=== PATIENT | female | born 1980 | race Caucasian/White ===

== ENCOUNTER 2019-07-15 17:34 | Emergency (ER) | payer MEDICARE, MEDICAID, SELFPAY ==
[2019-07-15 17:42] VITALS: BP 125/71; PULSE 88; RESP 18; TEMP 37.3; O2SAT 100
--- NOTE | 2019-07-15 18:02 | ED.GENADULT ---
HPI - General Adult General Chief complaint: Skin/Abscess/Foreign Body Stated complaint: knot on left side of chest Time Seen by Provider: 07/15/19 18:02 Source: patient and RN notes reviewed Mode of arrival: ambulatory Limitations: no limitations History of Present Illness HPI narrative: 38-year-old female presents with complaints of redness, warmth, tenderness, and swelling to LT side of back of neck for the past 30 days and LT upper chest for the past 4 days. No recent treatment. Denies radiation of tenderness, redness, or swelling. Exacerbating factors consist of Corina picking at areas. Denies open areas or drainage. Denies fever or chills. The patient reports they have not been diagnosed with COVID-19. The patient reports they are not waiting for the results of a COVID-19 lab test. The patient reports they do not have fever, chills, weakness, fatigue, myalgia, or facial swelling. The patient reports they do not have a new or worsening cough or shortness of breath. Denies chest pain. The patient reports they do not have any rhinorrhea, congestion, sore throat, nausea, vomiting, abdominal pain, and diarrhea. Tolerating po intake well. Denies recent traveling. Denies concerns for COVID-19 or exposures been home since [id number] order except for essential household needs and return home. At this time, patient is not suspected of having COVID-19. Some parts of this dictation were generated by voice recognition software and may contain typographical and/or grammatical inaccuracies. Related Data Home Medications Medication Instructions Recorded Confirmed alprazolam 1 mg PO TID 07/15/19 07/15/19 cetirizine 10 mg PO DAILY 07/15/19 07/15/19 dexlansoprazole [Dexilant] 60 mg PO DAILY 07/15/19 07/15/19 diclofenac sodium 1 % TOPICAL DIRECTED PRN 07/15/19 07/15/19 dicyclomine 20 mg PO Q2H 07/15/19 07/15/19 gabapentin 100 mg PO BID 07/15/19 07/15/19 hydroxyzine pamoate 25 mg PO TID 07/15/19 07/15/19 lurasidone [Latuda] 40 mg PO DAILY 07/15/19 07/15/19 oxycodone-acetaminophen 1 tablet PO Q6H 07/15/19 07/15/19 zolpidem 5 mg PO HS 07/15/19 07/15/19 Allergies Allergy/AdvReac Type Severity Reaction Status Date / Time vancomycin Allergy Intermediate Hives / Verified 07/15/19 17:58 Red Face erythromycin base Allergy Mild Hives / Verified 07/15/19 17:58 Red Face Review of Systems Review of Systems: Narrative: CONSTITUTIONAL: Denies fever, chills, sweats. EYES: Denies visual changes, redness, discharge. ENT: Denies rhinorrhea, congestion, sore throat, otalgia. CARDIOVASCULAR: Denies chest pain, palpitations, edema. RESPIRATORY: Denies dyspnea, wheezing, cough. GASTROINTESTINAL: Denies abdominal pain, nausea, vomiting, diarrhea. GENITOURINARY: Denies dysuria, hematuria, abnormal discharge. SKIN: Complains of redness, swelling, warmth, and tenderness to LT side of back of neck and LT upper chest. MUSCULOSKELETAL: Denies acute back pain, joint pain, or myalgia. NEUROLOGIC: Denies numbness or focal weakness. PSYCHIATRIC: Denies anxiety or depression. All systems reviewed & are unremarkable except as noted in HPI and below. [facility] Past Medical History Medical History (Updated 07/15/19 @ 18:17 by MUNIRA Gutierrez) Anxiety Colon cancer Diabetes Surgical History Surgical History (Updated 07/15/19 @ 18:13 by MUNIRA Gutierrez) History of colectomy History of kidney surgery Family History Family History (Updated 07/15/19 @ 18:14 by MUNIRA Gutierrez) Father Alive and well Mother Carcinoma of colon Grandparent Carcinoma of colon Sibling Carcinoma of colon Sibling Diabetes mellitus Social History Social History (Updated 07/15/19 @ 18:15 by MUNIRA Gutierrez) Smoking status: Never smoker Alcohol intake: never Substance use: never Living arrangements: with family Gender identity (if verbalized by the patient): Female Comments
== END 2019-07-15 18:20 | disposition home or self-care (01) ==
PROVIDERS: Emergency Provider Nurse Practitioner Family
DX: L03.221 Cellulitis of neck (principal); F41.9 Anxiety disorder, unspecified; Z85.038 Personal history of other malignant neoplasm of large intestine; E11.9 Type 2 diabetes mellitus without complications; Z90.49 Acquired absence of other specified parts of digestive tract
CPT/HCPCS: 99213; G0463

== ENCOUNTER 2020-02-22 12:05 | Emergency (ER) | payer MEDICARE, MEDICAID, SELFPAY ==
--- NOTE | 2020-02-22 12:20 | ED.GENADULT ---
HPI - General Adult General Chief complaint: Skin/Abscess/Foreign Body Stated complaint: poss spider bite Time Seen by Provider: 02/22/20 12:20 Source: patient Mode of arrival: ambulatory Limitations: no limitations History of Present Illness HPI narrative: 39-year-old female patient presents to the [facility] with complaints of a small wound to the right shoulder for the past 4 to 5 days. Patient states it has been draining some clear yellow drainage. Denies any fevers, body aches or chills. Patient does have history of type 1 diabetes. Patient states she has been cleaning with hydrogen peroxide putting Neosporin on it. Related Data Home Medications Medication Instructions Recorded Confirmed alprazolam 1 mg PO TID 07/15/19 07/15/19 cetirizine 10 mg PO DAILY 07/15/19 07/15/19 dexlansoprazole [Dexilant] 60 mg PO DAILY 07/15/19 07/15/19 diclofenac sodium 1 % TOPICAL DIRECTED PRN 07/15/19 07/15/19 dicyclomine 20 mg PO Q2H 07/15/19 07/15/19 gabapentin 100 mg PO BID 07/15/19 07/15/19 lurasidone [Latuda] 40 mg PO DAILY 07/15/19 07/15/19 oxycodone-acetaminophen 1 tablet PO Q6H 07/15/19 07/15/19 zolpidem 5 mg PO HS 07/15/19 07/15/19 Allergies Allergy/AdvReac Type Severity Reaction Status Date / Time vancomycin Allergy Intermediate Hives / Verified 07/15/19 17:58 Red Face erythromycin base Allergy Mild Hives / Verified 07/15/19 17:58 Red Face Review of Systems Review of Systems: Narrative: CONSTITUTIONAL: Denies fever, chills, or sweats. EYES: Denies visual changes, redness, or discharge. ENT: Denies rhinorrhea, congestion, sore throat, or otalgia. CARDIOVASCULAR: Denies chest pain, palpitations, or edema. RESPIRATORY: Denies cough or dyspnea. GASTROINTESTINAL: Denies abdominal pain, nausea, vomiting, or diarrhea. GENITOURINARY: Denies dysuria or hematuria. SKIN: Denies rash or itching. Positive wound to right shoulder x4 to 5 days MUSCULOSKELETAL: Denies back pain, joint pain, or myalgia. NEUROLOGIC: Denies headache, numbness, or weakness. PSYCHIATRIC: Denies anxiety or depression. [facility] Past Medical History Medical History (Updated 02/22/20 @ 12:38 by MUNIRA Daniel) Anxiety Colon cancer Diabetes Type 1 diabetes Surgical History Surgical History History of colectomy History of kidney surgery Family History Family History Father Alive and well Mother Carcinoma of colon Grandparent Carcinoma of colon Sibling Carcinoma of colon Sibling Diabetes mellitus Social History Social History Smoking status: Never smoker Alcohol intake: never Substance use: never Gender identity (if verbalized by the patient): Female Comments At the time of my signature I agree with nursing past medical history, surgical, social, and family history. There is no relevant family history pertinent to the presenting complaint. Exam Narrative: Exam Narrative: GENERAL: Well-appearing, well-nourished, and in no acute distress. HEAD: Normocephalic, atraumatic. EYES: PERRLA and EOMI. ENT: Nares clear, no rhinorrhea or epistaxis. Mucous membranes moist. NECK: Supple. No lymphadenopathy CHEST: Clear to auscultation. No respiratory distress. HEART: Regular rate and rhythm. No murmur heard. Normal peripheral pulses. ABDOMEN: Soft, nontender, nondistended, normal active bowel sounds. EXTREMITIES: Normal range of motion. No edema. SKIN: Warm, dry, no rash. Patient has a small scabbed area with an erythemic base measuring approximately 2.5 cm x 1.5 cm. There is no active discharge at this time and there is no raised located center. NEURO: No focal deficits. Alert and oriented x3. Course Vital Signs Vital signs: Vital signs reviewed. Medical Decision Making Differential Diagnosis Differential Diagnosis: Differ
[2020-02-22 12:35] VITALS: BP 112/63; PULSE 66; RESP 16; TEMP 36.8; O2SAT 100
== END 2020-02-22 12:56 | disposition home or self-care (01) ==
PROVIDERS: Emergency Provider Nurse Practitioner Family
DX: L03.113 Cellulitis of right upper limb (principal); E10.9 Type 1 diabetes mellitus without complications; F41.9 Anxiety disorder, unspecified; Z85.038 Personal history of other malignant neoplasm of large intestine
CPT/HCPCS: 99213; G0463

== ENCOUNTER 2024-07-27 10:13 | Emergency (ER) | payer MEDICARE, MEDICAID, SELFPAY ==
[2024-07-27 10:19] VITALS: BP 106/72; PULSE 81; RESP 20; TEMP 36.6; O2SAT 100
[2024-07-27 10:47] LABS: EDCOVIDSCREEN Negative (Negative); EDINFLUASCREEN Positive (Negative); EDINFLUBSCREEN Negative (Negative); EDSTREPNEGPOS1 Negative (Negative)
--- NOTE | 2024-07-27 10:48 | ED.URI ---
HPI - URI/Sore Throat General Chief Complaint: Upper Respiratory Infection Stated Complaint: Sore Throat,Headache,Congestion,Tired Time Seen by Provider: 07/27/24 10:44 Source: patient and RN notes reviewed Mode of arrival: ambulatory Limitations: no limitations History of Present Illness HPI Narrative: 43-year-old female presents concern for sore throat, vomiting, diarrhea, head congestion and fatigue that started yesterday. Reports she does got back from a cruise. Reports yesterday she felt like she had food stuck in her throat and she went to the ER, they evaluate her for that which had no findings. She said she feels like she has a lump in her throat. She denies fever, body aches, chills, sweats. MD elicited complaint: sore throat Related Data Home Medications ?Medication ?Instructions ?Recorded ?Confirmed ?Last Taken ?Type alprazolam 1 mg tablet 1 mg PO TID 07/15/19 07/15/19 Unknown History cetirizine 10 mg tablet 10 mg PO DAILY 07/15/19 07/15/19 Unknown History dexlansoprazole 60 mg 60 mg PO DAILY 07/15/19 07/15/19 Unknown History capsule,biphase delayed release (Dexilant) dicyclomine 20 mg tablet 20 mg PO Q2H 07/15/19 07/15/19 Unknown History gabapentin 100 mg capsule 100 mg PO BID 07/15/19 07/15/19 Unknown History diphenoxylate-atropine 2.5 tablet 07/27/24 Unknown History mg-0.025 mg tablet insulin aspart (niacinamide) 07/27/24 Unknown History (U-100) 100 unit/mL subcutaneous solution (Fiasp U-100 Insulin) insulin glargine 100 unit/mL (3 unit subcut 07/27/24 Unknown History mL) subcutaneous pen (Basaglar KwikPen U-100 Insulin) Allergies Allergy/AdvReac Type Severity Reaction Status Date / Time vancomycin Allergy Intermediate Hives / Verified 07/27/24 10:26 Red Face erythromycin base Allergy Mild Hives / Verified 07/27/24 10:26 Red Face Review of Systems Review of Systems: CONSTITUTIONAL: Reports fatigue, malaise. Denies chills, sweats, or fever. EYES: Denies visual changes, redness, or discharge. ENT: Reports congestion, sinus pain, and sore throat. CARDIOVASCULAR: Denies chest pain, palpitations, or edema. RESPIRATORY: Reports occasional cough. Denies dyspnea. GASTROINTESTINAL: Denies abdominal pain, vomiting, diarrhea. Reports nausea SKIN: Denies rash or itching. MUSCULOSKELETAL: Denies myalgia. NEUROLOGIC: Reports headache. All systems reviewed & are unremarkable except as noted in HPI and below PMFSH Past Medical History Medical History (Updated 07/27/24 @ 10:49 by Evelina Abreu NP) Type 1 diabetes Anxiety Colon cancer Diabetes Surgical History Surgical History History of colectomy History of kidney surgery Family History Family History Father Alive and well Mother Carcinoma of colon Grandparent Carcinoma of colon Sibling Carcinoma of colon Sibling Diabetes mellitus Social History Social History Smoking status: Never smoker Alcohol intake: never Substance use: never Living arrangements: with family Gender identity (if verbalized by the patient): Female Comments At time of signature, agree with nursing past medical, surgical, social and family history. There is no relevant family history pertinent to the presenting complaint Exam Narrative: GENERAL: Well-appearing, well-nourished, and in no acute distress. HEAD: Normocephalic EYES: PERRLA, conjunctivae clear ENT: Nares clear. Mucous membranes moist. TM pearly barney with sharp light reflex bilaterally; no tragal tenderness. Oropharynx not erythematous without lesions. Tonsils not enlarged and without exudate, no drooling, no hoarseness, no trismus, uvula midline. NECK: Supple. No lymphadenopathy CHEST: Clear to auscultation, breath sounds equal. No wheezing, rhonchi, rales, or stridor. No respiratory distress, speaks in full sentences. HEART: Regular rate and rhythm. No murmur heard. SKIN: Warm, dry, no rash. NEURO: Alert and oriented x3. PSYCH: Normal mood and affect Course Course Emergency Course: Patient is aware of diagnosis, understands and agrees to treatment plan. Anticipatory guidance given. Patient agrees to follow-up as directed and is aware of reasons to seek care at the emergency department. Portions of this record may have been created with voice recognition software Level of Care: Express Care Visit Vital Signs Vital signs: Vital Signs Temperature 97.8 F 07/27/24 10:19 Pulse Rate 81 07/27/24 10:19 Respiratory Rate 20 07/27/24 10:19 Blood Pressure 106/72 07/27/24 10:19 Pulse Oximetry 100 07/27/24 10:19 Oxygen Delivery Room Air 07/27/24 10:19 Temperature 97.8 F 07/27/24 10:19 Pulse Rate 81 07/27/24 10:19 Respiratory Rate 20 07/27/24 10:19 Blood Pressure 106/72 07/27/24 10:19 Pulse Oximetry 100 07/27/24 10:19 Oxygen Delivery Room Air 07/27/24 10:19 Reviewed. MDM - URI/Sore Throat MDM Narrative Medical decision making narrative: Differential diagnosis considered: Griffith virus, strep pharyngitis, allergic rhinitis, upper respiratory tract infection, sinusitis, rhinosinusitis, nasopharyngitis. viral pharyngitis, otitis media, otitis externa, pneumonia, bronchitis, viral cough syndrome, viral syndrome, and influenza. Exam findings show no acute concerns or changes; patient is non-toxic appearing and is in no distress. Patient is appropriate for outpatient treatment and follow-up. Lab Data Attestation: I reviewed the patient's lab results. Labs: Lab Results 07/27/24 Range/Units 10:28 POC Influenza A Ag Positive (Negative) POC Influenza B Ag Negative (Negative) POC SARS CoV-2 Ag Negative (Negative) POC Grp A Strep Screen Negative (Negative) Critical Care Time Critical Care Time Critical Care Time: No Discharge Plan Discharge Clinical Impression: Influenza A Patient Disposition: Home Condition: Stable Instructions: Influenza (ED) Additional Instructions: -Take strict precautions to prevent the spread of your virus. Be diligent about covering your cough (even when you are alone) and washing your hands frequently. -You may contagious until you have been symptom and/or fever free for 24 hours without fever reducing medicine -Alternate Ibuprofen and Tylenol for pain and fever relief (per package directions) -pseudoephedrine for package directions for sinus pressure -Drink plenty of fluid - drink fluid with electrolytes such as Gatorade or other oral re-hydration solution. Avoid caffeine, which can make dehydration worse. -Get plenty of rest to help your body heal. -Use a cool mist humidifier for chest and nasal congestion. -Eat RAW honey or use cough drops to ease throat discomfort -Do not smoke or expose children to secondhand smoke -Wash your hands frequently. -Please follow-up with your primary care doctor in the next 1-2 days if your symptoms do not improve. -If you have any worsening of symptoms or any other concerns please go to the ED immediately. -Please take medications as prescribed and continue taking your home medications as usual. Patient Language: Hong Konger Prescriptions: New oseltamivir 75 mg capsule 75 mg PO BID 5 Days Qty: 10 0RF No Action cetirizine 10 mg tablet 10 mg PO DAILY alprazolam 1 mg tablet 1 mg PO TID dicyclomine 20 mg tablet 20 mg PO Q2H gabapentin 100 mg capsule 100 mg PO BID Dexilant 60 mg capsule,biphase delayed releas 60 mg PO DAILY diphenoxylate-atropine 2.5-0.025 mg tablet insulin glargine [Basaglar KwikPen U-100 Insulin] 100 unit/mL (3 mL) insulin pen SUBCUT Fiasp U-100 Insulin 100 unit/mL solution Follow-up/Referrals: PHYSICIAN NOT ON STAFF,NONSTAFF [Primary Care Provider] -
--- OUTSIDE RECORDS SUMMARY | 2024-07-27 11:21 | XMS_ITS | CONTINUITY OF CARE DOCUMENT ---
Author Name karena thurston Address Unknown Organization [facility] Address [address] [facility] [address] [place] [address] Phone [phone] Care Team Providers Care Flap Maker Name Role Phone Darrel Fish DO Unavailable [phone] LISA LUNA DO Unavailable [phone] LISA LUNA DO Unavailable [phone] PROBLEMS Condition Status Date Provider Notes Chest pain-type to be determined active Sher Fish DO Palpitations active Darrel Ascencio O ENCOUNTERS Date Type Provider Location Encounter Diag nosis - In-person encounter Office Visit Darrel Conner Office Chest pain-type to be determinedPalpitations VITAL SIGNS Date Observation Value Provider Body Mass Index (Ratio) 29.23 kg/m2 Donovan Burnham blood pressure, diastolic, left arm 66 mm [Hg] Giulia Burnham blood pressure, systolic, left arm 104 mm [Hg] Akashmirella Burnham blood pressure, diastolic, right arm 62 m m[Hg] Giulia Burnham blood pressure, systolic, right arm 96 mm [Hg] Giulia Burnham blood pressure, diastolic 66 mm[Hg] Akash mirella Burnham blood pressure, systolic 104 mm[Hg] Daisha Burnham pulse rate 93 /min Giulia Burnham oxygen saturation, oximetry 98 % Giulia Burnham respiratory rate E&M 16 /min Giulia Hernadezdney weight E&M 165 [lb_av] Giulia Tej height E&M 63 [in_i] Giulia Burnham ALLERGIES Allergy Name Onset Date Reaction Criticality Status ERYTHROMYCIN Low Criticality active HISTORY OF MEDICATION USE Medication Status Instructions Dates Provider Indications Com ments OPIUM 10 MG/ML (1%) ORAL TINCTURE active four times daily Lisa Sharma GUAIATUSSIN AC 100-10 MG/5ML ORAL SYRUP active 10 ml every four hours Lisa Sharma ATIVAN 0.5 MG ORAL TABLET active 1 three times daily Lisa Sharma NORCO 5-325 MG ORAL TABLET active 2 tabs every four hours Lisa Sharma PREVACID 30 MG ORAL CAPSULE DELAYED RELEASE active 2 daily Lisa Sharma ZANTAC 300 MG ORAL TABLET active 1 daily Lisa Sharma ZOFRAN 4 MG ORAL TABLET active as needed Lisa Sharma BENTYL 20 MG ORAL TABLET active 1 four times daily Lisa Sharma LOPERAMIDE HCL 2 MG ORAL CAPSULE active 2 tabs four times daily Lisa Sharma LOMOTIL 2.5-0.025 MG ORAL TABLET active 2 four times daily Lisa Sharma TIZANIDINE HCL 2 MG ORAL CAPSULE active 1 daily Lisa Sharma DEXILANT 60 MG ORAL CAPSULE DELAYED RELEASE active 1 daily Lisa Sharma LYRICA 75 MG ORAL CAPSULE active 1 twice daily Lisa Sharma VIIBRYD 20 MG ORAL TABLET active 1 daily Lisa Sharma CYMBALTA 60 MG ORAL CAPSULE DELAYED RELEASE PARTICLES active 1 daily Lias Sharma TRAZODONE HCL 50 MG ORAL TABLET active 1 daily Lisa Sharma LATUDA 40 MG ORAL TABLET active 1 daily Lisa Sharma SOCIAL HISTORY Date Observation Value Provider smoking status Never smoker Giulia Santiago y FAMILY HISTORY Family Member Condition Mother Negative FH of Coron deyanira Artery Disease Maternal Grandfather Family History of C oronary Artery Disease: INSURANCE PROVIDERS Payer name Policy type / Coverage type Wilfredo red green party [place] [id number] [place] [id number] TREATMENT PLAN Date Name Performer new pt - needs [facility]:I will check a stress test and an echocardiogram. Darrel Fish DO new pt - needs [facility]:I will place her on a alarm security or surveillance monitor. Her ECG today demonstrates NSR. H er updated medication list for this problem includes: Ativan 0.5 Mg Tabs (Lorazepam) ..... 1 three times daily Darrel Fish DO HISTORY OF PROCEDURES Procedure Date Procedure Name Provider Procedure Notes S tatus EKG Darrel Fish DO completed
--- OUTSIDE RECORDS SUMMARY | 2024-07-27 11:22 | XMS_ITS | Encounter Summary ---
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
--- OUTSIDE RECORDS SUMMARY | 2024-07-27 11:22 | XMS_ITS | Referral Summary ---
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 of anastomotic stricture. CRS consulting and agrees with conservative treatment with no further surgical recs Limit opiates as much as possible with history of gastroparesis Assessment & Plan (10/23/2018 10:59 AM CDT): The pt has chronic abdominal pain that has required many ED visits and admissions in the past. 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 Her current pain is worse than baseline, but CT scan today is unchanged, showing only chronic dilation of the colon. She has been seen by Colorectal Surgery who will follow along. She did have a recent (August 2018) Pouchoscopy per Dr. Danielson which did not show any evidence of anastomotic stricture. CRS consulting and agrees with conservative treatment with no further surgical recs Limit opiates as much as possible with history of gastroparesis Assessment & Plan (10/22/2018 10:26 AM CDT): The pt has chronic abdominal pain that has required many ED visits and admissions in the past. 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 Her current pain is worse than baseline, but CT scan today is unchanged, showing only chronic dilation of the colon. She has been seen by Colorectal Surgery who will follow along. She did have a recent (August 2018) Pouchoscopy per Dr. Danielson which did not show any evidence of anastomotic stricture. CRS consulting and agrees with conservative treatment with no further surgical recs Limit opiates as much as possible with history of gastroparesis Chronic abdominal pain 10/22/2018 Atherosclerosis of [place] teries of extremity with intermittent claudication 10/21/2018 History of colon cancer 08/25/2018 Overview (08/25/2018): Added automatically from request for surgery [id number] Nausea and vomiting 06/13/2018 FAP (familial adenomatous polyposis) 01/27/2018 Overview (01/27/2018): Added automatically from request for surgery [id number] Assessment & Plan (11/01/2021 9:57 AM CDT): Pt is s/p bowel resection. Had recent pouchoscopy and EGD with multiple polyps removed. Will f/u with GI as scheduled for surveillance. (most recently on 10/06 had endoscopy with stable appearance.) Assessment & Plan (10/31/2021 11:11 AM CDT): Pt is s/p bowel resection. Had recent pouchoscopy and EGD with multiple polyps removed. Will f/u with GI as scheduled for surveillance. (most recently on 10/06 had endoscopy with stable appearance.) Assessment & Plan (10/30/2021 9:06 AM CDT): Pt is s/p bowel resection. Had recent pouchoscopy and EGD with multiple polyps removed. Will f/u with GI as scheduled for surveillance. (most recently on 10/06 had endoscopy with stable appearance.) Assessment & Plan (10/29/2021 10:46 AM CDT): Pt is s/p bowel resection. Had recent pouchoscopy and EGD with multiple polyps removed. Will f/u with GI as scheduled for surveillance. (most recently on 10/06) Assessment & Plan (10/28/2021 10:44 AM CDT): Pt is s/p bowel resection. Had recent pouchoscopy and EGD with multiple polyps removed. Will f/u with GI as scheduled for surveillance. (most recently on 10/06) Assessment & Plan (10/27/2021 1:14 PM CDT): Pt is s/p bowel resection. Had recent pouchoscopy and EGD with multiple polyps removed. Will f/u with GI as scheduled for surveillance. (most recently on 10/06) Assessment & Plan (10/24/2021 11:58 PM CDT): Pt is s/p bowel resection. Had recent pouchoscopy and EGD with multiple polyps removed. Will f/u with GI as scheduled for surveillance. Assessment & Plan (10/24/2018 9:28 AM CDT): Pt follow for surveillance in GI clinic. Will f/u as scheduled. Assessment & Plan (10/23/2018 10:55 AM CDT): Pt follow for surveillance in GI clinic. Will f/u as scheduled. Assessment & Plan (10/22/2018 12:21 AM CDT): Pt follow for surveillance in GI clinic. Will f/u as scheduled. Bulimia nervosa 09/19/2017 Gastroparesis 01/02/2017 Assessment & Plan (10/24/2018 9:29 AM CDT): This is thought to be the cause of the patient's chronic nausea/vomiting. She follows in GI clinic who has recommended a gastroparesis diet and avoidance of opioid pain medications. Feels better tolerating advanced diet, continue to advance to solid for lunch Loose stools improved with diet advanced Follow up with GI/CRS as scheduled Assessment & Plan (10/23/2018 10:59 AM CDT): This is thought to be the cause of the patient's chronic nausea/vomiting. She follows in GI clinic who has recommended a gastroparesis diet and avoidance of opioid pain medications. Had 12 loose BM over yesterday with advancing diet to clear liquids Pain described as about the same. NO vomiting with minimal use of antiemetics Continue to advance diet slowly Check stool studies with increased frequency of stools Assessment & Plan (10/22/2018 10:24 AM CDT): This is thought to be the cause of the patient's chronic nausea/vomiting. She follows in GI clinic who has recommended a gastroparesis diet and avoidance of opioid pain medications. Allergic to multiple antiemetics but can take zofran with benadryl Continue bentyl Q6 hrs [employer] consult to reinforce low volume frequent meals Psychiatric disorder 11/13/2016 Overview (01/19/2021): Office Visit 04/04/16 Dr. Elijah Tomsa Assessment & Plan (11/01/2021 9:57 AM CDT): Pt follows with psychiatry for bipolar disorder, insomnia, anxiety/depression. Had previously been on lamictal, buspar, fluoxetine, but pt reports she has been off of these and refused when prescribed. Updated med list, pt now taking buspar PRN and xanax - significant anxiety component to pain and nausea symptoms has been following with pcp and would benefit from psych referral on discharge. Assessment & Plan (10/31/2021 11:12 AM CDT): Pt follows with psychiatry for bipolar disorder, insomnia, anxiety/depression. Had previously been on lamictal, buspar, fluoxetine, but pt reports she has been off of these and refused when prescribed. Updated med list, pt now taking buspar PRN and xanax - significant anxiety component to pain and nausea symptoms has been following with pcp and would benefit from psych referral on discharge. Assessment & Plan (10/30/2021 9:08 AM CDT): Pt follows with psychiatry for bipolar disorder, insomnia, anxiety/depression. Had previously been on lamictal, buspar, fluoxetine, but pt reports she has been off of these and refused when prescribed. Updated med list, pt now taking buspar PRN (even though I discussed this medications not best utilized prn) and xanax - significant anxiety component to pain and nausea symptoms has been following with pcp and would benefit from psych referral on discharge. Assessment & Plan (10/29/2021 10:46 AM CDT): Pt follows with psychiatry for bipolar disorder, insomnia, anxiety/depression. Continues on Lamictal p.o. 200 mg q.day, BuSpar to p.o. 15 mg t.i.d, Alprazolam p.o. 1 mg t.i.d. p.r.n. for anxiety, and Ambien p.o. 5-10 mg q.h.s. p.r.n. for insomnia Assessment & Plan (10/28/2021 10:45 AM CDT): Pt follows with psychiatry for bipolar disorder, insomnia, anxiety/depression. Continues on Lamictal p.o. 200 mg q.day, BuSpar to p.o. 15 mg t.i.d, Alprazolam p.o. 1 mg t.i.d. p.r.n. for anxiety, and Ambien p.o. 5-10 mg q.h.s. p.r.n. for insomnia Assessment & Plan (10/27/2021 1:14 PM CDT): Pt follows with psychiatry for bipolar disorder, insomnia, anxiety/depression. Continues on Lamictal p.o. 200 mg q.day, BuSpar to p.o. 15 mg t.i.d, Alprazolam p.o. 1 mg t.i.d. p.r.n. for anxiety, and Ambien p.o. 5-10 mg q.h.s. p.r.n. for insomnia Assessment & Plan (10/25/2021 12:00 AM CDT): Pt follows with psychiatry for bipolar disorder, insomnia, anxiety/depression. Continues on Lamictal p.o. 200 mg q.day, BuSpar to p.o. 15 mg t.i.d, Alprazolam p.o. 1 mg t.i.d. p.r.n. for anxiety, and Ambien p.o. 5-10 mg q.h.s. p.r.n. for insomnia Bipolar I disorder, most recent episode depresse d, mild 08/01/2016 Assessment & Plan (08/11/2019 9:36 AM CDT): Continue home meds including latuda. Mood is stabe Assessment & Plan (08/10/2019 9:22 AM CDT): Continue home meds including latuda. Mood is stabe Assessment & Plan (08/09/2019 10:43 AM CDT): Continue home meds including latuda. Mood is stabe Panic disorder without agoraphobia 08/01/2016 Diarrhea 06/13/2016 Intestinal obstruction 09/14/2015 Assessment & Plan (08/11/2019 9:38 AM CDT): Pouchoscopy yesterday shows no ileoanal stricture Diet advanced and tolerating well DC home to follow up with CRS as scheduled Offered to set up outpatient pelvic floor therapy as recommended by CRS but patient refused. Assessment & Plan (08/10/2019 9:23 AM CDT): Admission CT scan shows dilated small bowel similar, but worse in appearance since her last CT in 11/2018. GI consulted for possible pouchoscopy today given findings of worsened ileoanal anastomotic stricture and PSBO No vomiting and tolerating small amounts of clear liquids but still has post prandial pain and nausea without vomiting -await recs from GI Assessment & Plan (08/09/2019 10:44 AM CDT): Admission CT scan shows dilated small bowel similar, but worse in appearance since her last CT in 11/2018. This is thought to represent at least partial small bowel obstruction related to a stenosis at her ileoanal anastomosis vs a functional pseudo-obstruction type picture. Consider GI consult for possible pouchoscopy and dilation if does not tolerate trial of liquids today. Will manage conservatively with bowel rest, IVFs, antiemetics. Colorectal surgery has seen the patient and feels surgical management is not needed at this time. Patient reports her symptoms usual improve spontaneously in a few days, and she can often manage the symptoms at home without hospital admission. 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 11/11/2013 Overview (07/10/2018): ENDO (MONA) MANAGING -- ON LYRICA Pelvic pain in female 11/11/2013 Overview (07/10/2018): FIELD TRAFFIC INVESTIGATOR (CASSANDRA) MANAGING -- ON GABAPENTIN Gastro-esophageal reflux disease without esophag itis 11/11/2013 Overview (10/21/2018): GI (LUI) MANAGING -- ON PPI, ZANTAC, ZOFRAN Generalized anxiety disorder 11/11/2013 Overview (07/10/2018): 11/01 sertraline 50 mg started Abdominal mass 11/11/2013 Overview (01/19/2021): GI (LUI) MANAGING 10/01 EGD 11/01 HAS UPCOMING APPT W/ GI SPECIALIST GI (LUI) MANAGING 8/ EGD 11/01 HAS UPCOMING APPT W/ GI SPECIALIST Familial multiple polyposis syndrome 11/11/2013 Overview (01/19/2021): GI (LUI) OV GI (LUI) OV Added automatically from request for surgery [id number] Last Assessment & Plan: Pt follow for surveillance in GI clinic. Will f/u as scheduled. Gastro-esophageal reflux disease without esophag itis 11/11/2013 Overview (01/19/2021): GI (LUI) MANAGING -- ON PPI, ZANTAC, ZOFRAN GI (LUI) MANAGING -- ON PPI, ZANTAC, ZOFRAN GI (LUI) MANAGING -- ON PPI, ZANTAC, ZOFRAN Generalized anxiety disorder 11/11/2013 Overview (01/19/2021): 11/01 sertraline 50 mg started 11/01 sertraline 50 mg started 11/01 sertraline 50 mg started Pelvic pain in female 11/11/2013 Overview (01/19/2021): FIELD TRAFFIC INVESTIGATOR (CASSANDRA) MANAGING -- ON GABAPENTIN FIELD TRAFFIC INVESTIGATOR (CASSANDRA) MANAGING -- ON GABAPENTIN FIELD TRAFFIC INVESTIGATOR (CASSANDRA) MANAGING -- ON GABAPENTIN Personal history of colon cancer 11/11/2013 Overview (01/19/2021): COLORECTAL SURG(SUSAN) MANAGING 1996 S/P TOTAL COLECTOMY Benign neoplasm of colon 11/09/2013 Overview (10/21/2018): Colon cancer Type 1 diabetes mellitus with hyperglycemia 10/20 Assessment & Plan (01/08/2024 8:31 AM ECONOMICS DEPARTMENT CHAIR): FU for DFE and mac oct 1 year Assessment & Plan (10/30/2023 3:32 PM CDT): 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 Discussed importance of strict blood glucose control to reduce risk of ocular disease and vision loss. Monitor with annual DFE or sooner if changes to vision occur. Assessment & Plan (12/14/2022 12:59 PM CDT): -Currently using Omnipod 5 and Dexcom -A1C was 7.6% on 12/12/22 -Dexcom download indicates variable pattern. She has had some site issues resulting in severe hyperglycemia. Discussed importance of changing site, giving correction by syringe, if that happens again. Will adjust pump settings: Active insulin time: 4-->3 hours, max bolus: 5-->10, ICR 15--->12, Correction factor from 60-->50. Will follow with her response. Will contact pt on Saturday (12/17/22). Advised to call the after hours endo configuration management advisor if she has issues over the weekend. -Discussed diet and activity modifications. -Advised to call with any concerns/complaints regarding glucose readings -Eye exam is up to date Assessment & Plan (10/19/2022 10:48 AM CDT): -Currently using Omnipod 5 and Dexcom -Dexcom download indicates variable glucose pattern, complicated by gastroparesis, FAP. Her dietary intake is variable. She tries to enter a conservative amount of carbs at mealtime, and will add more carbs as she consumes more of her meal. She states correction doses take a long time to lower blood sugar. Will adjust sensitivity from 60--->55 and follow with her response. She is very fearful of hypoglycemia, so adjustments will be made slowly -Discussed diet and activity modifications. -Advised to call with any concerns/complaints regarding glucose readings -Eye exam is up to date Assessment & Plan (11/01/2021 9:57 AM CDT): Pt consents to use her own insulin pump while inpatient. - BG stable Assessment & Plan (10/31/2021 11:11 AM CDT): Pt consents to use her own insulin pump while inpatient. - BG stable Assessment & Plan (10/30/2021 9:06 AM CDT): Pt consents to use her own insulin pump while inpatient. - did require D5 during admission due to poor intake/hypoglycemia, is eating better now and IVF held today Assessment & Plan (10/29/2021 10:45 AM CDT): Pt consents to use her own insulin pump while inpatient. - did have to switch to d5 fluid given continued hypoglycemic while having poor intake, sugars better controlled now Assessment & Plan (10/28/2021 10:44 AM CDT): Pt consents to use her own insulin pump while inpatient. - did have to switch to d5 fluid given continued hypoglycemic while having poor intake, sugars better controlled now Assessment & Plan (10/27/2021 1:14 PM CDT): Pt consents to use her own insulin pump while inpatient. - did have to switch to d5 fluid given continued hypoglycemic while having poor intake, sugars better controlled now Assessment & Plan (10/24/2021 11:57 PM CDT): Pt consents to use her own insulin pump while inpatient. Assessment & Plan (08/11/2019 9:36 AM CDT): The pt uses an insulin pump (basal 48 units/day), but is known to have brittle disease. Blood sugar was in the 60s upon admission, and the pt suspended the pump temporarily. She has been started in D5. Will continue to monitor blood glucose. The pt will self-manage her insulin pump. Last admisssion, her rate had to be lowered due to poor intake and hypoglycemia. Note basal rate is 2 units/hr until 9pm, then 1.5 units/hr overnight. No further hypoglycemia BG 265-105 BG controlled DC home on home insulin pump settings to follow up with endocrine Assessment & Plan (08/10/2019 9:22 AM CDT): The pt uses an insulin pump (basal 48 units/day), but is known to have brittle disease. Blood sugar was in the 60s upon admission, and the pt suspended the pump temporarily. She has been started in D5. Will continue to monitor blood glucose. The pt will self-manage her insulin pump. Last admisssion, her rate had to be lowered due to poor intake and hypoglycemia. Note basal rate is 2 units/hr until 9pm, then 1.5 units/hr overnight. No further hypoglycemia BG 265-105 -NPO now awaiting GI recommendations for possible pouchoscopy -monitor BG closely while NPO -Insulin pump remains on per patient policy Assessment & Plan (08/09/2019 10:42 AM CDT): The pt uses an insulin pump (basal 48 units/day), but is known to have brittle disease. Blood sugar was in the 60s upon admission, and the pt suspended the pump temporarily. She has been started in D5. Will continue to monitor blood glucose. The pt will self-manage her insulin pump. Last admisssion, her rate had to be lowered due to poor intake and hypoglycemia. Note basal rate is 2 units/hr until 9pm, then 1.5 units/hr overnight. Stop D5NS today and trial clears. Assessment & Plan (10/24/2018 9:28 AM CDT): BG much better controlled with current settings Patient very comfortable with adjusting her pump settings Will follow up with endocrinology as scheduled Assessment & Plan (10/23/2018 10:55 AM CDT): Pt is on an insulin pump. Continues to have both hypoglycemia and hypoglycemia with basal pump settings reduced Nursing noting non compliance with documenting bolus insulin during hyperglycemia Endocrine consulted and following Will continue current reduced basal settings with SSI per DM educator to see today Assessment & Plan (10/22/2018 10:22 AM CDT): Pt is on an insulin pump. Per notes, 48 units/day basal (3.2 units/hr from 7a-9p and 1.9 units/hr from 9p-7a) with carb ratio 15:1. Will continued insulin pump. Hypoglycemia and hyperglycemia over night low 57 -248 AG closed Patient with nausea but no vomiting this am Insulin pump continued at home settings Endocrine consult today Familial multiple polyposis syndrome 04/23/2012 Genetic predisposition to disease 11/22/2011 Resolved Problems Problem Noted Date Diagnosed Date Resolved Date Cough 10/28/2021 11/01/2021 Assessment & Plan (11/01/2021 9:58 AM CDT): Pt with new headache, cough. Respiratory pathogen panel and CXR unremarkable. Resolved. Assessment & Plan (10/31/2021 11:14 AM CDT): Pt with new headache, cough. Respiratory pathogen panel and CXR unremarkable. Resolved. Assessment & Plan (10/30/2021 9:08 AM CDT): Pt with new headache, cough. RVP and CXR unremarkable. RESOLVED Assessment & Plan (10/29/2021 10:46 AM CDT): Pt with new headache, cough. RVP and CXR unremarkable, unlikely pna based on exam and was just on ceftriaxone. Feeling better today Assessment & Plan (10/28/2021 10:45 AM CDT): Pt with new headache, cough. Will order RVP and CXR, unlikely pna based on exam and was just on ceftriaxone UTI (urinary tract infection) 10/25/2021 11/01/2021 Assessment & Plan (11/01/2021 9:58 AM CDT): E coli postiive on UA with symptoms of dysuria, RESOLVED s/p 3 day ceftriaxone Assessment & Plan (10/31/2021 11:13 AM CDT): E coli postiive on UA with symptoms of dysuria, RESOLVED s/p 3 day ceftriaxone Assessment & Plan (10/30/2021 9:06 AM CDT): E coli postiive on UA with symptoms of dysuria, will cont ceftriaonxe for uncomplicated UTI for 3 days - RESOLVED s/p 3 day ceftriaxone Assessment & Plan (10/29/2021 10:45 AM CDT): E coli postiive on UA with symptoms of dysuria, will cont ceftriaonxe for uncomplicated UTI for 3 days - RESOLVED s/p 3 day ceftriaxone Assessment & Plan (10/28/2021 10:44 AM CDT): E coli postiive on UA with symptoms of dysuria, will cont ceftriaonxe for uncomplicated UTI for 3 days - RESOLVED s/p 3 day ceftriaxone Assessment & Plan (10/27/2021 1:14 PM CDT): E coli postiive on UA with symptoms of dysuria, will cont ceftriaonxe for uncomplicated UTI for 3 days - RESOLVED s/p 3 day ceftriaxone Assessment & Plan (10/26/2021 9:47 AM CDT): E coli postiive on UA with symptoms of dysuria, will cont ceftriaonxe for uncomplicated UTI for 3 days Electrolyte disturbance 10/25/202110/19 Assessment & Plan (11/01/2021 9:58 AM CDT): The patient had hyponatremia and hyperkalemia at the time of presentation. Now resolved. NAGMA from GI losses now resolved. Assessment & Plan (10/31/2021 11:13 AM CDT): The patient had hyponatremia and hyperkalemia at the time of presentation. Now resolved. NAGMA from GI losses now resolved. Assessment & Plan (10/30/2021 9:06 AM CDT): The patient had hyponatremia and hyperkalemia at the time of presentation. NAGMA from GI losses now resolved - improving Assessment & Plan (10/29/2021 10:45 AM CDT): The patient had hyponatremia and hyperkalemia at the time of presentation. NAGMA from GI losses now resolved - replete K Assessment & Plan (10/28/2021 10:44 AM CDT): The patient had hyponatremia and hyperkalemia at the time of presentation. NAGMA from GI losses now resolved - improved Assessment & Plan (10/27/2021 1:14 PM CDT): The patient had hyponatremia and hyperkalemia at the time of presentation. NAGMA from GI losses now resolved - replaced K today Assessment & Plan (10/26/2021 9:46 AM CDT): The patient had hyponatremia and hyperkalemia at the time of presentation. Ongoing NAGMA from GI losses which is improving, hyponatremia and hyperK have improved with IVF Edema 10/21/2018 10/22/2018 Small bowel stricture 08/12/20182018 Overview (08/12/2018): Added automatically from request for surgery [id number] Leukocytosis 06/13/2018 10/22/2018 Abdominal pain, epigastric 06/11/2017 0 10/22/2018 SBO (small bowel obstruction) 08/29/2016 10/22/2018 Ileal pouchitis 07/12/2015 10/22/2018 Cervical radiculopathy 06/18/201410/22 Menorrhagia 02/05/2014 10/22/2018 Overview (07/10/2018): Overview: Started with a normal period about a month ago Pouchitis 12/13/2013 09/08/2018 Adenoma of stomach 11/26/2013 9 Familial multiple polyposis syndrome 11/11/2013 09/08/2018 Overview (07/10/2018): GI ([place]) OV Type 1 diabetes mellitus 11/09/2013 Overview (01/19/2021): ENDO (MONA) MANAGING ENDO (MONA) MANAGING Diabetes Last Assessment & Plan: The pt uses an insulin pump (basal 48 units/day), but is known to have brittle disease. Blood sugar was in the 60s upon admission, and the pt suspended the pump temporarily. She has been started in D5. Will continue to monitor blood glucose. The pt will self-manage her insulin pump. Last admisssion, her rate had to be lowered due to poor intake and hypoglycemia. Note basal rate is 2 units/hr until 9pm, then 1.5 units/hr overnight. No further hypoglycemia BG 265-105 BG controlled DC home on home insulin pump settings to follow up with endocrine Overweight 04/04/2012 03/11/2023 Immunizations Immunization Administration Dates Next Due Flucelvax Influenza Quad 04/12/2019 Hep B Vaccine 12/02/2001 Hep B, Unspecified 07/29/1998,12/06/1997 Influenza, Quadrivalent, Sally l Culture-based MDCK, Preservative Free, Antibiotic Free, Intramuscular 04/12/2019 Influenza, Quadrivalent, Spl it, Preservative Free, Intramuscular 01/29/2022,12/14/2019,12/17/2017 Influenza, Trivalent, Cell Culture-based MDCK, Preservative Free, Antibiotic Free, Intramuscular 04/12/2019 Influenza, Trivalent, IM (MDV) 7,01/31/2015,11/01/2014,10/11,12/02/2012 Influenza, Trivalent, Preser vative Free, Intramuscular 11/26/2013 Influenza, Unspecified 12/04/2016,2014,11/26/2013,12/06 Pneumococcal Polysaccharide PPV23 10/13/2013,02/2013 Td, adsorbed 06/20/2007,07/29/1998 Tdap 10/13/2013,09/18/2013 Social History Tobacco Use Types Packs/Day Years Used Date Smoking Tobacco: Never Smokeless Tobacco: Never Tobacco Cessation:Counseling Given: Not Answered Alcohol Use Standard Drinks/Week Comments No 0 (1 standard drink = 0.6 oz pur e alcohol) Humiliation, Afraid, Rape, and Kick questionnair e Answer Date Recorded Within the last year, have y ou been afraid of your partner or ex-partner? No 12/15/2019 Within the last year, have y ou been humiliated or emotionally abused in other ways by your partner or ex-partner? No Within the last year, have y ou been kicked, hit, slapped, or otherwise physically hurt by your partner or ex-partner? No 12/15/2019 Within the last year, have y ou been raped or forced to have any kind of sexual activity by your partner or ex-partner? No 12/15/2019 Social Connection and Isolat ion Panel [NHANES] Answer Date Recorded In a typical week, how many times do you talk on the phone with family, friends, or neighbors? More than three times a week 12/15/2019 How often do you get togethe r with friends or relatives? More than three times a week 12/15/2019 How often do you attend [facility] or mormon services? Never 12/15/2019 Active Member of Clubs or Organizations Not on f ile 12/15/2019 Attends Club or Organization Meetings Not on dhara e 12/15/2019 Are you , , di vorced, , never , or living with a partner? Living with partner 12/15/2019 AUDIT-C Answer Date Recorded Q1: How often do you have a drink containing alcohol? Never 06/04/2024 Q2: How many drinks containi ng alcohol do you have on a typical day when you are drinking? Patient does not drink Q3: How often do you have si x or more drinks on one occasion? Never 06/04/2024 Overall Financial Resource Strain (CARDIA) Answe r Date Recorded How hard is it for you to pa y for the very basics like food, housing, medical care, and heating? Not hard at all 12/15/2019 Hunger Vital Sign Answer Date Recorded Within the past 12 months, y ou worried that your food would run out before you got the money to buy more. Never true 12/15/19 20 Within the past 12 months, t he food you bought just didn't last and you didn't have money to get more. Never true 12/15/2019 PRAPARE - Transportation Answer Date Re corded In the past 12 months, has l ack of transportation kept you from medical appointments or from getting medications? No 11/19 In the past 12 months, has l ack of transportation kept you from meetings, work, or from getting things needed for daily living? No 12/15/2019 Personal Safety Answer Date Recorded Have you ever been in or are you currently in a harmful physical or emotional relationship or is someone making you feel afraid or unsafe? 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 Gender Identity Not on file Sexual Orientation Not on file Last Filed Vital Signs Vital Sign Reading Time Taken Comments Blood Pressure 174/82 07/26/2024 9:13 PM CDT Pulse 87 07/26/2024 9:13 PM CDT Temperature 36.1 C (97 F) 07/26/2024 9:13 PM CDT Respiratory Rate 18 07/26/2024 9:13 PM CDT Oxygen Saturation 99% 07/26/2024 9:13 PM CDT Inhaled Oxygen Concentration - - Weight 67.1 kg (148 lb) 07/26/2024 9:13 PM CDT Height 167.6 cm (5' 6) 07/26/2024 9:13 PM CDT Body Mass Index 23.89 07/26/2024 9:13 PM CDT Plan of Treatment Not on file Procedures Procedure Name Priority Date/Time Associated Diagnosis Comments CT SOFT TISSUE NECK W CONTRAST ED 0 07/26/2024 10:46 PM CDT HCG, URINE, QUALITATIVE STAT 07/27/19 10:29 PM CDT EGFR STAT 07/26/2024 10:03 PM CDT DIFFERENTIAL AUTO STAT 07/26/2024 10:03 PM CDT MAGNESIUM STAT 07/26/2024 10:03 PM CDT BASIC METABOLIC PANEL STAT 07/26/2024 10:03 PM CDT CBC WITH AUTO DIFFERENTIAL STAT 07/26 10:03 PM CDT MEASLES/MUMPS/RUBELLA IMMUNITY Routine 0 06/10/2024 2:39 PM CDT Type 1 diabetes mellitus with hyperglycemia (HCC) POCT GLUCOSE DEVICE Routine 06/04/2024 8:03 AM CDT SURGICAL PATHOLOGY Routine 06/04/2024 7:19 AM CDT FAP (familial adenomatous polyposis) Ampullary adenoma ENDO ADD ON POUCHOSCOPY BIOPSY 0 06/04/2024 7:02 AM CDT FAP (familial adenomatous polyposis) Ampullary adenoma ENDO POUCHOSCOPY REMOVAL TIS WISAM VIA SNARE 06/04/2024 7:02 AM CDT FAP (familial adenomatous polyposis) Ampullary adenoma ESOPHAGOGASTRODUODENOSCOPY BIOPSY 06/04/2024 7:02 AM CDT FAP (familial adenomatous polyposis) Ampullary adenoma POCT GLUCOSE DEVICE Routine 06/04/2024 6:47 AM CDT POUCHOSCOPY 06/04/2024 6:46 AM CDT EGD 06/04/2024 6:46 AM CDT POCT HCG, URINE Routine 06/04/2024 EGFR Routine 05/29/2024 11:29 AM CDT Type 1 diabetes mellitus with diabetic polyneuropathy (HCC) VITAMIN D 25 HYDROXY Routine 05/29/2024 11:29 AM CDT Vitamin D deficiency VITAMIN B12 Routine 05/29/2024 11:29 AM CDT Vitamin B12 deficiency COMPREHENSIVE METABOLIC PANEL Routine 11:29 AM CDT Type 1 diabetes mellitus with diabetic polyneuropathy (HCC) POCT HEMOGLOBIN A1C Routine 05/29/2024 10:46 AM CDT Type 1 diabetes mellitus with diabetic polyneuropathy (HCC) POCT GLUCOSE 65587 Routine 05/29/2024 10:45 AM CDT Type 1 diabetes mellitus with diabetic polyneuropathy (HCC) LIPID PANEL Routine 02/27/2024 3:24 PM ECONOMICS DEPARTMENT CHAIR Type 1 diabetes mellitus with hyperglycemia (HCC) ALBUMIN CREATININE RATIO, URINE Routine 02/27/2024 3:24 PM ECONOMICS DEPARTMENT CHAIR Type 1 diabetes mellitus with hyperglycemia (HCC) TSH Routine 02/27/2024 3:24 PM ECONOMICS DEPARTMENT CHAIR Type 1 diabetes mellitus with hyperglycemia (HCC) from Last 3 Months or Most Recently Relevant to Health Maintenance Results * CT Neck Soft Tissue W Contrast (07/26/2024 10:46 PM CDT) Anatomical Region Laterality Modality Head and Neck N/A Computed Tomogra phy 07/26/2024 10:5 1 PM CDT Narrative 07/26/2024 10:53 PM CDT EXAM DESCRIPTION: CT SOFT TISSUE NECK W CONTRAST REASON FOR STUDY: Swallowed foreign body, food stuck in throat (metaloaf) she ate lunch and feel like something is stuck in throat and had vomited x 4 TECHNIQUE: Post IV contrast scanning from skull base through lung apices. Reconstructed MPR images reviewed. All images stored on PACS. Automated exposure control was used as a dose optimization technique for this examination. CONTRAST TYPE/DOSE: 75mL of IOVERSOL 350 MG IODINE/ML INTRAVENOUS SYRINGE injected via intravenous COMPARISON: 07/22/2020 FINDINGS: AERODIGESTIVE TRACT: No mass, inflammation, or other asymmetry. THORACIC INLET//MEDIASTINUM: Thyroid gland unremarkable. Upper mediastinum appears normal. NECK SOFT TISSUE: Salivary glands appear normal. No enlarged lymph node. LUNG APICES: Clear. SKULL BASE: Visualized paranasal sinuses, middle ear cavities, and mastoid air cells are clear. Included intracranial contents, orbits, and globes unremarkable. OTHER OSSEOUS: Cervical spine unremarkable. Visualized ribs, clavicles, and scapula appear normal. IMPRESSION: No foreign body, esophageal distention, or other acute abnormality identified. Food boluses commonly lodge in the distal esophagus and further evaluation with esophagram versus CT chest could be considered if clinically warranted. THIS IS AN ELECTRONICALLY VERIFIED FINAL REPORT 07/26/2024 10:53 PM - Electronically signed by Chavo Tenorio M.D. AR: SANDY Report ID: [id number] Reading Location: [id number] Procedure Note Chavo Tenorio MD - 07/26/2024 EXAM DESCRIPTION: CT SOFT TISSUE NECK W CONTRAST REASON FOR STUDY: Swallowed foreign body, food stuck in throat(metaloaf) she ate lunch and feel like something is stuck in throat and had vomited x4 TECHNIQUE: Post IV contrast scanning from skull base through lung apices. Reconstructed MPR images reviewed. All images stored on PACS. Automated exposure control was used as a dose optimization technique for this examination. CONTRAST TYPE/DOSE: 75mL of IOVERSOL 350 MG IODINE/ML INTRAVENOUSSYRINGE injected via intravenous COMPARISON: 07/22/2020 FINDINGS: AERODIGESTIVE TRACT: No mass, inflammation, or other asymmetry. THORACIC INLET//MEDIASTINUM: Thyroid gland unremarkable. Uppermediastinum appears normal. NECK SOFT TISSUE: Salivary glands appear normal. No enlarged lymph node. LUNG APICES: Clear. SKULL BASE: Visualized paranasal sinuses, middle ear cavities, andmastoid air cells are clear. Included intracranial contents, orbits, and globes unremarkable. OTHER OSSEOUS: Cervical spine unremarkable. Visualized ribs, clavicles,and scapula appear normal. IMPRESSION: No foreign body, esophageal distention, or other acute abnormalityidentified. Food boluses commonly lodge in the distal esophagus and furtherevaluation with esophagram versus CT chest could be considered if clinicallywarranted. THIS IS AN ELECTRONICALLY VERIFIED FINAL REPORT 07/26/2024 10:53 PM - Electronically signed by Chavo Tenorio M.D. AR: SANDY Report ID: [id number] Reading Location: [place] [address] Michele Medrano MD IMG CT PROCEDURES Final Resul t * hCG, urine, qualitative (07/26/2024 10:29 PM CDT) Pathologist [facility] HCG, ur Negative Negative Urine 07/26/2024 10:2 9 PM CDT 07/26/2024 10:32 PM CDT Michele Medrano MD LAB URINE ORDERABLES Final Re sult [facility] ([place]) 1 [facility] [place] [address] * eGFR (07/26/2024 10:03 PM CDT) Pathologist [facility] eGFR >90 >=60 mL/min/1. 73 m2 Comment: Interpretive Data Reference Interval Normal >/= 90 mL/min/1.73m2 Mildly decreased* 60 - 89 mL/min/1.73m2 Mildly to moderately decreased 45 - 59 mL/min/1.73m2 Moderately to severely decreased 30 - 44 mL/min/1.73m2 Severely decreased 15 - 29 mL/min/1.73m2 Kidney Failure < 15 mL/min/1.73m2 *Relative to young adult level Estimated glomerular filtration rate is determined by the 2020 CKD-EPI equation recommended by the National Kidney Foundation (A Unifying Approach to GFR Estimation: Recommendations of the NKF-ASK Task Force on Reassessing the Inclusion of Race in Diagnosing Kidney Disease, JASN 2020). The CKD-EPI equation should not be used for patients with unstable renal function and has not been validated in children and those over 70. Current interpretive data was last reviewed 2020. Blood 07/26/2024 10:0 3 PM CDT 07/26/2024 10:08 PM CDT us Michele Medrano MD LAB BLOOD ORDERABLES Final Re sult [facility] ([place]) 1 [facility] [place] [address] * Differential, auto (07/26/2024 10:03 PM CDT) Pathologist [facility] Neutrophil abs 3.23 1.50 - 6.50 K/cumm Imm gran abs 0.02 0.00 - 0.10 K/cumm [facility] ([place]) Lymphocyte abs 2.73 0.80 - 3.30 K/cumm [facility] ([place]) Monocyte abs 0.80 0.20 - 0.80 K/cumm [facility] ([place]) Eosinophil abs 0.08 0.00 - 0.50 K/cumm [facility] ([place]) Basophil abs 0.05 0.00 - 0.10 K/cumm [facility] ([place]) Neutrophil pct 46.7 % [facility] ([place]) Comment: Interpretive Data Percent cell count reference ranges are not reported, since discordance with absolute values may lead to misinterpretation of CBC data. Current Interpretive Data was last revised on 2017. Imm gran pct 0.3 % [facility] ([place]) Comment: Interpretive Data Percent cell count reference ranges are not reported, since discordance with absolute values may lead to misinterpretation of CBC data. Current Interpretive Data was last revised on 2017. Lymphocyte pct 39.5 % [facility] ([place]) Comment: Interpretive Data Percent cell count reference ranges are not reported, since discordance with absolute values may lead to misinterpretation of CBC data. Current Interpretive Data was last revised on 2017. Monocyte pct 11.6 % [facility] ([place]) Comment: Interpretive Data Percent cell count reference ranges are not reported, since discordance with absolute values may lead to misinterpretation of CBC data. Current Interpretive Data was last revised on 2017. Eosinophil pct 1.2 % [facility] ([place]) Comment: Interpretive Data Percent cell count reference ranges are not reported, since discordance with absolute values may lead to misinterpretation of CBC data. Current Interpretive Data was last revised on 2017. Basophil pct 0.7 % [facility] ([place]) Comment: Interpretive Data Percent cell count reference ranges are not reported, since discordance with absolute values may lead to misinterpretation of CBC data. Current Interpretive Data was last revised on 2017. Blood 07/26/2024 10:0 3 PM CDT 07/26/2024 10:08 PM CDT us Michele Medrano MD LAB BLOOD ORDERABLES Final Re sult [facility] ([place]) 1 [facility] Department of Laboratories [place], [place] [id number] * CBC with auto differential (07/26/2024 10:03 PM CDT) WBC 6.91 3.80 - 9.90 K/cumm Hgb 14.2 11.9 - 15.5 g/dL [facility] ([place]) Hct 41.5 35.6 - 45.5 % [facility] ([place]) Plt 312 150 - 400 K/cumm [facility] ([place]) MPV 9.7 9.1 - 12.3 fL [facility] RBC 4.69 3.90 - 5.20 M/cumm [facility] MCV 88.5 81.3 - 96.4 fL [facility] ([place]) MCH 30.3 27.1 - 33.3 pg [facility] ([place] MCHC 34.2 32.3 - 35.7 g/dL [facility] RDW CV 12.0 11.1 - 14.9 % [facility] ([place]) RDW SD 38.7 35.7 - 48.1 fL [facility] ([place]) NRBC abs 0.00 0.00 - 0.01 K/cumm [facility] ([place]) Blood 07/26/2024 10:0 3 PM CDT 07/26/2024 10:08 PM CDT Michele Medrano MD LAB BLOOD ORDERABLES Final Re sult Performing Organization Address City/[facility]/ZIP Co de Phone Number [facility] ([place]) 1 [facility] [place] [address] * Magnesium (07/26/2024 10:03 PM CDT) Magnesium 1.7 1.4 - 2.5 mg/dL Blood 07/26/2024 10:0 3 PM CDT 07/26/2024 10:08 PM CDT Michele Medrano MD LAB BLOOD ORDERABLES Final Re sult Performing Organization Address City/[facility]/ZIP Co de Phone Number [facility] ([place] 1 [facility] [place] [address] * (ABNORMAL) Basic metabolic panel (07/26/2024 10:03 PM CDT) Sodium 138 135 - 145 mmol/L Potassium, pl 3.5 3.3 - 4.9 mmol/L [facility] ([place]) Chloride 98 97 - 110 mmol/L [facility] ([place]) CO2 29 22 - 32 mmol/L [facility] ([place]) Anion gap 11 2 - 15 mmol/L [facility] ([place]) BUN 14 6 - 25 mg/dL [facility] ([place]) Creatinine 0.64 0.60 - 1.10 mg/dL [facility] ([place]) Glucose 208(H) 70 - 199 mg/dL [facility] ([place]) Comment: Interpretive Data Fasting glucose >/= 126 mg/dl is diagnostic for diabetes. Fasting is defined as no caloric intake for at least 8 hours. Fasting glucose between 100 mg/dl to 125 mg/dl is diagnostic of prediabetes. In a patient with classic symptoms of hyperglycemia or hyperglycemic crisis, a random glucose >/= 200 mg/dl is diagnostic for diabetes. In the absence of unequivocal hyperglycemia, results should be confirmed by repeat testing. The classification and Diagnosis of Diabetes Diabetes Care 2021; 46: S19-S40. Current interpretive data was last revised 2022. Calcium 9.6 8.5 - 10.3 mg/dL [facility] ([place]) Blood 07/26/2024 10:0 3 PM CDT 07/26/2024 10:08 PM CDT us Michele Medrano MD LAB BLOOD ORDERABLES Final Re sult [facility] ([place]) 1 [facility] Department [place] [address] * (ABNORMAL) Measles/Mumps/Rubella Immunity (06/10/2024 2:39 PM CDT) Rubella IgG index 1.72 Immune >0.99 index [facility] - 01 Comment: Non-immune <0.90 Equivocal 0.90 - 0.99 Immune >0.99 Measles IgG <13.5(L) Immune >16.4 AU/mL [facility] - 01 Comment: Negative <13.5 Equivocal 13.5 - 16.4 Positive >16.4 Presence of antibodies to Rubeola is presumptive evidence of immunity except when acute infection is suspected. Mumps IgG 13.2 Immune >10.9 AU/mL [facility] - 01 Comment: Negative <9.0 Equivocal 9.0 - 10.9 Positive >10.9 A positive result generally indicates past exposure to Mumps virus or previous vaccination. Blood 06/10/2024 2:39 PM CDT 06/10/2024 Narrative [facility] - 06/11/2024 11:11 AM CDT Performed at: [address] [place] [id number] Corrugator Operator Helper: Jeff Vee PhD, Phone: [phone] Ryanne Merino NP LAB BLOOD ORDERABLES Jessica l Result Performing Organization Address City/[facility] Co de Phone Number [facility] - * (ABNORMAL) POCT glucose (06/04/2024 8:03 AM CDT) [facility] Signature Glucose, POC 231(H) 70 - 199 mg/dL Comment: Interpretive Data Glucose is assumed to be non-fasting. Fasting Glucose reference ranges are: 0 - 150 years: 70 mg/dL - 99 mg/dL Current interpretive data was last revised on 2013. POC Performer [id number] [facility] POC Device Number [id number] [facility] Blood 06/04/2024 8:03 AM CDT 06/04/2024 8:03 AM CDT us Vincenzo Tai MD LAB POCT ORDERABLES - DEVIC E Final Result Performing Organization Address City/[facility]/ZIP Co de Phone Number [facility] [address] [facility]. [place] [address] * Surgical pathology (06/04/2024 7:19 AM CDT) Tissue (Polyp(s), colon/colorectal, esophageal, gastric) 06/04/2024 7:19 AM CDT Tissue specimen (specimen) (Polyp(s), colon/colorectal, esophageal, gastric) 06/04/2024 7:20 AM CDT Tissue specimen (specimen) (Polyp(s), colon/colorectal, esophageal, gastric) 06/04/2024 7:20 AM CDT Tissue specimen (specimen) (Polyp(s), colon/colorectal, esophageal, gastric) 06/04/2024 7:33 AM CDT Tissue specimen (specimen) (Polyp(s), colon/colorectal, esophageal, gastric) 06/04/2024 7:42 AM CDT Narrative PATHOLOGY [facility] - 06/05/2024 5:38 PM CDT EPIC results best viewed via link to PDF [facility] [place] [address] Note to Patients: This report may contain a detailed description of human tissue sent by a health care provider to the laboratory for pathologic evaluation. The content of this report is essential for diagnosis and may provide important critical findings. This information may be unfamiliar to patients to review without a medical professional present. It is advised that the patient review this report in the presence of a health care provider who can answer questions and explain the details. SURGICAL PATHOLOGY REPORT FINAL Patient Name: IRVIN REDDY Gender: F : 1980 (Age: 43) Address: [address] [place], [place] [id number] Hospital #: [id number] Taken:06/04/2024 Received:06/04/2024 Reported: 06/05/2024 Patient Type: [facility] SAME Client [facility] Service: Gastro Location: Physician(s): Ava Alejo DO Diagnosis: A. Small intestine, duodenum, biopsy: -Fragments of duodenal adenomas. -Negative for high-grade dysplasia. B. Stomach, polyps, biopsy: -Fragments of fundic gland polyps with focal low-grade dysplasia; gastric foveolar type. C. Small intestine, ampulla, polyp, biopsy: -Fragments of ampullary adenomas. -Negative for high-grade dysplasia. D. Ileo-pouch polyps, polypectomy: -Fragments of tubular adenomas. -Negative for high-grade dysplasia. E. Rectum, rectal cuff, polyps, snare polypectomy: -Fragments of tubular adenomas. -Fragments of hyperplastic polyps. -Fragments of inflammatory-type polyps. [facility]/06/05/2024 12:14 By this signature, I attest that the above diagnosis is based upon my personal examination of the slides(and/or other material indicated in the diagnosis). Nuria Chaney MD, PHD Report Electronically Reviewed and Signed Out By Nuria Chaney MD, PHD 06/05/2024 17:38:09 History: The patient is a 43-year-old woman with familial adenomatous polyposis and ampullary adenoma. Operative procedure: EGD and Pouchoscopy. Specimen(s) Received: A: Duodenum polyp biopsies B: Gastric polyps biopsies C: Ampulla polyp biopsies D: ileo-pouch polyps snare & biopsies E: Rectal cuff polyps snare Gross Description: Received in five formalin jars labeled with the patient's identifiers. A. Labeled duodenum polyps biopsies are multiple irregular tissue fragment(s) (measuring 2.1 x 0.4 x 0.1 cm in aggregate. Stained with eosin). Labeled A1. Jar 0. B. Labeled gastric polyps biopsies are multiple irregular tissue fragment(s) (measuring 1.9 x 0.3 x 0.1 cm in aggregate. Stained with eosin). Labeled B1. Jar 0. C. Labeled ampulla polyp biopsies are two irregular tissue fragment(s) (measuring 0.6 x 0.2 x 0.1 cm in aggregate. Stained with eosin). Labeled C1. Jar 0. D. Labeled ileo pouch polyp snare and biopsies are multiple irregular tissue fragment(s) (measuring 2.0 x 0.8 x 0.1 cm in aggregate. Stained with eosin). Labeled D1. Jar 0. E. Labeled rectal cuff polyp snare are multiple irregular tissue fragment(s) (measuring 8.4 x 0.7 x 0.1 cm in aggregate. Stained with eosin). Labeled E1 to E3. Jar 0. cnewho/06/04/2024 09:45 PA(s): RENNY Gordillo By this signature, I attest that the above diagnosis is based upon my personal examination of the slides(and/or other material). Addenda/Procedures Microscopic slide review and interpretation for this case was performed at [facility], Department of Surgical Pathology, [address] [facility] [place], [place] [id number], [place] [address] CLIA # [id number] The performance characteristics of some immunohistochemical stains, fluorescence in-situ hybridization tests and immunophenotyping by flow cytometry cited in this report (if any) were determined by the Surgical Pathology and Flow Cytometry Departments at [facility] as part of an ongoing director software quality assurance program and in compliance with federally mandated regulations drawn from the Clinical Laboratory Improvement Act of 1988 (CLIA '88). Some of these tests rely on the use of analyte specific reagents and are subject to specific labeling requirements by the US Food and Drug Administration. Such diagnostic tests may only be performed in a facility that is certified by the Department of Health and Human Services as a high complexity laboratory under CLIA '88. The FDA has determined that such clearance or approval is not necessary. This test is used for clinical purposes. It should not be regarded as investigational or for research. Nevertheless, federal rules concerning the medical use of analyte specific reagents require that the following disclaimer be attached to the report: This test was developed and its performance characteristics determined by the Surgical Pathology and Flow Cytometry Departments of [facility]. It has not been cleared or approved by the U. S. Food and Drug Administration. IMAGES AND SCANNED DOCUMENTS, IF INCLUDED, ONLY VIEWABLE IN PDF VERSION OF REPORT Vincenzo Tai MD LAB PATHOLOGY ORDERABLES Fi nal Result [facility] [phone] * POCT glucose (06/04/2024 6:47 AM CDT) Glucose, POC 86 70 - 199 mg/dL Comment: Interpretive Data Glucose is assumed to be non-fasting. Fasting Glucose reference ranges are: 0 - 150 years: 70 mg/dL - 99 mg/dL Current interpretive data was last revised on 2013. POC Performer [id number] [facility] POC Device Number [id number] [facility] Blood 06/04/2024 6:47 AM CDT 06/04/2024 6:47 AM CDT Vincenzo Tai MD LAB POCT ORDERABLES - DEVIC E Final Result [facility] [id number] [facility]. Department of Laboratories [place], [place] [id number] * Pouchoscopy (06/04/2024 6:46 AM CDT) Anatomical Region Laterality Modality Other Narrative Procedure Note Vincenzo Tai MD - 06/04/2024 6:46 AM CDT ENDOSCOPY LAB Patient Name: Irvin Pravin Procedure Date: 06/04/2024 6:46 AM Date of : 1980 Admit Type: Outpatient Age: 43 Gender: Female Attending MD: Vincenzo Tai M.D. Room: [facility] ENDOSCOPY ROOM 04 Note Status: Finalized Procedure: Pouchoscopy Indications: FAP s/p Total Proctocolectomy. Providers: Vincenzo Tai M.D. Referring MD: Brent SanOJoaquim Medicines: Monitored Anesthesia Care Complications: No immediate complications. Estimated blood loss:None. Estimated Blood Loss: Estimated blood loss: none. Procedure: Pre-Anesthesia Assessment: - The risks and benefits of the procedure and the sedation options and risks were discussed with the patient. All questions were answered and informed consent was obtained. - Immediately prior to administration ofmedications, the patient was re-assessed for adequacy to receive sedatives. - The anesthesia plan was to use monitoredanesthesia care (MAC). After obtaining informed consent, the endoscope was passed under direct vision. Throughout theprocedure, the patient's blood pressure, pulse, and oxygen saturations were monitored continuously. The [id number] was introduced through theileoanal anastomosis via the anus and advanced to theJ-pouch. The procedure was performed without difficulty. The patient tolerated the procedure well. The qualityof the bowel preparation was evaluated using the BBPS (Marion Bowel Preparation Scale) with scores of:Right Colon = NA (segment surgically absent or not seendue to reasons unrelated to bowel prep (i.e. technical difficulties or patient intolerance)), Transverse Colon = NA (segment surgically absent or not seendue to reasons unrelated to bowel prep (i.e. technical difficulties or patient intolerance)) and LeftColon = 2 (minor amount of residual staining, smallfragments of stool and/or opaque liquid, but mucosa seenwell). The total BBPS score equals 3. Findings: Scattered polyps were found in the ileoanal pouch (13) and at therectal cuff (6-8). The polyps were 3 to 6 mm in size in the pouch and 5-9mmin the cuff/distal pouch. Multiple excisional biopsies and cold snare polypectomy performed and polyps into ileal pouch andrectal cuff. Impression: - Scattered polyps were found in the ileoanal pouch (13) and at the rectal cuff (6-8) resected with a combination of cold snare and cold biopsyresection. Recommendation: - Observe patient's clinical course followingtoday's Pouchoscopy. - Await pathology. Self limited rectal bleeding maybe noted for the next 2-3 days given multiple cold biopsy/polypectomies performed at the anal verge. - Repeat Pouchoscopy in 6 months for surveillance. Please make sure to use Tap Water or [employer] Enemas and bowel prep as you did prior to thisprocedure. - Given persistent rectal/ileoanal polyps, please start Sulindac 150mg orally, twice daily. A prescription will be sent to your pharmacy. - Please avoid NSAIDs (i.e Motrin, Aleve,Ibuprofen, Advil, Naproxen, etc) for the next 10-14 days. Ifyou are taking Aspirin 81mg (baby aspirin) for clear cardiovascular or neurologic indications, youshould continue this. - Resume home medications and diet. - Return to primary care physician as previously scheduled. - In the unusual situation that you developabdominal pain, bleeding or other significant problems in the days following this procedure please call my officeat [phone] ([phone]) to speak to my nurses. After hours and evenings please call [phone] speak to the GI fellow configuration management advisor. Please tell themthat Dr. Tai did your procedure and that your were instructed to have the fellow call me or thephysician covering for me to discuss the management of your condition. If you have an urgent problem, please goto the nearest emergency room and have the ER doctorcall my office during the day or [facility] transfer ([phone]) center after hours and weekends to arrange admission or transfer to our facility. - Call my nurse Dahiana Monroy RN in the GI office at [phone] for your final pathology results in 7 days. Attending Participation: I personally performed the entire procedure. Electronically Signed By: Vincenzo Tai M.D. Vincenzo Tai M.D. 06/04/2024 8:41:15 AM Number of Addenda: 0 Note Initiated On: 06/04/2024 6:46 AM us Vincenzo Tai MD ENDOSCOPY PROCEDURES Final Result * EGD (06/04/2024 6:46 AM CDT) Anatomical Region Laterality Modality Other Narrative Procedure Note Vincenzo Tai MD - 06/04/2024 6:46 AM CDT ENDOSCOPY LAB Patient Name: Irvin Reddy Procedure Date: 06/04/2024 6:46 AM Date of : 1980 Admit Type: Outpatient Age: 43 Gender: Female Attending MD: Vincenzo Tai M.D. Room: [facility] ENDOSCOPY ROOM 04 Note Status: Finalized Procedure: Upper GI endoscopy Indications: Surveillance for malignancy due to personal historyof Familial Adenomatous Polyposis Providers: Vincenzo Tai M.D. Referring MD: Jeramy Napier D.O. Medicines: Monitored Anesthesia Care Complications: No immediate complications. Estimated blood loss:None. Estimated Blood Loss: Estimated blood loss: none. Procedure: Pre-Anesthesia Assessment: - The risks and benefits of the procedure and the sedation options and risks were discussed with the patient. All questions were answered and informed consent was obtained. - Immediately prior to administration ofmedications, the patient was re-assessed for adequacy to receive sedatives. - The anesthesia plan was to use monitoredanesthesia care (MAC). After obtaining informed consent, the endoscope was passed under direct vision. Throughout theprocedure, the patient's blood pressure, pulse, and oxygen saturations were monitored continuously. The [id number] was introduced through the mouth, and advanced to the second part of duodenum. The [id number] was introduced through the mouth, and advanced to the second part of duodenum. Theupper GI endoscopy was accomplished without difficulty.The patient tolerated the procedure well. Findings: The examined esophagus was normal. Multiple diminutive sessile polyps were found in the gastric fundusand in the gastric body. 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 The scope preferentially goes towards a funnel shaped prior tethered G-tube site which appears antrum-like when the stomach is not fully insufflated. A few of the gastric polyps were sampled with a forceps for histology More than 20-30 semi-sessile polyps were found in the ampulla, in the duodenal bulb, in the second portion of the duodenum and in the third portion of the duodenum. The polyps were 2 to 8 mm in size. Severalof the polyps were sampled with a cold forceps for histology. The ampulla was carefully examined and appeared endoscopicallysimilar to the prior examination 6 months ago, measuring 9-10mm. The ampullawas biopsied with a pediatric forceps with histology with care taken to biopsy away from the biliary and pancreatic orifices. Impression: - Normal esophagus. - Multiple diminutive sessile polyps were found inthe gastric fundus and in the gastric body. Asignificant J-shaped deformity was found in the gastric bodyand in the gastric antrum. A few of the gastric polyps were sampled with a forceps for histology - More than 20-30 semi-sessile polyps were found in the ampulla, in the duodenal bulb, in the second portion of the duodenum and in the third portion of the duodenum. The polyps were 2 to 8 mm in size. Several of the polyps were sampled with a coldforceps for histology. - The ampulla was carefully examined and appeared endoscopically similar to the prior examination 6 months ago, measuring 9-10mm. The ampulla wasbiopsied with a pediatric forceps with histology with care taken to biopsy away from the biliary andpancreatic orifices. Recommendation: - Observe patient's clinical course followingtoday's EGD. - Repeat the upper endoscopic evaluation for surveillance in 1 year if pathology from biopsiesare unchanged from prior. - Resume home medications and diet. - Return to primary care physician as previously scheduled. - In the unusual situation that you developabdominal pain, bleeding or other significant problems in the days following this procedure please call my officeat [phone] ([phone]) to speak to my nurses. After hours and evenings please call [phone] speak to the GI fellow configuration management advisor. Please tell themthat Dr. Tai did your procedure and that your were instructed to have the fellow call me or thephysician covering for me to discuss the management of your condition. If you have an urgent problem, please goto the nearest emergency room and have the ER doctorcall my office during the day or [facility] transfer ([phone]) center after hours and weekends to arrange admission or transfer to our facility. - Call my nurse Dahiana Monroy RN in the GI office at [phone] for your final pathology results in 7 days. Attending Participation: I personally performed the entire procedure. Electronically Signed By: Vincenzo Tai M.D. Vincenzo Tai M.D. 06/04/2024 8:00:55 AM Number of Addenda: 0 Note Initiated On: 06/04/2024 6:46 AM Vincenzo Tai MD ENDOSCOPY PROCEDURES Final Result * POCT hCG, urine (06/04/2024) [facility] HCG, ur, POC Negative Negative Lot Number [id number] QC Backgroud Clear Acceptable QC Control Line Acceptable Urine 06/04/2024 Historical Provider POINT OF CARE TEST ORDERA BLES Final Result * eGFR (05/29/2024 11:29 AM CDT) [facility] eGFR >90 >=60 mL/min/1. 73 m2 Comment: Interpretive Data Reference Interval Normal >/= 90 mL/min/1.73m2 Mildly decreased* 60 - 89 mL/min/1.73m2 Mildly to moderately decreased 45 - 59 mL/min/1.73m2 Moderately to severely decreased 30 - 44 mL/min/1.73m2 Severely decreased 15 - 29 mL/min/1.73m2 Kidney Failure < 15 mL/min/1.73m2 *Relative to young adult level Estimated glomerular filtration rate is determined by the 2020 CKD-EPI equation recommended by the National Kidney Foundation (A Unifying Approach to GFR Estimation: Recommendations of the NKF-ASK Task Force on Reassessing the Inclusion of Race in Diagnosing Kidney Disease, JASN 2020). The CKD-EPI equation should not be used for patients with unstable renal function and has not been validated in children and those over 70. Current interpretive data was last reviewed 2020. Blood 05/29/2024 11:2 9 AM CDT 05/29/2024 12:12 PM CDT Calvin Ro MD LAB BLOOD ORDERABLES Final R esult Performing Organization Address City/[facility]/ZIP Co de Phone Number [facility] [place] [address] * Vitamin D 25 hydroxy (05/29/2024 11:29 AM CDT) Vitamin D 25-OH 33 30 - 80 ng/mL Blood 05/29/2024 11:2 9 AM CDT 05/29/2024 12:07 PM CDT Calvin Ro MD LAB BLOOD ORDERABLES Final R esult [facility] Department [place] [address] * Vitamin B12 (05/29/2024 11:29 AM CDT) Vitamin B12 440 230 - 1,250 pg/mL Blood 05/29/2024 11:2 9 AM CDT 05/29/2024 12:07 PM CDT Calvin Ro MD LAB BLOOD ORDERABLES Final R esult Performing Organization Address City/[facility]/ZIP Co de Phone Number [facility] Department [place] [address] * Comprehensive metabolic panel (05/29/2024 11:29 AM CDT) Sodium 142 135 - 145 mmol/L Potassium, pl 3.9 3.3 - 4.9 mmol/L [facility] Chloride 107 97 - 110 mmol/L [facility] CO2 26 22 - 32 mmol/L [facility]NOTE 3] Anion gap 9 2 - 15 mmol/L [facility] BUN 10 6 - 25 mg/dL [facility] Creatinine 0.64 0.60 - 1.10 mg/dL [facility] Glucose 123 70 - 199 mg/dL [facility] Comment: Interpretive Data Fasting glucose >/= 126 mg/dl is diagnostic for diabetes. Fasting is defined as no caloric intake for at least 8 hours. Fasting glucose between 100 mg/dl to 125 mg/dl is diagnostic of prediabetes. In a patient with classic symptoms of hyperglycemia or hyperglycemic crisis, a random glucose >/= 200 mg/dl is diagnostic for diabetes. In the absence of unequivocal hyperglycemia, results should be confirmed by repeat testing. The classification and Diagnosis of Diabetes Diabetes Care 202; 46: S19-S40. Current interpretive data was last revised 2022. Calcium 9.6 8.5 - 10.3 mg/dL [facility] Bilirubin, total 0.4 0.1 - 1.2 mg/dL [facility] Protein, pl 7.4 6.5 - 8.5 g/dL [facility] Albumin 4.1 3.5 - 5.0 g/dL [facility] Alk phos 109 40 - 130 Units/L [facility] ALT 25 7 - 45 Units/L [facility] AST 19 10 - 45 Units/L [facility] Blood 05/29/2024 11:2 9 AM CDT 05/29/2024 12:07 PM CDT Calvin Ro MD LAB BLOOD ORDERABLES Final R esult [facility] [place] [address] * POCT hemoglobin A1c (05/29/2024 10:46 AM CDT) Hemoglobin A1C, POC 7.2 4.0 - 5.6 % Blood 05/29/2024 10:4 6 AM CDT Calvin Ro MD POINT OF CARE TEST ORDERABLE S Final Result * POCT glucose (05/29/2024 10:45 AM CDT) Pathologist [facility] Glucose Blood, POC 108 mg/dL Blood 05/29/2024 10:4 5 AM CDT Calvin Ro MD POINT OF CARE TEST ORDERABLE S Final Result * Albumin Creatinine Ratio, Urine (02/27/2024 3:24 PM ECONOMICS DEPARTMENT CHAIR) Pathologist [facility] Microalb, Ur 19.3 0.0 - 22.9 mg/L [facility] Random Urine Creatinine 315.7 mg/dL [facility] Microalb/Creat Ratio 6.1 0.0 - 29.9 mg/g [facility] Urine 02/27/2024 3:24 PM ECONOMICS DEPARTMENT CHAIR 02/27/2024 4:12 PM ECONOMICS DEPARTMENT CHAIR Ryanne Merino [facility] URINE ORDERABLES Jessica l Result [facility] * TSH (02/27/2024 3:24 PM ECONOMICS DEPARTMENT CHAIR) TSH (Thyrotropin) 2.36 0.27 - 4.20 uIU/mL [facility] Blood 02/27/2024 3:24 PM ECONOMICS DEPARTMENT CHAIR 02/27/2024 4:12 PM ECONOMICS DEPARTMENT CHAIR Ryanne Merino [facility] BLOOD ORDERABLES Jessica l Result Performing Organization Address City/[facility]/ZIP Co de Phone Number [facility] * Lipid panel (02/27/2024 3:24 PM ECONOMICS DEPARTMENT CHAIR) Triglycerides 80 <150 mg/dL [facility] Comment: Desirable: <150 mg/dL, fasting <175 mg/dL, non-fasting Persistently elevated triglycerides may enhance atherosclerotic cardiovascular disease. Total Cholesterol 150 <200 mg/dL [facility] Total HDL-C Direct 62 >50 mg/dL [facility] Non-HDL cholesterol 88 <220 mg/dL [facility] [place] LDL Chol 72 <190 mg/dL [facility] Blood 02/27/2024 3:24 PM ECONOMICS DEPARTMENT CHAIR 02/27/2024 4:12 PM ECONOMICS DEPARTMENT CHAIR Narrative [facility] - 02/27/2024 4:46 PM ECONOMICS DEPARTMENT CHAIR Current interpretive data was last updated January 20, 2021. For adults ages 40-79, the ACC/AHA recommends discussing your 10-year atherosclerotic cardiovascular disease risk with your health care provider. https://www.acc.org/ASCVDApp These lab test should be done fasting. This means do not eat or drink for at least 12 hours prior to getting your blood drawn. Ryanne Merino [facility] BLOOD ORDERABLES Jessica l Result Performing Organization Address City/[facility] Co de Phone Number [facility] from Last 3 Months or Most Recently Relevant to Health Maintenance Insurance MEDICARE [facility] MEDICARE [facility] [address] [place] [address] [place] [facility] Advance Directives For more information, please contact: [phone] * Full Code (Latest Code Status on File) Date Activated Date Inactivated Comments 06/04/2024 6:20 AM 06/04/2024 1:07 PM * Full Code Date Activated Date Inactivated Comments 12/05/2023 6:13 AM 12/05/2023 1:07 PM * Full Code Date Activated Date Inactivated Comments 11/14/2022 6:14 AM 11/14/2022 1:05 PM * Full Code Date Activated Date Inactivated Comments 10/25/2021 12:41 AM 11/01/2021 4:45 PM * Full Code Date Activated Date Inactivated Comments 10/05/2021 7:11 AM 10/05/2021 1:46 PM Care Teams Train Conductor Relationship Specialty Start Date End Date Jeramy Napier DO [address] [place] [address] PCP - General Family Medicine 12/31/23 Omi Kennedy MD Surgeon Colon and Rectal Surgery 09/08/18 Angelia Melgoza MD Surgeon Colon and Rectal Surgery 09/08/18 [place] [id number] [address] Psychiatrist Psychiatry 09/08/18 [place] [id number] [address] Stem Roller Gastroenterology 09/08/18 Aria Madrid MD [address] [place] [address] [place] [address] Consulting Physician Obstetrics and Gynecology 08/06/22
--- OUTSIDE RECORDS SUMMARY | 2024-07-27 11:22 | XMS_ITS | Encounter Summary ---
Author Organization [facility] Healthcare Address [address] [place] [address] Care Team Providers Care Nursing Assistants Teacher Name Role Phone Jose Tomas DO Primary Care Provider [phone] Omi Kennedy MD Unavailable [phone] Angelia Melgoza MD Unavailable [phone] OnRobert alvarez MD Unavailable [phone] Marciano Danielson MD Unavailable Le[facility] House RRT Unavailable Aria Madrid MD Unavailable [phone] Jamal Anderson MD Primary Care Pro vider Jeramy Napier DO Primary Care Provider [phone] Encounter Details Date Type Department Care Team (Late st Contact Info) Description 01/01/2020 Telephone [facility] at Kayden Valentino [address] [facility] Medical Office [address], [address] [place] [address] Juan R Connell Social History Tobacco Use Types Packs/Day Years Used Date Smoking Tobacco: Never Smokeless Tobacco: Never Alcohol Use Standard Drinks/Week Comments No 0 [...] week 12/15/2019 How often do you attend chur ch or confucianist services? Never 12/15/2019 Active Member of Clubs or Organizations Not on f ile 12/15/2019 Attends Club or Organization Meetings Not on dhara e 12/15/2019 Are you , , di vorced, , never , or living with a partner? Living with partner 12/15/2019 Overall Financial Resource Strain (CARDIA) Answe r [...] things needed for daily living? 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 07/22/2020 07/22/2020 08/05/2020 3:05 AM CDT COVID: Recovered Comment:Added based on recent COVID infection. 08/05/2020 08/29/2020 12/03/2020 3:05 AM C DT COVID: Suspected Comment:Patient currently being tested 10/28/2021 10/28/2021 10/28/2021 3:05 PM C DT COVID: Suspected 10/28/2022 10/28/2022 10/28/2022 10:26 PM CDT COVID19 10/28/2022 10/28/2022 11/13/2022 2:27 PM CDT COVID: Recovered Comment:Added based on recent COVID infection. 11/13/2022 11/13/2022 02/11/2023 3:[address] documented as of this encounter Care Teams Nursing Assistants Teacher Relationship Specialty Start Date End Date Jose Tomas DO [address] [place] [address] PCP - General 07/21/17 08/05/22 Jamal Anderson MD [address] [place] [address] PCP - General Family Medicine 08/06/22 12/30/23 Jeramy Napier DO [address] [place] [address] PCP - General Family Medicine 12/31/23 Omi Kennedy MD [address] [place] [address] Surgeon Colon and Rectal Surgery 09/08/18 Angelia Melgoza MD [address] [place] [address] Surgeon Colon and Rectal Surgery 09/08/18 [place] [address] [address] Psychiatrist Psychiatry 09/08/18 [place] [address] [address] [employer] Salesperson Gastroenterology 09/08/18 Leidy House COMPUTER NETWORKING [employer]STRU[employer] [address] [address] [facility] Outpatient Twister HandComputer Programmer Therapy 12/16/19 01/17/20 Aria Madrid MD [address] [place] [address] Consulting Physician Obstetrics and Gynecology 08/06/22 documented as of this encounter
--- OUTSIDE RECORDS SUMMARY | 2024-07-27 11:22 | XMS_ITS | Clinical Summary ---
Author Organization [facility] Address [address] [place] [address] Care Team Providers Care News Department Intern Name Role Phone Amisha Garay MD Unavailable Doni Sanon DO Unavailable Ronan Lee MD Unavailable Jennie Mujica SERVICE TECHNICIAN COPIER-DIRECT CARE WORKER Unavailable [facility] Uzair Fowler MD Unavailable [phone] Teresa Khalil MD Unavailable Laureen Cabrera RN Unavailable Mei OteroW Unavailable [phone] Jeramy Napier DO Primary Care Provider [phone] Stacey Day SERVICE TECHNICIAN COPIER-DIRECT CARE WORKER Unavailable [phone] Source Comments [facility],non-owned Affiliates and Associated Physician Practices is amultiple site organization consisting of ambulatory clinics and hospital sitesin [place], [place], [place] and [place]. This disclosure is being madepursuant to the Care Everywhere program and may not contain all information available regarding this patient. Last updated 17.[facility] Allergies Active Allergy Reactions Criticality Noted Date Comments Bee Venom Anaphylaxis High 01/23/2023 Throat swelling Erythromycin Urticaria,Rash High 08/11/2007 Ondansetron Urticaria,Itching Medium 06/24/2017 Can take med if she has IV Benadryl prior to taking Zofran. Vancomycin Rash,Other,Unknown High 03/31/2008 Reaction: Red Man Rash Reaction: rash, , Reaction: Rash, Medications * This document contains information received from the source organization and may not represent a complete record from that organization. * Be aware that medications may not be up to date on this document. Alwaysverify current medications with the patient. insulin syringe-needle (BD ULTRAFINE II) 31G X 5/16 0.3 ML syringeIndicat ions:Type 1 Diabetes Mellitus USE 1 WITH EACH INJECTION TID Reasons: Insulin-Dependent Diabetes 300 Each 3 020 Active blood glucose ([employer] ULTRA TEST STRIPS) test stripIndicatio ns:Type 1 Diabetes Mellitus USE 3 STRIPS EVERY DAY Reasons: Insulin-Dependent Diabetes 300 strip 3 020 Active Blood Glucose Monitoring Suppl ([employer] ULTRA 2) w/Device KIT Use 1 kit once daily 1 kit Active blood glucose (KETAN CONTOUR NEXT TEST) test strip Use 1 strip 3 times daily DX CODE E10.42 FOR INSULIN DEPENDENT 300 strip 1 Active Insulin Disposable Pump (OMNIPOD DASH 5 PACK PODS) MISCIndication s:Type 1 Diabetes Mellitus Use 1 device every 3 days Dx code: E10.42 Reasons: Insulin-Dependent Diabetes 30 Each 1 Active B-D ULTRAFINE III SHORT PEN 31G X 8 MM needle USE TO INJECT ONCE DAILY DIRECTED WITH PUMP FAILURE Active diclofenac sodium (VOLTAREN) 1 % gel APPLY 4 GRAMS TO THE AFFECTED AREA FOUR TIMES DAILY 400 g 11 Active midodrine (PROAMATINE) 2.5 MG tablet TAKE 1 TABLET BY MOUTH TWICE A DAY IF BP LOW THAT DAY 180 tablet 2 Active GVOKE PFS 1 MG/0.2ML SOSY INJECT 1 MG SUBCUTANEOUS FOR LOW BLOOD SUGAR 0.2 mL 5 Active NovoLOG vial INJECT UP TO 75 UNITS SUBCUTANEOUSLY TOTAL DAILY DOSE VIA INSULIN PUMP 30 mL Active busPIRone (Buspar) 15 MG tablet Take 1 (one) tablet by mouth once daily as needed 10/16/2 022 Active ALPRAZolam (Xanax) 1 MG tablet Take 1 (one) tablet by mouth 2 times daily as needed anxiety 60 tablet 2 022 Active Basaglar KwikPen (Basaglar) pen 023 Active ondansetron (Zofran) 4 MG tablet 023 Active dexlansoprazol e (Dexilant) 60 MG capsule Take 1 (one) capsule by mouth once daily 30 capsule 5 023 Active zolpidem (Ambien) 10 MG tablet Take 1 (one) tablet by mouth nightly as needed FOR SLEEP 023 Active promethazine (Phenergan) 25 MG tabletIndicati ons:History of malignant neoplasm of colon,Nausea,H istory of small bowel obstruction,Ga stroparesis TAKE 1 (ONE) TABLET BY MOUTH EVERY 8 HOURS NEEDED 90 tablet 024 Active loperamide (Imodium) 2 MG capsuleIndicat ions:History of malignant neoplasm of colon,History of small bowel obstruction,Ga stroparesis,Ch ronic diarrhea TAKE 2 CAPSULES BY MOUTH FOUR TIMES DAILY NEEDED FOR DIARRHEA 90 capsule 024 Active oxyCODONE-acet aminophen (Percocet) 5-325 MG tabletIndicati ons:Postoperat kerrie pain Take 1 (one) tablet by mouth every 6 hours as needed for Pain 5 tablet 024 Active lamoTRIgine (LaMICtal) 200 MG tablet Take 1 (one) tablet by mouth once daily 024 Active topiramate (Topamax) 50 MG tablet TAKE 1 TABLET BY MOUTH THREE TIMES DAILY 90 tablet 1 024 Active cetirizine (ZyrTEC) 10 MG tabletIndicati ons:Seasonal allergic rhinitis due to fungal spores Take 1 (one) tablet by mouth once daily 90 tablet 3 024 Active moxifloxacin (Vigamox) 0.5 % ophthalmic solution Instill 1 (one) drop into left eye 4 times daily 024 Active Gvoke HypoPen 2-Pack 1 MG/0.2ML SOAJ 2 mg by Injection route as needed 024 Active escitalopram (Lexapro) 10 MG tabletIndicati ons:Generalize d Anxiety Disorder Take 1 (one) tablet by mouth once daily Reasons: Generalized Anxiety Disorder 30 tablet 024 Active naproxen (Naprosyn) 500 MG tablet TAKE 1 TABLET BY MOUTH TWICE A DAY 24 tablet 025 Active EPINEPHrine (Epipen) 0.3 MG/0.3ML auto-injector pen Inject 0.3 mL into muscle once as needed for Anaphylaxis 0.6 mL 1 025 Active diphenoxylate- atropine (Lomotil) 2.5-0.025 MG tabletIndicati ons:Gastropare sis,Abdominal cramping TAKE 1 TABLET BY MOUTH FOUR TIMES A DAY NEEDED FOR DIARRHEA 100 tablet 2 025 Active gabapentin (Neurontin) 300 MG capsuleIndicat ions:Cervical radiculopathy, Acute left-sided low back pain with left-sided sciatica,Lumbo sacral spinal stenosis Take 1 (one) capsule by mouth 3 times daily 270 capsule 025 Active scopolamine (Transderm-Sco p) 1 MG patchIndicatio ns:Sea sickness, subsequent encounter Apply 1 (one) patch to skin every 72 hours as needed (motion sickness) 5 patch 025 Active tranexamic acid (Lysteda) 650 MG tablet Take 2 (two) tablets by mouth 3 times daily 18 tablet 025 Active dicyclomine (Bentyl) 20 MG tabletIndicati ons:History of malignant neoplasm of colon,History of small bowel obstruction,Ga stroparesis,Ab dominal cramping TAKE 1 TABLET BY MOUTH EVERY DAY NEEDED 90 tablet 025 Active Continuous Glucose Transmitter (Dexcom G6 Transmitter) MISC as directed 025 Active cyanocobalamin (Vitamin B-12) injection INJECT 1,000 MCG DIRECTED EVERY 7 DAYS FOR 4 WEEKS. THEN CONTINUE 1 INJECTION MONTHLY. 025 Active cephalexin (Keflex) 500 MG capsule Take 1 (one) capsule by mouth 3 times daily for 10 days 30 capsule 025 2024 Active cyclobenzaprin e (Flexeril) 10 MG tabletIndicati ons:Cervical radiculopathy, Acute left-sided low back pain with left-sided sciatica,Lumbo sacral spinal stenosis TAKE 2 TABLETS BY MOUTH AT BEDTIME 60 tablet 025 Active sulfamethoxazo le-trimethopri m (Bactrim DS; Septra DS) 800-160 MG tabletIndicati ons:Mucous cyst of finger Take 1 (one) tablet by mouth 2 times daily 14 tablet 025 Active dicyclomine (Bentyl) 20 MG tabletIndicati ons:History of malignant neoplasm of colon,History of small bowel obstruction,Ga stroparesis,Ab dominal cramping TAKE 1 TABLET BY MOUTH EVERY DAY NEEDED 90 tablet 025 2024 Discontinued cyclobenzaprin e (Flexeril) 10 MG tabletIndicati ons:Cervical radiculopathy, Acute left-sided low back pain with left-sided sciatica,Lumbo sacral spinal stenosis TAKE 2 TABLETS BY MOUTH AT BEDTIME 60 tablet 025 2024 Discontinued tranexamic acid 5% SOLN Swish and spit 10 mL once for 1 dose 10 mL 025 2024 Discontinued(D ose Adjustment) Active Problems Problem Noted Date Diagnosed Date Ketosis 12/12/2022 Hyperglycemia 12/12/2022 Vitamin B12 deficiency 09/22/2021 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 L. Thom Bipolar I disorder, most recent episode depresse d, mild 08/01/2016 Overview (11/28/2020): Last Assessment & Plan: Continue home meds including latuda. Mood is stabe Intestinal obstruction 09/14/2015 Overview (11/28/2020): Last Assessment & Plan: Pouchoscopy yesterday shows no ileoanal stricture Diet advanced and tolerating well DC home to follow up with CRS as scheduled Offered to set up outpatient pelvic floor therapy as recommended by CRS but patient refused. Cervical radiculopathy 06/18/2014 FAP (familial adenomatous polyposis) 03/25/2014 Insulin pump status 02/26/2014 Menorrhagia 02/05/2014 Overview (02/05/2014): Started with a normal period about a month ago Lumbosacral radiculopathy at L5 12/23/2013 Pouchitis 12/13/2013 GERD (gastroesophageal reflux disease) 4 Anxiety 12/13/2013 Overview (11/28/2020): Last Assessment & Plan: Continue prn xanax Adenoma of stomach 11/26/2013 Generalized anxiety disorder 11/11/2013 Overview (11/28/2020): 11/01 sertraline 50 mg started 11/01 sertraline 50 mg started History of malignant neoplasm of colon 4 Overview (11/28/2020): COLORECTAL SURG(SUSAN) MANAGING 1995 S/P TOTAL COLECTOMY Added automatically from request for surgery [id number] Diabetic peripheral neuropat hy associated with type 1 diabetes mellitus 11/11/2013 Overview (11/28/2020): ENDO (MONA) MANAGING -- ON LYRICA ENDO (MONA) MANAGING -- ON LYRICA Gastro-esophageal reflux disease without esophag itis 11/11/2013 Overview (11/28/2020): GI (LUI) MANAGING -- ON PPI, ZANTAC, ZOFRAN GI (CUSWORTH) MANAGING -- ON PPI, ZANTAC, ZOFRAN Benign neoplasm of colon 11/09/2013 Overview (11/28/2020): Colon cancer Type 1 diabetes mellitus 11/09/2013 Overview (11/28/2020): ENDO (MONA) MANAGING Diabetes Last Assessment & [...] pump settings to follow up with endocrine Resolved Problems Problem Noted Date Diagnosed Date Resolved Date Insulin pump fitting or adjustment 01/22/2020 04/05/2021 Type 1 diabetes mellitus wit h diabetic toe ulcer 08/20/2019 02/24/2020 Dehydration, mild 11/11/2018 12/12/2020 Generalized abdominal pain 11/11/2018 0 04/05/2021 Recurrent abdominal pain 10/22/2018 Overview (11/28/2020): Last Assessment & Plan: The pt has chronic abdominal pain that [...] much as possible with history of gastroparesis Atherosclerosis of [place] ar teries of extremity with intermittent claudication 10/21/2018 04/05/2021 Leukocytosis 06/13/2018 02/24/2020 Hyperglycemia 06/13/2018 02/24/2020 Nausea and vomiting 06/13/2018 02/23/19 21 SBO (small bowel obstruction) 07/22/2017 02/24/2020 Acute generalized abdominal pain 07/22/2017 02/24/2020 Abdominal pain, epigastric 06/11/2017 0 02/24/2020 Gastroparesis 01/02/2017 04/05/2021 Overview (11/28/2020): Last Assessment & Plan: This is thought to be the cause of the patient's chronic nausea/vomiting. She follows in GI clinic who has recommended a gastroparesis diet and avoidance of opioid pain medications. Feels better tolerating advanced diet, continue to advance to solid for lunch Loose stools improved with diet advanced Follow up with GI/CRS as scheduled Abdominal pain, generalized 11/26/2016 02/24/2020 Familial polyposis 01/21/2014 6 Uncontrolled type 1 diabetes mellitus with ophthalmic complication 01/06/2014 03/09/2015 Overview (11/18/2014): Type 1 diabetes mellitus wit h diabetic retinopathy without macular edema 01/06/20142020 Overview (12/26/2014): Found Dr Curiel note 4-25-14) Palpitations 01/04/2014 04/05/2021 Type 1 DM with polyneuropathy 12/23/2013 02/24/2020 Overview (12/26/2014): DM (diabetes mellitus), seco ndary uncontrolled 12/13/2013 08/25/2014 Diabetic peripheral neuropat hy associated with type 1 diabetes mellitus 11/11/2013 02/24/2020 Overview (10/22/2018): Overview: ENDO (MONA) MANAGING -- ON LYRICA Overview: ENDO (MONA) MANAGING -- ON LYRICA Abdominal mass 11/11/2013 04/05/2021 Overview (11/28/2020): GI (LUI) MANAGING 10/01 EGD 11/01 HAS UPCOMING APPT W/ GI SPECIALIST Pelvic pain in female 11/11/20132021 Overview (11/28/2020): WINDLACE MACHINE OPERATOR (CASSANDRA) MANAGING -- ON GABAPENTIN WINDLACE MACHINE OPERATOR (CASSANDRA) MANAGING -- ON GABAPENTIN Familial multiple polyposis syndrome 11/11/2013 04/05/2021 Overview (11/28/2020): GI (LUI) OV Added automatically from request for surgery [id number] Last Assessment & Plan: Pt follow for surveillance in GI clinic. Will f/u as scheduled. Abdominal pain, left lower quadrant 01/22/2013 10/07/2017 Genetic predisposition to disease 11/22/2011 04/05/2021 Type 1 diabetes mellitus wit h neurological manifestations, uncontrolled 07/29/2008 03/09/2015 Overview (11/18/2014): Cough 03/31/2008 05/20/2015 Menstrual periods irregular 03/18/2008 02/05/2014 Screening for cervical cancer 08/11/2007 03/18/2008 Overview (08/11/2007): 07/10/07 WNL Screening for osteoporosis 08/11/2007 0 03/18/2008 Overview (08/11/2007): 2004 Opiate dependence 01/02/2017 Encounters Date Type Department Care Team Description 07/21/2024 2:40 PM CDT Office Visit [facility] [address] [place] [address] Jeramy Napier DO Mucous cyst of finger (Primary Dx) 07/20/2024 Refill [facility] [address] [place] [address] Chris Golden MD Refill Request 07/19/2024 6:09 PM CDT - 07/19/2024 11:59 PM CDT Hospital Encounter [facility] [address], [address] [place] [address] [address] [place] APRN-DIRECT CARE WORKER Discharge Disposition: Home or Self Care 07/19/2024 Travel 07/10/2024 Refill [facility] [address] [place] [address] Jeramy Napier DO Refill Request 06/30/2024 Telephone [facility] - CNC SERVICE ENGINEER [address] [place] [address] Ronan Lee MD Medication Problem 06/30/2024 Telephone [facility] - CNC SERVICE ENGINEER [address] [place] [address] Ronan Lee MD Vaginal Bleeding 06/25/2024 Telephone [facility] [address] [place] [address] Jeffry Bernabe APRN-DIRECT CARE WORKER Appointment 06/18/2024 Telephone [facility] - CNC SERVICE ENGINEER [address] [place] [address] Ronan Lee MD YEAST INFECTION 06/12/2024 Refill [facility] [address] [address] [place] [phone] Chris Golden MD Refill Request 06/11/2024 2:30 PM CDT Office Visit [facility] - CNC SERVICE ENGINEER [address] [place] [address] Ronan Lee MD Well female exam with routine gynecological exam (Primary Dx); Yeast infection 06/11/2024 Travel 06/11/2024 Telephone [facility] [address] [place] [address] Napier Jeramy, DO Question 06/04/[address] [address] Napier, Jeramy, DO MEDICATION REFILL 05/28/[address] [address] Napier, Jeramy, DO MEDICATION REFILL 05/28/[address] [address] Napier Jeramy, DO Med Question 05/27/2024 Refill [facility] [address] [phone] Chris Golden MD MEDICATION REFILL 05/08/[address] [address] Napier Jeramy, DO Refill Request 05/01/[address] [address] Napier, Jeramy, DO MEDICATION REFILL from Last 3 Months Immunizations Immunization Administration Dates Next Due INFLUENZA VACCINE, TRIV. (AF LURIA, FLUZONE TRIVALENT; 6MO+) (IIV3) 01/31/2015,11/01/2014,10/11/2013,2012 Covid Save22 primary monoval ent 12+ yr 0.3mL Purple cap 06/16/2021,05/29/2021 FLU VACCINE TRI IIV3 SPLIT P F IM (FLUVIRIN) 12/17/2017 HEP B VACCINE, ADULT 3 DOSE 12/02/2001 HepB Unspecified formulation 07/29/1998,12/06/18 98 INFLUENZA VACCINE 12/04/2016,11/01/2014,12/06/18 98 INFLUENZA VACCINE, CELL CULT URE, QUADR. (FLUCELVAX QUADRIVALENT; 6MO+) (CCIIV4) 04/12/2019 INFLUENZA VACCINE, CELL CULT URE, TRIV. (FLUCELVAX TRIVALENT; 6MO+), 0.5 ML (CCIIV3) 04/12/2019 INFLUENZA VACCINE, QUADR. (F LUZONE; FLULAVAL; FLUARIX; AFLURIA QUADRIVALENT; 6MO+), 0.5 ML (IIV4) 01/29/2022,12/14/2019,12/17/2017 Influenza Pf Intradermal (ADULT) 11/26/2013 MMR VACCINE 06/14/2024 PNEUMOCOCCAL PPSV23 10/13/2013,09/18/2013 TD (AGE 7-ADULT) 06/20/2007,07/29/1998 TDAP (7yrs+) 10/13/2013,09/18/2013 Zoster Hzv Vacc Recombinant Inj Im 06/14/2024 iNFLUENZA VACCINE, RECOM-HORVATH, QUADR. (FLUBLOCK QUADRIVALENT; 18Y+) (RIV4) 11/20/2022 Family History Medical History Relation Name Comments Cancer - Colon Brother 1 Cancer - Colon Brother 3 Diabetes Brother 3 Neuropathy Brother 4 Cancer - Colon Cousin Bipolar Disorder Father Depression Father Cancer - Colon Maternal Aunt Cancer - Thyroid Maternal Aunt Cancer - Colon Maternal Grandmother Anxiety Disorder Mother Cancer - Colon Mother Depression Mother Hypertension Mother Stroke Paternal Grandmother Relation Name Status Comments Brother 1 (Age 27) Brother 2 Alive x3 Brother 3 Brother 4 Cousin Father Alive Maternal Aunt Maternal Grandmother Mother (Age 56) Paternal Grandmother Sister Alive x1 Social History Tobacco Use Types Packs/Day Years Used Date Smoking Tobacco: Never Smokeless Tobacco: Never Tobacco Cessation:Counseling Given: Not Answered Alcohol Use Standard Drinks/Week Comments No 0 (1 standard drink = 0.6 oz pur e alcohol) AUDIT-C Answer Date Recorded Q1: How often do you have a drink containing alcohol? Never 03/27/2023 Q2: How many drinks containi ng alcohol do you have on a typical day when you are drinking? Patient does not drink Q3: How often do you have si x or more drinks on one occasion? Never 03/27/2023 Overall Financial Resource Strain (CARDIA) Answe r Date Recorded How hard is it for you to pa y for the very basics like food, housing, medical care, and heating? Hard 10/03/2022 PHQ-2 Answer Date Recorded Patient Health Questionnaire-2 Score 0 07/21/2024 [facility] - Occupational Stress Questionnaire Answer Date Recorded Do you feel stress - tense, restless, nervous, or anxious, or unable to sleep at night because your mind is troubled all the time - these days? Very much 10/03/2022 Hunger Vital Sign Answer Date Recorded Within the past 12 months, y ou worried that your food would run out before you got the money to buy more. Sometimes true Within the past 12 months, t he food you bought just didn't last and you didn't have money to get more. Sometimes true PRAPARE - Transportation Answer Date Re corded In the past 12 months, has l ack of transportation kept you from medical appointments or from getting medications? Yes 09/18 In the past 12 months, has l ack of transportation kept you from meetings, work, or from getting things needed for daily living? Yes 10/03/2022 Housing Stability Vital Sign Answer Ronnie e Recorded In the last 12 months, was t here a time when you were not able to pay the mortgage or rent on time? Yes 10/03/2022 In the last 12 months, how many places have you lived? 1 10/03/2022 In the last 12 months, was t here a time when you did not have a steady place to sleep or slept in a skilled nursing (including now)? No 10/03/2022 Education Answer Date Recorded What is the highest level of school you have completed or the highest degree you have received? High school graduate 08/06/2022 Comments No Sex and Gender Information Value Date Recorded Sex Assigned at Female 02/22/2020 1:27 AM SURGICAL INSTRUMENT REPAIR SPECIALIST Legal Sex Female 4:51 AM SURGICAL INSTRUMENT REPAIR SPECIALIST Gender Identity Female 02/22/2020 1:27 AM SURGICAL INSTRUMENT REPAIR SPECIALIST Sexual Orientation Straight 02/22/2020 1: 27 AM SURGICAL INSTRUMENT REPAIR SPECIALIST Occupation Industry Job Start Date Job End Date disabled Not on file Not on file Not on file Last Filed Vital Signs Vital Sign Reading Time Taken Comments Blood Pressure 122/82 07/21/2024 3:00 PM CDT Pulse 84 07/21/2024 3:00 PM CDT Temperature 36.7 C (98.1 F) 07/21/2024 3:00 PM CDT Respiratory Rate 16 07/19/2024 6:11 PM CDT Oxygen Saturation 98% 07/21/2024 3:00 PM CDT Inhaled Oxygen Concentration - - Weight 66.2 kg (146 lb) 07/21/2024 3:00 PM CDT Height 167.6 cm (5' 6) 07/21/2024 3:00 PM CDT Body Mass Index 23.57 07/21/2024 3:00 PM CDT Plan of Treatment Upcoming Encounters Date Type Department Care Team (Late st Contact Info) Description 08/27/2024 10:10 AM CDT Office Visit [facility] [id number] [place] [phone] Jeramy Napier, DO [address] [place] [address] [place] [address] [phone] 11/12/2024 11:00 AM CDT Office Visit [facility] [address] [place] [address] Napier, Jeramy, DO [address] [place] [address] Health Maintenance Due Date Last Done Comments MAMMOGRAM 1982 PNEUMOCOCCAL VACCINE (2 of 2 - PCV) 10/13/2014 10/13/2013, 09/18/2013 PAP with HPV 05/29/2021 05/29/2016 DIABETES-STATIN 2022 DIABETES-FOOT EXAM WITH MONOFILAMENT 09/22/2023 09/21/2022, 06/25/2013, 10/02/2012, Additional history exists DTAP/TDAP/TD VACCINES (5 - Td or Tdap) 10/14/2023 10/13/2013, 09/18/2013, 06/20/2007, Additional history exists COVID-19 VACCINE ( season) 2023 06/16/2021, 05/29/2021 DIABETES - URINE PROTEIN SCREENING 02/19/2024 06/23/2021, 10/16/2016, 04/25/2012, Additional history exists INFLUENZA VACCINE (Season Ended) 2024 11/20/2022, 01/29/2022, 12/14/2019, Additional history exists DIABETES RETINOPATHY SCREENING 10/29/2024 10/30/2023, 03/19/2019, 06/12/2013 DIABETES-HGB A1C 11/28/2024 05/29/2024, 10/2024, 11/13/2023, Additional history exists MEDICARE AWV 12 MONTHS 04/22/2025 04/22/2024, 12/11/2022, 12/11/2022, Additional history exists DIABETES-SERUM CREATININE 05/29/20252024, 02/27/2024, 11/13/2023, Additional history exists ZOSTER VACCINE (2 of 2) 2032 06/14/2024 HEPATITIS B VACCINE Completed 12/02/2001, 07/29/1998, 12/06/1997 HEPATITIS C SCREENING Completed 11/10/2009 HIV SCREENING Completed 08/06/2022 HIB VACCINE Aged Out No longer eligi ble based on patient's age to complete this topic HPV VACCINE Aged Out No longer eligi ble based on patient's age to complete this topic MENINGOCOCCAL (Group B) VACCINE SHARED DECISION-MAKING Aged Out No longer eligible based on patient's age to complete this topic MENINGOCOCCAL GROUPS A/C/Y/W VACCINE Aged Out No longer eligible based on patient's age to complete this topic Goals Goal Patient Goal Type Associated Problems Recent Progress Patient-Stated? Author Right level of care at the right time. General On track( 019 10:21 AM CDT) Yes Renee Simon RN Note: Instruct the patient to call the doctor if: the patient has an increased temperature (greater than 101), unrelieved pain, symptoms that are not relieved or worsening, and side effects of medications. Progress toward goal attainment: 0% : Ongoing / No progress Barriers to goal attainment: None at the time of this encounter [facility] Lifestyle: Have labs drawn Lifestyle Not on track( 014 1:46 PM CDT) No Dahiana Alfred HEMOGLOBIN A1C < 7.0 Result Component 7.6( 5:48 PM CDT) No Seth Huynh Medical Devices Implanted Type Area Slag Worker Device Identifier Shelf Expiration Date Model / Serial / Lot Mirena Implanted:Qty: 1 on 12/20/2022 by Bobbi Floyd MD at [facility] N/A: Uterus 11/18/2024 [id number] / [id number] TDU Procedures Procedure Name Priority Date/Time Associated Diagnosis Comments PAP IG LB CT+NG RFLX HPV APTIMA ASCU Routine 06/11/2024 2:48 PM CDT Well female exam with routine gynecological exam URINALYSIS AUTO - POINT OF CARE Routine 06/11/2024 Yeast infection ENDOSCOPY ORDER 06/04/2024 ENDOSCOPY ORDER 06/04/2024 COMPREHENSIVE METABOLIC PANEL Routine 04/22/2023 11:58 AM SURGICAL INSTRUMENT REPAIR SPECIALIST Annual physical exam HEMOGLOBIN A1C STAT 12/12/2022 5:48 PM CDT HIV-1 HIV-2 ANTIBODY + HIV P24 AG PANEL Routine 08/06/2022 3:09 PM CDT Screening for HIV without presence of risk factors HM DIABETES EYE EXAM Routine 03/19/2019 MICROALB/CREAT RATIO URINE RANDOM PANEL Routine 10/16/2016 2:39 PM CDT Type 1 diabetes mellitus with diabetic polyneuropathy HPV DNA PROBE HIGH RISK Routine 05/29/2016 3:53 PM CDT Well female exam with routine gynecological exam HEPATITIS C ANTIBODY Routine 11/10/2009 1:28 PM CDT from Last 3 Months or Most Recently Relevant to Health Maintenance Results * PAP IG LB CT+NG RFLX HPV APTIMA ASCU (06/11/2024 2:48 PM CDT) Diagnosis Comment [facility] INSURANCE BILL Comment: NEGATIVE FOR INTRAEPITHELIAL LESION OR MALIGNANCY. THIS SPECIMEN WAS RESCREENED PART OF OUR HOME DEMONSTRATOR PROGRAM. Specimen Adequacy Comment [facility] INSURANCE BILL Comment:Satisfactory for emanuel luation. No endocervical component is identified. Clinician Provided ICD10 Comment [facility] INSURANCE BILL Comment:Z01.419 Performed by Comment [facility] INSURANCE BILL Comment:Maritza Powell, Cyto logist (ASCP) QC Reviewed by Comment [facility] INSURANCE BILL Comment:Sonido Soliman ytologist (ASCP) Comment . [facility] INSURANCE BILL Note Comment [facility] INSURANCE BILL Comment: The Pap smear is a screening test designed to aid in the detection of premalignant and malignant conditions of the uterine cervix. It is not a diagnostic procedure and should not be used as the sole means of detecting cervical cancer. Both false-positive and false-negative reports do occur. [facility] CPT Code Automation Comment [facility] INSURANCE BILL Comment: This liquid based ThinPrep(R) pap test was screened with the use of an image guided system. Note Comment [facility] INSURANCE BILL Comment: The HPV DNA reflex criteria were not met with this specimen result therefore, no HPV testing was performed. Chlamydia trachomatis AIDA Negative Negative [facility] INSURANCE BILL GC DNA Probe Negative Negative [facility] INSURANCE BILL PART OF UTERINE CERVIX / Unknown 06/11/2024 2:48 PM CDT 06/11/2024 Comment:Cervix Release to pa t Narrative [facility] INSURANCE BILL - 06/17/2024 10:10 AM CDT Performed at: 01 - [address] [id number] [employer] Opt[employer] Cable Splicer: Azul Orona MD, Phone: [phone] [facility]formed at: [facility] - [facility] [address] [place], [place] [id number] [employer] Opt[employer] Cable Splicer: Noman Hinojosa MD, Phone: [phone] Performed at: 03 - [address] [id number] Fib[employer] Optic Cable Splicer: Azul Orona MD, Phone: [phone] Specimen Comment: [id number] Specimen Comment: Source.............Cervix;Endocervix;Vagina Specimen Comment: LMP / Prev Treat...None Specimen Comment: Dates / Results....ablation no periods Specimen Comment: No. of containers..01 ThinPrep Vial Ronan Lee MD LAB - PATHOLOGY/CYTOLOGY ORDERAB LES Final Result Performing Organization Address City/State/[facility] Co de Phone Number [facility] INSURANCE BILL [address] [place] [address] * URINALYSIS AUTO - POINT OF CARE (06/11/2024) Clarity UA POCT cloudy Color UA POCT yellow Leukocyte UA neg Negative Nitrite UA POCT neg Negative Urobilinogen UA 0.2 0.1 - 1.0 Protein UA POCT + Negative pH UA 6.0 5.0 - 8.0 pH units Blood UA neg Negative Specific [place] UA POCT 1.030 1.002 - 1.030 Ketone UA neg Negative Bilirubin UA POCT 1+ Negative Glucose UA neg Negative Urine URINE / Unknown 06/11/2024 us Ronan Lee MD LAB - POINT OF CARE ORDERABLES F inal Result * Endoscopy Order (06/04/2024) 06/04/2024 Narrative 06/04/2024 Ordered by an unspecified provider. us Scanned Document GI PROCEDURE ORDERABLES Final R esult * Endoscopy Order (06/04/2024) 06/04/2024 Narrative 06/04/2024 Ordered by an unspecified provider. us Scanned Document GI PROCEDURE ORDERABLES Final R esult * (ABNORMAL) COMPREHENSIVE METABOLIC PANEL (04/22/2023 11:58 AM SURGICAL INSTRUMENT REPAIR SPECIALIST) Glucose 175(H) 70 - 99 mg/dL [facility] INSURANCE BILL BUN 10 6 - 24 mg/dL [facility] INSURANCE BILL Creatinine 0.56(L) 0.57 - 1.00 mg/dL [facility] INSURANCE BILL eGFR by CKD-EPI 118 >59 mL/min/1.7 3 [facility] INSURANCE BILL BUN/Creatinine Ratio 18 9 - 23 [facility] INSURANCE BILL Sodium 141 134 - 144 mmol/L [facility] INSURANCE BILL Potassium 4.1 3.5 - 5.2 mmol/L [facility] INSURANCE BILL Chloride 105 96 - 106 mmol/L [facility] INSURANCE BILL CO2 22 20 - 29 mmol/L [facility] INSURANCE BILL Calcium 8.7 8.7 - 10.2 mg/dL [facility] INSURANCE BILL Protein Total 6.3 6.0 - 8.5 g/dL [facility] INSURANCE BILL Albumin 3.9 3.9 - 4.9 g/dL [facility] INSURANCE BILL Globulin Total 2.4 1.5 - 4.5 g/dL [facility] INSURANCE BILL Albumin/Globulin Ratio 1.6 1.2 - 2.2 [facility] INSURANCE BILL Bilirubin Total 0.3 0.0 - 1.2 mg/dL [facility] INSURANCE BILL Alkaline Phosphatase 115 44 - 121 IU/L [facility] INSURANCE BILL AST 20 0 - 40 IU/L [facility] INSURANCE BILL ALT 23 0 - 32 IU/L [facility] INSURANCE BILL Comment:FASTING Blood BLOOD SPECIMEN / Unknown 04/22/2023 11:58 AM SURGICAL INSTRUMENT REPAIR SPECIALIST 04/22/2023 Narrative Resulting Agency Comment Lab Testing performed at: [facility] [id number] us Jeramy Napier DO LAB - CHEMISTRY ORDERABLES Final Result [facility] INSURANCE BILL [address] [place] [address] * (ABNORMAL) HEMOGLOBIN A1C (12/12/2022 5:48 PM CDT) Hemoglobin A1c 7.6(H) <5.7 % 12/13/2022 6:38 AM CDT [facility] Estimated Average Glucose 171 mg/dL 12/13/2022 6:38 AM CDT [facility] Blood BLOOD SPECIMEN / Unknown Venipuncture / Unknown 12/12/2022 5:48 PM CDT 12/12/2022 5:50 PM CDT [facility] - 12/13/2022 6:38 AM CDT HbA1c Interpretation: Normal: < 5.7% Pre-diabetes: 5.7-6.4% Diabetes: Equal to or greater than 6.5% Test results diagnostic of diabetes should be repeated for confirmation. Treatment target values recommended by ADA and other clinical organizations should be used to evaluate metabolic control in patients. This test should not replace glucose testing for patients with Type 1 diabetes, pediatric patients, or women. Falsely low HbA1c results may be observed in patients with clinical conditions that shorten erythrocyte life span or decrease mean erythrocyte age such as the presence of unstable hemoglobin variants, elevated hemoglobin F level or other causes of hemolytic anemia. HbA1c may not accurately reflect glycemic control when clinical conditions that affect erythrocyte survival are present. Severe Iron deficiency anemia may yield falsely high results. Hemoglobin A1c assay should not be used to diagnose or monitor diabetes in patients with malignancy, recent blood transfusion, chronic kidney or liver disease. This method may yield falsely low results when hemoglobin (HbF) exceeds 5% in the specimen. The [place]re Alinity assay for the measurement of HbA1c is a National Glycohemoglobin Standardization Program (NGSP) certified method. Zane Tavarez PA-C LAB - CHEMISTRY ORDERABLES Final Result [facility] [address] [place] [address] * HIV-1 HIV-2 ANTIBODY + HIV P24 AG PANEL (08/06/2022 3:09 PM CDT) HIV Screen 4th Generation w Reflex Non Reactive Non Reactive [facility] INSURANCE BILL Comment: HIV Negative HIV-1/HIV-2 antibodies and HIV-1 p24 antigen were NOT detected. There is no laboratory evidence of HIV infection. Blood BLOOD SPECIMEN / Unknown 08/06/2022 3:09 PM CDT 08/06/2022 Narrative Resulting Agency Comment Lab Testing performed at: [facility] [id number] us Jamal Anderson MD LAB - CHEMISTRY ORDERABLES Fi nal Result Performing Organization Address City/[facility]/ZIP Co de Phone Number [facility] INSURANCE BILL [address] [place] [address] * DIABETES EYE EXAM (03/19/2019) us Scanned Document HEALTH MAINTENANCE Final Result * MICROALB/CREAT RATIO URINE RANDOM PANEL (10/16/2016 2:39 PM CDT) Pathologist [facility] Creatinine Urine 210 mg/dL [facility] INSURANCE BILL Microalbumin Urine 2.5 mg/dL [facility] INSURANCE BILL Microalbumin/Crea tinine Ratio 12 <30 mg/g [facility] INSURANCE BILL Urine URINE SPECIMEN OBTAINED BY CLEAN CATCH PROCEDURE / Unknown 10/16/2016 2:39 PM CDT 10/16/2016 Narrative Resulting Agency Comment [place] [address] [place] [id number] us Devendra Foster MD LAB - URINE CHEMISTRY ORDERA BLES Final Result Performing Organization Address City/[facility]/ZIP Co de Phone Number [facility] INSURANCE BILL [address] [place] [address] * HPV DNA PROBE HIGH RISK (05/29/2016 3:53 PM CDT) Pathologist [facility] Human papillomavirus High Risk Negative Negative [facility] INSURANCE BILL Comment: This test was developed and its performance characteristics determined by [employer]. It has not been cleared or approved by the Food and Drug Administration. This high-risk HPV test detects thirteen high-risk types (16/18/31/33/35/39/45/51/52/56/58/59/68) without differentiation. . 05/29/2016 3:53 PM CDT 05/29/2016 Narrative [facility] INSURANCE BILL - 06/04/2016 9:07 PM CDT No. of containers..01 [facility] Collection Vial Resulting Agency Comment [facility] [address] [facility] [address] [id number] us Ronan Lee MD LAB - MICROBIOLOGY ORDERABLES Fi nal Result [facility] INSURANCE BILL [address] [place] [address] * HEPATITIS C ANTIBODY (11/10/2009 1:28 PM CDT) [facility] Hepatitis C Antibody Screen Nonreactive Nonreactive [facility] BLOOD SPECIMEN / Unknown 11/10/2009 1:28 PM CDT 11/10/2009 1:29 PM CDT Narrative Resulting Agency Comment Performed By 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 11/16/2008 Insurance MEDICAID MEDICARE [place] Advance Directives * Full Code (Latest Code Status on File) Date Activated Date Inactivated Comments 12/12/2022 8:46 PM 12/13/2022 11:07 AM * Full Code Date Activated Date Inactivated Comments 06/13/2018 12:05 PM 06/15/2018 5:00 PM * Full Code Date Activated Date Inactivated Comments 07/22/2017 1:46 AM 07/28/2017 6:28 PM * Full Code Date Activated Date Inactivated Comments 06/24/2017 4:51 AM 06/29/2017 3:03 PM * Full Code Date Activated Date Inactivated Comments 06/11/2017 4:16 AM 06/12/2017 4:36 PM Care Teams News Department Intern Relationship Specialty Start Date End Date Jeramy Napier DO [address] [place] [id number] PCP - General Family Medicine 04/22/23 Stacey Day, SERVICE TECHNICIAN COPIER-DIRECT CARE WORKER [address] [place] [address] PCP - Attributed-MSSP 10/20/23 Amisha Garay MD Orthopedic Surgery 04/29/12 Doni Sanon DO Orthopedic Surgery 08/25/12 Ronan Lee MD [address] [place] [address] Obstetrics and Gynecology 10/13/13 Jennie Mujica, SERVICE TECHNICIAN COPIER-DIRECT CARE WORKER [address] [place] [address] Nurse Practitioner 10/13/13 Uzair Romero MD [address] [place] [address] Gastroenterology 10/13/13 [place] [address] [place] [address] Colon and Rectal Surgery 10/13/13 Laureen Cabrera, RN Training Development Manager 08/09/16 Mei Otero, [facility] Power Manager 11/27/16
--- OUTSIDE RECORDS SUMMARY | 2024-07-27 11:22 | XMS_ITS | Encounter Summary ---
Author Organization [facility] Address [address] [place] [address] Care Team Providers Care Snack Bar Cook Name Role Phone Jose Tomas DO Primary Care Provider Eduardo clarke Encounter Details Date Type Department Care Team (Latest Contact Info) Description 06/12/1999 Outpatient Historical [facility] [place] Major depressive disorder, single episode, unspecified (Primary Dx) Social History Tobacco Use Types Packs/Day Years Used Date Smoking Tobacco: Never Assessed Comments Unknown Sex and Gender Information Value Date Recorded Sex Assigned at Not on file Legal Sex Female 5:14 AM STEEL GRINDER Gender Identity Not on file Sexual Orientation Not on file documented as of this encounter Plan of Treatment Not on file documented as of this encounter Visit Diagnoses Diagnosis Major depressive disorder, single episode, unspecified- Primary documented in this encounter Care Teams Snack Bar Cook Relationship Specialty Start Date End Date Jose Tomas DO PCP - General Family Practice 04/01/17 documented as of this encounter
--- OUTSIDE RECORDS SUMMARY | 2024-07-27 11:22 | XMS_ITS | Clinical Summary ---
Author Organization [facility] Address [address] [place] [address] Phone Care Team Providers Care Community Relations Representative Name Role Phone Jose Tomas DO Primary Care Provider [phone] Allergies Active Allergy Reactions Criticality Noted Date Comments Erythromycin Hives,Rash Medium 08/11/2007 Ondansetron Hives Medium 06/24/2017 Can take med if she has IV Benadryl prior to taking Zofran. Vancomycin Hives,Rash High 03/31/2008 Red Man Rash Red Man Rash Medications dicyclomine (BENTYL) 20 MG tablet Take 20 mg by mouth 2 (two) times a day 9 Active loperamide (IMODIUM) 2 MG capsule Take 2 mg by mouth 4 (four) times a day if needed for diarrhea Active gabapentin (NEURONTIN) 300 MG capsule Take 300 mg by mouth 3 (three) times a day Active oxyCODONE-aceta minophen (PERCOCET) 5-325 MG per tablet Take 1 tablet by mouth every 6 hours as needed 9 Active ondansetron (ZOFRAN) 4 MG tablet Take 4 mg by mouth 3 Active FLUoxetine (PROzac) 40 MG capsule Take 40 mg by mouth 1 (one) time each day Active zolpidem (Ambien) 5 MG tablet Take 5 mg by mouth at night if needed for sleep Active diphenoxylate-a tropine (LOMOTIL) 2.5-0.025 MG per tablet Take 1 tablet by mouth 4 (four) times a day if needed for diarrhea Active insulin aspart (NovoLOG) 100 UNIT/ML injectionIndica tions:insulin pump Inject under the skin continuously Active dexlansoprazole (Dexilant) [address] capsule Take 60 mg by mouth 1 (one) time each day Active Active Problems No known active problems Immunizations Immunization Administration Dates Next Due Influenza (IM) Preservative Free 12/17/2017,10/2013 Influenza TIV (IM) 12/04/2016,01/31/2015, 014,12/02/2012 Influenza, Unspecified 12/04/2016,11/01/2014,10/2013 Pneumococcal Polysaccharide 10/13/2013, 4 Tdap 10/13/2013,09/18/2013 Family History Medical History Relation Comments Kidney disease Brother Brother had ESRD due to type 1 DM Hypertension Neg Hx Relation Status Comments Brother Social History Tobacco Use Types Packs/Day Years Used Date Smoking Tobacco: Never Smokeless Tobacco: Never Alcohol Use Standard Drinks/Week Comments Not Currently 0 (1 standard drink = 0.6 oz pur e alcohol) Comments Unknown Sex and Gender Information Value Date Recorded Sex Assigned at Not on file Legal Sex Female 3:06 PM MST Gender Identity Not on file Sexual Orientation Not on file Plan of Treatment Health Maintenance Due Date Last Done Comments Influenza Vaccine (Season Ended) 2024 12/17/2017, 12/04/2016, 12/04/2016, Additional history exists Insurance MEDICARE MEDICAID - [place] Care Teams Community Relations Representative Relationship Specialty Start Date End Date Jose Tomas DO [address] [place] [address] PCP - General Family Medicine 05/25/19
--- OUTSIDE RECORDS SUMMARY | 2024-07-27 11:22 | XMS_ITS | Encounter Summary ---
Author Organization [facility] [employer]™ [facility] Address [address] [place] [address] Phone Care Team Providers Care Inventory Associate Name Role Phone Omi Kennedy MD Unavailable [phone] Angelia Melgoza MD Unavailable OnumaRobert MD Unavailable [phone] Marciano Danielson MD Unavailable Aria Madrid MD Unavailable [phone] Jeramy Napier DO Primary Care Provider [phone] Encounter Details Date Type Department Care Team (Latest Contact Info) Description 06/01/2024 Results Follow-Up [facility] Endocrinology Metabolism and Lipid [address] [facility] Advanced Medicine 13th [place] [address] [place] [address] Calvin Ro MD [address] [place] [address] Comprehensive metabolic panel, Vitamin B12, Vitamin D 25 hydroxy, eGFR Social History Tobacco Use Types Packs/Day Years [...] often do you attend chur ch or hindu services? Never 12/15/2019 Active Member of Clubs [...] making you feel afraid or unsafe? Denies 06/04/2024 Comments No Sex and Gender Information Value Date Recorded Sex Assigned at Not on file Legal Sex Female 11:58 PM MALTED MILK MASHER Gender Identity Not on file Sexual Orientation Not on file documented as of this encounter Functional Status * Audit-C Score Answer Date of Assessment Author 0 06/04/2024 6:19 AM AMBREENT Sonido Amado RN * Question Answer Date of Assessment Author Q1: How often do you have a drink containing alcohol? Never 06/04/2024 6:19 AM AMBREENT Funmi Amado RN Q2: How many drinks containing alcohol do you have on a typical day when you are drinking? Patient does not drink 06/04/2024 6:19 AM CDT Funmi Amado RN Q3: How often do you have six or more drinks on one occasion? Never 06/04/2024 6:19 AM AMBREENT Funmi Amado RN documented as of this encounter Miscellaneous Notes * Result Encounter Note - Calvin Ro MD - 06/01/2024 9:36 AM CDT Labs are unremarkable and good. No need for B12 replacement. documented in this encounter Plan of Treatment Not on file documented as of this encounter Visit Diagnoses Not on filedocumented in this encounter Care Teams Inventory Associate Relationship Specialty Start Date End Date Jeramy Napier DO [address] [place] [address] PCP - General Family Medicine 12/31/23 Omi Kennedy MD Surgeon Colon and Rectal Surgery 09/08/18 Angelia Melgoza MD Surgeon Colon and Rectal Surgery 09/08/18 [place] [address] [address] Psychiatrist Psychiatry 09/08/18 [place] [address] [address] Procurement Cost Coordinator Gastroenterology 09/08/18 Aria Madrid MD [address] [place] [address] [place] [address] Consulting Physician Obstetrics and Gynecology 08/06/22 documented as of this encounter
--- OUTSIDE RECORDS SUMMARY | 2024-07-27 11:22 | XMS_ITS | Encounter Summary ---
Author Organization [employer] Address [address] [place] [address] Care Team Providers Care Drilling Machine Runner Name Role Phone Jose Tomas DO Primary Care Provider Eduardo clarke Encounter Details Date Type Department Care Team (Latest Contact Info) Description 05/11/1999 Outpatient Historical [facility] Major depressive disorder, single episode, unspecified (Primary Dx) Social History Tobacco Use Types Packs/Day Years Used Date Smoking Tobacco: Never Assessed Comments Unknown Sex and Gender Information Value Date Recorded Sex Assigned at Not on file Legal Sex Female 5:14 AM SUPERVISOR SAMPLE PREPARATION Gender Identity Not on file Sexual Orientation Not on file documented as of this encounter Plan of Treatment Not on file documented as of this encounter Visit Diagnoses Diagnosis Major depressive disorder, single episode, unspecified- Primary documented in this encounter Care Teams Drilling Machine Runner Relationship Specialty Start Date End Date Jose Tomas DO PCP - General Family Practice 04/01/17 documented as of this encounter
--- OUTSIDE RECORDS SUMMARY | 2024-07-27 11:22 | XMS_ITS | Clinical Summary ---
Author Organization [facility] Address [address] [place] [address] Care Team Providers Care Measurement Department Chief Clerk Name Role Phone Unavailable Primary Care Provider Unavailabl e Social History Tobacco Use Types Packs/Day Years Used Date Smoking Tobacco: Never Assessed Comments Unknown Sex and Gender Information Value Date Recorded Sex Assigned at Not on file Legal Sex Female 12:17 AM PST Gender Identity Not on file Sexual Orientation Not on file Plan of Treatment Not on file
--- OUTSIDE RECORDS SUMMARY | 2024-07-27 11:22 | XMS_ITS | Encounter Summary ---
Author Organization [facility] Address [address] [place] [address] Phone Care Team Providers Care Laryngologist Name Role Phone Omi Kennedy MD Unavailable Angelia Melgoza MD Unavailable [phone] OnumaRobert MD Unavailable [phone] Marciano Danielson MD Unavailable Aria Madrid MD Unavailable [phone] Jeramy Napier DO Primary Care Provider [phone] Encounter Details Date Type Department Care Team (Latest Contact Info) Description 06/11/2024 Results Follow-Up [facility] Endocrinology Metabolism and Lipid [address] [facility] Advanced Medicine 13th [place] [address] [place] [address] Ryanne Merino, INVENTORY TAKER [address] [place], [place] [id number] Measles/Mumps/Rubell a Immunity Social History Tobacco Use Types Packs/Day Years [...] week 12/15/2019 How often do you attend [facility] ch or hindu services? Never 12/15/2019 Active [...] on file Legal Sex Female 11:58 PM FRAMING CONSULTANT Gender Identity Not on file Sexual Orientation Not on file documented as of this encounter Plan of Treatment Not on file documented as of this encounter Visit Diagnoses Not on filedocumented in this encounter Care Teams Laryngologist Relationship Specialty Start Date End Date Jeramy Napier DO [address] [place] [address] PCP - General Family Medicine 12/31/23 Omi Kennedy MD Surgeon Colon and Rectal Surgery 09/08/18 Angelia Melgoza MD Surgeon Colon and Rectal Surgery 09/08/18 [place] [address] [address] Psychiatrist Psychiatry 09/08/18 [place] [address] [address] Beef Breaker Gastroenterology 09/08/18 Aria Madrid MD [address] [place] [address] Consulting Physician Obstetrics and Gynecology 08/06/22 documented as of this encounter
--- OUTSIDE RECORDS SUMMARY | 2024-07-27 11:22 | XMS_ITS | Clinical Summary ---
Author Organization [facility] Address [address] [place] [address] Care Team Providers Care Hematology Technician Name Role Phone Kennedy, Omi Lord MD Unavailable [phone] Angelia Melgoza MD Unavailable OnumaRobert MD Unavailable Marciano Danielson MD Unavailable Aria Madrid MD Unavailable [phone] Jeramy Napier DO Primary Care Provider [phone] Allergies Active Allergy Reactions Criticality Noted Date [...] change pod every 3 days 1 each Active insulin syringe-needle U-100 (BD Insulin Syringe Ultra-Fine) 0.3 mL 31 gauge x 5/16 syringeIndication s:Type 1 diabetes mellitus without complication (HCC) Use to inject insulin 4 times per day with off pump plan 50 each 1 023 Active insulin syringe-needle U-100 0.5 mL 31 gauge x 5/16 syringeIndication s:Type 1 diabetes mellitus without complication (HCC) USE TO INJECT ONCE TO FOUR TIMES DAILY DIRECTED WITH PUMP FAILURE 100 each 1 023 Active naproxen (NAPROSYN) 500 mg tabletIndications :Abnormal uterine bleeding Take 1 tablet (500 mg total) by mouth 2 (two) times a day as needed for pain (pain) for up to 15 days 30 tablet 023 Active acetone, urine, test stripIndications: Type 1 diabetes mellitus without complication (HCC) Use to test for ketone with glucose >350 100 strip 11 Active suvorexant (BELSOMRA) 10 mg tabletIndications :Insomnia Take 1 tablet (10 mg total) by mouth nightly as needed (insomnia) 15 tablet 2 Active lemborexant (Dayvigo) 5 mg tabletIndications :Insomnia Take 5 mg by mouth nightly as needed (insomnia) 30 tablet 2 024 Active ondansetron (ZOFRAN) 4 mg tabletIndications :Nausea and Vomiting Take 1 tablet (4 mg total) by mouth every 4 (four) hours as needed for nausea or vomiting 20 tablet 024 Active EPINEPHrine 0.3 mg/0.3 mL auto-injection syringe Inject 0.3 mL (0.3 mg total) into the muscle as instructed daily as needed 023 Active Vitamins B Complex capsule TAKE ONE CAPSULE BY MOUTH DAILY 30 capsule 11 024 Active lamoTRIgine (LaMICtal) 200 mg tablet TAKE 1 TABLET BY MOUTH EVERY DAY 90 tablet 1 024 Active pen needle, diabetic (BD Ultra-Fine Short Pen Needle) 31 gauge x 5/16 needleIndications :Type 1 diabetes mellitus without complication (HCC) USE TO INJECT ONCE DAILY DIRECTED 100 each 1 024 Active zolpidem (AMBIEN) 10 mg tablet TAKE [...] when BG > 300. 50 strip 1 025 Active blood-glucose meter kit Use glucometer to calibrate Dexcom G6 CGM as needed and for when CGM is not working 1 kit 025 Active insulin aspart niacinamide (FIASP) 100 unit/mL vial for injectionIndicati ons:type 1 diabetes mellitus To use via insulin pump. TDD 100 units a day. 90 mL 3 025 Active syringe with needle, safety 3 mL 22 gauge x 1 syringeIndication s:Vitamin B12 deficiency Use to inject Vitamin B12 once weekly. 100 each 11 025 Active ALPRAZolam (XANAX) 1 mg tabletIndications :Panic [...] Active Dexcom G6 Transmitter device as directed 025 Active escitalopram (LEXAPRO) 10 mg tablet Take 1 tablet (10 mg total) by mouth daily 024 Active atomoxetine (STRATTERA) 25 mg capsule TAKE 1 CAPSULE BY MOUTH EVERY DAY FOR 30 DAYS 025 Active atomoxetine (STRATTERA) 40 mg capsule TAKE 1 CAPSULE BY MOUTH EVERY DAY IN THE MORNING FOR 30 DAYS 025 Active moxifloxacin (VIGAMOX) 0.5 % ophthalmic solution Administer 1 drop into affected eye(s) 4 (four) times a day 024 Active scopolamine 1 mg over 3 days patch 3 day APPLY 1 (ONE) PATCH TO SKIN EVERY 72 HOURS NEEDED (MOTION SICKNESS) 025 Active cyanocobalamin (Vitamin B-12) 1,000 mcg/mL injection INJECT 1,000 MCG DIRECTED EVERY 7 DAYS FOR 4 WEEKS. THEN CONTINUE 1 INJECTION MONTHLY. 025 Active gabapentin (NEURONTIN) 100 mg capsuleIndication s:Type 1 diabetes mellitus with diabetic polyneuropathy (HCC) Take 1 capsule (100 mg total) by mouth 3 (three) times a day 270 capsule 3 04/12/20 Active polyethylene glycol (GoLYTELY) 236-22.74-6.74 -5.86 gram solution Split prep. 2L at 4pm the night before the procedure. 2L, 6 hours before leaving home the morning of the procedure. 4000 mL Active Dexcom G6 Liquid Sugar Melter miscIndications:T ype 1 diabetes mellitus with hyperglycemia [...] 2 (two) times a day 10 capsule Active dicyclomine (BENTYL) 20 mg tablet Take 1 tablet (20 mg total) by mouth every 6 (six) hours 15 tablet Active promethazine (PHENERGAN) 25 mg tablet Take 1 tablet (25 mg total) by mouth every 8 (eight) hours as needed for nausea 30 tablet Active insulin glargine (BASAGLAR) 100 unit/mL (3 [...] 01/08/2024 Assessment & Plan (01/08/2024 8:33 AM PLATER PRODUCTION): Well healed Dc moxi, finish valtrex intermediate Refresh alethea or similar at bedtime (QHS) both eyes (OU) Fu prn 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 01/08/2024 Assessment & Plan (01/08/2024 8:32 AM PLATER PRODUCTION): Fu for On oct 1 year Recurrent erosion of left cornea 10/30/2023 Assessment & Plan (01/02/2024 1:21 PM PLATER PRODUCTION): Healing well- no infiltrate CPMEDS FU Wed am remove BCL Assessment & Plan (12/31/2023 11:50 AM PLATER PRODUCTION): Pt has ho cold sores, + ac [...] Bipolar 1 disorder 03/22/2023 Mixed hyperlipidemia 03/11/2023 intermediate current use of insulin 06/18/2022 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 06/18/2022 Vomiting 10/24/2021 [...] (08/10/2019): Added automatically from request for surgery [id number] Small bowel stricture 01/30/2019 Overview (01/30/2019): Added automatically from request for surgery [id number] Generalized abdominal pain 11/11/2018 Dehydration, mild 11/11/2018 [...] (08/25/2018): Added automatically from request for surgery [id number] Nausea and vomiting 06/13/2018 FAP (familial adenomatous polyposis) 01/27/2018 Overview (01/27/2018): Added automatically from request for surgery [id number] Assessment & Plan (11/01/2021 9:57 AM CDT): [...] zofran with benadryl Continue bentyl Q6 hrs Workplace Relations Adviser consult to reinforce low volume frequent meals Psychiatric disorder 11/13/2016 Overview (01/19/2021): Office Visit 04/04/16 Dr. Elijah Tomas Assessment & Plan (11/01/2021 9:57 AM CDT): [...] Pelvic pain in female 11/11/2013 Overview (07/10/2018): MEAT TRIMMER (CASSANDRA) MANAGING -- ON GABAPENTIN Gastro-esophageal reflux disease without esophag itis 11/11/2013 Overview (10/21/2018): GI (LUI) MANAGING -- ON PPI, ZANTAC, ZOFRAN Generalized anxiety disorder 11/11/2013 Overview (07/10/2018): 11/01 sertraline 50 mg started Abdominal mass 11/11/2013 Overview (01/19/2021): GI (LUI) MANAGING 10/01 EGD 11/01 HAS UPCOMING APPT W/ GI SPECIALIST GI (LUI) MANAGING 10/01 EGD 11/01 HAS UPCOMING APPT W/ GI SPECIALIST Familial multiple polyposis syndrome 11/11/2013 Overview (01/19/2021): GI (CUSWORTH) OV GI (CUSWORTH) OV Added automatically from request for surgery [id number] Last Assessment & Plan: Pt follow for surveillance in GI clinic. Will f/u as scheduled. Gastro-esophageal reflux disease without esophag itis 11/11/2013 Overview (01/19/2021): GI (FORDWORTH) MANAGING -- ON PPI, ZANTAC, ZOFRAN GI (FORDWORTH) MANAGING -- ON PPI, ZANTAC, ZOFRAN GI (CUSWORTH) MANAGING -- ON PPI, ZANTAC, ZOFRAN Generalized anxiety disorder 11/11/2013 Overview (01/19/2021): 11/01 sertraline 50 mg started 11/01 sertraline 50 mg started 11/01 sertraline 50 mg started Pelvic pain in female 11/11/2013 Overview (01/19/2021): MEAT TRIMMER (CASSANDRA) MANAGING -- ON GABAPENTIN MEAT TRIMMER (CASSANDRA) MANAGING -- ON GABAPENTIN MEAT TRIMMER (CASSANDRA) MANAGING -- ON GABAPENTIN Personal history of colon cancer 11/11/2013 Overview (01/19/2021): COLORECTAL SURG(SUSAN) MANAGING 1995 S/P TOTAL COLECTOMY Benign neoplasm of colon 11/09/2013 Overview (10/21/2018): Colon cancer Type 1 diabetes mellitus with hyperglycemia 10/20 Assessment & Plan (01/08/2024 8:31 AM PLATER PRODUCTION): FU for DFE and mac oct 1 [...] Advised to call the after hours 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 [...] (08/12/2018): Added automatically from request for surgery [id number] Leukocytosis 06/13/2018 10/22/2018 Abdominal pain, epigastric 06/11/2017 0 10/22/2018 SBO (small bowel obstruction) 08/29/2016 10/22/2018 Ileal pouchitis 07/12/2015 10/22/2018 Cervical radiculopathy 06/18/201410/22 Menorrhagia 02/05/2014 10/22/2018 Overview (07/10/2018): Overview: Started with a normal period about a month ago Pouchitis 12/13/2013 09/08/2018 Adenoma of stomach 11/26/2013 9 Familial multiple polyposis syndrome 11/11/2013 09/08/2018 Overview (07/10/2018): GI (LUI) OV Type 1 diabetes mellitus 11/09/2013 Overview [...] follow up with endocrine Overweight 04/04/2012 03/11/2023 Encounters Date Type Department Care Team Description 5 9:21 PM CDT - 5 11:51 PM CDT Emergency [facility] Emergency Department [address] [place] [address] Michele Medrano MD Globus sensation (Primary Dx) Discharge Disposition: Discharge to home or self care 5 2:30 PM CDT Office Visit [address] [address] Robert Lobo MD Bipolar 1 disorder (HCC) (Primary Dx); Generalized anxiety disorder; Panic disorder without agoraphobia 5 3:45 PM CDT Telemedicine [address] [address] Robert Lobo MD Bipolar 1 disorder (HCC) (Primary Dx); Panic disorder with agoraphobia; Generalized anxiety disorder 5 Orders Only [facility] Gastroenterology [address] [facility] Medical Office Building [address], [address] [place] [address] Vincenzo Tai MD 5 Telephone [facility] Ophthalmology [address] [place] [address] Rosa William OD Patient Education 5 Telephone [facility] Endocrinology Metabolism and Lipid [address] [facility] [address]th [place] [address] [place] [address] Dyan Agrawal RMA Jury Duty Form 5 Telephone [facility] Gastroenterology [address] [facility] Medical Office Building [address], [address] [place] [phone] Odalys Murry RN 5 Results Follow-Up [facility] Endocrinology Metabolism and Lipid [address] [facility] 13th [place] [address] [place] [address] Ryanne Merino NP Measles/Mumps/Rubella Immunity 5 Orders Only [facility] Endocrinology Metabolism and Lipid [address] [facility] [address]th [place] [address] [place] [phone] Dyan Agrawal, RMA Pelvic pain in female (Primary Dx) 5 Results Follow-Up [facility] Metabolic Weight Management [facility] Medical Office Building [address], [address] [place] [address] Vincenzo Tai MD Surgical pathology 5 Telephone [facility] Endocrinology Metabolism and Lipid [address] [facility] Medical Office Building [address], [address] [place] [phone] Maura Ruggiero RN PA Gvoke 5 7:02 AM CDT Anesthesia Event [facility] Endoscopy [address] [place] [address] Yousuf Garcia MD 5 7:00 AM CDT - 5 8:00 AM CDT Surgery [facility] Endoscopy [address] [place] [address] Vincenzo Tai MD ESOPHAGOGASTRODUODENOSCOPY BIOPSY 5 6:08 AM CDT - 5 9:02 AM CDT Hospital Encounter [facility] Endoscopy [address] [place] [address] Vincenzo Tai MD FAP (familial adenomatous polyposis); Ampullary adenoma Discharge Disposition: Discharge to home or self care 5 Orders Only [facility] Gastroenterology [address] [place] [address] Medical Office Building [address], [address] [place] [address] Vincenzo Tai MD 5 Orders Only [facility] Gastroenterology [address] [place] [address] Medical Office Building [address], [address] [place] [address] Vincenzo Tai MD 5 Results Follow-Up [facility] Endocrinology Metabolism and Lipid [address] [facility] 13th [place] [address] [place] [address] Calvin Ro MD Comprehensive metabolic panel, Vitamin B12, Vitamin D 25 hydroxy, eGFR 5 2:[address] [facility] [address] [place] [address] Type 1 diabetes mellitus wit h diabetic polyneuropathy (HCC); Vitamin B12 deficiency; Vitamin D deficiency 5 10:40 AM CDT Office Visit [facility] Endocrinology Metabolism and Lipid [address] [facility] [address]th [place] [address] [place] [address] Calvin Ro MD Type 1 diabetes mellitus with diabetic polyneuropathy (HCC) (Primary Dx); Insulin pump titration; Mixed hyperlipidemia; Vitamin D deficiency; Vitamin B12 deficiency 5 Telephone [facility] Endocrinology Metabolism and Lipid [address] [facility] [address]th [place] [address] [place] [address] Calvin Ro MD [facility] from Last 3 Months Immunizations Immunization Administration Dates Next Due Flucelvax [...] PPV23 10/13/2013,02/2013 Td, adsorbed 06/20/2007,07/29/1998 Tdap 10/13/2013,09/18/2013 Surgical History Surgery Date Site/Laterality Comments COLECTOMY 02/18/1994 - 02/17/1995 total proctocolectomy with J pouch UPPER GASTROINTESTINAL ENDOSCOPY POUCHOSCOPY 03/04/2019 URETHRA SURGERY uncrossed them COMBINED HYSTEROSCOPY DIAGNOSTIC / D&C 10/09/2022 ENDOMETRIAL ABLATION 02/18/2023 - 02/18/2024 G TUBE PLACEMENT 1994 ABDOMINAL SURGERY Medical History Medical History Date Comments FAP (familial adenomatous polyposis) Anxiety and depression Colon cancer (HCC) in setting FA P GERD (gastroesophageal reflux disease) Diabetes mellitus type 1 (HCC) 1992 V benji collins; insulin pump. Gastroparesis Chronic diarrhea Ampullary adenoma 2002 Neuromuscular disorder (HCC) 2019 Seizures (HCC) Cataract 2020 Menstrual problem September 2022 Family History Medical History Relation Name Comments Colon cancer Brother 2 Anemia Brother 3 Seth Cancer Brother 3 Seth Diabetes Brother 4 Salomon Colon cancer Cousin Alcohol abuse Father Yung Arthritis Father Yung Depression Father Yung Arthritis Maternal Grandfather Jose ruebling Cancer Maternal Grandmother Etoy Colon cancer Maternal Grandmother Etbernice Anemia Mother Alexa Cancer Mother Alexa Colon cancer Mother Alexa Depression Mother Alexa Colon cancer Mother's Sister 1 Thyroid cancer Mother's Sister 1 Asthma Mother's Sister 2 Violeta Cancer Mother's Sister 2 Violeta Colon cancer Other Alzheimer's disease Paternal Grandmother Chen washburn Relation Name Status Comments Brother 1 Brother 2 Brother 3 Seth Alive Brother 4 Salomon Alive Cousin Father Yung Alive Maternal Grandfather Jose steiner Alive Maternal Grandmother Etbernice Alive Mother Alexa Mother's Sister 1 Mother's Sister 2 Violeta Alive Other Paternal Grandmother Chen murphy Alive Social History Tobacco Use Types Packs/Day Years [...] often do you attend chur ch or worship services? Never 12/15/2019 Active Member of Clubs [...] on file Legal Sex Female 11:58 PM PLATER PRODUCTION Gender Identity Not on file Sexual Orientation Not on file Obstetrics History Para Term AB IAB SAB Ectopic Multiple Livin g Live Births 0 0 0 0 0 0 0 0 0 0 0 Last Filed Vital Signs Vital Sign Reading [...] 07/26/2024 9:13 PM CDT Plan of Treatment Health Maintenance Due Date Last Done Comments Breast Cancer Screening-Mammogram 1980 Cervical Cancer Screening 1980 Depression Screening 1980 Foot Exam 1980 Hepatitis C Screening 1980 Varicella Vaccines (1 of 2 - 13+ 2-dose series) 11/07/1995 Regular Well Visit/Exam 18-64 2000 Pneumococcal vaccine <65 (2 of 2 - PCV) 10/13/2014 10/13/2013, 09/18/2013 DTaP/Tdap/Td Vaccine (3 - Td or Tdap) 10/14/2023 10/13/2013, 09/18/2013, 06/20/2007, Additional history exists Covid-19 Vaccine ( - season) 2023 06/16/2021, 05/29/2021 Influenza Vaccine (Season Ended) 2024 11/20/2022, 01/29/2022, 12/14/2019, Additional history exists Dilated Eye Exam 10/29/2024 10/30/2023 Hemoglobin A1C 11/28/2024 05/29/2024, 01/0 10/2024, 11/13/2023, Additional history exists Albumin Creatinine Ratio, Urine 02/26/2025 02/27/2024, 06/23/2021, 01/22/2020 Lipid Panel 02/26/2025 02/27/2024, 03/0 05/2023, 06/23/2021, Additional history exists TSH Level 02/26/2025 02/27/2024, 03/0 05/2023, 10/03/2022, Additional history exists eGFR 07/26/2025 07/26/2024, 0402/2024, 11/25/2023, Additional history exists Hepatitis B Screening Completed 12/02/2001 , 07/29/1998, 12/06/1997 HPV Vaccines Aged Out No longer eligi ble based on patient's age to complete this topic Procedures Procedure Name Priority Date/Time Associated Diagnosis [...] mellitus with diabetic polyneuropathy (HCC) POCT GLUCOSE [id number] Routine 05/29/2024 10:45 AM CDT Type 1 diabetes mellitus with diabetic polyneuropathy (HCC) LIPID PANEL Routine 02/27/2024 3:24 PM PLATER PRODUCTION Type 1 diabetes mellitus with hyperglycemia (HCC) ALBUMIN CREATININE RATIO, URINE Routine 02/27/2024 3:24 PM PLATER PRODUCTION Type 1 diabetes mellitus with hyperglycemia (HCC) TSH Routine 02/27/2024 3:24 PM PLATER PRODUCTION Type 1 diabetes mellitus with hyperglycemia (HCC) [...] Chavo Tenorio M.D. AR: SANDY Report ID: [id number] [place] Location: [id number] Procedure Note Chavo Tenorio MD - 07/26/2024 [...] Chavo Tenorio M.D. AR: SANDY Report ID: [id number] [place] Location: [id number] Michele Medrano MD IMG CT PROCEDURES Final Resul t * hCG, urine, qualitative (07/26/2024 10:29 PM CDT) HCG, ur Negative Negative Urine 07/26/2024 10:2 9 PM CDT 07/26/2024 10:32 PM CDT Michele Medrano MD LAB URINE ORDERABLES Final Re sult [facility] ([place] 1 [facility] Department [place] [address] * eGFR (07/26/2024 10:03 PM CDT) eGFR >90 >=60 mL/min/1. 73 m2 Comment: [...] LAB BLOOD ORDERABLES Final Re sult [facility] ([place]) 1 [facility] Department [place] [address] * Differential, auto (07/26/2024 10:03 PM CDT) Neutrophil abs 3.23 1.50 - 6.50 K/cumm Imm gran abs 0.02 0.00 - 0.10 K/cumm [facility] ([place]) Lymphocyte abs 2.73 0.80 - 3.30 K/cumm [facility] ([place]) Monocyte abs 0.80 0.20 - 0.80 K/cumm [facility] ([place]) Eosinophil abs 0.08 0.00 - 0.50 K/cumm [facility] ([place]) Basophil abs 0.05 0.00 - 0.10 K/cumm [facility] ([place]) Neutrophil pct 46.7 % [facility] ([place]) Comment: Interpretive Data Percent cell count reference [...] Lymphocyte pct 39.5 % [facility] ([place]) Comment: Interpretive Data Percent cell count reference ranges are not reported, since discordance with absolute values may lead to misinterpretation of CBC data. Current Interpretive Data was last revised on 2017. Monocyte pct 11.6 % [facility] ([place]) Comment: Interpretive Data Percent cell count reference [...] revised on 2017. Basophil pct 0.7 % [facility] ([place]) Comment: Interpretive Data Percent cell count reference ranges are not reported, since discordance with absolute values may lead to misinterpretation of CBC data. Current Interpretive Data was last revised on 2017. Blood 07/26/2024 10:0 3 PM CDT 07/26/2024 10:08 PM CDT us Michele Medrano MD LAB BLOOD ORDERABLES Final Re sult [facility] ([place]) 1 [facility] Department [place] [address] * CBC with auto differential (07/26/2024 10:03 PM CDT) WBC 6.91 3.80 - 9.90 K/cumm Hgb 14.2 11.9 - 15.5 g/dL [facility] ([place]) Hct 41.5 35.6 - 45.5 % [facility] ([place]) Plt 312 150 - 400 K/cumm [facility] ([place]) MPV 9.7 9.1 - 12.3 fL [facility] ([place]) RBC 4.69 3.90 - 5.20 M/cumm [facility] ([place]) MCV 88.5 81.3 - 96.4 fL [facility] ([place]) MCH 30.3 27.1 - 33.3 pg [facility] ([place]) MCHC 34.2 32.3 - 35.7 g/dL [facility] ([place]) RDW CV 12.0 11.1 - 14.9 % [facility] ([place]) RDW SD 38.7 35.7 - 48.1 fL [facility] ([place]) NRBC abs 0.00 0.00 - 0.01 K/cumm [facility] ([place]) Blood 07/26/2024 10:0 3 PM CDT 07/26/2024 10:08 PM CDT Michele Medrano MD LAB BLOOD ORDERABLES Final Re sult Performing Organization Address City/[facility]/ZIP Co de Phone Number [facility] ([place]) 1 [facility] [place] [address] * Magnesium (07/26/2024 10:03 PM CDT) Pathologist [facility] Magnesium 1.7 1.4 - 2.5 mg/dL Blood 07/26/2024 10:0 3 PM CDT 07/26/2024 10:08 PM CDT us Michele Medrano MD LAB BLOOD ORDERABLES Final Re sult Performing Organization Address [facility] Co de Phone Number [facility] ([place]) [address] [place] [address] * (ABNORMAL) Basic metabolic panel (07/26/2024 10:03 PM CDT) Pathologist [facility] Sodium 138 135 - 145 mmol/L Potassium, pl 3.5 3.3 - 4.9 mmol/L [facility] ([place]) Chloride 98 97 - 110 mmol/L [facility] ([place]) CO2 29 22 - 32 mmol/L [facility] ([place]) Anion gap 11 2 - 15 mmol/L [facility] ([place]) BUN 14 6 - 25 mg/dL [facility] ([place]) Creatinine 0.64 0.60 - 1.10 mg/dL [facility] ([place]) Glucose 208(H) 70 - 199 mg/dL [facility] ([place]) Comment: Interpretive Data Fasting glucose [...] 2022. Calcium 9.6 8.5 - 10.3 mg/dL [facility] ([place]) Blood 07/26/2024 10:0 3 PM CDT 07/26/2024 10:08 PM CDT us Michele Medrano MD LAB BLOOD ORDERABLES Final Re sult [facility] ([place]) 1 [facility] Department of Laboratories [place] [id number] * (ABNORMAL) Measles/Mumps/Rubella Immunity (06/10/2024 2:39 PM CDT) [facility] Rubella IgG index 1.72 Immune >0.99 index [facility] - 01 Comment: Non-immune <0.90 Equivocal 0.90 - 0.99 Immune >0.99 Measles IgG <13.5(L) Immune >16.4 AU/mL [facility] - 01 Comment: Negative <13.5 Equivocal 13.5 - 16.4 Positive >16.4 Presence of antibodies to Rubeola is presumptive evidence of immunity except when acute infection is suspected. Mumps IgG 13.2 Immune >10.9 AU/mL [facility] - 01 Comment: Negative <9.0 Equivocal 9.0 - 10.9 Positive >10.9 A positive result generally indicates past exposure to Mumps virus or previous vaccination. Blood 06/10/2024 2:39 PM CDT 06/10/2024 Narrative [facility] - 06/11/2024 11:11 AM CDT Performed at: [address] [place] [id number] Cable Swager: Jeff Vee PhD, Phone: [phone] us Ryanne Merino NP LAB BLOOD ORDERABLES Jessica l Result Performing Organization Address City/[facility]/ZIP Co de Phone Number [facility] - 01 * (ABNORMAL) POCT glucose (06/04/2024 8:03 AM CDT) Glucose, POC 231(H) 70 - 199 mg/dL Comment: Interpretive Data Glucose is assumed to be non-fasting. Fasting Glucose reference ranges are: 0 - 150 years: 70 mg/dL - 99 mg/dL Current interpretive data was last revised on 2013. POC Performer [id number] [facility] POC Device Number [id number] [facility] Blood 06/04/2024 8:03 AM CDT 06/04/2024 8:03 AM CDT Vincenzo Tai MD LAB POCT ORDERABLES - DEVIC E Final Result Performing Organization Address [facility] Co de Phone Number [facility] [address] [facility] Department [place] [address] * Surgical pathology (06/04/2024 7:19 AM CDT) Tissue (Polyp(s), colon/colorectal, esophageal, gastric) 06/04/2024 7:19 AM CDT Tissue specimen (specimen) (Polyp(s), colon/colorectal, esophageal, gastric) 06/04/2024 7:20 AM CDT Tissue specimen (specimen) (Polyp(s), colon/colorectal, esophageal, gastric) 06/04/2024 7:20 AM CDT Tissue specimen (specimen) (Polyp(s), colon/colorectal, esophageal, gastric) 06/04/2024 7:33 AM CDT Tissue specimen (specimen) (Polyp(s), colon/colorectal, esophageal, gastric) 06/04/2024 7:42 AM CDT Narrative PATHOLOGY [facility] - 06/05/2024 5:38 PM CDT EPIC results best viewed via link to PDF [facility] Palm[facility] [place] [address] Note to Patients: This report may contain [...] Gender: F : 1980 (Age: 43) Address: [address] [place] [address] [address] [place] [id number] Hospital #: [id number] Taken:06/04/2024 Received:06/04/2024 Reported: 06/05/2024 Patient Type: [facility] EP SAME Client [facility] Service: Gastro Location: Physician(s): Ava Alejo DO [...] of hyperplastic polyps. -Fragments of inflammatory-type polyps. [facility]/06/05/2024 12:14 By this signature, I attest that [...] eosin). Labeled E1 to E3. Jar 0. cnho/06/04/2024 09:45 PA(s): RENNY Gordillo By this signature, I attest that the above diagnosis is based upon my personal examination of the slides(and/or other material). Addenda/Procedures Microscopic slide review and interpretation for this case was performed at [facility], Department of Surgical Pathology, [address] [facility], [place] [id number], [place] [id number] CLIA # [id number] The performance characteristics of some immunohistochemical stains, fluorescence in-situ hybridization tests and immunophenotyping by flow cytometry cited in this report (if any) were determined by the Surgical Pathology and Flow Cytometry Departments at [facility] as part of an ongoing lead quality control technician program and in compliance with federally mandated [...] Surgical Pathology and Flow Cytometry Departments of [facility]. It has not been cleared or approved by the U. S. Food and Drug Administration. IMAGES AND SCANNED DOCUMENTS, IF INCLUDED, ONLY VIEWABLE IN PDF VERSION OF REPORT Vincenzo Tai MD LAB PATHOLOGY ORDERABLES Fi nal Result Performing Organization Address [facility] Co de Phone Number PATHOLOGY [facility] [phone] * POCT glucose (06/04/2024 6:47 AM CDT) Glucose, POC 86 70 - 199 mg/dL Comment: Interpretive Data Glucose is assumed to be non-fasting. Fasting Glucose reference ranges are: 0 - 150 years: 70 mg/dL - 99 mg/dL Current interpretive data was last revised on 2013. POC Performer [id number] [employer] [facility] POC Device Number [id number] [facility] Blood 06/04/2024 6:47 AM CDT 06/04/2024 6:47 AM CDT Vincenzo Tai MD LAB POCT ORDERABLES - DEVIC E Final Result Performing Organization Address [facility] Co de Phone Number [facility] [address] [facility] Department [place] [address] * Pouchoscopy (06/04/2024 6:46 AM CDT) Anatomical Region Laterality Modality Other Narrative Procedure Note Vincenzo Tai MD - 06/04/2024 6:46 AM CDT ENDOSCOPY LAB Patient Name: Irvin Reddy Procedure Date: 06/04/2024 6:46 AM Date of : 1980 Admit Type: Outpatient Age: 43 Gender: Female Attending MD: Vincenzo Tai M.D. Room: [facility] ENDOSCOPY ROOM 04 Note Status: Finalized Procedure: Pouchoscopy Indications: FAP s/p Total Proctocolectomy. Providers: Vincenzo Tai M.D. Referring MD: Jeramy [...] and oxygen saturations were monitored continuously. The [id number] was introduced through theileoanal anastomosis via the anus and advanced to theJ-pouch. The procedure was performed without difficulty. The patient tolerated the procedure well. The qualityof the bowel preparation was evaluated using the BBPS (Trimble Bowel Preparation Scale) with scores of:Right Colon [...] following this procedure please call my officeat [phone] ([phone]) to speak to my nurses. After hours and evenings please call [phone] speak to the GI fellow honing machine operator tool. Please tell themthat Dr. Tai did your procedure and that your were instructed to have the fellow call me or thephysician covering for me to discuss the management of your condition. If you have an urgent problem, please goto the nearest emergency room and have the ER doctorcall my office during the day or [facility] transfer ([phone]) center after hours and weekends to arrange admission or transfer to our facility. - Call my nurse Dahiana Monroy RN in the GI office at [phone] for your final pathology results in 7 [...] Female Attending MD: Vincenzo Tai M.D. Room: [facility] ENDOSCOPY ROOM 04 Note Status: Finalized Procedure: [...] and oxygen saturations were monitored continuously. The [id number] was introduced through the mouth, and advanced to the second part of duodenum. The [id number] was introduced through the mouth, and advanced [...] following this procedure please call my officeat [phone] ([phone]) to speak to my nurses. After hours and evenings please call [phone] speak to the GI fellow honing machine operator tool. Please tell themthat Dr. Tai did your procedure and that your were instructed to have the fellow call me or thephysician covering for me to discuss the management of your condition. If you have an urgent problem, please goto the nearest emergency room and have the ER doctorcall my office during the day or [facility] transfer ([phone]) center after hours and weekends to arrange admission or transfer to our facility. - Call my nurse Dahiana Monroy RN in the GI office at [phone] for your final pathology results in 7 days. Attending Participation: I personally performed the entire procedure. Electronically Signed By: Vincenzo Tai M.D. Vincenzo Tai M.D. 06/04/2024 8:00:55 AM Number of Addenda: 0 Note Initiated On: 06/04/2024 6:46 AM Vincenzo Tai MD ENDOSCOPY PROCEDURES Final Result * POCT hCG, urine (06/04/2024) HCG, ur, POC Negative Negative Lot Number [id number] QC Backgroud Clear Acceptable QC Control Line Acceptable Urine 06/04/2024 Historical Provider POINT OF CARE TEST ORDERA BLES Final Result * eGFR (05/29/2024 11:29 AM CDT) eGFR >90 >=60 mL/min/1. 73 m2 Comment: [...] of Race in Diagnosing Kidney Disease, JASN 202). The CKD-EPI equation should not be used for patients with unstable renal function and has not been validated in children and those over 70. Current interpretive data was last reviewed 2020. Blood 05/29/2024 11:2 9 AM CDT 05/29/2024 12:12 PM CDT Calvin Ro MD LAB BLOOD ORDERABLES Final R esult Performing Organization Address [facility] Co de Phone Number [facility] [place] [address] * Vitamin D 25 hydroxy (05/29/2024 11:29 AM CDT) Pathologist [facility] Vitamin D 25-OH 33 30 - 80 ng/mL Blood 05/29/2024 11:2 9 AM CDT 05/29/2024 12:07 PM CDT Calvin Ro MD LAB BLOOD ORDERABLES Final R esult Performing Organization Address [facility] Co de Phone Number [facility] [place] [address] * Vitamin B12 (05/29/2024 11:29 AM CDT) [facility] Vitamin B12 440 230 - 1,250 pg/mL Blood 05/29/2024 11:2 9 AM CDT 05/29/2024 12:07 PM CDT Calvin Ro MD LAB BLOOD ORDERABLES Final R esult Performing Organization Address [facility] Co de Phone Number [facility] [place] [address] * Comprehensive metabolic panel (05/29/2024 11:29 AM CDT) Pathologist [facility] Sodium 142 135 - 145 mmol/L Potassium, pl 3.9 3.3 - 4.9 mmol/L [facility] Chloride 107 97 - 110 mmol/L [facility] CO2 26 22 - 32 mmol/L [facility] Anion gap 9 2 - 15 mmol/L [facility] BUN 10 6 - 25 mg/dL [facility] Creatinine 0.64 0.60 - 1.10 mg/dL [facility] Glucose 123 70 - 199 mg/dL [facility] Comment: Interpretive Data Fasting glucose >/= [...] 2022. Calcium 9.6 8.5 - 10.3 mg/dL [facility] Bilirubin, total 0.4 0.1 - 1.2 mg/dL [facility] Protein, pl 7.4 6.5 - 8.5 g/dL [facility] Albumin 4.1 3.5 - 5.0 g/dL [facility] Alk phos 109 40 - 130 Units/L [facility] ALT 25 7 - 45 Units/L [facility] AST 19 10 - 45 Units/L [facility] Blood 05/29/2024 11:2 9 AM CDT 05/29/2024 12:07 PM CDT aClvin Ro MD LAB BLOOD ORDERABLES Final R esult [facility] Department [place] [address] * POCT hemoglobin A1c (05/29/2024 10:46 AM CDT) Hemoglobin A1C, POC 7.2 4.0 - 5.6 % Blood 05/29/2024 10:4 6 AM CDT Calvin Ro MD POINT OF CARE TEST ORDERABLE S Final Result * POCT glucose (05/29/2024 10:45 AM CDT) Glucose Blood, POC 108 mg/dL Blood 05/29/2024 10:4 5 AM CDT Calvin Ro MD POINT OF CARE TEST ORDERABLE S Final Result * Albumin Creatinine Ratio, Urine (02/27/2024 3:24 PM [employer]ATER [employer]) Microalb, Ur 19.3 0.0 - 22.9 mg/L [facility] Random Urine Creatinine 315.7 mg/dL [facility] Microalb/Creat Ratio 6.1 0.0 - 29.9 mg/g [facility] Urine 02/27/2024 3:24 PM [employer]ATER [employer] 02/27/2024 4:12 PM [employer]ATER [employer]ODUCTION Ryanne Merino SECURITY OPERATIONS MANAGER LAB URINE ORDERABLES Jessica l Result Performing Organization Address [facility] Co de Phone Number [facility] * TSH (02/27/2024 3:24 PM PLATER [employer]) TSH (Thyrotropin) 2.36 0.27 - 4.20 uIU/mL [facility] Blood 02/27/2024 3:24 PM PLATER PRODUCTION 02/27/2024 4:12 PM PLATER PRODUCTION Ryanne Merino SECURITY OPERATIONS MANAGER LAB BLOOD ORDERABLES Jessica l Result Performing Organization Address [facility]/ZIP Co de Phone Number [facility] * Lipid panel (02/27/2024 3:24 PM [employer]ATER [employer]) Triglycerides 80 <150 mg/dL [facility] Comment: Desirable: <150 mg/dL, fasting <175 mg/dL, non-fasting Persistently elevated triglycerides may enhance atherosclerotic cardiovascular disease. Total Cholesterol 150 <200 mg/dL [facility] Total HDL-C Direct 62 >50 mg/dL [facility] Non-HDL cholesterol 88 <220 mg/dL [facility] [place] LDL Chol 72 <190 mg/dL [facility] Blood 02/27/2024 3:24 PM PLATER PRODUCTION 02/27/2024 4:12 PM PLATER PRODUCTION Narrative [facility] - 02/27/2024 4:46 PM PLATER PRODUCTION Current interpretive data was last updated January 20, 2021. For adults ages 40-79, the ACC/AHA recommends discussing your 10-year atherosclerotic cardiovascular disease risk with your health care provider. https://www.acc.org/ASCVDApp These lab test should be done fasting. This means do not eat or drink for at least 12 hours prior to getting your blood drawn. us Ryanne Merino NP LAB BLOOD ORDERABLES Jessica marcus Result [facility] from Last 3 Months or Most Recently Relevant to Health Maintenance Insurance MEDICARE [facility] Address: [address] [address] [place] [address] [place] [facility] MEDIC[facility] MEDICARE [facility] Advance Directives For more information, please contact: [phone] * Full Code (Latest Code Status on [...] 7:11 AM 10/05/2021 1:46 PM Care Teams Hematology Technician Relationship Specialty Start Date End Date Jeramy Napier DO [address] [place] [address] PCP - General Family Medicine 12/31/23 Omi Kennedy MD Surgeon Colon and Rectal Surgery 09/08/18 Angelia Melgoza MD Surgeon Colon and Rectal Surgery 09/08/18 [place] [address] [address] Psychiatrist Psychiatry 09/08/18 [place] [address] [address] Supervisor Sound Technician Gastroenterology 09/08/18 Aria Madrid MD [address] [place] [address] Consulting Physician Obstetrics and Gynecology 08/06/22
--- OUTSIDE RECORDS SUMMARY | 2024-07-27 11:22 | XMS_ITS | Continuity of Care Document ---
Author Name [facility] Address [address] [place] [address] Organization [facility] Care Team Providers Care Community Center Director Name Role Phone [facility] HIE Unavailable Unavailable Allergies, Adverse Reactions, Alerts Substance Category Reaction Severity Reaction type Status Date Reported Comments Source erythromycin Assertion Drug allergy Active [facility] vancomycin Assertion Drug allergy Active [facility] Encounters Location Location Details Encounter Type Encounter Number Reason For Visit Attending Provider ADM Date DC Date Status Source [facility] [id number] [facility]
--- OUTSIDE RECORDS SUMMARY | 2024-07-27 11:22 | XMS_ITS | Encounter Summary ---
Author Organization [facility] Address [address] [place] [address] Care Team Providers Care Slime Plant Operator Helper Name Role Phone Amisha Garay MD Unavailable Doni Sanon DO Unavailable Ronan Lee MD Unavailable Jennie Mujica CLINICAL SUPPORT NURSE-X RAY INSPECTOR Unavailable Unavai Uzair Fowler MD Unavailable [phone] Teresa Khalil MD Unavailable Jose Tomas DO Primary Care Provider UnavaRosa Lugo RN Unavailable Ginette Kang RN Unavailable Laureen Cabrera RN Unavailable [phone] Mei Otero LCSW Unavailable Jose Tomas DO Unavailable Unavailable Sandra Ferrara RN Unavailable [phone] Maria Alejandra Zaman RN Unavailable Maria Alejandra Zaman RN Unavailable [phone] Jamal Anderson MD Primary Care Provider [phone] Alysa Sanchez RN Unavailable [phone] Napier, Jeramy DO Primary Care Provider [phone] Aimee White Unavailable Jeramy Napier DO Unavailable Stacey Day CLINICAL SUPPORT NURSE-X RAY INSPECTOR Unavailable Aimee White Unavailable Aimee White Unavailable Yunier House DO Unavailable Jose Tomas DO Unavailable Unavailable Encounter Details Date Type Department Care Team (Late st Contact Info) Description 04/07/2014 [facility]PT Angelia Melgoza MD [facility] [address] Social History Tobacco Use Types Packs/Day Years Used Date Smoking Tobacco: Never Smokeless Tobacco: Never Alcohol Use Standard Drinks/Week Comments No 0 (1 standard drink = 0.6 oz pur e alcohol) Comments No Sex and Gender Information Value Date Recorded Sex Assigned at Female 02/22/2020 1:27 AM PILOT SAFETY INSPECTOR Legal Sex Female 4:51 AM PILOT SAFETY INSPECTOR Gender Identity Female 02/22/2020 1:27 AM PILOT SAFETY INSPECTOR Sexual Orientation Straight 02/22/2020 1: 27 AM PILOT SAFETY INSPECTOR Occupation Industry Job Start Date Job End Date disabled Not on file Not on file Not on file documented as of this encounter Functional Status * Is person deaf or have serious hearing difficulty? Answer Date of Assessment Author No 12/15/2013 8:22 PM CDT Ursula Henderson RN * Is person blind or have serious difficulty seeing? Answer Date of Assessment Author No 12/15/2013 8:22 PM CDT Ursula Henderson RN * Does person have serious difficulty walking/climbing stairs? Answer Date of Assessment Author No 12/15/2013 8:22 PM CDT Ursula Henderson RN * Does person have difficulty dressing/bathing? Answer Date of Assessment Author No 12/15/2013 8:22 PM AMBREENT Ursula Henderson RN * Does person have difficulty doing errands alone? Answer Date of Assessment Author No 12/15/2013 8:22 PM CDT Ursula Henderson RN documented as of this encounter Mental Status * Does person have difficulty concentrating/remembering/making decisions? Answer Entry Date Author No 12/15/2013 8:22 PM CDT Ursula Henderson RN documented in this encounter Plan of Treatment Upcoming Encounters Date Type Department Care Team (Late st Contact Info) Description 08/27/2024 10:10 AM CDT Office Visit [facility] Orthopedics [address], [address] [place] [address] NapierJeramy fu, DO [address] [place] [address] [place] [address] [place] [address] 11/12/2024 11:00 AM CDT Office Visit [facility] - Family Medicine [address] [place] [address] NapierJeramy, DO [address] [place] [address] documented as of this encounter Goals Goal Patient Goal Type Associated Problems Recent Progress Patient-Stated? 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 11/16/2008 COVID-19 Under Investigation 07/20/2020 07/20/2020 07/20/2020 3:18 PM CDT COVID-19 Confirmed 07/20/2020 07/20/2020 4:33 AM CDT COVID-19 Under Investigation 12/06/2021 12/06/2021 12/06/2021 1:36 PM CDT documented as of this encounter Care Teams Slime Plant Operator Helper Relationship Specialty Start Date End Date Jose Tomas, DO [address] [place] [address] PCP - General Family Medicine 11/26/13 08/05/22 Jose Tomas, DO PCP - Attributed-MSSP 12/04/16 05/19/23 [place] [address] [place] [id number] PCP - General Family Medicine 08/06/22 04/21/23 Jeramy Napier DO [address] [place] [address] PCP - General Family Medicine 04/22/23 Jeramy Napier DO [address] [place] [address] PCP - Attributed-MSSP 05/20/23 10/19/23 Stacey Day APRN-BRYAN [address] [place], [place] [id number] PCP - Attributed-MSSP 10/20/23 [place] [address] [place] [address] PCP - Attributed-MSSP 10/16/16 7 Jose Tomas DO PCP - Attributed-MSSP 07/25/16 10/10/16 Amisha Garay MD Orthopedic Surgery 04/29/12 Doni Sanon, DO Orthopedic Surgery 08/25/12 Ronan Lee MD [address] [place] [address] Obstetrics and Gynecology 10/13/13 Jennie Mujica, CLINICAL SUPPORT NURSE-X RAY INSPECTOR [address] [place] [address] Nurse Practitioner 10/13/13 Uzair Romero MD [address] [place] [address] Gastroenterology 10/13/13 Teresa Khalil MD [address] [place] [phone] Colon and Rectal Surgery 10/13/13 Rosa Meade RN Art Psychotherapist 12/14/13 08/08/16 Ginette Kang, ROSALIE Kettle GirlMolding Associate 01/02/17 01/07/17 Laureen Cabrera RN Art Psychotherapist 08/09/16 Mei Otero, [facility] Studio Technician 11/27/16 Sandra Ferrara RN Art Psychotherapist 07/22/17 07/22/17 Maria Alejandra Zaman RN Kettle GirlMolding Associate 01/04/21 03/29/21 Maria Alejandra Zaman, RN Kettle GirlMolding Associate 05/17/22 11/26/22 Alysa Sanchez RN Kettle GirlMolding Associate 11/26/22 05/29/23 Aimee White Care Coordination Specialist Care Management 05/02/23 05/02/23 Aimee White Care Coordination Specialist Care Management 01/23/24 01/23/24 Aimee White Care Coordination Specialist Care Management 03/03/24 03/03/24 documented as of this encounter
--- OUTSIDE RECORDS SUMMARY | 2024-07-27 11:22 | XMS_ITS | Clinical Summary ---
Author Organization [facility] Address [address] [facility] [address] [place] [address] Phone Care Team Providers Care Hotel Housekeeper Name Role Phone Jose Tomas DO Primary Care Provider Eduardo lable Allergies Active Allergy Reactions Criticality Noted Date Comments Erythromycin Hives High 01/24/2009 Vancomycin Hives High 01/24/2009 Medications diphenoxylate-a tropine (LOMOTIL) 2.5-0.025 mg Oral Tab Take 1 Tab by mouth 4 times daily as needed for Diarrhea/Loose Stools. Active INSULIN LISPRO (HUMALOG SC) Inject by subcutaneous injection. Active METFORMIN HCL (METFORMIN PO) Take by mouth. Active tramadol-acetam inophen (ULTRACET) 37.5-325 mg Oral TabIndications: Tooth pain Take 1-2 Tabs by mouth every 6 hours as needed for Pain. 30 Tab 0 9 Active ibuprofen (MOTRIN) 600 mg Oral TabIndications: Tooth pain Take 1 Tab by mouth every 6 hours as needed for Pain. 30 Tab 0 9 Active gabapentin (NEURONTIN) 300 mg capsule 1 Cap 2 times daily. 4 Active pregabalin (LYRICA) 75 mg Capsule Take 75 mg by mouth. 4 Active cetirizine (ZYRTEC) 10 mg tablet Take 10 mg by mouth daily. 4 Active LOPERAMIDE HCL (IMODIUM A-D ORAL) Take by mouth. 2 Active dicyclomine (BENTYL) 20 mg tablet Take 20 mg by mouth 4 times daily. 9 Active ondansetron (ZOFRAN, HYDROCHLORIDE,) 4 mg Tablet Take 4 mg by mouth every 8 hours as needed. 3 Active ranitidine (ZANTAC) 150 mg tablet Take 150 mg by mouth 2 times daily. 3 Active LANSOPRAZOLE (PREVACID ORAL) Take by mouth. 4 Active INSULIN ASPART (NOVOLOG SUBCUT) Inject by subcutaneous injection. 3 Active sertraline (ZOLOFT) 50 mg tablet Take 1 Tab by mouth daily. 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 11/11/2013 Overview (11/11/2013): ENDO MAURI) MANAGING -- ON LYRICA Pelvic pain in female 11/11/2013 Overview (11/11/2013): KENO MANAGER (CASSANDRA) MANAGING -- ON GABAPENTIN GERD (gastroesophageal reflux disease) 4 Overview (11/11/2013): GI (LUI) MANAGING -- ON PPI, ZANTAC, ZOFRAN Abdominal mass 11/11/2013 Overview (11/11/2013): GI (LUI) MANAGING 10/01 EGD 9/14 HAS UPCOMING APPT W/ GI SPECIALIST Immunizations Immunization Administration Dates Next Due (ADACEL/BOOSTRIX)(10 YR UP) TDAP VACCINE, 0.5ML, IM 09/18/2013 (PNEUMOVAX 23)(50 YRS UP) PN EUMOCOCCAL POLYSACCHARIDE (PPV23) 0.5 ML, IM 09/18/2013 Family History Medical History Relation Name Comments Cancer Brother 5 Colon Diabetes Brother 6 Cancer Maternal Aunt 1 Colon Cancer Maternal Aunt 2 Thyroid Emphysema Maternal Grandfather Heart Failure Maternal Grandfather Cancer Maternal Grandmother Colon Cancer Mother Colon Stroke Paternal Grandmother Relation Name Status Comments Brother 1 Brother 2 Alive Brother 3 Alive Brother 4 Alive Brother 5 Brother 6 Father Alive Maternal Aunt 1 Maternal Aunt 2 Maternal Grandfather Maternal Grandmother Mother Paternal Grandfather Paternal Grandmother Sister Alive Social History Tobacco Use Types Packs/Day Years Used Date Smoking Tobacco: Never Alcohol Use Standard Drinks/Week Comments No 0 (1 standard drink = 0.6 oz pur e alcohol) Comments No Sex and Gender Information Value Date Recorded Sex Assigned at Not on file Legal Sex Female 5:14 AM [employer] Gender Identity Not on file Sexual Orientation Not on file Last Filed Vital Signs Vital Sign Reading Time Taken Comments Blood Pressure 101/78 11/30/2020 1:06 PM CDT Pulse 105 11/30/2020 1:06 PM CDT Temperature 37.2 C (98.9 F) 11/30/2020 1:06 PM CDT Respiratory Rate 16 11/30/2020 1:06 PM CDT Oxygen Saturation 99% 11/30/2020 1:06 PM CDT Inhaled Oxygen Concentration - - Weight 72.1 kg (159 lb) 11/30/2020 1:06 PM CDT Height 167.6 cm (5' 6) 11/11/2013 12:00 PM CDT Body Mass Index 25.66 11/11/2013 12:00 PM CDT Plan of Treatment Health Maintenance Due Date Last Done Comments DIABETES MICROALBUMIN ANNUAL SCREEN 2000 LDL CHOLESTEROL ANNUAL 2000 HPV/Cotest (21-29) 11/07/2003 CERVICAL CANCER SCREENING 2012 HPV/Cotest (30-65) 2012 PAP SMEAR 2012 BREAST CANCER SCREENING 2022 DIABETES HBA1C Q 6 MONTHS 06/13/2023 12/12/2022 INFLUENZA VACCINE (#1) 2023 , 01/29/2022, 12/14/2019, Additional history exists DIABETES ANNUAL FOOT EXAM 09/22/2023 09/21/2022 DTAP/TDAP/TD VACCINES (3 - Td or Tdap) 10/14/2023 10/13/2013, 09/18/2013 COVID-19 Vaccine (3 - season) 2023 06/16/2021, 05/29/2021 DIABETES ANNUAL RETINAL EXAM 10/29/2024 10/30/2023 HEPATITIS B VACCINES Completed 12/02/2001, 07/29/1998, 12/06/1997 HPV VACCINES Aged Out No longer eligi ble based on patient's age to complete this topic Insurance MEDICARE PART A AND B MEDICARE Care Teams Hotel Housekeeper Relationship Specialty Start Date End Date Jose Tomas DO PCP - General Family Practice 04/01/17
--- OUTSIDE RECORDS SUMMARY | 2024-07-27 11:22 | XMS_ITS | Encounter Summary ---
Author Organization [facility] Healthcare Address [address] [place] [address] Care Team Providers Care Instrumentation Technologist Name Role Phone Omi Kennedy MD Unavailable [phone] Angelia Melgoza MD Unavailable [phone] Robert Lobo MD Unavailable Marciano Danielson MD Unavailable Aria Madrid MD Unavailable [phone] Jeramy Napier DO Primary Care Provider [phone] Reason for Visit * Reason Comments Foreign Body Pt presents to ED wi th c/o possible food bolus since 1 am. Encounter Details Date Type Department Care Team (Late st Contact Info) Description 07/26/2024 9:21 PM CDT - 07/26/2024 11:51 PM CDT Emergency [facility] Emergency Department [address] [place] [address] Michele Medrano MD [facility] [place] [address] Globus sensation (Primary Dx) Discharge Disposition: Discharge to home or self care Social History Tobacco Use Types Packs/Day Years [...] week 12/15/2019 How often do you attend [facility] or [facility] services? 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 You feel pain when you swallow.Workup today physical exam benign she does have a little bit elevated blood pressure otherwise asymptomatic. She does feel a little bit of discomfort in the anterior left part of her neck as she swallows. Laboratory workup benign no white count no anemia no thrombocytopenia no electrolyte derangements no kidney dysfunction she does have a hyperglycemia she is on an insulin pump for diabetes. Negative test CT neck soft tissue with contrast no foreign body esophageal distention other acute abnormality found fluid boluses currently lodged in the d istal esophagus and further evaluation with the esophagram versus CT chest could be considered if clinically warranted. Her pain she is adamant is in the anterior left neck. We did offer her opportunity to speak to ENT and GI she deferred saying that she will follow up with her electronic publisher who was Dr. Tai. . We will have her reach out to Dr. NARAYAN as soon as she is able to. She can utilize Tylenol for her pain control as she does have some history of GI pathology. If her symptoms worsen ornew symptoms develop she is more than welcome to come back to this ED or bypass us and go to [facility] where they may be able to evaluate with Gastroenterology in the ER. documented in this encounter Medications at Time of Discharge acetone, urine, test stripIndications:Ty pe 1 diabetes mellitus without complication (HCC) Use to test for ketone with glucose >350 100 strip 11 03/19/2023 alpha lipoic acid 300 mg capsule Take 1 tab Po bid 60 capsule 3 01/30/2022 ALPRAZolam (XANAX) 1 mg tabletIndications:P anic disorder without agoraphobia,General ized anxiety disorder,Bipolar I disorder, most recent episode depressed, mild (HCC) TAKE 1 TABLET BY MOUTH THREE TIMES A DAY NEEDED FOR ANXIETY 60 tablet 2 03/16/2024 atomoxetine (STRATTERA) 25 mg capsule TAKE 1 CAPSULE BY MOUTH EVERY DAY FOR 30 DAYS 04/19/2024 atomoxetine (STRATTERA) 40 mg capsule TAKE 1 CAPSULE BY MOUTH EVERY DAY IN THE MORNING FOR 30 DAYS 03/05/2024 blood glucose diagnostic (glucose blood) stripIndications:Ty pe 1 diabetes mellitus with hyperglycemia (HCC) Check blood sugar 3 times a day with dexcom sensor failure or when off Dexcom using contour next test strips 300 each 3 03/16/2024 blood-glucose meter kit Use glucometer to calibrate Dexcom G6 CGM as needed and for when CGM is not working 1 kit 02/27/2024 Breo Ellipta 100-25 mcg/dose diskus inhaler 10/24/2020 busPIRone (BUSPAR) 10 mg tablet TAKE 2 TABLETS BY MOUTH 3 TIMES A DAY 540 tablet 1 01/21/2024 busPIRone (BUSPAR) 15 mg tablet TAKE 1 TABLET BY MOUTH THREE TIMES A DAY 270 tablet 2 01/21/2024 cetirizine (ZyrTEC) 10 mg tabletIndications:A llergic Rhinitis Take 1 tablet (10 mg total) by mouth daily cyanocobalamin (Vitamin B-12) 1,000 mcg sublingual tablet Take 1 tablet (1,000 mcg total) by mouth daily 30 tablet 3 06/26/2021 cyanocobalamin (Vitamin B-12) 1,000 mcg/mL injection INJECT 1,000 MCG DIRECTED EVERY 7 DAYS FOR 4 WEEKS. THEN CONTINUE 1 INJECTION MONTHLY. 02/28/2024 cyanocobalamin, vitamin B-12, 1,000 mcg/mL kitIndications:Amelia min B12 Deficiency Inject 1,000 mcg as directed every 30 (thirty) days 3 kit 3 04/13/2024 cyclobenzaprine (FLEXERIL) 10 mg tabletIndications:M uscle Spasm Take 2 tablets (20 mg total) by mouth nightly 11/01/2021 DexScaffold G6 Skiver Blockers miscIndications:Typ e 1 diabetes mellitus with hyperglycemia (HCC) Use to continually monitor glucose 1 each 06/01/2024 [employer]Profile Ltd G6 Transmitter device as directed 05/08/2024 dexlansoprazole (DEXILANT) 60 mg capsule Take 1 capsule (60 mg total) by mouth daily dicyclomine (BENTYL) 20 mg tablet Take 1 tablet (20 mg total) by mouth every 6 (six) hours 15 tablet 06/12/2024 diphenoxylate-atrop ine (LOMOTIL) 2.5-0.025 mg per tablet Take 1 tablet by mouth every 6 hours as needed EPINEPHrine 0.3 mg/0.3 mL auto-injection syringe Inject 0.3 mL (0.3 mg total) into the muscle as instructed daily as needed 01/28/2023 ergocalciferol (VITAMIN D) 50,000 unit capsule Take 1 capsule (50,000 Units total) by mouth once a week 12 capsule 3 04/13/2024 04/13/19 26 escitalopram (LEXAPRO) 10 mg tablet Take 1 tablet (10 mg total) by mouth daily 01/08/2024 gabapentin (NEURONTIN) 100 mg capsuleIndications: Type 1 diabetes mellitus with diabetic polyneuropathy (HCC) Take 1 capsule (100 mg total) by mouth 3 (three) times a day 270 capsule 3 05/29/2024 05/30/19 26 Gvoke HypoPen 2-Pack 1 mg/0.2 mL auto-injectorIndica tions:Type 1 diabetes mellitus with hyperglycemia (HCC) INJECT 1 DOSE UNDER THE SKIN NEEDED (SEVERE HYPOGLYCEMIA) 0.4 mL 3 06/03/2024 insulin aspart niacinamide (FIASP) 100 unit/mL vial for injectionIndication s:type 1 diabetes mellitus To use via insulin pump. TDD 100 units a day. 90 mL 3 03/12/2024 insulin glargine (BASAGLAR) 100 unit/mL (3 mL) pen for injectionIndication s:Type 1 diabetes mellitus without complication (HCC) INJECT 31 UNITS UNDER THE SKIN ONCE PER DAY. FOR USE WHEN OFF PUMP OR WITH PUMP FAILURE 15 mL 1 07/16/2024 insulin pump cart,auto,BT,G6/7 (Omnipod 5 G6-G7 Pods, Gen 5,) cartridgeIndication s:Type 1 diabetes mellitus with hyperglycemia (HCC),Insulin pump in place Use to continually infuse insulin; change pod every 2 days 45 each 1 04/20/2024 insulin pump cart,auto,BT-cntr (Omnipod 5 G6 Intro Kit, Gen 5,) cartridgeIndication s:Type 1 diabetes mellitus without complication (HCC) Use to continually infuse insulin, change pod every 3 days 1 each 02/08/2022 insulin syringe-needle U-100 (BD Insulin Syringe Ultra-Fine) 0.3 mL 31 gauge x 5/16 syringeIndications: Type 1 diabetes mellitus without complication (HCC) Use to inject insulin 4 times per day with off pump plan 50 each 04/12/2022 insulin syringe-needle U-100 0.5 mL 31 gauge x 5/16 syringeIndications: Type 1 diabetes mellitus without complication (HCC) USE TO INJECT ONCE TO FOUR TIMES DAILY DIRECTED WITH PUMP FAILURE 100 each 04/12/2022 lamoTRIgine (LaMICtal) 200 mg tablet TAKE 1 TABLET BY MOUTH EVERY DAY 90 tablet 1 10/10/2023 lemborexant (Dayvigo) 5 mg tabletIndications:I nsomnia Take 5 mg by mouth nightly as needed (insomnia) 30 tablet 2 04/25/2023 levalbuterol (XOPENEX HFA) 45 mcg/actuation inhaler 09/26/2020 loperamide (IMODIUM) 2 mg capsule TAKE 2 CAPSULES BY MOUTH FOUR TIMES DAILY NEEDED FOR DIARRHEA 10/03/2018 moxifloxacin (VIGAMOX) 0.5 % ophthalmic solution Administer 1 drop into affected eye(s) 4 (four) times a day 12/30/2023 nitrofurantoin monohydrate (MACROBID) 100 mg capsuleIndications: Urinary Tract/Genitourinary Infection Take 1 capsule (100 mg total) by mouth 2 (two) times a day 10 capsule 06/09/2024 ondansetron (ZOFRAN) 4 mg tabletIndications:N ausea and Vomiting Take 1 tablet (4 mg total) by mouth every 4 (four) hours as needed for nausea or vomiting 20 tablet 05/20/2023 pen needle, diabetic (BD Ultra-Fine Short Pen Needle) 31 gauge x 16 needleIndications:T ype 1 diabetes mellitus without complication (HCC) USE TO INJECT ONCE DAILY DIRECTED 100 each 1 12/03/2023 polyethylene glycol (GoLYTELY) 236-22.74-6.74 -5.86 gram solution Split prep. 2L at 4pm the night before the procedure. 2L, 6 hours before leaving home the morning of the procedure. 4000 mL 06/01/2024 promethazine (PHENERGAN) 25 mg tablet Take 1 tablet (25 mg total) by mouth every 8 (eight) hours as needed for nausea 30 tablet 06/29/2024 scopolamine 1 mg over 3 days patch 3 day APPLY 1 (ONE) PATCH TO SKIN EVERY 72 HOURS NEEDED (MOTION SICKNESS) 04/22/2024 sulindac (CLINORIL) 150 mg tablet Take 1 tablet (150 mg total) by mouth 2 (two) times a day 60 tablet 3 06/04/2024 06/05/19 26 suvorexant (BELSOMRA) 10 mg tabletIndications:I nsomnia Take 1 tablet (10 mg total) by mouth nightly as needed (insomnia) 15 tablet 2 03/22/2023 syringe with needle, safety 3 mL 22 gauge x 1 syringeIndications: Vitamin B12 deficiency Use to inject Vitamin B12 once weekly. 100 each 11 03/12/2024 topiramate (TOPAMAX) 50 mg tablet Take 1 tablet (50 mg total) by mouth 3 (three) times a day 01/12/2022 urine glucose-ketones test strip Use as needed when BG > 300. 50 strip 1 02/27/2024 Vitamins B Complex capsule TAKE ONE CAPSULE BY MOUTH DAILY 30 capsule 11 09/11/2023 zolpidem (AMBIEN) 10 mg tablet TAKE 1 TABLET BY MOUTH NIGHTLY NEEDED FOR SLEEP 30 tablet 2 12/03/2023 documented as of this encounter Discharge Disposition Disposition Code Departure Means Destination Comment s Discharge to home or self care documented in this encounter ED Notes * Michele Medrano MD - 07/26/2024 10:04 PM CDT HPI Chief Complaint Patient presents with Foreign Body Pt presents to ED with c/o possible food bolus since 1 am. HPI Patient is a 43-year-old woman past medical history of familial adenomatous polyposis status post colectomy status post colostomy and reversal type 1 diabetes on insulin neuromuscular disorder generalized anxiety disorder gastroparesis who presents to the ED for complaints of foreign body stuck in t hroat. She says that she had some meat loaf at around 1:30 p.m. and although she is able to eat anddrink she does note that when she does try to swallow she had a 4 episodes of emesis. She has a minor amount of pain in the left anterior throat. It is noticeable when she swallows. She is able to tolerate her own secretions and has no difficulty with breathing. Patient History: Past Medical History: Diagnosis Date Ampullary adenoma 2002 Anxiety and depression Cataract 2020 Chronic diarrhea Colon cancer (HCC) in setting FAP Diabetes mellitus type 1 (HCC) 1992 Very brittle; insulin pump. FAP (familial adenomatous polyposis) Gastroparesis GERD (gastroesophageal reflux disease) Menstrual problem September 2022 Neuromuscular disorder (HCC) 2019 Seizures ([facility]) Review of Systems Review of Systems Constitutional: Negative for chills and fever. HENT: Negative for ear pain and sore throat. Globus sensation Eyes: Negative for pain and visual disturbance. Respiratory: Negative for cough and shortness of breath. Cardiovascular: Negative for chest pain and palpitations. Gastrointestinal: Negative for abdominal pain and vomiting. Genitourinary: Negative for dysuria and hematuria. Musculoskeletal: Negative for arthralgias and back pain. Skin: Negative for color change and rash. Neurological: Negative for seizures and syncope. Psychiatric/Behavioral: Negative for agitation and behavioral problems. All other systems reviewed and are negative. Physical Exam ED Triage Vitals [07/26/242112] Temp Pulse Resp BP SpO2 36.1 ??C (97 ??F) 87 18 (!) 174/82 99 % Temp src Heart Rate Source Patient Position BP Location FiO2 (%) Tympanic -- -- -- -- Height Height Method Weight Weight Method 1.676 m (5' 6) Stated 67.1 kg (148 lb) -- Physical Exam Vitals and nursing note reviewed. Constitutional: General: She is not in acute distress. Appearance: She is well-developed. HENT: Head: Normocephalic and atraumatic. Mouth/Throat: Mouth: Mucous membranes are moist. Pharynx: No oropharyngeal exudate or posterior oropharyngeal erythema. Comments: No foreign body seen Eyes: Conjunctiva/sclera: Conjunctivae normal. Cardiovascular: Rate and Rhythm: Normal rate and regular rhythm. Heart sounds: No murmur heard. Pulmonary: Effort: Pulmonary effort is normal. No respiratory distress. Breath sounds: Normal breath sounds. Abdominal: Palpations: Abdomen is soft. Tenderness: There is no abdominal tenderness. There is no guarding or rebound. Musculoskeletal: General: No swelling. Cervical back: Neck supple. No rigidity or tenderness. Skin: General: Skin is warm and dry. Capillary Refill: Capillary refill takes less than 2 seconds. Neurological: General: No focal deficit present. Mental Status: She is alert and oriented to person, place, and time. Cranial Nerves: No cranial nerve deficit. Sensory: No sensory deficit. Motor: No weakness. Psychiatric: Mood and Affect: Mood normal. Behavior: Behavior normal. MDM Patient is a 43-year-old woman past medical history of familial adenomatous polyposis status post colectomy status post colostomy and reversal type 1 diabetes on insulin neuromuscular disorder generalized anxiety disorder gastroparesis who presents to the ED for complaints of foreign body stuck in t hroat. She says that she had some meat loaf at around 1:30 p.m. and although she is able to eat anddrink she does note that when she does try to swallow she had a 4 episodes of emesis. She has a minor amount of pain in the left anterior throat. It is noticeable when she swallows. She is able to tolerate her own secretions and has no difficulty with breathing. Workup today physical exam benign she does have a little bit elevated blood pressure otherwise asymptomatic. She does feel a little bit of discomfort in the anterior left part of her neck as she swallows. Laboratory workup benign no white count no anemia no thrombocytopenia no electrolyte derangements no kidney dysfunction she does have a hyperglycemia she is on an insulin pump for diabetes. Negative test CT neck soft tissue with contrast no foreign body esophageal distention other acute abnormality found fluid boluses currently lodged in the distal esophagus and further evaluation with the esophagram versus CT chest could be considered if clinically warranted. Her pain she is adamant is in the anterior left neck. We did offer her opportunity to speak to ENT and GI she deferred saying that she will follow up with her electronic publisher who was Dr. Tai. . We will have her reachout to Dr. NARAYAN as soon as she is able to. She can utilize Tylenol for her pain control as she does have some history of GI pathology. If her symptoms worsen or new symptoms develop she is more than we lcome to come back to this ED or bypass us and go to [place] directly where they may be able to evaluate with Gastroenterology in the ER. Medical Decision Making Amount and/or Complexity of Data Reviewed Labs: ordered. Decision-making details documented in ED Course. Radiology: ordered. Decision-making details documented in ED Course. Risk Prescription drug management. ED Course as of 07/26/24 2345 Time: 07/263 Value: CBC with auto differential: WBC 6.91 Hgb 14.2 Hct 41.5 Plt 312 MPV 9.7 RBC 4.69 MCV 88.5 MCH 30.3 MCHC 34.2 RDW CV 12.0 RDW SD 38.7 NRBC abs 0.00 Comment: No white count no anemia no thrombocytopenia By: Michele Medrano MD Time: 07/27 2243 Value: Basic metabolic panel(!): Sodium 138 Potassium, pl 3.5 Chloride 98 CO2 29 Anion gap 11 BUN 14 Creatinine 0.64 Glucose 208(!) Calcium 9.6 Comment: Elevated glucose level 208 but there does not appear to need to be any sort of anion gap or decrease in bicarb associated with a an acid-base derangement no kidney dysfunction noted. By: Michele Medrano MD Time: 07/26 2321 Value: hCG, urine, qualitative: HCG, ur Negative Comment: Negative By: Michele Medrano MD Time: 07/26 2321 Value: CT Neck Soft Tissue W Contrast Comment: No foreign body, esophageal distention, or other acute abnormality identified. Food boluses commonly lodge in the distal esophagus and further evaluation with esophagram versus CT chest could be considered if clinically warranted. By: Michele Medrano MD Final diagnoses: Globus sensation Michele Medrano MD 07/26/242 * Kerry Rajan RN - 07/26/2024 9:11 PM CDT Pt states she ate lunch and feel like something is stuck in throat and had vomited x 4 documented in this encounter Plan of Treatment Not on file documented as of this encounter Procedures Procedure Name Priority Date/Time Associated Diagnosis Comments CT SOFT TISSUE NECK W CONTRAST ED 07/26/2024 10:46 PM CDT HCG, URINE, QUALITATIVE STAT 07/26/2024 10:29 PM CDT EGFR STAT 07/26/2024 10:03 PM CDT DIFFERENTIAL AUTO STAT 07/26/2024 10: 03 PM CDT CBC WITH AUTO DIFFERENTIAL STAT 07/26/2024 10:03 PM CDT MAGNESIUM STAT 07/26/2024 10:03 PM CDT BASIC METABOLIC PANEL STAT 07/26/2024 10:03 PM CDT documented in this encounter Results * CT Neck Soft Tissue W [...] Chavo Tenorio M.D. AR: SANDY Report ID: [id number] Reading Location: [id number] Procedure Note Chavo Tenorio MD - 07/26/2024 [...] Chavo Tenorio M.D. AR: SANDY Report ID: [id number] Reading Location: [id number] Michele Medrano MD IMG CT PROCEDURES Final Resul t * hCG, urine, qualitative (07/26/2024 10:29 PM CDT) HCG, ur Negative Negative Urine 07/26/2024 10:2 9 PM CDT 07/26/2024 10:32 PM CDT us Michele Medrano MD LAB URINE ORDERABLES Final Re sult [facility] ([place]) [address] [facility] [place] [address] * eGFR (07/26/2024 10:03 PM CDT) eGFR [...] BLOOD ORDERABLES Final Re sult [facility] ([place]) [address] [facility] [place] [address] * Differential, auto (07/26/2024 10:03 PM CDT) Neutrophil abs 3.23 1.50 - 6.50 K/cumm Imm gran abs 0.02 0.00 - 0.10 K/cumm [facility] ([place]) Lymphocyte abs 2.73 0.80 - 3.30 K/cumm [facility] ([place]) Monocyte abs 0.80 0.20 - 0.80 K/cumm [facility] ([place]) Eosinophil abs 0.08 0.00 - 0.50 K/cumm [facility] ([place]) Basophil abs 0.05 0.00 - 0.10 K/cumm [facility] ([place]) Neutrophil pct 46.7 % [facility] ([place]) Comment: Interpretive [...] 2017. Monocyte pct 11.6 % [facility] ([place]) Comment: Interpretive Data [...] LAB BLOOD ORDERABLES Final Re sult [facility]) [address] [facility] [place] [address] * Magnesium (07/26/2024 10:03 PM CDT) Magnesium 1.7 1.4 - 2.5 mg/dL Blood 07/26/2024 10:0 3 PM CDT 07/26/2024 10:08 PM CDT us Michele Medrano MD LAB BLOOD ORDERABLES Final Re sult Performing Organization Address [facility] Co de Phone Number [facility] ([place]) [address] [facility] [place] [address] * (ABNORMAL) Basic metabolic panel (07/26/2024 10:03 PM CDT) Sodium 138 135 - 145 mmol/L Potassium, pl 3.5 3.3 - 4.9 mmol/L [facility] [facility] ([place]) Chloride 98 97 - 110 mmol/L [facility] ([place]) CO2 29 22 - 32 mmol/L [facility] ([place]) Anion gap 11 2 - 15 mmol/L [facility] ([place]) BUN 14 6 - 25 mg/dL [facility] ([place]) Creatinine 0.64 0.60 - 1.10 mg/dL [facility] ([place]) Glucose 208(H) 70 - 199 mg/dL [facility] ([place]) Comment: Interpretive Data Fasting glucose [...] 2022. Calcium 9.6 8.5 - 10.3 mg/dL [facility] ([place]) Blood 07/26/2024 10:0 3 PM CDT 07/26/2024 10:08 PM CDT us Michele Medrano MD LAB BLOOD ORDERABLES Final Re sult Performing Organization Address City/[facility]/ZIP Co de Phone Number [facility] ([place]) [address] [facility] [place] [address] * CBC with auto differential (07/26/2024 10:03 [...] NRBC abs 0.00 0.00 - 0.01 K/cumm [facility] ([place]) Blood 07/26/2024 10:0 3 PM CDT 07/26/2024 10:08 PM CDT us Michele Medrano MD LAB BLOOD ORDERABLES Final Re sult [facility] ([place]) [address] [facility] [place] [address] documented in this encounter Visit Diagnoses Diagnosis Globus sensation- Primary Gastrointestinal malfunction arising from mental factors documented in this encounter Administered Medications Inactive Administered Medications - up to 3 most recent administrations Medication Order MAR Action Action Date Dose Rate Site ioversoL (OPTIRAY 350) syringe 75 mL 75 mL, intravenous, Once in imaging, contrast, Starting on 07/26/24 at 2246, For 1 dose Contrast Given 07/26/2024 10:47 PM CDT 75 mL documented in this encounter Active and Recently Administered Medications Times are shown in CDT. PRN Medication Order 07/24/2024 07/25/2024 07/26/2024 ioversoL (OPTIRAY 350) syringe 75 mL (COMPLETED) 75 mL, intravenous, Once in imaging, contrast, Starting on 07/26/24 at 2246, For 1 dose 2247 (Contrast Given - Provider: Kerwin Christine RT) documented in this encounter Orders Medications Ordered That Yousif ht Not Have Been Administered Count Last Ordered Date First Ordered Date ioversoL (OPTIRAY 350) syringe 75 mL 1 09/2024 documented in this encounter Care Teams Instrumentation Technologist Relationship Specialty Start Date End Date Jeramy Napier DO [address] [place] [address] PCP - General Family Medicine 12/31/23 Omi Kennedy MD Surgeon Colon and Rectal Surgery 09/08/18 Angelia Melgoza MD Surgeon Colon and Rectal Surgery 09/08/18 [place] [address] [facility] [address] [place] [address] Psychiatrist Psychiatry 09/08/[address] [place] [address] [facility] [address] [address] Platform Engineer Gastroenterology 09/08/18 Aria Madrid MD [address] [place] [address] Consulting Physician Obstetrics and Gynecology 08/06/22 documented as of this encounter
--- OUTSIDE RECORDS SUMMARY | 2024-07-27 11:23 | XMS_ITS | Patient Health Record ---
Author Organization [facility] Address [address] [facility] [address] [place] [address] Care Team Providers Care Retail Stock Clerk Name Role Phone Danielle Santoyo Unavailable [phone] Raymond Davenport Unavailable [phone] Allergies Allergen (clinical drug ingredient) Drug/Non Drug Allergy documented on EMR Reaction Allergy Type Onset Date Status Bee Sting Unknown Allergy Active erythromycin Erythromycin Unknown Drug Allergy A ctive vancomycin Vancomycin Unknown Drug Allergy Activ e Results Component Value Reference Range Notes UDT Reviewed date:02/26/2024 05:31:51 PM Interpretation: Performing Lab: Notes/Report: THC N 0 - 50 ng/ml Cocaine N 0 - 300 ng/ml Amphetamine N 0 - 1000 ng/ml Buprenorphine (BUP) N 0 - 10 ng/ml Secobarbital (Bar) N 0 - 300 ng/ml Oxazepam (BZO) P 0 - 300 ng/ml 6-exfxdulbnv-2,4-uqcbnvuc-7,3-diphenylpyrrolidine (GUANAKITO P) N 0 - 300 ng/ml Methamphetamine (MET) N 0 - 1000 ng/ml Methylenedioxymethamphetamine (MDMA) N 0 - 500 ng/ml Morphine (MOP 300/[id number]) N 0 - 300 ng/ml Methadone (MTD) N 0 - 300 ng/ml Phencyclidine (PCP) N 0 - 25 ng/ml Nortriptyline (TCA) N 0 - 1000 ng/ml Oxycodone N 0 - 300 ng/ml x N 0 - 300 ng/ml Reason For Referral No Information Medications Medication SIG (Take, Route, Frequency, Duration) Notes Start Date End Date Status Ambien 10 MG 1 tablet at bedtime as needed Orally Once a day Active Basaglar KwikPen 100 UNIT/ML Subcutaneous for 55 Days Active Topiramate 50 MG Oral for 30 Days Active Cyclobenzaprine HCl 10 MG Oral for 30 Days Active Gabapentin 300 MG Oral for 90 Days Active Qelbree 200 MG 1 capsule Oral Once a day for 30 days Active ALPRAZolam 1 MG 1 tablet Oral Twice a day for 14 days As needed 06/15/2024 Active Social History Tobacco Use: Social History Observation Description Date Details (start date - stop date) Never Smoker NA - NA Sex Assigned At : Social History Observation Description Sex Assigned At Female Tobacco Control (Standard) Question Answer Notes Tobacco use: Nonsmoker AUDIT-C (Standard) Question Answer Notes Did you have a drink containing alcohol in the p ast year? No Problems Problem Type SNOMED Code ICD Code Onset Dates Problem Status W/U Status Risk Notes Problem 25967736 Bipolar 2 disorder (F31.81) Active confirmed hx diagnosis in teenage years; presents with irritability , impulsive symptoms that generally do not last longer than a day. currently stable off medications, wants to continue off of medication. Problem [id number] ILANA (generalized anxiety disorder) (F41.1) Active confirmed Problem [id number] ADHD (attention deficit hyperactivity disorder), combined type (F90.2) Active confirmed Vital Signs Heart Rate 67 /min 05/18/2024 Blood pressure diastolic 73 mm Hg 06/22/2024 Weight-kg 67.59 kg 06/22/2024 Blood pressure systolic 115 mm Hg 06/22/2024 Weight 149 lbs 06/22/2024 Procedures Procedure Date Ordered Date Performed Result Body Sit e ADHD Testing 02/07/2024 N/A Encounters Encounter Location Date Provider Diagnosis [employer] [address] [facility] [address] [facility] [address] [place] [address] 02/07/2024 Danielle Santoyo ADHD (attention defi cit hyperactivity disorder), combined type F90.2 ; ILANA (generalized anxiety disorder) F41.1 and Bipolar 2 disorder F31.81 [employer] [address] [facility] [address] [facility] [address] [place] [address] 02/26/2024 Raymond Davenport Lack of concentratio n R41.840 and ADHD (attention deficit hyperactivity disorder), combined type F90.2 [employer] [facility] [address] [facility] [address] [facility] [address] [place] [address] 03/05/2024 Danielle Santoyo ADHD (attention defi cit hyperactivity disorder), combined type F90.2 ; ILANA (generalized anxiety disorder) F41.1 and Bipolar 2 disorder F31.81 [facility], [facility] [address] [place] [address] 05/18/2024 Danielle Santoyo ILANA (generalized anxiety disorder) F41.1 ; Bipolar 2 disorder F31.81 ; Encounter for screening for cardiovascular disorders Z13.6 ; ADHD (attention deficit hyperactivity disorder), combined type F90.2 and Encounter for screening for depression Z13.31 [facility], [facility] [address] [place] [address] 06/22/2024 Danielle Santoyo ILANA (generalized anxiety disorder) F41.1 ; Bipolar 2 disorder F31.81 ; ADHD (attention deficit hyperactivity disorder), combined type F90.2 ; Encounter for screening for cardiovascular disorders Z13.6 and Encounter for screening for depression Z13.31 [facility], [facility] [address] [place] [address] 03/02/2024 Danielle Santoyo [facility], [facility] [address] [place] [address] 03/26/2024 Danielle Santoyo [facility], [facility] [address] [place] [address] 04/21/2024 Danielle Santoyo [facility], [facility] [address] [place] [address] 04/29/2024 Danielle Santoyo [facility], [facility] [address] [place] [address] 02/18/2024 Danielle Santoyo [facility], [facility] [address] [place] [address] 03/11/2024 Danielle Santoyo [facility], [facility] [address] [place] [address] 03/11/2024 Danielle Santoyo [facility], [facility] [address] [place] [address] 03/13/2024 Danielle Santoyo [facility], [facility] [address] [place] [address] 03/13/2024 Danielle Santoyo [facility], [facility] [address] [place] [address] 03/13/2024 Danielle Santoyo [facility], [facility] [address] [place] [address] 03/16/2024 Danielle Santoyo [facility], [facility] [address] [place] [address] 03/16/2024 Danielle Santoyo ADHD (attention defi cit hyperactivity disorder), combined type F90.2 [facility], [facility] [address] [place] [address] 03/16/2024 Danielle Santoyo [facility], [facility] [address] [place] [address] 03/17/2024 Danielle Santoyo [facility], [facility] [address] [place] [address] 03/17/2024 Danielle Santoyo [facility], [facility] [address] [place] [address] 03/23/2024 Danielle Santoyo [facility], [facility] [address] [place] [address] 03/23/2024 Danielle Santoyo [facility], [facility] [address] [place] [address] 03/23/2024 Danielle Santoyo [facility], [facility] [address] [place] [address] 03/23/2024 Danielle Santoyo [facility], [facility] [address] [place] [address] 03/28/2024 Danielle Santoyo [facility], [facility] [address] [place] [address] 04/22/2024 Danielle Santoyo [facility], [facility] [address] [place] [address] 05/18/2024 Danielle Santoyo [facility], [facility] [address] [place] [address] 05/25/2024 Danielle Santoyo [facility], [facility] [address] [place] [address] 05/26/2024 Danielle Santoyo [facility], [facility] [address] [place] [address] 05/27/2024 Danielle Santoyo [facility], [facility] [address] [place] [address] 05/28/2024 Danielle Santoyo [facility], [facility] [address] [place] [address] 06/14/2024 Danielle Santoyo [facility], [facility] [address] [place] [address] 06/14/2024 Danielle Santoyo [facility], [facility] [address] [place] [address] 06/14/2024 Danielle Santoyo [facility], [facility] [address] [place] [address] 06/15/2024 Danielle Santoyo [facility], [facility] [address] [place] [address] 06/16/2024 Danielle Santoyo [facility], [facility] [address] [place] [address] 06/22/2024 Danielle Santoyo [facility], [facility] [address] [place] [address] 06/22/2024 Danielle Santoyo [facility], [facility] [address] [place] [address] 06/28/2024 Danielle Santoyo [facility], [facility] [address] [place] [address] 06/29/2024 Danielle Santoyo [facility], [facility] [address] [place] [address] 06/29/2024 Danielle Santoyo [facility], [facility] [address] [place] [address] 06/29/2024 Danielle Santoyo [facility], [facility] [address] [place] [address] 06/29/2024 Danielle Santoyo [facility], [facility] [address] [place] [address] 06/29/2024 Danielle Santoyo [facility], [facility] [address] [place] [address] 06/29/2024 Danielle Santoyo [facility], [facility] [address] [place] [address] 06/29/2024 Danielel Santoyo Assessments Encounter Date Diagnosis (ICD Code) Assessment Notes Treatment Notes Treatment Clinical Notes Section Notes 02/26/2024 Lack of concentration (ICD-10 - R41.840) 03/16/2024 ADHD (attention deficit hyperactivity disorder), combined type (ICD-10 - F90.2) 06/22/2024 Bipolar 2 disorder (ICD-10 - F31.81) hx diagnosis in teenage years; presents with irritability , impulsive symptoms that generally do not last longer than a day. currently stable off medications, wants to continue off of medication. 06/22/2024 ILANA (generalized anxiety disorder) (ICD-10 - F41.1) 02/07/2024 ILANA (generalized anxiety disorder) (ICD-10 - F41.1) 1. ADHD symptoms consistant with diagnosis, no hx of dx or treatment; schedule for adhd evaluation to rule in or rule out dx. -evaluation ordered 2. ILANA reistant to medications, feels adhd symptoms largely triggering anxiety declines medication initiation today, wants to wait for ADHD results. -encourage non-pharmaceu tical treatments including deep breathing, grounding exercises, physical activity, healthy diet. 3. bipolar 2 disorder hx diagnosis in teenage years; presents with irritability, impulsive symptoms that generally do not last longer than a day. currently stable off medications, wants to continue off of medication. -discussed symptoms could also be caused by ADHD, will re-eval after adhd testing. 02/07/2024 ADHD (attention deficit hyperactivity disorder), combined type (ICD-10 - F90.2) Pre-treatment evaluation and contraindications Before initiating treatment with a stimulant in adults, we review their cardiovascular history, including chest pain, palpitations, syncope, myocardial infarction, arrhythmia, valvular disease, and family history. We measure blood pressure and pulse in all patients and obtain an electrocardiogram (ECG) in individuals with cardiac history or cardiac symptoms such as palpitations or chest pain. In individuals with a cardiac history, or when findings outside normal limits are seen, we consult a hydrogen treater to determine whether the results are sufficiently severe to avoid these medications. We also rule out JUAN; if you are using cannabis, are heavy alcohol, or are using other street drugs and have a history of JUAN, than we consider non-stimulant treatment. We also do routine and random UDT If you refuse or fail to give urine for urine, then we will not prescribe controlled substances. If your urine comes positive for medicine (which are not prescribed to you) and illicit drugs (including Cannabis) then we will not prescribe a controlled substance There is a charge for Stimulant refills 1. ADHD symptoms consistant with diagnosis, no hx of dx or treatment; schedule for adhd evaluation to rule in or rule out dx. -evaluation ordered 2. ILANA reistant to medications, feels adhd symptoms largely triggering anxiety declines medication initiation today, wants to wait for ADHD results. -encourage non-pharmaceu tical treatments including deep breathing, grounding exercises, physical activity, healthy diet. 3. bipolar 2 disorder hx diagnosis in teenage years; presents with irritability, impulsive symptoms that generally do not last longer than a day. currently stable off medications, wants to continue off of medication. -discussed symptoms could also be caused by ADHD, will re-eval after adhd testing. 05/18/2024 ILANA (generalized anxiety disorder) (ICD-10 - F41.1) 03/05/2024 ADHD (attention deficit hyperactivity disorder), combined type (ICD-10 - F90.2) ADHD evaluation reviewed, supportive of diagnosis 1. ADHD ADHD evaluation supportive of diagnosis -start non stimulant due to anxiety, stimulant will likely increase anxiety -start atomoxetine 25mg daily for two weeks then 40mg daily 2. ILANA reistant to medications, feels adhd symptoms largely triggering anxiety -continue to evaluate after ADHD better controlled -encourage non-pharmaceu tical treatments including deep breathing, grounding exercises, physical activity, healthy diet. 3. bipolar 2 disorder hx diagnosis in teenage years; presents with irritability, impulsive symptoms that generally do not last longer than a day. currently stable off medications, wants to continue off of medication. -stable off of medications, continue 03/05/2024 ILANA (generalized anxiety disorder) (ICD-10 - F41.1) 1. ADHD ADHD evaluation supportive of diagnosis -start non stimulant due to anxiety, stimulant will likely increase anxiety -start atomoxetine 25mg daily for two weeks then 40mg daily 2. ILANA reistant to medications, feels adhd symptoms largely triggering anxiety -continue to evaluate after ADHD better controlled -encourage non-pharmaceu tical treatments including deep breathing, grounding exercises, physical activity, healthy diet. 3. bipolar 2 disorder hx diagnosis in teenage years; presents with irritability, impulsive symptoms that generally do not last longer than a day. currently stable off medications, wants to continue off of medication. -stable off of medications, continue 02/26/2024 ADHD (attention deficit hyperactivity disorder), combined type (ICD-10 - F90.2) 02/07/2024 Bipolar 2 disorder (ICD-10 - F31.81) 1. ADHD symptoms consistant with diagnosis, no hx of dx or treatment; schedule for adhd evaluation to rule in or rule out dx. -evaluation ordered 2. ILANA reistant to medications, feels adhd symptoms largely triggering anxiety declines medication initiation today, wants to wait for ADHD results. -encourage non-pharmaceu tical treatments including deep breathing, grounding exercises, physical activity, healthy diet. 3. bipolar 2 disorder hx diagnosis in teenage years; presents with irritability, impulsive symptoms that generally do not last longer than a day. currently stable off medications, wants to continue off of medication. -discussed symptoms could also be caused by ADHD, will re-eval after adhd testing. 05/18/2024 Bipolar 2 disorder (ICD-10 - F31.81) hx diagnosis in teenage years; presents with irritability , impulsive symptoms that generally do not last longer than a day. currently stable off medications, wants to continue off of medication. 06/22/2024 ADHD (attention deficit hyperactivity disorder), combined type (ICD-10 - F90.2) 05/18/2024 Encounter for screening for cardiovascular disorders (ICD-10 - Z13.6) 06/22/2024 Encounter for screening for cardiovascular disorders (ICD-10 - Z13.6) 05/18/2024 ADHD (attention deficit hyperactivity disorder), combined type (ICD-10 - F90.2) Electronic Prior Authorization was requested for Qelbree 200 MG Capsule Extended Release 24 Hour. Provider can order medication once approval received. 03/05/2024 Bipolar 2 disorder (ICD-10 - F31.81) 1. ADHD ADHD evaluation supportive of diagnosis -start non stimulant due to anxiety, stimulant will likely increase anxiety -start atomoxetine 25mg daily for two weeks then 40mg daily 2. ILANA reistant to medications, feels adhd symptoms largely triggering anxiety -continue to evaluate after ADHD better controlled -encourage non-pharmaceu tical treatments including deep breathing, grounding exercises, physical activity, healthy diet. 3. bipolar 2 disorder hx diagnosis in teenage years; presents with irritability, impulsive symptoms that generally do not last longer than a day. currently stable off medications, wants to continue off of medication. -stable off of medications, continue 06/22/2024 Encounter for screening for depression (ICD-10 - Z13.31) 05/18/2024 Encounter for screening for depression (ICD-10 - Z13.31) 02/07/2024 Other Schedule for ADHD evaluation Declines medication for mood, anxiety at this time, wants to wait for results. 1. ADHD symptoms consistant with diagnosis, no hx of dx or treatment; schedule for adhd evaluation to rule in or rule out dx. -evaluation ordered 2. ILANA reistant to medications, feels adhd symptoms largely triggering anxiety declines medication initiation today, wants to wait for ADHD results. -encourage non-pharmaceu tical treatments including deep breathing, grounding exercises, physical activity, healthy diet. 3. bipolar 2 disorder hx diagnosis in teenage years; presents with irritability, impulsive symptoms that generally do not last longer than a day. currently stable off medications, wants to continue off of medication. -discussed symptoms could also be caused by ADHD, will re-eval after adhd testing. 03/05/2024 Other Start atomoxetine 25mg daily for two weeks then 40mg daily Patient educated on all medications including potential benefits, side effects, risks. Educated on proper dosing schedule and importance of compliance. ADHD evaluation reviewed. -Assessment and treatment plan reviewed with patient. -Compliance with treatment plan importance discussed. -Discussed the risks/benefits of this medication -Discussed medication side effects. -Contact office if symptoms worsen. -Discussed that it can take up to 6-8 weeks to see full therapeutic effects of psychotropic medications. -Crisis prevention hotline 988. 1. ADHD ADHD evaluation supportive of diagnosis -start non stimulant due to anxiety, stimulant will likely increase anxiety -start atomoxetine 25mg daily for two weeks then 40mg daily 2. ILANA reistant to medications, feels adhd symptoms largely triggering anxiety -continue to evaluate after ADHD better controlled -encourage non-pharmaceu tical treatments including deep breathing, grounding exercises, physical activity, healthy diet. 3. bipolar 2 disorder hx diagnosis in teenage years; presents with irritability, impulsive symptoms that generally do not last longer than a day. currently stable off medications, wants to continue off of medication. -stable off of medications, continue 05/18/2024 Other Discontinue atomoxetine due to side effects. Start Qelbree 200mg daily for ADHD management Patient educated on all medications including potential benefits, side effects, risks. Educated on proper dosing schedule and importance of compliance. -Assessment and treatment plan reviewed with patient. -Compliance with treatment plan importance discussed. -Discussed the risks/benefits of this medication -Discussed medication side effects. -Contact office if symptoms worsen. -Discussed that it can take up to 6-8 weeks to see full therapeutic effects of psychotropic medications. -Crisis prevention hotline 988. 06/22/2024 Other Stable on current medication regimen, continue at current doses. -No concerns today Patient educated on all medications including potential benefits, side effects, risks. Educated on proper dosing schedule and importance of compliance. -Assessment and treatment plan reviewed with patient. -Compliance with treatment plan importance discussed. -Discussed the risks/benefits of this medication -Discussed medication side effects. -Contact office if symptoms worsen. -Discussed that it can take up to 6-8 weeks to see full therapeutic effects of psychotropic medications. -Crisis prevention hotline 988. Plan Of Treatment Pending Test Test Name Order Date ADHD Testing 02/07/2024 Next Appt Details Provider Name:Danielle webb, 08/03/2024 11:30:00 AM, [address], [facility] [address], [place], [address], Insurance Providers Payer Name Payer Address Payer Phone Subscriber Number Group Number Insured Name Patient Relationship to Insured Coverage Start Date Coverage End Date Medicare-I l Medicare [address] [place] [phone] [id number] Corina Costello Self - patient is the insured Medicaid-I l Medicaid [address] [address] [place] [address] [id number] Pravin Corina Self - patient is the insured Medical (General) History Medical History History ICD Code Past Psychiatric History: An xiety Disorder,Panic Disorder,Phobias,PTSD,Major Depressive Episode,Bipolar Disorder abdominal aortic aneurysm: No atrial fibrillation: No chronic fatigue syndrome: No essential tremor: No hyperlipidemia: No hypertension: No Parkinson's disease: No restless leg syndrome: Yes stroke: No subdural hematoma: No type 1 diabetes mellitus: Yes vitamin B12 deficiency: Yes vitamin D deficiency: Yes Surgical History Surgery Date(Month/Year) colon removal 1994 colon resection 1995
--- OUTSIDE RECORDS SUMMARY | 2024-07-27 11:23 | XMS_ITS | Clinical Summary ---
Author Organization [facility] Address [address] [place] [address] Phone Care Team Providers Care Paper Rewinder Name Role Phone Jose Tomas DO Primary Care Provider [phone] Allergies Active Allergy Reactions Criticality Noted Date Comments Erythromycin Rash 12/14/2019 Vancomycin Rash 12/14/2019 Social History Tobacco Use Types Packs/Day Years Used Date Smoking Tobacco: Never Smokeless Tobacco: Never Alcohol Use Standard Drinks/Week Comments Never 0 (1 standard drink = 0.6 oz pur e alcohol) AUDIT-C Answer Date Recorded Q1: How often do you have a drink containing alc ohol? Never 12/14/2019 Average Number of Drinks Not on file 020 Frequency of Binge Drinking Not on file 11/19 Comments No Sex and Gender Information Value Date Recorded Sex Assigned at Not on file Legal Sex Female 8:42 AM CDT Gender Identity Not on file Sexual Orientation Not on file Last Filed Vital Signs Vital Sign Reading Time Taken Comments Blood Pressure 91/65 12/14/2019 3:15 PM CDT Pulse 100 12/14/2019 3:30 PM CDT Temperature 36.4 C (97.6 F) 12/14/2019 8:45 AM CDT Respiratory Rate 24 12/14/2019 3:30 PM CDT Oxygen Saturation 100% 12/14/2019 3:30 PM CDT Inhaled Oxygen Concentration - - Weight 71.7 kg (158 lb) 12/14/2019 8:45 AM CDT Height 167.6 cm (5' 6) 12/14/2019 8:45 AM CDT Body Mass Index 25.5 12/14/2019 8:45 AM CDT Plan of Treatment Health Maintenance Due Date Last Done Comments Hepatitis C Virus (HCV) Screening 1982 TdaP Immunization 1982 Hepatitis B Immunization (1 of 3 - 19+ 3-dose series) 2001 SARS-COV-2 Immunization (1 - 2023- season) 2023 Influenza Immunization (Seas on Ended) 2024 04/12/2019 Respiratory Syncytial Virus (RSV) Immunization (Adult) (1 - 1-dose 75+ series) 2057 Human Papillomavirus (HPV) Immunization Aged Out No longer eligible b ased on patient's age to complete this topic Meningococcal Immunization (ACWY) Aged Out No longer eligible based on patient's age to complete this topic Pneumococcal Immunization Combined Aged Out No longer eligible based on patient's age to complete this topic Rotavirus Immunization Aged Out No lo nger eligible based on patient's age to complete this topic Insurance MEDICARE [place]ICAID [place] Care Teams Paper Rewinder Relationship Specialty Start Date End Date Jose Tomas DO [address] [place] [address] PCP - General Family Medicine 12/14/19
--- OUTSIDE RECORDS SUMMARY | 2024-07-27 11:30 | XMS_ITS | Continuity of Care Document ---
Author Name [facility] Address [address] [place] [address] Organization [facility] Care Team Providers Care Deck Cadet Name Role Phone [facility] HIE Unavailable Unavailable Allergies, Adverse Reactions, Alerts Substance Category Reaction Severity Reaction type Status Date Reported Comments Source erythromycin Assertion Drug allergy Active [facility] vancomycin Assertion Drug allergy Active [facility] Encounters Location Location Details Encounter Type Encounter Number Reason For Visit Attending Provider ADM Date DC Date Status Source [facility] [id number] [facility]
--- OUTSIDE RECORDS SUMMARY | 2024-07-27 11:30 | XMS_ITS | CONTINUITY OF CARE DOCUMENT ---
Author Name karena thurston Address Unknown Organization [facility] Address [address] [place] [address] Phone [phone] Care Team Providers Care Slip Tender Name Role Phone Darrel Fish DO Unavailable LISA LNUA DO Unavailable LISA LUNA DO Unavailable [phone] PROBLEMS Condition Status Date Provider Notes Chest [...] CAPSULE DELAYED RELEASE PARTICLES active 1 daily Lisa Sharma TRAZODONE HCL 50 MG ORAL TABLET [...] Policy type / Coverage type Wilfredo red republican ID [place]ICAID [place] Medicaid [id number] [place] MED[place] PART B Medicare [id number] TREATMENT PLAN Date Name Performer new pt - needs [facility]:I will check a stress test and an echocardiogram. Darrel Fish DO new pt - needs [facility]:I will place her on a residential monitor. Her ECG today demonstrates NSR. H er updated medication list for this problem includes: Ativan 0.5 Mg Tabs (Lorazepam) ..... 1 three times daily Darrel Fish DO HISTORY OF PROCEDURES Procedure Date Procedure Name Provider Procedure Notes S tatus EKG Darrel Fish DO completed
== END 2024-07-27 10:58 | disposition home or self-care (01) ==
PROVIDERS: Emergency Provider Nurse Practitioner
DX: J10.1 Influenza due to other identified influenza virus with other respiratory manifestations (principal); Z20.822 Contact with and (suspected) exposure to COVID-19; E10.9 Type 1 diabetes mellitus without complications; Z85.038 Personal history of other malignant neoplasm of large intestine; Z90.49 Acquired absence of other specified parts of digestive tract
CPT/HCPCS: 87081; 87426; 87804; 87880; 99213; G0463

== ENCOUNTER 2025-02-08 11:59 | Emergency (ER) | payer MEDICARE, MEDICAID, SELFPAY ==
--- NOTE | 2025-02-08 12:02 | ED_ITS ---
HPI - URI/Sore Throat General Chief Complaint: Nausea/Vomiting/Diarrhea Stated Complaint: Sore Throat/Headache/Diarrhea Time Seen by Provider: 02/08/25 12:01 Source: patient Mode of arrival: ambulatory Limitations: no limitations History of Present Illness HPI Narrative: Corina is a 44-year-old female patient presenting to the clinic today with complaints of sore throat, headache, nasal congestion, cough, diarrhea times 2-3 days. She reports she has not had fevers, chills, or body aches. She is type 1 diabetic. States her sugars have been higher than normal because she sick. Denies any chest pain or shortness of breath. States she was exposed to a co- worker who was sick Related Data Home Medications ?Medication ?Instructions ?Recorded ?Confirmed ?Last Taken ?Type alprazolam 1 mg tablet 1 mg PO TID 07/15/19 0 Unknown History cetirizine 10 mg tablet 10 mg PO DAILY 07/15/1906/19 Unknown History dexlansoprazole 60 mg 60 mg PO DAILY 07/15/1906/19 Unknown History capsule,biphase delayed release (Dexilant) dicyclomine 20 mg tablet 20 mg PO Q2H 07/15/19 Unknown History insulin glargine 100 unit/mL (3 unit subcut 07/27/24 Unknown History mL) subcutaneous pen (Basaglar KwikPen U-100 Insulin) escitalopram oxalate 5 mg tablet mg 02/08/25 Unknown History gabapentin 300 mg capsule mg 02/08/25 Unknown History ibuprofen 800 mg tablet mg 02/08/25 Unknown History insulin pump cart,auto,BT,G6/7 02/08/25 02/08/25 Unkn own History (Omnipod 5 G6-G7 Pods (Gen 5) subcutaneous cartridge) naproxen 500 mg tablet mg 02/08/25 Unknown History Allergies Allergy/AdvReac Type Severity Reaction Status Date / Time vancomycin Allergy Intermediate Hives / Verified 02/08/25 12:02 Red Face erythromycin base Allergy Mild Hives / Verified 02/08/25 12:02 Red Face Review of Systems Review of Systems: Pertinent positives per HPI. Patient denies any fever, chills, rash, visual changes, dizziness, cough, shortness of breath, chest pain, palpitations, nausea, vomiting, constipation, abdominal pain, or any urinary issues. [facility] Past Medical History Medical History Type 1 diabetes Anxiety Colon cancer Diabetes Surgical History Surgical History History of colectomy History of kidney surgery Family History Family History Father Alive and well Mother Carcinoma of colon Grandparent Carcinoma of colon Sibling Carcinoma of colon Sibling Diabetes mellitus Social History Social History Smoking status: Never smoker Alcohol intake: never Substance use: never Living arrangements: with family Gender identity (if verbalized by the patient): Female Comments At the time of my signature, I reviewed and agree with the nursing past medical, surgical, social, and family history. There is no relevant family history pertinent to the patient complaint. Exam Narrative: General: Well-developed, well nourished, in no apparent distress Head: Normocephalic, atraumatic Eyes: Pupils equally round and reactive to light bilaterally, EOM intact, sclera and conjunctive clear, no discharge, lids normal Ears: TMs intact and clear, ear canals clear, no drainage, grossly hearing normal. Nose: Nares patent, clear nasal discharge, mild inflammation, no sinus tenderness. Mouth: Oral pharynx red without lesions or masses, good dentition, MMM. Neck: Supple, trachea midline, no enlargement of anterior or posterior cervical nodes, no thyroid masses or goiter palpable. Cardio: Regular rate and rhythm, s1 and s2 normal, no murmur appreciated. Resp: Clear to auscultation bilaterally, no rhonchi, rales, wheezing or rubs Course Course Level of Care: Express Care Visit Vital Signs Vital signs: Vital Signs Temperature 36.4 C 02/08/25 12:13 Pulse Rate 106 H 02/08/25 12:13 Respiratory Rate 20 02/08/25 12:13 Blood Pressure 132/66 02/08/25 12:13 Pulse Oximetry 99 02/08/25 12:13 Oxygen Delivery Room Air 02/08/25 12:13 Temperature 36.4 C 02/08/25 12:13 Pulse Rate 106 H 02/08/25 12:13 Respiratory Rate 20 02/08/25 12:13 Blood Pressure 132/66 02/08/25 12:13 Pulse Oximetry 99 02/08/25 12:13 Oxygen Delivery Room Air 02/08/25 12:13 MDM MDM Narrative Medical decision making narrative: At the time of visit patient is resting comfortably on the exam table. Patient appears to be nontoxic. Complaints of sore throat, headache, nasal congestion, cough, diarrhea times 2-3 days. She reports she has not had fevers, chills, or body aches. She is type 1 diabetic. States her sugars have been higher than normal because she sick. Denies any chest pain or shortness of breath. States she was exposed to a co-worker who was sick. COVID, flu, and strep test were all ordered. On exam patient has clear bilateral TMs intact, clear nasal drainage, mild anterior turbinate inflammation, oral pharynx red without tonsillar enlargement, no cervical lymphadenopathy, heart rates regular rate and rhythm, lung sounds are clear. Labs: Strep, COVID, influenza testing was all negative in the clinic today. We will send strep for culture. Plan: I suspect patient has URI/pharyngitis/viral syndrome. Supportive measures were discussed with the patient and they voiced understanding discharge instructions and agrees to treatment plan. Return precautions reviewed Differential Diagnosis Differential Diagnosis: Differential diagnostic considerations for upper respiratory infection include upper respiratory infection, croup, otitis media, sinusitis, viral infection, bronchitis, influenza, pharyngitis, strep, uvulitis. Lab Data Labs: Lab Results 02/08/25 02/08/25 Range/Units 12:21 12:22 POC Influenza A Ag Negative (Negative) POC Influenza B Ag Negative (Negative) POC SARS CoV-2 Ag Negative (Negative) POC Grp A Strep Screen Negative (Negative) Discharge Plan Discharge Clinical Impression: Acute viral syndrome URI (upper respiratory infection) Qualifiers: URI type: unspecified URI Qualified Code(s): J06.9 - Acute upper respiratory infection, unspecified Pharyngitis Qualifiers: Pharyngitis/tonsillitis etiology: unspecified etiology Qualified Code(s): J02.9 - Acute pharyngitis, unspecified Patient Disposition: Home Condition: Stable Instructions: Antibiotic Form, Pharyngitis (ED), Viral Syndrome (ED), Cold Symptoms (ED) Additional Instructions: COVID, flu, and strep test were all negative in the clinic today. We will send strep for culture if this comes back positive we will contact him place you on antibiotics at that time. Keep a tight control in your blood sugar. May take Imodium as needed for diarrhea as long as there is no blood in your stool. Increase fluids and stay well hydrated May take Tylenol or motrin as directed on bottle for pain/fever May use Flonase 1 spray in each nare daily May take OTC antihistamines such as Zyrtec or Claritin daily as directed on bottle May apply Vicks vapor rub to chest to open sinuses Sinus rinses for congestion Cepacol spray, cough drops, throat lozenges, warm tea with honey/lemon, gargle salt water to soothe throat BRAT diet for diarrhea Clear liquids x 24 hours then advance as tolerated for nausea/vomiting Go to the ED if you develop a worsening in your condition- high fever not controlled by Tylenol or Motrin, dehydration, weakness, lethargy, shortness of breath, or chest pain. Follow up with your PCP in 3-5 days if symptoms persist. Patient Language: Kiswahili Prescriptions: No Action cetirizine 10 mg tablet 10 mg PO DAILY alprazolam 1 mg tablet 1 mg PO TID dicyclomine 20 mg tablet 20 mg PO Q2H Dexilant 60 mg capsule,biphase delayed releas 60 mg PO DAILY insulin glargine [Basaglar KwikPen U-100 Insulin] 100 unit/mL (3 mL) insulin pen SUBCUT ibuprofen 800 mg tablet gabapentin 300 mg capsule naproxen 500 mg tablet escitalopram oxalate 5 mg tablet (DME) Omnipod 5 G6-G7 Pods (Gen 5) Cartridge SUBCUT Follow-up/Referrals: Gary,Augustine Almeida MD [Primary Care Provider] Stand Alone Forms: Work/School Release IP Time of Disposition: 12:29 Quality NIHSS Nursing Documentation ED NIHSS nursing documentation: reviewed/agree
[2025-02-08 12:13] VITALS: BP 132/66; PULSE 106; RESP 20; TEMP 36.4; O2SAT 99
[2025-02-08 12:23] LABS: EDSTREPNEGPOS1 Negative (Negative)
[2025-02-08 12:24] LABS: EDCOVIDSCREEN Negative (Negative); EDINFLUASCREEN Negative (Negative); EDINFLUBSCREEN Negative (Negative)
--- OUTSIDE RECORDS SUMMARY | 2025-02-08 13:40 | XMS_ITS | Encounter Summary ---
Author Organization [facility] Address [address] [place] [address] Care Team Providers Care Financial Services Representative Name Role Phone Amisha Garay MD Unavailable Doni Sanon DO Unavailable Ronan Lee MD Unavailable Jennie Mujica [facility] Unavailable [phone] Uzair Romero MD Unavailable Teresa Khalil MD Unavailable Laureen Cabrera RN Unavailable Mei Otero [facility] Unavailable [phone] Jeramy Napier DO Primary Care Provider Jeramy Napier DO Unavailable Reason for Visit * Reason Onset Date Comments Appointment 01/29/2025 Encounter Details Date Type Department Care Team (Late st Contact Info) Description 01/29/2025 Telephone [facility] Medical [facility] - Family Medicine [address] [place] [address] Jeramy Napier DO [address] [place] [address] Appointment Social History Tobacco Use Types Packs/Day Years [...] Recorded Patient Health Questionnaire-2 Score 0 07/21/2024 [facility] Occupat ional Health - Occupational Stress [...] place to sleep or slept in a nursing home (including now)? No 10/03/2022 Education Answer Date Recorded What is the highest level of school you have completed or the highest degree you have received? High school graduate 08/06/2022 Comments No Sex and Gender Information Value Date Recorded Sex Assigned at Female 02/22/2020 1:27 AM PARARESCUE MANAGER Legal Sex Female 4:51 AM PARARESCUE MANAGER Gender Identity Female 02/22/2020 1:27 AM PARARESCUE MANAGER Sexual Orientation Straight 02/22/2020 1: 27 AM PARARESCUE MANAGER Occupation Industry Job Start Date Job End Date disabled Not on file Not on file Not on file documented as of this encounter Functional Status * Is person deaf or have serious hearing difficulty? Answer Date of Assessment Author No 09/29/2024 10:08 AM Jaqueline Dawson RN * Is person blind or have serious difficulty seeing? Answer Date of Assessment Author No 09/29/2024 10:08 AM Jaqueline Dawson RN * Does person have serious difficulty walking/climbing stairs? Answer Date of Assessment Author No 09/29/2024 10:08 AM Jaqueline Dawson RN * Does person have difficulty dressing/bathing? Answer Date of Assessment Author No 09/29/2024 10:08 AM Jaqueline Dawson RN * Does person have difficulty doing errands alone? Answer Date of Assessment Author Yes 09/29/2024 10:08 AM Jaqueline Dawson RN documented as of this encounter Mental Status * Does person have difficulty concentrating/remembering/making decisions? Answer Entry Date Author No 09/29/2024 10:08 AM Jaqueline Dawson RN documented in this encounter Miscellaneous Notes * Telephone Encounter - Elza Baxter - 01/29/2025 2:23 PM CST Called and LVM asking pt to schedule diabetic eye exam RESCUE MANAGER documented in this encounter Plan of Treatment Not on file documented as of this encounter Goals Goal [...] None at the time of this encounter [facility] Lifestyle: Have labs drawn Lifestyle Not on track( 014 1:46 PM CDT) No Dahiana Alfred HEMOGLOBIN A1C < 7.0 Result Component 7.6( 3 5:48 PM CDT) No Seth Huynh documented as of this encounter Visit Diagnoses Not on filedocumented in this encounter Additional Health Concerns Infection Onset Date Last Indicated Resolved Time 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 11/16/2008 documented as of this encounter Care Teams Financial Services Representative Relationship Specialty Start Date End Date Jeramy Napier DO [address] [place] [id number] PCP - General Family Medicine 04/22/23 Jeramy Napier DO [address] [place] [phone] PCP - Attributed-MSSP 08/18/24 Amisha Garay MD Orthopedic Surgery 04/29/12 Doni Sanon DO Orthopedic Surgery 08/25/12 Ronan Lee MD [address] [place] [address] Obstetrics and Gynecology 10/13/13 Jennie Mujica, UTILITY PLANT OPERATIVE-INDIRECT FIRE INFANTRYMAN [address] [place] [address] Nurse Practitioner 10/13/13 Uzair Romero MD [address] [place] [address] Gastroenterology 10/13/13 Teresa Khalil MD [address] [place] [address] Colon and Rectal Surgery 10/13/13 Laureen Cabrera RN Drain Tiler 08/09/16 Mei Otero, [facility] Graduate Fellow 11/27/16 documented as of this encounter
--- OUTSIDE RECORDS SUMMARY | 2025-02-08 13:41 | XMS_ITS | Encounter Summary ---
Author Organization [facility] Address [address] [place] [address] Care Team Providers Care Bonsai Tender Name Role Phone Unavailable Primary Care Provider Unavailabl e Prior Encounters Date Type Department Care Team Description 03/09/2019 Converted 13x Documents [facility] [address] [place] [address] <No scans attached> Plan of Treatment Not on file Procedures Procedure Name Priority Date/Time Associated Diagnosis Comments CANCELLED APPOINTMENT Routine 02/26/2014 2:00 AM WORKFORCE DEVELOPMENT ASSISTANT Visit Diagnoses Not on file
--- OUTSIDE RECORDS SUMMARY | 2025-02-08 13:41 | XMS_ITS | Encounter Summary ---
Author Organization [facility] Address [address] [place] [address] Care Team Providers Care Retail Support Associate Name Role Phone Amisha Garay MD Unavailable Doni Sanon DO Unavailable Ronan Lee MD Unavailable Jennie Mujica MEDICAL ASSISTANT SECRETARY-USER SUPPORT SPECIALIST Unavailable [phone] Uzair Romero MD Unavailable Teresa Khalil MD Unavailable [phone] Jose Tomas DO Primary Care Provider Rosa Escobedo RN Unavailable [phone] Ginette Kang RN Unavailable Laureen Cabrera RN Unavailable Mei OteroW Unavailable Jose Tomas DO Unavailable Unavailable Sandra Ferrara RN Unavailable Maria Alejandra Zaman RN Unavailable Maria Alejandra Zaman RN Unavailable Jamal Anderson MD Primary Care Provider [phone] Alysa Sanchez RN Unavailable [phone] Jeramy Napier DO Primary Care Provider Aimee White Unavailable Jeramy Napier DO Unavailable Stacey Day MEDICAL ASSISTANT SECRETARY-USER SUPPORT SPECIALIST Unavailable Aimee White Unavailable Aimee White Unavailable Yunier House Shira DO Unavailable Jose Tomas DO Unavailable Unavailable Aimee White Unavailable Jeramy Napier DO Unavailable Encounter Details Date Type Department Care Team (Late st Contact Info) Description 04/07/2014 [facility] Angelia Melgoza MD [address] [phone] Social History Tobacco Use Types Packs/Day Years Used Date Smoking Tobacco: Never Smokeless Tobacco: Never Alcohol Use Standard Drinks/Week Comments No 0 (1 standard drink = 0.6 oz pur e alcohol) Comments No Sex and Gender Information Value Date Recorded Sex Assigned at Female 02/22/2020 1:27 AM RECORDS MANAGEMENT COORDINATOR Legal Sex Female 4:51 AM RECORDS MANAGEMENT COORDINATOR Gender Identity Female 02/22/2020 1:27 AM RECORDS MANAGEMENT COORDINATOR Sexual Orientation Straight 02/22/2020 1: 27 AM RECORDS MANAGEMENT COORDINATOR Occupation Industry Job Start Date Job End Date disabled Not on file Not on file Not on file documented as of this encounter Functional Status * Is person deaf or have serious hearing difficulty? Answer Date of Assessment Author No 12/15/2013 8:22 PM Ursula Bird RN * Is person blind or have serious difficulty seeing? Answer Date of Assessment Author No 12/15/2013 8:22 PM Ursula Bird RN * Does person have serious difficulty walking/climbing stairs? Answer Date of Assessment Author No 12/15/2013 8:22 PM Ursula Bird RN * Does person have difficulty dressing/bathing? Answer Date of Assessment Author No 12/15/2013 8:22 PM Ursula Bird RN * Does person have difficulty doing [...] Type Associated Problems Recent Progress Patient-Stated? Author [facility] Lifestyle: Have labs drawn Lifestyle Not [...] documented as of this encounter Care Teams Retail Support Associate Relationship Specialty Start Date End Date Jose Tomas DO [address] [place] [address] PCP - General Family Medicine 11/26/13 08/05/22 Jose Tomas DO PCP - Attributed-MSSP 12/04/16 05/19/23 [place] [address] [place] [address] PCP - General Family Medicine 08/06/22 04/21/23 Jeramy Napier DO [address] [place] [address] PCP - General Family Medicine 04/22/23 Jeramy Napier DO [address] [place] [address] PCP - Attributed-MSSP 05/20/23 10/19/23 Stacey Day, MEDICAL ASSISTANT SECRETARY-USER SUPPORT SPECIALIST [address] [place] [address] PCP - Attributed-MSSP 10/20/23 08/17/24 [place] [address] [place] [address] PCP - Attributed-MSSP 10/16/16 7 Jose Tomas DO PCP - Attributed-MSSP 07/25/16 10/10/16 Jeramy Napier DO [address] [place] [phone] PCP - Attributed-MSSP 08/18/24 Amisha Garay MD Orthopedic Surgery 04/29/12 Doni Sanon, DO Orthopedic Surgery 08/25/12 Ronan Lee MD [address] [place] [address] Obstetrics and Gynecology 10/13/13 Jennie Mujica, MEDICAL ASSISTANT SECRETARY-USER SUPPORT SPECIALIST [address] [place] [address] Nurse Practitioner 10/13/13 Uzair Romero MD [address] [place] [address] Gastroenterology 10/13/13 Teresa Khalil MD [address] [place] [address] Colon and Rectal Surgery 10/13/13 Rosa Meade, RN Sales Relationship Manager 12/14/13 08/08/16 Ginette Kang, ROSALIE Service Center CoordinatorStatement Processor 01/02/17 01/07/17 Laureen Cabrera RN Sales Relationship Manager 08/09/16 Mei Otero, [facility] Machine Grainer 11/27/16 Sandra Ferrara RN Sales Relationship Manager 07/22/17 07/22/17 Maria Alejandra Zaman, RN Service Center CoordinatorStatement Processor 01/04/21 03/29/21 Maria Alejandra Zaman RN Service Center CoordinatorStatement Processor 05/17/22 11/26/22 Alysa Sanchez RN Service Center CoordinatorStatement Processor 11/26/22 05/29/23 Aimee White Care Coordination Specialist Care Management 05/02/23 05/02/23 Aimee White Care Coordination Specialist Care Management 01/23/24 01/23/24 Aimee White Care Coordination Specialist Care Management 03/03/24 03/03/24 Aimee White Care Coordination Specialist Care Management 12/03/24 01/17/25 documented as of this encounter
--- OUTSIDE RECORDS SUMMARY | 2025-02-08 13:41 | XMS_ITS | Clinical Summary ---
Author Organization [facility] Address [address] [place] [address] Care Team Providers Care Dock Boss Name Role Phone Omi Kennedy MD Unavailable [phone] Angelia Melgoza MD Unavailable OnumaRobert MD Unavailable [phone] Marciano Danielson MD Unavailable Aria Madrid MD Unavailable [phone] Keshia Barriga MD Primary Care Provider Allergies Active Allergy Reactions Criticality Noted Date Comments Erythromycin Hives,Rash,Urticaria High 08/11/2007 Morphine Hives,Itching Medium 12/31/2024 Reaction: ITCHING, Hives on site of extremity medication was given Ondansetron Hcl Rash,Itching Medium 01/26/2020 Vancomycin Hives,Rash Medium 03/31/2008 Red Man Rash Vancomycin Analogues Rash,Hives High 03/31/2008 RED Man Red Man Rash Red Man Rash Red Man Rash Red Man Rash Venom-Honey Bee Anaphylaxis,Swelling High 01/23/2023 Throat swelling Medications diphenoxylate-atr opine (LOMOTIL) 2.5-0.025 mg per tablet Take 1 tablet by mouth every 6 hours as needed for diarrhea Active insulin pump cart,auto,BT-cntr (Omnipod 5 G6 Intro Kit, Gen 5,) cartridgeIndicati ons:Type 1 diabetes mellitus without complication Use to continually infuse insulin, change pod every 3 days 1 each 02/09/20 Active pen needle, diabetic (BD Ultra-Fine Short Pen Needle) 31 gauge x 5/16 needleIndications :Type 1 diabetes mellitus without complication USE TO INJECT ONCE DAILY DIRECTED 100 each 1 12/03/19 24 Active urine glucose-ketones test strip Use as needed when BG > 300. 50 strip 1 02/26/19 25 Active Additional Information Patient not taking.Reported on 12/31/2024 insulin aspart niacinamide (FIASP) 100 unit/mL vial for injectionIndicati ons:type 1 diabetes mellitus To use via insulin pump. TDD 100 units a day. 90 mL 3 03/12/19 Active blood glucose diagnostic (glucose blood) stripIndications: Type 1 diabetes mellitus with hyperglycemia (HCC) Check blood sugar 3 times a day with dexcom sensor failure or when off Dexcom using contour next test strips 300 each 3 03/16/19 25 Active Dexcom G6 Transmitter device as directed 05/09/19 Active Dexcom G6 Front Office Administrator miscIndications:T ype 1 diabetes mellitus with hyperglycemia (HCC) Use to continually monitor glucose 1 each 06/02/19 Active Gvoke HypoPen 2-Pack 1 mg/0.2 mL auto-injectorIndi cations:Type 1 diabetes mellitus with hyperglycemia (HCC) INJECT 1 DOSE UNDER THE SKIN NEEDED (SEVERE HYPOGLYCEMIA) 0.4 mL 3 06/04/19 Active Additional Information Patient taking differently: As needed, FOR LOW BLOOD SUGAR, Reported on 12/31/2024 escitalopram (LEXAPRO) 10 mg tablet Take 1 tablet (10 mg total) by mouth daily 09/01/19 Active ALPRAZolam (XANAX) 1 mg tablet Take 1 tablet (1 mg total) by mouth 3 (three) times a day as needed for anxiety Active loperamide (IMODIUM) 2 mg capsuleIndication s:diarrhea Take 1 capsule (2 mg total) by mouth 3 (three) times a day before meals 30 capsule 09/12/19 Active Additional Information Patient taking differently:2 mg oralAs needed, Indications: diarrhea, Reported on 12/31/2024 omeprazole (PriLOSEC) 20 mg capsule Take 1 capsule (20 mg total) by mouth daily 30 capsule 1 09/17/19 25 Active blood-glucose meter kitIndications:Ty pe 1 diabetes mellitus with hyperglycemia (HCC) Use glucometer to check BG 4 times daily 1 kit 09/23/19 25 Active insulin pump cart,auto,BT,G6/7 (Omnipod 5 G6-G7 Pods, Gen 5,) cartridgeIndicati ons:Type 1 diabetes mellitus with hyperglycemia (HCC),Insulin pump in place Use to continually infuse insulin; change pod every 2 days 45 each 1 10/16/19 25 Active dicyclomine (BENTYL) 20 mg tabletIndications :Abdominal Pain with Cramps TAKE 1 TABLET (20 MG TOTAL) BY MOUTH DAILY NEEDED (ABDOMINAL PAIN AND CRAMPING) 90 tablet 1 11/06/19 25 Active insulin glargine (BASAGLAR) 100 unit/mL (3 mL) pen for injectionIndicati ons:Type 1 diabetes mellitus without complications INJECT 31 UNITS UNDER THE SKIN ONCE PER DAY. FOR USE WHEN OFF PUMP OR WITH PUMP FAILURE 15 mL 1 11/27/19 25 Active gabapentin (NEURONTIN) 100 mg capsule Take 1 capsule (100 mg total) by mouth 3 (three) times a day 10/09/19 25 Active lisdexamfetamine (VYVANSE) 20 mg capsule Take 1 capsule (20 mg total) by mouth daily 12/04/19 25 Active oxyCODONE-acetami nophen (PERCOCET) 5-325 mg per tablet 1 TAB BY MOUTH EVERY 4 TO 6 HOURS NEEDED SEVERE PAIN 10/29/19 25 Active cyclobenzap-irrit ant cntr irr2 10 mg kit as needed Active cetirizine (ZyrTEC) 10 mg tablet Take 1 tablet (10 mg total) by mouth as needed for allergies 90 tablet 3 01/01/20 25 Active EPINEPHrine 0.3 mg/0.3 mL auto-injection syringe Inject 0.3 mL (0.3 mg total) into the muscle as instructed daily as needed for anaphylaxis 1 each 01/01/20 25 Active ondansetron (ZOFRAN) 4 mg tabletIndications :Nausea and Vomiting Take 1 tablet (4 mg total) by mouth every 4 (four) hours as needed for nausea or vomiting 20 tablet 01/23/20 25 Active ondansetron (ZOFRAN) 4 mg tabletIndications :Nausea and Vomiting Take 1 tablet (4 mg total) by mouth every 4 (four) hours as needed for nausea or vomiting 20 tablet 10/06/19 25 025 Discontin ued(Reord er) Active Problems Problem Noted Date Diagnosed Date Attention deficit hyperactivity disorder 025 Bloating 09/17/2024 Referral of patient 09/17/2024 Abdominal pain 09/09/2024 Assessment & Plan (09/11/2024 10:58 AM CDT): 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 Acute worsening of chronic diarrhea could be contributing. Infectious studies so far unrevealing (neg CDiff, crypto, giardia, stool culture). Will plan to discharge home with close outpatient follow up. She was advised to continuing using PRN lomotil as she had previously and can add PRN imodium should sxs persist. Return precautions reviewed. 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 Acute worsening of chronic diarrhea could be contributing. Infectious studies so far unrevealing (neg CDiff, crypto, giardia). 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 Acute worsening of chronic diarrhea could be contributing. Responable to rule out infectious etiologies of diarrhea given leukocytosis, though this is likely related to hemoconcentration. - stool cx, O&P, giardia, cryptosporidium, cdiff - prn lomotil - ADAT - pain control with PRN APAP, oxy, dilaudid IV - continue IVFs x 24hrs - f/up lactate given AGMA - consider surgery consult should sxs progress Hyperkalemia 09/09/2024 Assessment & Plan (09/11/2024 10:58 AM CDT): Resolved Assessment & Plan (09/10/2024 11:29 AM CDT): Resolved Assessment & Plan (09/09/2024 1:32 PM CDT): Mild. Monitor Hyponatremia 09/09/2024 Assessment & Plan (09/11/2024 10:58 AM CDT): Likely hypovolemic. Resolved w IVFs Assessment & Plan (09/10/2024 11:29 AM CDT): Likely hypovolemic. Trend response to IVFs Assessment & Plan (09/09/2024 1:32 PM CDT): Likely hypovolemic. Trend response to IVFs High anion gap metabolic acidosis 09/09/2024 Assessment & Plan (09/11/2024 10:58 AM CDT): Likely multifactorial from HCO3 loss in diarrhea and starvation ketosis. Improved with isotonic HCO3 supplementation. Assessment & Plan (09/10/2024 11:29 AM CDT): Likely multifactorial from HCO3 loss in diarrhea and starvation ketosis. Improved with isotonic HCO3 supplementation. - isotonic HCO3 infusion x 48 hrs Assessment & Plan (09/09/2024 1:32 PM CDT): Likely multifactorial from HCO3 loss in diarrhea and starvation ketosis. Can't exclude DKA at present, but suspicion is low based on clinical picture. - check serum ketones, lactate - check VBG - isotonic HCO3 infusion x 24 hrs Elevated blood protein 09/09/2024 Assessment & Plan (09/11/2024 10:58 AM CDT): Negative HIV, RPR, hep panel Assessment & Plan (09/10/2024 11:29 AM CDT): Negative HIV, RPR, hep panel Assessment & Plan (09/09/2024 1:32 PM CDT): Likely hemoconcentration. 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 Panic disorder with agoraphobia 08/27/2023 Bipolar 2 disorder 03/22/2023 Mixed hyperlipidemia 03/11/2023 residential current use of insulin 06/18/2022 key cutter associated with adverse incidents 06/18/2022 Vomiting [...] (08/10/2019): Added automatically from request for surgery [id number] Small bowel stricture 01/30/2019 Overview (01/30/2019): Added automatically from request for surgery [id number] Generalized abdominal pain 11/11/2018 Dehydration, mild 11/11/2018 [...] gastroparesis Chronic abdominal pain 10/22/2018 Atherosclerosis of [place] ar teries of extremity with intermittent claudication 10/21/2018 History of colon cancer 08/25/2018 Overview (08/25/2018): Added automatically from request for surgery [id number] Leukocytosis 06/13/2018 Assessment & Plan (09/11/2024 10:58 AM CDT): Likely related to hemoconcentration. Resolved with IVFs Assessment & Plan (09/10/2024 11:42 AM CDT): Likely related to hemoconcentration. Will rule out infectious etiologies as above. resolved Assessment & Plan (09/09/2024 1:32 PM CDT): Likely related to hemoconcentration. Will rule out infectious etiologies as above. 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 Acute worsening of chronic diarrhea could be contributing. Infectious studies so far unrevealing (neg CDiff, crypto, giardia, stool culture). Will plan to discharge home with close outpatient follow up. She was advised to continuing using PRN lomotil as she had previously and can add PRN imodium should sxs persist. Return precautions reviewed. 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 Acute worsening of chronic diarrhea could be contributing. Infectious studies so far unrevealing (neg CDiff, crypto, giardia). 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 Acute worsening of chronic diarrhea could be contributing. Responable to rule out infectious etiologies of diarrhea given leukocytosis, though this is likely related to hemoconcentration. - stool cx, O&P, giardia, cryptosporidium, cdiff - prn lomotil - ADAT - pain control with PRN APAP, oxy, dilaudid IV - continue IVFs x 24hrs - f/up lactate given AGMA - consider surgery consult should sxs progress Gastric polyp 03/30/2015 Menorrhagia 02/05/2014 Overview (01/19/2021): Started with a normal period about a month ago Chest pain 01/04/2014 Palpitations 01/04/2014 Lumbosacral radiculopathy at L5 12/23/2013 Anxiety 12/13/2013 Assessment & Plan (08/11/2019 9:36 AM CDT): Continue prn xanax Assessment & Plan (08/10/2019 9:22 AM CDT): Continue prn xanax Assessment & Plan (08/08/2019 8:48 PM CDT): Continue prn xanax Mood disorder 12/13/2013 Overview (12/31/2024): Office Visit 04/04/16 Dr. Elijah Toams Diabetic peripheral neuropat hy associated with type 1 diabetes mellitus 11/11/2013 Overview (07/10/2018): ENDO (MONA) MANAGING -- ON LYRICA Pelvic pain in female 11/11/2013 Overview (07/10/2018): TOOLROOM HELPER (CASSANDRA) MANAGING -- ON GABAPENTIN Gastro-esophageal reflux disease without esophag itis 11/11/2013 Overview (10/21/2018): GI (LUI) MANAGING -- ON PPI, ZANTAC, ZOFRAN Generalized anxiety disorder 11/11/2013 Overview (07/10/2018): 11/01 sertraline 50 mg started Abdominal mass 11/11/2013 Overview (01/19/2021): GI (LUI) MANAGING 10/01 EGD 11/01 HAS UPCOMING APPT W/ GI SPECIALIST GI (LUI) MANAGING 10/01 EGD 11/01 HAS UPCOMING APPT W/ GI SPECIALIST Familial adenomatous polyposis 11/11/2013 Overview (01/19/2021): GI (LUI) OV GI (LUI) OV Added automatically from request for surgery [id number] Last Assessment & Plan: Pt follow for surveillance in GI clinic. Will f/u as scheduled. Assessment & Plan (09/11/2024 10:58 AM CDT): Follows with outpatient GI. Continue regular surveillance Assessment & Plan (09/10/2024 11:29 AM CDT): Follows with outpatient GI. Continue regular surveillance Assessment & Plan (09/09/2024 1:32 PM CDT): Follows with outpatient GI. Continue regular surveillance Gastro-esophageal reflux disease without esophag itis 11/11/2013 Overview (01/19/2021): GI (LUI) MANAGING -- ON PPI, ZANTAC, ZOFRAN GI (LUI) MANAGING -- ON PPI, ZANTAC, ZOFRAN GI (FORDWORTH) MANAGING -- ON PPI, ZANTAC, ZOFRAN ILANA (generalized anxiety disorder) 11/11/2013 Overview (01/19/2021): 11/01 sertraline 50 mg started 11/01 sertraline 50 mg started 11/01 sertraline 50 mg started Pelvic pain in female 11/11/2013 Overview (01/19/2021): TOOLROOM HELPER (CASSANDRA) MANAGING -- ON GABAPENTIN TOOLROOM HELPER (CASSANDRA) MANAGING -- ON GABAPENTIN TOOLROOM HELPER (CASSANDRA) MANAGING -- ON GABAPENTIN Personal history of colon cancer 11/11/2013 Overview (01/19/2021): COLORECTAL SURG(SUSAN) MANAGING 1996 S/P TOTAL COLECTOMY Colon cancer 11/09/2013 Overview (10/21/2018): Colon cancer Type 1 diabetes mellitus with hyperglycemia 10/20 Assessment & Plan (01/08/2024 8:31 AM DIE MAKER APPRENTICE): FU for DFE and mac oct 1 [...] Advised to call the after hours endo patient transition specialist if she has issues over the weekend. [...] continued at home settings Endocrine consult today T1DM (type 1 diabetes mellitus) 11/09/2013 Overview (01/19/2021): ENDO (MONA) MANAGING ENDO [...] follow up with endocrine Assessment & Plan (09/11/2024 10:58 AM CDT): Hx of T1DM well controlled on insulin pump. Currently AOx4 and consents to continuing insulin pump during admission. She was discharged on prior settings. - continue insulin pump Assessment & Plan (09/10/2024 11:29 AM CDT): Hx of T1DM well controlled on insulin pump. Currently AOx4 and consents to continuing insulin pump during admission. - continue insulin pump Assessment & Plan (09/09/2024 1:32 PM CDT): Hx of T1DM well controlled on insulin pump. Currently AOx4 and consents to continuing insulin pump during admission. Will check serum ketones given associated AGMA on admission labs, however, suspect acidosis is driven by diarrhea +/- starvation ketosis rather than DKA at present. - continue insulin pump - f/up BHB Familial multiple polyposis syndrome 04/23/2012 Genetic predisposition to disease 11/22/2011 Resolved Problems Problem Noted Date Diagnosed Date Resolved Date SBO (small bowel obstruction) 10/06/2024 10/13/2024 Cough 10/28/2021 11/01/2021 Assessment & Plan (11/01/2021 [...] (08/12/2018): Added automatically from request for surgery [id number] Abdominal pain, epigastric 06/11/2017 0 10/22/2018 SBO (small bowel obstruction) 08/29/2016 10/22/2018 Bowel obstruction 09/14/2015 10/13/2024 Assessment & Plan (08/11/2019 9:38 AM CDT): [...] the symptoms at home without hospital admission. Ileal pouchitis 07/12/2015 10/22/2018 Cervical radiculopathy 06/18/201410/22 Menorrhagia 02/05/2014 10/22/2018 Overview (07/10/2018): Overview: Started with a normal period about a month ago Pouchitis 12/13/2013 09/08/2018 Adenoma of stomach 11/26/2013 9 Familial multiple polyposis syndrome 11/11/2013 09/08/2018 Overview (07/10/2018): GI (CUSWORTH) OV Overweight 04/04/2012 03/11/2023 Encounters Date Type Department Care Team Description 5 Results Follow-Up [facility] [address] [place] [address] 12th [place] [address] [place] [address] Keshia Barriga MD SCREENING MAMMOGRAM BILATERAL W ERINN 5 6:09 PM DIE MAKER APPRENTICE - 5 11:59 PM DIE MAKER APPRENTICE Hospital Encounter [facility] Outpatient [address] [address] Discharge Disposition: Discharge to home or self care 5 Telephone [facility] Building [address] [place] [address] Cheyanne Mackenzie LPN Outstanding labs 5 Orders Only [facility] Building [address], [address] [place] [address] Vincenzo Tai MD 5 [facility] Building [address], [address] [place] [address] Vincenzo Tai MD 5 11:20 AM DIE MAKER APPRENTICE Office Visit [facility] [address] [facility] 12th [place] [address] [place] [address] Keshia Barriga MD Encounter for immunization (Primary Dx); Encounter for screening mammogram for malignant neoplasm of breast 5 Telephone [facility] Endocrinology Metabolism and Lipid [address] [facility] 13th [place] [address] [place] [address] Ashleigh Sainz 5 Orders Only [facility] Gastroenterology [address] [place] [address] Medical Office Building [address] [place] [address] Cheyanne Mackenzie LPN 5 Telephone [facility] [address] [place] [phone] Vicki Alcala RN 5 Telephone [facility] Gastroenterology [address] [place] [address] [address]th [place] [address] [place] [address] Laureen Canales Prior Auth 5 Results Follow-Up [facility] Gastroenterology [address] [place] [address] Medical Office Building [address], [address] [place] [address] Vincenzo Tai MD Surgical pathology 5 2:30 PM CDT Office Visit [facility] Gastroenterology [facility] 12th [place] [address] [place] [address] Kathy Curry MD Chronic diarrhea (Primary Dx); Partial small bowel obstruction (HCC); Bloating; Abnormal finding on GI tract imaging; Hypocalcemia; Other vitamin B12 deficiency anemia; FAP (familial adenomatous polyposis); Chronic abdominal pain; Nausea and vomiting, unspecified vomiting type 5 8:30 AM CDT - 5 9:30 AM CDT Surgery [facility] [address] [place] [address] [place] [address] Vincenzo Tai MD ESOPHAGOGASTRODUODENOSCOPY BIOPSY 5 8:29 AM CDT Anesthesia Event [facility] [place] [address] [facility] [address] [place] [address] Crow Do MD Bradley Abbie Lee, HEAVY TRUCK DRIVER 5 7:42 AM CDT - 5 11:05 AM CDT Hospital Encounter [facility] [place] [address] [facility] [address] [place] [address] Vincenzo Tai MD FAP (familial adenomatous polyposis) Discharge Disposition: Discharge to home or self care 5 Results Follow-Up [facility] Gastroenterology [address] [place] [address] Medical Office Building [address], [address] [place] [address] Abdomen and Pelvis Enterography W Contrast 5 Orders Only [facility] Gastroenterology [address] [place] [address] Medical Office Building [address], [address] [place] [address] Vincenzo Tai MD FAP (familial adenomatous polyposis) (Primary Dx); Chronic abdominal pain; Diarrhea, unspecified type; Bloating 5 7:22 AM CDT - 5 11:59 PM CDT Hospital Encounter [facility] [address] [place] [address] FAP (familial adenomatous polyposis) Discharge Disposition: Discharge to home or self care 5 Telephone [facility] Specialty Services [address] [place] [address] Yanna Bravo, ROSALIE GI Preprocedure from Last 3 Months Immunizations Immunization Administration Dates Next Due Flucelvax Influenza Quad 04/12/2019 Hep B Vaccine 12/02/2001 Hep B, Unspecified 07/29/1998,12/06/1997 Influenza, Quad, Adjuvantate d, Intramuscular 11/01/2010,12/13/2009 Influenza, Quadrivalent, Sally l Culture-based MDCK, Preservative Free, Antibiotic Free, Intramuscular 04/12/2019 Influenza, Quadrivalent, Rec ombinant, Egg Free, Preservative Free, Intramuscular 11/20/2022 Influenza, Quadrivalent, Spl it, Preservative Free, Intramuscular 01/29/2022,12/14/2019,12/17/2017 Influenza, Trivalent, Cell Culture-based MDCK, Preservative Free, Antibiotic Free, Intramuscular 04/12/2019 Influenza, Trivalent, IM (MDV) 7,01/31/2015,11/01/2014,10/11,12/02/2012 Influenza, Trivalent, Preser vative Free, Intramuscular 11/26/2013 Influenza, Unspecified 12/04/2016,2014,11/26/2013,12/06 MMR 06/14/2024 Pneumococcal Polysaccharide PPV23 10/13/2013,02/2013 Td, adsorbed 06/20/2007,07/29/1998 Tdap 02/09/2024,10/13/2013,09/18/2013 ZOSTER Recombinant 06/14/2024 Surgical History Surgery Date Site/Laterality Comments COLECTOMY [...] setting FA P GERD (gastroesophageal reflux disease) 1996 Diabetes mellitus type 1 1992 Very br ittle; insulin pump. Gastroparesis Chronic diarrhea Ampullary adenoma 2002 Cataract 2020 Menstrual problem September 2022 Neuropathic pain Family History Medical History Relation Name Comments Colon cancer Brother 2 Anemia Brother 3 Seth Cancer Brother 3 Seth Diabetes Brother 4 Salomon Colon cancer Cousin Alcohol abuse Father Yung Arthritis Father Yung Depression Father Yung Arthritis Maternal Grandfather Jose ruebling Cancer Maternal Grandmother Etoy Colon cancer Maternal Grandmother Etoy Anemia Mother Alexa Cancer Mother Alexa Colon cancer Mother Alexa Depression Mother Alexa Breast cancer Mother's Sister 1 Colon cancer Mother's Sister 1 Thyroid cancer Mother's Sister 1 Asthma Mother's Sister 2 Violeta Cancer Mother's Sister 2 Violeta Colon cancer Other Alzheimer's disease Paternal Grandmother Chen galarza e Relation Name Status Comments Brother 1 Brother 2 Brother 3 Seth Alive Brother 4 Salomon Alive Cousin Father Yung Alive Maternal Grandfather Jose steiner Alive Maternal Grandmother Tammie Alive Mother Alexa Mother's Sister 1 Mother's Sister 2 Violeta Alive Other Paternal Grandmother Chen murphy Alive Social History Tobacco Use Types Packs/Day Years Used Date Smoking Tobacco: Never Smokeless Tobacco: Never Tobacco Cessation:Counseling Given: Not Answered Alcohol Use Standard Drinks/Week Comments Never 0 [...] or ex-partner? No 12/15/2019 Social Connection and Isolation Panel Answer Date Recorded In a typical week, how many times do you talk on the phone with family, friends, or neighbors? More than three times a week 09/11/2024 How often do you get togethe r with friends or relatives? More than three times a week 09/11/2024 How often do you attend chur ch or methodist services? Never 09/11/2024 Do you belong to any clubs o r organizations such as alevism groups, unions, fraternal or athletic groups, or school groups? Yes 09/11/2024 How often do you attend meet ings of the clubs or organizations you belong to? More than 4 times per year 09/11/2024 Are you , , di vorced, , never , or living with a partner? Never 09/11/2024 Overall Financial Resource Strain (CARDIA) Answe r Date Recorded How hard is it for you to pa y for the very basics like food, housing, medical care, and heating? Hard 09/11/2024 PRAPARE - Transportation Answer Date Re corded In the past 12 months, has l ack of transportation kept you from medical appointments or from getting medications? No 08/19 In the past 12 months, has l ack of transportation kept you from meetings, work, or from getting things needed for daily living? No 09/11/2024 Housing Stability Vital Sign Answer Ronnie e Recorded In the last 12 months, was t here a time when you were not able to pay the mortgage or rent on time? No 09/11/2024 In the past 12 months, how m any times have you moved where you were living? 0 09/11/2024 At any time in the past 12 m [facility], were you homeless or living in a detention (including now)? No 09/11/2024 Social Connection and Isolation Panel Answer Date Recorded In a typical week, how many times do you talk on the phone with family, friends, or neighbors? More than three times a week 10/07/2024 How often do you get togethe r with friends or relatives? More than three times a week 10/07/2024 How often do you attend chur ch or methodist services? Never 10/07/2024 Do you belong to any clubs o r organizations such as alevism groups, unions, fraternal or athletic groups, or school groups? Yes 10/07/2024 How often do you attend meet ings of the clubs or organizations you belong to? More than 4 times per year 10/07/2024 Are you , , di vorced, , never , or living with a partner? Never 10/07/2024 AUDIT-C Answer Date Recorded Q1: How often do you have a drink containing alcohol? Never 12/31/2024 Q2: How many drinks containi ng alcohol do you have on a typical day when you are drinking? Patient does not drink Frequency of Binge Drinking Not on file 12/19 Overall Financial Resource Strain (CARDIA) Answe r Date Recorded How hard is it for you to pa y for the very basics like food, housing, medical care, and heating? Hard 10/07/2024 Hunger Vital Sign Answer Date Recorded Within the past 12 months, y ou worried that your food would run out before you got the money to buy more. Never true 10/08/19 Within the past 12 months, t he food you bought just didn't last and you didn't have money to get more. Never true 10/07/2024 PRAPARE - Transportation Answer Date Re corded In the past 12 months, has l ack of transportation kept you from medical appointments or from getting medications? No 09/19 In the past 12 months, has l ack of transportation kept you from meetings, work, or from getting things needed for daily living? No 10/07/2024 Housing Stability Vital Sign Answer Ronnie e Recorded In the last 12 months, was t here a time when you were not able to pay the mortgage or rent on time? No 10/07/2024 In the past 12 months, how m any times have you moved where you were living? 0 10/07/2024 At any time in the past 12 m [facility], were you homeless or living in a detention (including now)? No 10/07/2024 [facility] Utilities Answer Date Recorded In the past 12 months has th e electric, gas, oil, or water company threatened to shut off services in your home? No 10/07/2024 Personal Safety Answer Date Recorded Have you ever been in or are you currently in a harmful physical or emotional relationship or is someone making you feel afraid or unsafe? Denies 11/18/2024 Comments No Sex and Gender Information Value Date Recorded Sex Assigned at Not on file Legal Sex Female 11:58 PM DIE MAKER APPRENTICE Gender Identity Not on file Sexual Orientation Not on file Obstetrics History Para Term AB IAB SAB Ectopic Multiple Livin g Live Births 0 0 0 0 0 0 0 0 0 0 0 Last Filed Vital Signs Vital Sign Reading Time Taken Comments Blood Pressure 113/81 12/31/2024 11:22 AM DIE MAKER APPRENTICE Pulse 99 12/31/2024 11:22 AM DIE MAKER APPRENTICE Temperature 36.8 C (98.3 F) 12/31/2024 11:22 AM DIE MAKER APPRENTICE Respiratory Rate 12 11/18/2024 10:3 1 AM CDT Oxygen Saturation 99% 12/31/2024 11: 22 AM DIE MAKER APPRENTICE Inhaled Oxygen Concentration - - Weight 66.2 kg (145 lb 15.1 oz) 02/02/2025 6:11 PM DIE MAKER APPRENTICE Height 167.6 cm (5' 5.98) 02/02/2025 6:11 PM CS T Body Mass Index 23.57 02/02/2025 6:11 PM DIE MAKER APPRENTICE Plan of Treatment Health Maintenance Due Date Last Done Comments Cervical Cancer Screening 1980 Depression Screening 1980 Foot Exam 1980 HPV Vaccines (1 - 3-dose SCD M series) 2009 Pneumococcal vaccine <65 (3 of 3 - PCV) 10/13/2014 10/13/2013, 09/18/2013 Covid-19 Vaccine (2 - Pfizer risk series) 07/07/2021 06/16/2021, 05/29/2021 Zoster Vaccine (2 of 2) 08/09/2024 06/14/2024 Influenza Vaccine (#1) 2024 , 01/29/2022, 12/14/2019, Additional history exists Dilated Eye Exam 10/29/2024 10/30/2023 Albumin Creatinine Ratio, Urine 02/26/2025 02/27/2024, 06/23/2021, 01/22/2020 Lipid Panel 02/26/2025 02/27/2024, 03/0 05/2023, 06/23/2021, Additional history exists Hemoglobin A1C 06/03/2025 12/03/2024, 07/1 07/2024, 05/29/2024, Additional history exists TSH Level 10/06/2025 10/06/2024, 01/0 10/2024, 04/22/2023, Additional history exists eGFR 10/13/2025 10/13/2024, 08/2 06/2024, 10/11/2024, Additional history exists Regular Well Visit/Exam 18-64 12/31/2025 12/31/2024 Breast Cancer Screening-Mammogram 02/02/2026 025 DTaP/Tdap/Td Vaccine (4 - Td or Tdap) 02/08/2034 02/09/2024, 10/13/2013, 09/18/2013, Additional history exists Hepatitis B Screening Completed 12/02/2001 , 07/29/1998, 12/06/1997 Hepatitis C Screening Completed 09/09/2024 Varicella Vaccines Discontinued Procedures Procedure Name Priority Date/Time Associated Diagnosis Comments SCREENING MAMMOGRAM BILATERA L W ERINN Schedule Routine, Read Routine (OP Routine) 02/02/2025 6:28 PM DIE MAKER APPRENTICE Encounter for screening mammogram for malignant neoplasm of breast POCT HEMOGLOBIN A1C Routine 12/03/2024 3:53 PM CDT Type 1 diabetes mellitus without complications POCT GLUCOSE 24946 Routine 12/03/2024 3:53 PM CDT Type 1 diabetes mellitus without complications POUCHOSCOPY 11/18/2024 9:01 AM CDT SURGICAL PATHOLOGY Routine 11/18/2024 8:46 AM CDT FAP (familial adenomatous polyposis) EGD 11/18/2024 8:42 AM CDT ENDO POUCHOSCOPY REMOVAL TISSUE VIA SNARE 11/18/2024 8:30 AM CDT FAP (familial adenomatous polyposis) ESOPHAGOGASTRODUODENOSCOPY BIOPSY 11/18/2024 8:30 AM CDT FAP (familial adenomatous polyposis) POCT GLUCOSE DEVICE Routine 11/18/2024 8:[address] ENTEROGRAPHY W CONTRAST Schedule Routine, Read Routine (OP Routine) 11/14/2024 8:35 AM CDT FAP (familial adenomatous polyposis) EGFR Routine 10/13/2024 5:33 AM CDT THYROID FUNCTION CASCADE STAT 025 1:00 PM CDT HEPATITIS PANEL, ACUTE Routine 3:23 PM CDT LIPID PANEL Routine 02/27/2024 3:24 PM DIE MAKER APPRENTICE Type 1 diabetes mellitus with hyperglycemia (HCC) ALBUMIN CREATININE RATIO, URINE Routine 02/27/2024 3:24 PM DIE MAKER APPRENTICE Type 1 diabetes mellitus with hyperglycemia (HCC) from Last 3 Months or Most Recently Relevant to Health Maintenance Results * SCREENING MAMMOGRAM BILATERAL W ERNIN (02/02/2025 6:28 PM DIE MAKER APPRENTICE) Anatomical Region Laterality Modality Breast Bilateral Mammography Impressions 02/03/2025 7:39 AM DIE MAKER APPRENTICE Bilateral No evidence of malignancy in either breast. OVERALL BI-RADS FINAL ASSESSMENT: 1 - Negative RECOMMENDATION: Recommend bilateral annual screening mammography. Consider supplemental screening with breast MRI every 1-2 years given extremely dense breast tissue. If breast MRI cannot be performed, consider contrast-enhanced mammography as an alternative. Narrative 02/03/2025 7:39 AM DIE MAKER APPRENTICE EXAMINATION: SCREENING MAMMOGRAM BILATERAL W ERINN: 02/02/2025 COMPARISON: This is the patient's baseline mammogram. TECHNIQUE: Mammography was performed with 2D and 3D digital breast tomosynthesis (DBT) images. CAD was utilized. BREAST PARENCHYMAL COMPOSITION: The breasts are extremely dense, which lowers the sensitivity of mammography. FINDINGS: No suspicious mass, suspicious calcifications, or architectural distortion is seen in either breast. Keshia Barriga MD IMG MAMMO PROCEDURES F inal Result * POCT glucose (12/03/2024 3:53 PM CDT) Glucose Blood, POC 232 Normal Fasting 70 - 100, Random <200 mg/dL Blood 12/03/2024 3:53 PM CDT Calvin Ro MD POINT OF CARE TEST ORDERABLE S Final Result * (ABNORMAL) POCT hemoglobin A1c (12/03/2024 3:53 PM CDT) Hemoglobin A1C, POC 6.4(A) 4.0 - 5.6 % Blood 12/03/2024 3:53 PM CDT Calvin Ro MD POINT OF CARE TEST ORDERABLE S Final Result * Pouchoscopy (11/18/2024 9:01 AM CDT) Anatomical Region Laterality Modality Other Narrative Procedure Note Vincenzo Tai MD - 11/18/2024 9:01 AM CDT [facility] Patient Name: Irvin Reddy Procedure Date: 11/18/2024 9:01 AM Date of : 1980 Admit Type: Outpatient Age: 44 Gender: Female Attending MD: Vincenzo Tai M.D., Room: [facility] ENDOSCOPY ROOM 9 Note Status: Finalized Procedure: Pouchoscopy Indications: FAP s/p Total Proctocolectomy. Referring MD: Jeramy Napier D.O. Providers: Vincenzo Tai M.D. Medicines: Monitored Anesthesia Care Complications: No immediate [...] and oxygen saturations were monitored continuously. The [id number] endoscope was introduced through theileoanal anastomosis via the anus and advanced to theJ-pouch. The procedure was performed without difficulty. The patient tolerated the procedure well. The qualityof the bowel preparation was adequate. Findings: The perianal and digital rectal examinations were normal. Patient is status-post total colectomy with a J pouch reconstruction.At approximately 35-40cm from the anal verge, there was a sharpangulation into the afferent bowel, requiring partial retroflexion of the scope. The bowel leading to the pouch was very dilated, as chronically notedon imaging. Scattered polyps were found in the ileoanal pouch (8) and at therectal cuff (7). The polyps were 3 to 6 mm in size in the pouch and 5-9mm in the cuff/distal pouch. All polyps were removed cold snare polypectomy performed and polyps into ileal pouch and rectal cuff. Impression: - Patient is status-post total colectomy with a J pouch reconstruction. At approximately 35-40cm from the anal verge, there was a sharp angulation intothe afferent bowel, requiring partial retroflexion ofthe scope. The bowel leading to the pouch was very dilated, as chronically noted on imaging. - Scattered polyps were found in the ileoanal pouch (8) and at the rectal cuff (7). The polyps were 3to 6 mm in size in the pouch and 5-9mm in thecuff/distal pouch. All polyps were removed cold snarepolypectomy performed and polyps into ileal pouch and rectal cuff. Recommendation: - Observe patient's clinical course followingtoday's Pouchoscopy. - Reviewed CTE and case with Dr. Kennedy in colorectal surgery and Dr. Curry in GI. Patient has beenadded on to clinic with Dr. Curry this afternoon in [facility] 2:30pm to discuss options for management of chronic overflow diarrhea/dysmotility in the setting DM and constipation issues. - Please continue Sulindac 150mg orally, twicedaily. - Resume home medications and diet. - Return to primary care physician as previously scheduled. - In the unusual situation that you developabdominal pain, bleeding or other significant problems in the days following this procedure please call my officeat [phone] ([phone]) to speak to my nurses. After hours and evenings please call [phone] speak to the GI fellow patient transition specialist. Please tell themthat Dr. Tai did your procedure and that your were instructed to have the fellow call me or thephysician covering for me to discuss the management of your condition. If you have an urgent problem, please goto the nearest emergency room and have the ER doctorcall my office during the day or [facility] transfer ([phone]) center after hours and weekends to arrange admission or transfer to our facility. - Call my nurse Dahiana Monroy RN in the GI office at [phone] for your final pathology results in 7 days. Attending Participation: I personally performed the entire procedure. Electronically Signed By: Vincenzo Tai M.D. Vincenzo Tai M.D. 11/18/2024 10:08:42 AM . Number of Addenda: 0 Note Initiated On: 11/18/2024 9:01 AM Vincenzo Tai MD ENDOSCOPY PROCEDURES Final Result * Surgical pathology (11/18/2024 8:46 AM CDT) Tissue (Duodenum, Biopsy) 11/18/2024 8:46 AM CDT Tissue specimen (specimen) (Gastric/Stomach biopsy) 11/18/2024 8:49 AM CDT Tissue specimen (specimen) (Duodenum, Biopsy) 11/18/2024 8:53 AM CDT Tissue specimen (specimen) (Polyp(s), colon/colorectal, esophageal, gastric) 11/18/2024 9:15 AM CDT Tissue specimen (specimen) (Polyp(s), colon/colorectal, esophageal, gastric) 11/18/2024 9:21 AM CDT Narrative PATHOLOGY [facility] - 11/19/2024 10:47 AM CDT EPIC results best viewed via link to PDF [facility] [place] [address] Note to Patients: This report may contain [...] IRVIN REDDY Gender: F : 1980 (Age: 44) Address: [address] [place] [id number] Hospital #: [id number] Taken:11/18/2024 Received:11/18/2024 Reported: 11/19/2024 Patient Type: [facility] Service: Gastro Location: Physician(s): Ava Alejo DO Dr. Christopher R. Green, M.D. Diagnosis: A. Small intestine, duodenal polyps, biopsy - Fragments of tubular adenoma(s) B. Stomach, gastric polyps, biopsy - Foveolar adenoma, low-grade dysplasia C. Small bowel, ampulla, biopsy - Tubular adenoma D. Small bowel, pouch polyps, biopsy - Fragments of tubular adenoma(s) E. Rectum, rectal cuff polyps, biopsy - Fragments of tubular adenoma(s) - Inflammatory polyp keturah/11/19/2024 09:38 By this signature, I attest that the above diagnosis is based upon my personal examination of the slides(and/or other material indicated in the diagnosis). Gayle Grewal MD Report Electronically Reviewed and Signed Out By Gayle Grewal MD 11/19/2024 10:47:08 Zeeshan Levin.B.B.S. History: The patient is a 44-year-old woman presenting with familial adenomatous polyposis. Operative procedure: Upper endoscopy with biopsy; pouchoscopy removal tissue via snare. Specimen(s) Received: A: Cold biopsies, duodenal polyps B: Cold biopsies, gastric polyps C: Cold biopsies, ampulla D: Cold snare, pouch polyps x8 E: Cold snare, rectal cuff polyps x7 Gross Description: Received in five formalin jars labeled with the patient's identifiers. A. Labeled duodenal polyps and consists of multiple navarro-pink fragment(s) of soft tissue measuring 0.8 x 0.5 x 0.2 cm in aggregate. Also included are multiple fragments of hemorrhagic material. Labeled A1. Jar 0. B. Labeled gastric polyps and consists of multiple navarro-pink fragment(s) of soft tissue measuring 0.7 x 0.5 x 0.2 cm in aggregate. Labeled B1. Jar 0. C. Labeled ampulla and consists of multiple navarro-pink, hemorrhagic fragment(s) of soft tissue measuring 0.4 x 0.3 x 0.2 cm in aggregate. Labeled C1. Jar 0. D. Labeled pouch polyps and consists of multiple navarro-red polypoid fragment(s) of soft tissue measuring 2.4 x 0.8 x 0.3 cm in aggregate. Labeled D1. Jar 0. E. Labeled rectal cuff polyps and consists of multiple navarro-pink polypoid fragment(s) of soft tissue measuring 1.4 x 0.8 x 0.3 cm in aggregate. Labeled E1. Jar 0. sxst/11/18/2024 11:29 PA(s): Maki Gonzales By this signature, I attest that the above diagnosis is based upon my personal examination of the slides(and/or other material). Addenda/Procedures The performance characteristics of some immunohistochemical stains, fluorescence in-situ hybridization tests and immunophenotyping by flow cytometry cited in this report (if any) were determined by the Surgical Pathology and Flow Cytometry Departments at [facility] as part of an ongoing quality assurance analyst program and in compliance with federally mandated [...] Surgical Pathology and Flow Cytometry Departments of [facility]. It has not been cleared or approved by the U. S. Food and Drug Administration. IMAGES AND SCANNED DOCUMENTS, IF INCLUDED, ONLY VIEWABLE IN PDF VERSION OF REPORT us Vincenzo Tai MD LAB PATHOLOGY ORDERABLES nal Result PATHOLOGY [facility] 3rd Floor [place], [place] [phone] * EGD (11/18/2024 8:42 AM CDT) Anatomical Region Laterality Modality Other Narrative Procedure Note Vincenzo Tai MD - 11/18/2024 8:42 AM CDT [facility] Patient Name: Irvin Reddy Procedure Date: 11/18/2024 8:42 AM Date of : 1980 Admit Type: Outpatient Age: 44 Gender: Female Attending MD: Vincenzo Tai M.D., Room: [facility] ENDOSCOPY ROOM 9 Note Status: Finalized Procedure: Upper GI endoscopy Indications: Surveillance for malignancy due to personal historyof Familial Adenomatous Polyposis Referring MD: Jeramy Napier D.O. Providers: Vincenzo Tai M.D. Medicines: Monitored Anesthesia Care Complications: No immediate [...] plan was to use monitoredanesthesia care (MAC). The benefits, risks, and alternatives to theprocedure and sedation were discussed and informed consentwas obtained. The scope was passed under direct vision. The [id number] endoscope was introduced through the mouth, and advanced to the second partof duodenum. The scope was passed under direct vision. The Duodenoscope was introduced through the mouth,and advanced to the second part of duodenum. The upperGI endoscopy was accomplished without difficulty. The patient tolerated the procedure well. Findings: The [...] were sampled with a forceps for histology Approximately 20 semi-sessile polyps were found in the ampulla, inthe duodenal bulb, in the second portion of the duodenum and in the third portion of the duodenum. The polyps were 2 to 6 mm in size. Severalof the polyps were sampled with a cold forceps for histology. The ampulla was carefully examined and appeared endoscopicallysimilar to the prior examination 6 months ago, measuring 9-10mm. The ampullawas biopsied with a pediatric forceps with histology with care taken to biopsy away from the biliary and pancreatic orifices. Impression: - Multiple diminutive sessile polyps were found inthe gastric fundus and in the gastric body. Asignificant J-shaped deformity was found in the gastric bodyand in the gastric antrum. The scope preferentiallygoes towards a funnel shaped prior tethered G-tube site which appears antrum-like when the stomach is not fully insufflated. A few of the gastric polyps were sampled with a forceps for histology - Approximately 20 semi-sessile polyps were foundin the ampulla, in the duodenal bulb, in the second portion of the duodenum and in the third portion of the duodenum. The polyps were 2 to 6 mm in size. Several of the polyps were sampled with a coldforceps for histology. - The ampulla was carefully examined and appeared endoscopically similar to the prior examination 6 months ago, measuring 9-10mm. The ampulla wasbiopsied with a pediatric forceps with histology with care taken to biopsy away from the biliary andpancreatic orifices. Recommendation: - Observe patient's clinical course followingtoday's EGD. - Await pathology. - Repeat the EGD and Pouchoscopy for surveillancein 1 year if pathology from biopsies are unchanged from prior. - Resume home medications and diet. - Return to primary care physician as previously scheduled. - In the unusual situation that you developabdominal pain, bleeding or other significant problems in the days following this procedure please call my officeat [phone] ([phone]) to speak to my nurses. After hours and evenings please call [phone] speak to the GI fellow patient transition specialist. Please tell themthat Dr. Tai did your procedure and that your were instructed to have the fellow call me or thephysician covering for me to discuss the management of your condition. If you have an urgent problem, please goto the nearest emergency room and have the ER doctorcall my office during the day or [facility] transfer ([phone]) center after hours and weekends to arrange admission or transfer to our facility. - Call my nurse Dahiana Monroy RN in the GI office at [phone] for your final pathology results in 7 days. Attending Participation: I personally performed the entire procedure. Electronically Signed By: Vincenzo Tai, M.D. Vincenzo Tai M.D. 11/18/2024 10:15:03 AM . Number of Addenda: 0 Note Initiated On: 11/18/2024 8:42 AM Vincenzo Tai MD ENDOSCOPY PROCEDURES Final Result * POCT glucose (11/18/2024 8:05 AM CDT) Glucose, POC 91 70 - 199 mg/dL Blood 11/18/2024 8:05 AM CDT 11/18/2024 8:05 AM CDT Vincenzo Tai MD LAB POCT ORDERABLES - DEVIC E Final Result [facility] Department [place] [address] * CT Abdomen and Pelvis Enterography W Contrast (11/14/2024 8:35 AM CDT) Anatomical Region Laterality Modality Abdomen N/A Computed Tomogra phy 11/16/2024 9:34 AM CDT Impressions 11/16/2024 9:34 AM CDT Unchanged appearance of dilated and fluid-filled small bowel loops. Electronically signed by: Luis F Corona M.D. Narrative 11/16/2024 9:34 AM CDT EXAMINATION: Computed tomography of the abdomen and pelvis with intravenous contrast HISTORY: Familial polyposis status post colectomy with chronically dilated small bowel TECHNIQUE: Transaxial computed tomographic images of the abdomen and pelvis were obtained with intravenous contrast according to the enterography protocol after the administration of 100 mL Opti-Ray 350 intravenous contrast. COMPARISON: Computed tomography examination of the abdomen and pelvis with contrast 10/06/2024 FINDINGS: The lung bases are clear. Heart size is normal. Cavernous hemangioma again noted within the liver dome. Gallbladder appears normal. Pancreas, spleen, both adrenal glands, and both kidneys appear normal. Again noted are dilated loops of fluid-filled small bowel. The appearance is unchanged since prior examination. Uterus and adnexa and urinary bladder appear normal. There is no free pelvic fluid. Images obtained with bone window settings demonstrate no suspicious osseous abnormality. Procedure Note Luis F Corona MD - 11/16/2024 EXAMINATION: Computed tomography of the abdomen and pelvis with intravenous contrast HISTORY: Familial polyposis status post colectomy with chronically dilated small bowel TECHNIQUE: Transaxial computed tomographic images of the abdomen and pelvis were obtained with intravenous contrast according to the enterography protocol after the administration of 100 mL Opti-Ray 350 intravenous contrast. COMPARISON: Computed tomography examination of the abdomen and pelvis with contrast 10/06/2024 FINDINGS: The lung bases are clear. Heart size is normal. Cavernous hemangioma again noted within the liver dome. Gallbladder appears normal. Pancreas, spleen, both adrenal glands, and both kidneys appear normal. Again noted are dilated loops of fluid-filled small bowel. The appearance is unchanged since prior examination. Uterus and adnexa and urinary bladder appear normal. There is no free pelvic fluid. Images obtained with bone window settings demonstrate no suspicious osseous abnormality. IMPRESSION: Unchanged appearance of dilated and fluid-filled small bowel loops. Electronically signed by: Luis F Corona M.D. Rand Cowan NP IMG CT PROCEDURES Final R esult * eGFR (10/13/2024 5:33 AM CDT) eGFR >90 >=60 mL/min/1. 73 [...] interpretive data was last reviewed 2020. Blood 10/13/2024 5:33 AM CDT 10/13/2024 5:33 AM CDT Abraham Day MD LAB BLOOD ORDERABLES F inal Result Performing Organization Address [facility] Co de Phone Number [address] [place] [address] * (ABNORMAL) Thyroid Function Luna (10/06/2024 1:00 PM CDT) TSH 7.43(H) 0.30 - 4.20 mcIUnit/mL Blood 10/06/2024 1:00 PM CDT 10/06/2024 1:03 PM CDT Dahiana De León MD LAB BLOOD ORDERABLES Jessica l Result Performing Organization Address [facility] Co de Phone Number [address] [address] * Hepatitis panel, acute Blood (09/09/2024 3:23 PM CDT) Pathologist [facility] Hep A IgM Nonreactive Nonreactive Comment: Interpretive Data: If Hep A IgM Ab is reported as Equivocal, a new sample should be drawn in two weeks for testing. Current interpretive data was last revised on 19. Testing performed by: [facility], [address] [place] [address]., [id number] Hep B core IgM Nonreactive Nonreactive [facility] Comment: Interpretive Data If HepB Core IgM Ab is reported as Equivocal, a new sample should be drawn in two weeks for testing. Current interpretive data was last revised on 19. Testing performed by: [facility], [address] [place] [address]., [id number] Hep C Ab Nonreactive Nonreactive [facility] Comment: Interpretive Data Nonreactive: Antibodies to HCV not detected. Does NOT exclude the possibility of recent exposure to HCV. Equivocal: Equivocal for HCV antibodies. Supplemental molecular testing will be automatically performed to determine infection status in accordance with current CDC screening recommendations. Reactive: Positive for HCV antibodies. This may represent current or past HCV infection. Supplemental molecular testing will be automatically performed to determine current infection status in accordance with current CDC screening recommendations. Interpretive data was last revised on 2019. Testing performed by: [facility], [address] [place] [address]., [id number] HepBsAg Nonreactive Nonreactive [facility] Comment:Testing performed by : [facility], [address] [place] [address]., [id number] Blood 09/09/2024 3:23 PM CDT 09/09/2024 7:23 PM CDT Fredo Olivarez MD LAB MICROBIOLOGY - GENERAL ORDER GWEN Final Result Performing Organization Address [facility] Co de Phone Number JOANCONCHIS [facility] [address] [facility] Department [place] [address] * Albumin Creatinine Ratio, Urine (02/27/2024 3:24 PM DIE MAKER APPRENTICE) Pathologist [facility] Microalb, Ur 19.3 0.0 - 22.9 mg/L [facility] Random Urine Creatinine 315.7 mg/dL [facility] Microalb/Creat Ratio 6.1 0.0 - 29.9 mg/g [facility] Urine 02/27/2024 3:24 PM DIE MAKER APPRENTICE 02/27/2024 4:12 PM DIE MAKER APPRENTICE Ryanne Merino NP LAB URINE ORDERABLES Jessica l Result [facility] * Lipid panel (02/27/2024 3:24 PM DIE MAKER APPRENTICE) Triglycerides 80 <150 mg/dL [facility] Comment: Desirable: <150 mg/dL, fasting <175 mg/dL, non-fasting Persistently elevated triglycerides may enhance atherosclerotic cardiovascular disease. Total Cholesterol 150 <200 mg/dL [facility] Total HDL-C Direct 62 >50 mg/dL [facility] Non-HDL cholesterol 88 <220 mg/dL [facility] [place] LDL Chol 72 <190 mg/dL [facility] Blood 02/27/2024 3:24 PM DIE MAKER APPRENTICE 02/27/2024 4:12 PM DIE MAKER APPRENTICE Narrative [facility] - 02/27/2024 4:46 PM DIE MAKER APPRENTICE Current interpretive data was last updated January 20, 2021. For adults ages 40-79, the ACC/AHA recommends discussing your 10-year atherosclerotic cardiovascular disease risk with your health care provider. https://www.acc.org/ASCVDApp These lab test should be done fasting. This means do not eat or drink for at least 12 hours prior to getting your blood drawn. Ryanne Merino NP LAB BLOOD ORDERABLES Jessica marcus Result [facility] from Last 3 Months or Most Recently Relevant to Health Maintenance Insurance MEDICARE [facility] Address[facility] [address] [place] [address] [place] [facility] MEDICARE [facility] Address: [address] [address] [place] [address] [facility]LY [facility] MEDICARE [facility] Advance Directives For more information, please contact: [phone] * Full Code (Latest Code Status on File) Date Activated Date Inactivated Comments 11/18/2024 7:47 AM 11/18/2024 3:06 PM * Full Code Date Activated Date Inactivated Comments 10/07/2024 12:40 PM 10/13/2024 8:22 PM * Full Code Date Activated Date Inactivated Comments 10/06/2024 2:41 PM 10/07/2024 12:40 PM * Full Code Date Activated Date Inactivated Comments 09/09/2024 12:57 PM 09/11/2024 4:57 PM * Full Code Date Activated Date Inactivated Comments 06/04/2024 6:20 AM 06/04/2024 1:07 PM Care Teams Dock Boss Relationship Specialty Start Date End Date Keshia Barriga MD [address] [facility] [address] [place] [address] PCP - General Internal Medicine 01/01/25 Omi Kennedy MD Surgeon Colon and Rectal Surgery 09/08/18 Angelia Melgoza MD Surgeon Colon and Rectal Surgery 09/08/18 [place] [id number] [facility] [address] [place] [address] Psychiatrist Psychiatry 09/08/18 [place] [id number] [address] [facility] Gastroenterology 09/08/18 Aria Madrid MD [address] [facility] [place] [address] Consulting Physician Obstetrics and Gynecology 08/06/22
--- OUTSIDE RECORDS SUMMARY | 2025-02-08 13:41 | XMS_ITS | Patient Health Record ---
Author Organization [facility] Address [address] 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 Installer Name Role Phone Gary [place], Skyler Primary Care Provider Unav angel JoeKiersten goveaanna Unavailable [phone] Raymond Davenport Unavailable [phone] Allergies Allergen (clinical drug ingredient) Drug/Non Drug Allergy documented on EMR Reaction Allergy Type Onset Date Status Bee Sting Unknown Allergy Active erythromycin Erythromycin Unknown Drug Allergy A ctive vancomycin Vancomycin Unknown Drug Allergy Activ e Results Component Value Reference Range Notes UDT (12 Panel) Reviewed date:02/06/2025 08:50:19 PM Interpretation: Performing Lab: Notes/Report: Amphetamine (AMP) N Barbiturates (BAR) N Benzodiazepine (BZO) N Cocaine (KORI) N Ecstasy (MDMA) N Methamphetamine (MET) N Morphine (MOP) N Methadone (MTD) N Oxycodone (OXY) N Phencyclidine (PCP) N Tricyclic Antidepressants (TCA) N Marijuana (THC) N UDT Reviewed date:02/26/2024 05:31:51 PM Interpretation: Performing Lab: Notes/Report: Amphetamine (AMP) N 0 - 1000 ng/ml Buprenorphine (BUP) N 0 - 10 ng/ml Oxazepam (BZO) P 0 - 300 ng/ml Cocaine (KORI) N 0 - 300 ng/ml Methamphetamine (mAMP) N 0 - 300 ng/ml Methylenedioxymethamphetamine (MDMA) N 0 - 500 ng/ml Morphine (MOP) N 0 - 25 ng/ml Methadone (MTD) N 0 - 300 ng/ml Oxycodone (OXY) N 0 - 300 ng/ml THC N 0 - 50 ng/ml x N 0 - 1000 ng/ml x N 0 - 1000 ng/ml x N 0 - 300 ng/ml x N 0 - 300 ng/ml x N 0 - 300 ng/ml UDT (12 Panel) Reviewed date:01/07/2025 01:33:04 PM Interpretation: Performing Lab: Notes/Report: Amphetamine (AMP) p Barbiturates (BAR) n Benzodiazepine (BZO) n Cocaine (KORI) n Ecstasy (MDMA) n Methamphetamine (MET) n Morphine (MOP) n Methadone (MTD) n Oxycodone (OXY) n Phencyclidine (PCP) n Tricyclic Antidepressants (TCA) n Marijuana (THC) n UDT Reviewed date:08/31/2024 03:48:17 PM Interpretation: Performing Lab: Notes/Report: Amphetamine (AMP) n 0 - 1000 ng/ml Buprenorphine (BUP) n 0 - 10 ng/ml Oxazepam (BZO) p 0 - 300 ng/ml Cocaine (KORI) n 0 - 300 ng/ml Methamphetamine (mAMP) n 0 - 300 ng/ml Methylenedioxymethamphetamine (MDMA) n 0 - 500 ng/ml Morphine (MOP) n 0 - 25 ng/ml Methadone (MTD) n 0 - 300 ng/ml Oxycodone (OXY) n 0 - 300 ng/ml THC n 0 - 50 ng/ml x n 0 - 1000 ng/ml x n 0 - 1000 ng/ml x n 0 - 300 ng/ml x n 0 - 300 ng/ml x n 0 - 300 ng/ml Reason For Referral No Information Medications Medication SIG (Take, Route, Frequency, Duration) Notes Start Date End Date Status ALPRAZolam 1 MG Tablet 1 tablet Orally daily As needed 12/09/2024 Active Basaglar KwikPen 100 UNIT/ML Solution Pen-injector Subcutaneous; Duration: 55 Days Active Cyclobenzaprine HCl 10 MG Tablet Oral; Duration: 30 Days Active Gabapentin 300 MG Capsule Oral; Duration : 90 Days Active Escitalopram Oxalate 5 MG Tablet 1 tablet Orally Once a day; Duration: 90 days 02/05/2025 Active HYDROcodone Bit-Homatrop MBr 5-1.5 MG Tablet 1 tablet as needed Orally every 6 hrs Active Ambien 10 MG Tablet 1 tablet at bedtime as needed Orally Once a day Active Amphetamine-Dextroampheta mine 10 MG Tablet 1 tablet Orally Twice a day; Duration: 30 days stop vyvanse 02/05/2025 Active Social History Tobacco Use: Social History Observation Description Date Details (start date - stop date) Never Smoker NA - NA Sex Assigned At : Social History Observation Description Sex Assigned At Female Social History Miscellaneous: Social Info Question Answer Notes Advance Care Planning Are you your own decision-maker Yes Do you have Power of Textile Pin Worker for Health or [facility]? No Social History Social Info Question Answer Notes Household: Marital Status: Single Number of Adults in household: 1 Number of Children in Household: 0 Level of Education: Not Finished College Drug/Alcohol: Social Info Question Answer Notes Drugs Have you used drugs other than those for medical reasons in the past 12 months? No AUDIT-C (Standard) Did you have a drink containing alcohol in the past year? No Tobacco Use: Social Info Question Answer Notes Tobacco Control (Standard) Tobacco use: Nonsmoker Section Notes: Drug use: Denies addictive p ersonality and illicit drug use Problems Problem Type SNOMED Code ICD Code Onset Dates Problem Status W/U Status Risk Notes Problem Bipolar 2 disorder (30404323) Bipolar 2 disorder (F31.81) Active confirmed hx diagnosis in teenage years; presents with irritabilit y, impulsive symptoms that generally do not last longer than a day. currently stable off medications , wants to continue off of medication. Problem Generalized anxiety disorder (50656726) ILANA (generalized anxiety disorder) (F41.1) Active confirmed Problem Attention deficit hyperactivity disorder (335385806) ADHD (attention deficit hyperactivity disorder), combined type (F90.2) Active confirmed Vital Signs Heart Rate 78 /min 02/05/2025 Height-cm 167.64 cm 02/05/2025 Blood pressure diastolic 78 mm Hg 02/05/2025 Weight-kg 67.13 kg 02/05/2025 Height 66 in 02/05/2025 Blood pressure systolic 112 mm Hg 02/05/2025 Weight 148 lbs 02/05/2025 BMI 23.89 kg/m2 02/05/2025 Encounters Encounter Location Date Provider Diagnosis [facility] [address] [place] [address] 02/26/2024 Raymond Issac Lack of concentratio n R41.840 and ADHD (attention deficit hyperactivity disorder), combined type F90.2 [facility] [address] [facility] [address] [place] [address] 03/05/2024 Danielle Santoyo ADHD (attention defi cit hyperactivity disorder), combined type F90.2 ; ILANA (generalized anxiety disorder) F41.1 and Bipolar 2 disorder F31.[address] [facility] [address] [place] [address] 05/18/2024 Danielleivan Santoyo ILANA (generalized anxiety disorder) F41.1 ; Bipolar 2 disorder F31.81 ; Encounter for screening for cardiovascular disorders Z13.6 ; ADHD (attention deficit hyperactivity disorder), combined type F90.2 and Encounter for screening for depression Z13.[address] [facility] [address] [place] [address] 06/22/2024 Danielle Santoyo ILANA (generalized anxiety disorder) F41.1 ; Bipolar 2 disorder F31.81 ; ADHD (attention deficit hyperactivity disorder), combined type F90.2 ; Encounter for screening for cardiovascular disorders Z13.6 and Encounter for screening for depression Z13.[address] [facility] [address] [place] [address] 08/03/2024 Danielle Santoyo Bipolar 2 disorder F31.81 ; ILANA (generalized anxiety disorder) F41.1 ; ADHD (attention deficit hyperactivity disorder), combined type F90.2 ; Encounter for screening for depression Z13.31 and Encounter for screening for cardiovascular disorders Z13.[address] [facility] [address] [place] [address] 08/31/2024 Danielle Santoyo Encounter for screen ing for cardiovascular disorders Z13.6 ; Dietary counseling and surveillance Z71.3 ; Bipolar 2 disorder F31.81 ; ILANA (generalized anxiety disorder) F41.1 and ADHD (attention deficit hyperactivity disorder), combined type F90.2 [facility] [place] [address] [facility] [address] [facility] [address] [place] [address] 09/22/2024 Danielleivan Santoyo Bipolar 2 disorder F31.81 ; ILANA (generalized anxiety disorder) F41.1 and ADHD (attention deficit hyperactivity disorder), combined type F90.2 [facility] [employer] [place] [address] [facility] [address] [facility] [address] [place] [address] 11/02/2024 Danielle Santoyo Bipolar 2 disorder F31.81 ; ILANA (generalized anxiety disorder) F41.1 and ADHD (attention deficit hyperactivity disorder), combined type F90.2 [facility], [facility] [address] [place] [address] 12/03/2024 Danielleivan Santoyo Bipolar 2 disorder F31.81 ; ILANA (generalized anxiety disorder) F41.1 and ADHD (attention deficit hyperactivity disorder), combined type F90.2 [facility], [facility] [address] [place] [address] 01/05/2025 Danielleivan Santoyo Bipolar 2 disorder F31.81 ; ILANA (generalized anxiety disorder) F41.1 and ADHD (attention deficit hyperactivity disorder), combined type F90.2 [facility], [facility] [address] [place] [address] 02/05/2025 Raymond Davenport Bipolar 2 disorder F31.81 ; ILANA (generalized anxiety disorder) F41.1 and ADHD (attention deficit hyperactivity disorder), combined type F90.2 [facility], [facility] [address] [place] [address] 03/02/[address] [facility], [facility] [address] [place] [address] 03/26/[address] [facility], [facility] [address] [place] [address] 04/21/[address] [facility], [facility] [address] [place] [address] 04/29/[address] [facility], [facility] [address] [place] [address] 12/07/2024 aDnielle Santoyo ADHD (attention defi cit hyperactivity disorder), combined type F90.2 [facility], [facility] [address] [place] [address] 02/05/[address] [facility], [facility] [address] [place] [address] 02/18/[address] [facility], [facility] [address] [place] [address] 03/11/[address] [facility], [facility] [address] [place] [address] 03/11/[address] [facility], [facility] [address] [place] [address] 03/13/[address] [facility], [facility] [address] [place] [address] 03/13/[address] [facility], [facility] [address] [place] [address] 03/13/[address] [facility], [facility] [address] [place] [address] 03/16/[address] [facility], [facility] [address] [place] [address] 03/16/2024 Danielle Santoyo ADHD (attention defi cit hyperactivity disorder), combined type F90.2 [facility], [facility] [address] [place] [address] 03/16/[address] [facility], [facility] [address] [place] [address] 03/17/[address] [facility], [facility] [address] [place] [address] 03/17/[address] [facility], [facility] [address] [place] [address] 03/23/[address] [facility], [facility] [address] [place] [address] 03/23/[address] [facility], [facility] [address] [place] [address] 03/23/[address] [facility], [facility] [address] [place] [address] 03/23/[address] [facility], [facility] [address] [place] [address] 03/28/[address] [facility], [facility] [address] [place] [address] 04/22/[address] [facility], [facility] [address] [place] [address] 05/18/[address] [facility], [facility] [address] [place] [address] 05/25/2024 Danielle Santoyo [facility], [facility] [address] [place] [address] 05/26/2024 Danielle Santoyo [facility], [facility] [address] [place] [address] 05/27/2024 Danielle Santoyo [facility], [facility] [address] [place] [address] 05/28/2024 Danielle Santoyo [facility], [facility] [address] [place] [address] 06/14/2024 Danielle Santoyo [facility], [facility] [address] [place] [address] 06/14/2024 Danielle Santoyo [facility], [facility] [address] [place] [address] 06/14/2024 Danielle Santoyo [facility], [facility] [address] [place] [address] 06/15/2024 Danielle Santoyo [facility], [facility] [address] [place] [address] 06/16/2024 Danielle Santoyo [facility], [facility] [address] [place] [address] 06/22/2024 Danielle Santoyo [facility], [facility] [address] [place] [address] 06/22/2024 Danielle Santoyo [facility], [facility] [address] [place] [address] 06/28/2024 Danielle Santoyo [facility], [facility] [address] [place] [address] 06/29/2024 Danielle Santoyo [facility], [facility] [address] [place] [address] 06/29/2024 Danielle Santoyo [facility], [facility] [address] [place] [address] 06/29/2024 Danielle Santoyo [facility], [facility] [address] [place] [address] 06/29/2024 Danielle Santoyo [facility], [facility] [address] [place] [address] 06/29/[address] [facility], [facility] [address] [place] [address] 06/29/[address] [facility], [facility] [address] [place] [address] 06/29/[address] [facility], [facility] [address] [place] [address] 08/29/[address] [facility], [facility] [address] [place] [address] 09/07/[address] [facility], [facility] [address] [place] [address] 09/07/[address] [facility], [facility] [address] [place] [address] 11/27/[address] [facility], [facility] [address] [place] [address] 11/27/[address] [facility], [facility] [address] [place] [address] 12/03/2024 Danielle Santoyo ADHD (attention defi cit hyperactivity disorder), combined type F90.2 [facility], [facility] [address] [place] [address] 12/03/[address] [facility], [facility] [address] [place] [address] 12/03/[address] [facility], [facility] [address] [place] [address] 12/03/[address] [facility], [facility] [address] [place] [address] 12/04/2024 Danielle Santoyo [facility], [facility] [address] [place] [address] 12/04/[address] [facility], [facility] [address] [place] [address] 12/04/[address] [facility], [facility] [address] [place] [address] 12/06/[address] [facility], [facility] [address] [place] [address] 12/07/[address] [facility], [facility] [address] [place] [address] 12/07/[address] [facility], [facility] [address] [place] [address] 12/09/[address] [facility], [facility] [address] [place] [address] 12/17/[address] [facility], [facility] [address] [place] [address] 12/17/[address] [facility], [facility] [address] [place] [address] 01/05/[address] [facility], [place] [address] [place] [address] 01/05/[address] [facility], [place] [address] [place] [address] 01/10/[address] [facility], [place] [address] [place] [address] 01/11/[address] [facility], [place] [address] [place] [address] 01/22/[address] [facility], [place] [address] [place] [address] 02/05/[address] [facility], [place] [address] [place] [address] 02/05/[address] [facility], [facility] [address] [place] [address] 02/05/2025 Danielle Santooy Assessments Encounter Date Diagnosis (ICD Code) Assessment Notes Treatment Notes Treatment Clinical Notes Section Notes 02/26/2024 Lack of concentration (ICD-10 - R41.840) 03/05/2024 ADHD (attention deficit hyperactivity disorder), combined [...] to evaluate after ADHD better controlled -encourage non-pharmace utical treatments including deep breathing, grounding exercises, physical activity, healthy diet. 3. bipolar 2 disorder hx diagnosis in teenage years; presents with irritability , impulsive symptoms that generally do not last longer than a day. currently stable off medications, wants to continue off of medication. -stable off of medications, continue 03/16/2024 ADHD (attention deficit hyperactivity disorder), combined type (ICD-10 - F90.2) 05/18/2024 ILANA (generalized anxiety disorder) (ICD-10 - F41.1) 06/22/2024 Bipolar 2 disorder (ICD-10 - F31.81) hx diagnosis in teenage years; presents with irritability , impulsive symptoms that generally do not last longer than a day. currently stable off medications, wants to continue off of medication. 06/22/2024 ILANA (generalized anxiety disorder) (ICD-10 - F41.1) 08/31/2024 Encounter for screening for cardiovascular disorders (ICD-10 - Z13.6) 08/03/2024 Bipolar 2 disorder (ICD-10 - F31.81) hx diagnosis in teenage years; presents with irritability , impulsive symptoms that generally do not last longer than a day. currently stable off medications, wants to continue off of medication. 08/03/2024 ILANA (generalized anxiety disorder) (ICD-10 - F41.1) 09/22/2024 Bipolar 2 disorder (ICD-10 - F31.81) hx diagnosis in teenage years; presents with irritability , impulsive symptoms that generally do not last longer than a day. currently stable off medications, wants to continue off of medication. SSRI/SNRI side effects discussed including but not limited to, gastric upset, nausea, vomiting, diarrhea and/or constipation, weight changes, sexual side effects including loss of libido, increased suicidal thoughts/behavior s in children and young adults, and serotonin syndrome. 11/02/2024 Bipolar 2 disorder (ICD-10 - F31.81) hx diagnosis in teenage years; presents with irritability , impulsive symptoms that generally do not last longer than a day. currently stable off medications, wants to continue off of medication. SSRI/SNRI side effects discussed including but not limited to, gastric upset, nausea, vomiting, diarrhea and/or constipation, weight changes, sexual side effects including loss of libido, increased suicidal thoughts/behavior s in children and young adults, and serotonin syndrome. 12/03/2024 Bipolar 2 disorder (ICD-10 - F31.81) hx diagnosis in teenage years; presents with irritability , impulsive symptoms that generally do not last longer than a day. currently stable off medications, wants to continue off of medication. SSRI/SNRI side effects discussed including but not limited to, gastric upset, nausea, vomiting, diarrhea and/or constipation, weight changes, sexual side effects including loss of libido, increased suicidal thoughts/behavior s in children and young adults, and serotonin syndrome. 01/05/2025 Bipolar 2 disorder (ICD-10 - F31.81) hx diagnosis in teenage years; presents with irritability , impulsive symptoms that generally do not last longer than a day. currently stable off medications, wants to continue off of medication. SSRI/SNRI side effects discussed including but not limited to, gastric upset, nausea, vomiting, diarrhea and/or constipation, weight changes, sexual side effects including loss of libido, increased suicidal thoughts/behavior s in children and young adults, and serotonin syndrome. 02/05/2025 Bipolar 2 disorder (ICD-10 - F31.81) hx diagnosis in teenage years; presents with irritability , impulsive symptoms that generally do not last longer than a day. currently stable off medications, wants to continue off of medication. 02/05/2025 ILANA (generalized anxiety disorder) (ICD-10 - F41.1) History of anxiety with concern that stimulant medications may worsen symptoms. Patient prefers medications that do not exacerbate anxiety. Currently taking citalopram 10 mg twice a day for anxiety management. - Continue citalopram 10 mg twice a day. 02/05/2025 ADHD (attention deficit hyperactivity disorder), combined type (ICD-10 - F90.2) Persistent ADHD symptoms with difficulty focusing despite trials of multiple medications. Vyvanse provided limited benefit and was not taken daily due to side effects and insurance denial. Patient prefers to try Vyvanse first before other stimulants, with concern for side effects related to anxiety and gastrointestinal history. History of prior trials with Strattera, non-stimulants, Depakote, Lamictal, lithium, and Seroquel. - Ordered Adderall as a new stimulant medication for ADHD management. - Instructed patient to stop Vyvanse. - Discussed starting Adderall at a low dose and titrating as needed. - Ordered urine drug screen. 01/05/2025 ILANA (generalized anxiety disorder) (ICD-10 - F41.1) 12/03/2024 ADHD (attention deficit hyperactivity disorder), combined type (ICD-10 - F90.2) Electronic Prior Authorization was requested for Lisdexamfetamine Dimesylate 20 MG Capsule. Provider can order medication once approval received. 12/07/2024 ADHD (attention deficit hyperactivity disorder), combined type (ICD-10 - F90.2) Electronic Prior Authorization was requested for Lisdexamfetamine Dimesylate 20 MG Capsule. Provider can order medication once approval received. 12/03/2024 ILANA (generalized anxiety disorder) (ICD-10 - F41.1) 11/02/2024 ILANA (generalized anxiety disorder) (ICD-10 - F41.1) 09/22/2024 ILANA (generalized anxiety disorder) (ICD-10 - F41.1) 08/03/2024 ADHD (attention deficit hyperactivity disorder), combined type (ICD-10 - F90.2) 08/31/2024 Dietary counseling and surveillance (ICD-10 - Z71.3) 03/05/2024 ILANA (generalized anxiety disorder) (ICD-10 - F41.1) 1. ADHD ADHD evaluation supportive of diagnosis -start non stimulant due to anxiety, stimulant will likely increase anxiety -start atomoxetine 25mg daily for two weeks then 40mg daily 2. ILANA reistant to medications, feels adhd symptoms largely triggering anxiety -continue to evaluate after ADHD better controlled -encourage non-pharmace utical treatments including deep breathing, grounding exercises, physical activity, healthy diet. 3. bipolar 2 disorder hx diagnosis in teenage years; presents with irritability , impulsive symptoms that generally do not last longer than a day. currently stable off medications, wants to continue off of medication. -stable off of medications, continue 05/18/2024 Bipolar 2 disorder (ICD-10 - F31.81) hx diagnosis in teenage years; presents with irritability , impulsive symptoms that generally do not last longer than a day. currently stable off medications, wants to continue off of medication. 06/22/2024 ADHD (attention deficit hyperactivity disorder), combined type (ICD-10 - F90.2) 02/26/2024 ADHD (attention deficit hyperactivity disorder), combined type (ICD-10 - F90.2) 03/05/2024 Bipolar 2 disorder (ICD-10 - F31.81) 1. ADHD ADHD evaluation supportive of diagnosis -start non stimulant due to anxiety, stimulant will likely increase anxiety -start atomoxetine 25mg daily for two weeks then 40mg daily 2. ILANA reistant to medications, feels adhd symptoms largely triggering anxiety -continue to evaluate after ADHD better controlled -encourage non-pharmace utical treatments including deep breathing, grounding exercises, physical activity, healthy diet. 3. bipolar 2 disorder hx diagnosis in teenage years; presents with irritability , impulsive symptoms that generally do not last longer than a day. currently stable off medications, wants to continue off of medication. -stable off of medications, continue 05/18/2024 Encounter for screening for cardiovascular disorders (ICD-10 - Z13.6) 05/18/2024 ADHD (attention deficit hyperactivity disorder), combined type (ICD-10 - F90.2) Electronic Prior Authorization was requested for Qelbree 200 MG Capsule Extended Release 24 Hour. Provider can order medication once approval received. 06/22/2024 Encounter for screening for cardiovascular disorders (ICD-10 - Z13.6) 08/03/2024 Encounter for screening for depression (ICD-10 - Z13.31) 08/31/2024 Bipolar 2 disorder (ICD-10 - F31.81) hx diagnosis in teenage years; presents with irritability , impulsive symptoms that generally do not last longer than a day. currently stable off medications, wants to continue off of medication. 09/22/2024 ADHD (attention deficit hyperactivity disorder), combined type (ICD-10 - F90.2) 11/02/2024 ADHD (attention deficit hyperactivity disorder), combined type (ICD-10 - F90.2) 12/03/2024 ADHD (attention deficit hyperactivity disorder), combined type (ICD-10 - F90.2) ADHD Stimulant Education -Discussed with patient risk of misuse, abuse, and addiction before prescribing stimulant medicines. -Counseled not to share their prescribed stimulant with anyone else. -Educated patient will monitor during treatment: regularly assess and monitor them for signs and symptoms of nonmedical use, addiction, and potential diversion, which may be evidenced by more frequent renewal requests and medication metabolites absent from urine drug screens. -Random UDS (at least every three months or more frequently deemed by provider). -Per office policy, only prescribed to local pharmacy in [place], no early refills on control substance. 01/05/2025 ADHD (attention deficit hyperactivity disorder), combined type (ICD-10 - F90.2) ADHD Stimulant Education -Discussed with patient risk of misuse, abuse, and addiction before prescribing stimulant medicines. -Counseled not to share their prescribed stimulant with anyone else. -Educated patient will monitor during treatment: regularly assess and monitor them for signs and symptoms of nonmedical use, addiction, and potential diversion, which may be evidenced by more frequent renewal requests and medication metabolites absent from urine drug screens. -Random UDS (at least every three months or more frequently deemed by provider). -Per office policy, only prescribed to local pharmacy in [place], no early refills on control substance. 08/31/2024 ILANA (generalized anxiety disorder) (ICD-10 - F41.1) 06/22/2024 Encounter for screening for depression (ICD-10 - Z13.31) 08/03/2024 Encounter for screening for cardiovascular disorders (ICD-10 - Z13.6) 05/18/2024 Encounter for screening for depression (ICD-10 - Z13.31) 08/31/2024 ADHD (attention deficit hyperactivity disorder), combined type (ICD-10 - F90.2) 03/05/2024 Other Start atomoxetine 25mg daily for [...] to evaluate after ADHD better controlled -encourage non-pharmace utical treatments including deep breathing, grounding exercises, physical [...] therapeutic effects of psychotropic medications. -Crisis prevention [facility] 988. 06/22/2024 Other Stable on current medication [...] therapeutic effects of psychotropic medications. -Crisis prevention [facility] 988. 08/03/2024 Other Start buspar 5mg TID for anxiety management Increase Qelbree to 400mg daily for ADHD management Patient educated on [...] therapeutic effects of psychotropic medications. -Crisis prevention [facility] 988. 08/31/2024 Other Discontinue buspar Start escitalopram 5mg daily for anxiety, obsessive thoughts Patient educated on all medications including potential [...] therapeutic effects of psychotropic medications. -[facility]is [facility] 09/22/2024 Other Increase escitalopram to 10mg daily for anxiety Patient educated on all medications including potential [...] therapeutic effects of psychotropic medications. -Crisis prevention [facility] 988. 11/02/2024 Other Stable on current medication regimen, continue at current doses. -Refills sent in today -No concerns today Patient educated on all [...] therapeutic effects of psychotropic medications. -[facility] 12/03/2024 Other Discontinue Qelbree Start Vyvanse 20mg daily for ADHD management Patient educated on all medications including potential benefits, side effects, risks. Educated on proper dosing schedule and importance of compliance. [place] report checked and consistent with prescription history, no controlled substance prescriptions from other providers. -Assessment and treatment plan reviewed with patient. -Compliance with treatment plan importance discussed. -Discussed the risks/benefits of this medication -Discussed medication side effects. -Contact office if symptoms worsen. -Discussed that it can take up to 6-8 weeks to see full therapeutic effects of psychotropic medications. -Crisis prevention [facility] 01/05/2025 Other Increase Vyvanse to 30mg daily for ADHD management Patient educated on all medications including potential benefits, side effects, risks. Educated on proper dosing schedule and importance of compliance. [place] report checked and consistent with prescription history, no controlled substance prescriptions from other providers. -Assessment and treatment plan reviewed with patient. -Compliance with treatment plan importance discussed. -Discussed the risks/benefits of this medication -Discussed medication side effects. -Contact office if symptoms worsen. -Discussed that it can take up to 6-8 weeks to see full therapeutic effects of psychotropic medications. -Crisis prevention hotline 758. Plan Of Treatment Pending Test Test Name Order Date ADHD Testing 02/07/2024 Next Appt Details Provider Name:Raymond Davenport , 03/11/2025 10:45:00 AM, [address], [facility] [address], [place], [address], Insurance Providers Payer Name Payer Address Payer Phone Subscriber Number Group Number Insured Name Patient Relationship to Insured Coverage Start Date Coverage End Date Medicare-I l Medicare [address] [place] [address] [id number] David Costellona Self - patient is the insured Medicaid-I l Medicaid [address] [address] [place] [address] [id number] Corina Costello Self - patient is the insured Medical [...] B12 deficiency: Yes vitamin D deficiency: Yes Adhd Anxiety Diabetes History of j pouch Surgical History Surgery Date(Month/Year) colon removal 1994 colon resection 1995
--- OUTSIDE RECORDS SUMMARY | 2025-02-08 13:41 | XMS_ITS | Encounter Summary ---
Author Organization [employer] Address 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
--- OUTSIDE RECORDS SUMMARY | 2025-02-08 13:41 | XMS_ITS | Encounter Summary ---
Author Organization [employer] Address 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
--- OUTSIDE RECORDS SUMMARY | 2025-02-08 13:41 | XMS_ITS | Clinical Summary ---
Author Organization [facility] Address [address] [place] [address] Phone Care Team Providers Care Collar Setter Overlock Name Role Phone Jose Tomas DO Primary Care Provider [phone] Allergies Active Allergy Reactions Criticality Noted Date [...] Virus (HCV) Screening 1982 TdaP Immunization 1982 Varicella Immunization (1 of 2 - 13+ 2-dose series) 11/07/1995 Hepatitis B Immunization (1 of 3 - 19+ 3-dose series) 2001 Pap Smear 11/07/2003 Cervical Cancer Screening (CCS) 2012 HPV/Cotest 2012 Medicare Subsequent AWV G0439 02/24/2020 Influenza Immunization (#1) 2024 04/12/2019 SARS-COV-2 Immunization (1 - season) 2024 Respiratory Syncytial Virus (RSV) Immunization (Adult) (1 - 1-dose 75+ series) 2057 Medicare Initial AWV G0438 Discontinued 02/23/2019 Human Papillomavirus (HPV) Immunization (No Doses Required) Completed Meningococcal Immunization (ACWY) Aged Out No longer eligible based on patient's age to complete this topic Pneumococcal Immunization Combined Aged Out No longer eligible based on patient's age to complete this topic Rotavirus Immunization Aged Out No lo nger eligible based on patient's age to complete this topic [place] [address] Care Teams Collar Setter Overlock Relationship Specialty Start Date End Date Jose Tomas DO [address] [place] [address] PCP - General Family Medicine 12/14/19
--- OUTSIDE RECORDS SUMMARY | 2025-02-08 13:41 | XMS_ITS | Encounter Summary ---
Author Organization [facility] Healthcare Address [address] [facility] [place] [address] Care Team Providers Care Bunch Breaker Name Role Phone Jose Tomas Primary Care Provider [phone] Omi Kennedy MD Unavailable Angelia Melgoza MD Unavailable [phone] Robert Lobo MD Unavailable Marciano Danielson MD Unavailable Leidy House RRT Unavailable Aria Madrid MD Unavailable Jamal Anderson MD Primary Care Pro vider Jeramy Napier DO Primary Care Provider [phone] Skyler Vega MD Primary Care Provider + Ksehia Barriga MD Primary Care Provider Encounter Details Date Type Department Care Team (Late st Contact Info) Description 01/01/2020 Telephone [facility] [place] [address] [place] [address] Juan R Connell Social History [...] week 12/15/2019 How often do you attend [facility] or buddhism services? 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 07/22/2020 07/22/2020 08/05/2020 3:05 AM [...] 11/13/2022 11/13/2022 02/11/2023 3:[address] C. difficile suspected 09/09/2024 09/09/202409/09 7:30 PM CDT documented as of this encounter Care Teams Bunch Breaker Relationship Specialty Start Date End Date Jose Tomas DO [address] [place] [address] PCP - General 07/21/17 08/05/22 Jamal Anderson MD [address] [place] [address] PCP - General Family Medicine 08/06/22 12/30/23 Jeramy Napier DO [address] [place] [address] PCP - General Family Medicine 12/31/23 11/13/24 Skyler Vega MD [address] [facility] [address] PCP - General 11/14/24 12/31/24 [place] [address] [place] [address] [address] [address] PCP - General Internal Medicine 01/01/25 Omi Kennedy MD [address] [place] [address] Surgeon Colon and Rectal Surgery 09/08/18 Angelia Melgoza MD [address] [place] [address] Surgeon Colon and Rectal Surgery 09/08/18 [place] [address] [address] Psychiatrist Psychiatry 09/08/18 Marciano [place]son MD [id number] [place] [address] Industrial Electrician Gastroenterology 09/08/18 Leidy House R[place] [address] [address] [facility]OP Outpatient Customer Support TechnicianMotor And Chassis Inspector Therapy 12/16/19 01/17/20 Aria Madrid MD [address] [facility] [address] Consulting Physician Obstetrics and Gynecology 08/06/22 documented as of this encounter
--- OUTSIDE RECORDS SUMMARY | 2025-02-08 13:41 | XMS_ITS | Encounter Summary ---
Author Organization [facility] Address [address] [place] [address] Phone Care Team Providers Care Patient Safety Attendant Name Role Phone Omi Kennedy MD Unavailable [phone] Angelia Melgoza MD Unavailable OnRobert alvarez MD Unavailable Marciano Danielson MD Unavailable Aria Madrid MD Unavailable [phone] Keshia Barriga MD Primary Care Provider Reason for Referral * MRI/CAT/PET Scan (Routine) - Authorized Specialty Diagnoses / Procedures Referred By Contac t Referred To Contact Radiology Diagnoses Encounter for breast cancer screening using non-mammogram modality Procedures MRI Breast Bilateral W WO Contrast Keshia Barriga MD [address] [facility] [address] [place] [address] Phone: tel: fax: [address] [address] Referral ID Status Reason Start Date Expiration Date V isits Requested Visits Authorized [id number] Authorized 02/03/2025 03/05/2026 1 1 KER METAL BASE Encounter Details Date Type Department Care Team (Late st Contact Info) Description 02/03/2025 Results Follow-Up [facility] [address] [facility] 12th [place] [address] [place] [address] Keshia Barriga MD [address] [facility] [address] [place] [address] SCREENING MAMMOGRAM BILATERAL W ERINN Social History Tobacco Use Types Packs/Day Years [...] often do you attend chur ch or mandaeism services? Never 09/11/2024 Do you belong to any clubs o r organizations such as holiness groups, unions, fraternal or athletic groups, or [...] any time in the past 12 m [facility], were you homeless or living in a group home (including now)? No 09/11/2024 Social Connection and Isolation Panel Answer Date Recorded In a typical week, how many times do you talk on the phone with family, friends, or neighbors? More than three times a week 10/07/2024 How often do you get togethe r with friends or relatives? More than three times a week 10/07/2024 How often do you attend chur ch or mandaeism services? Never 10/07/2024 Do you belong to any clubs o r organizations such as holiness groups, unions, fraternal or athletic groups, or [...] money to buy more. Never true 10/08/19 25 Within the past 12 months, t he [...] any time in the past 12 m [facility], were you homeless or living in a group home (including now)? No 10/07/[address] 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 Gender Identity Not on file Sexual Orientation Not on file documented as of this encounter Plan of Treatment Scheduled Orders Name Type Priority Associated Diagnoses Orde r Schedule MRI Breast Bilateral W WO Contrast Imaging Schedule Routine, Read Routine (OP Routine) Encounter for breast cancer screening using non-mammogram modality Expected: 02/03/2025, Expires: 02/03/2026 documented as of this encounter Visit Diagnoses Diagnosis Encounter for breast cancer screening using non-mammogram modality- Primary documented in this encounter Care Teams Patient Safety Attendant Relationship Specialty Start Date End Date Keshia Barriga MD [address] [facility] [address] [place] [address] PCP - General Internal Medicine 01/01/25 Omi Kennedy MD Surgeon Colon and Rectal Surgery 09/08/18 Angelia Melgoza MD Surgeon Colon and Rectal Surgery 09/08/18 [place] [address] [facility] [address] [place] [address] Psychiatrist Psychiatry 09/08/18 [place] [address] [facility] [address] [place] [address] Renal Dietitian Gastroenterology 09/08/18 Aria Madrid MD [address] [place] [address] Consulting Physician Obstetrics and Gynecology 08/06/22 documented as of this encounter
--- OUTSIDE RECORDS SUMMARY | 2025-02-08 13:41 | XMS_ITS | Clinical Summary ---
Author Organization [facility] Address [address] [place] [address] Phone Care Team Providers Care Reclamation Worker Name Role Phone Jose Tomas DO Primary Care Provider [phone] Allergies Active Allergy Reactions Criticality Noted Date [...] Immunizations Immunization Administration Dates Next Due Influenza TIV (IM) 12/04/2016, 5,10/11/2013,12/02 Influenza, Unspecified 12/04/2016,11/01/2014,10/2013 Influenza, split virus, trivalent, PF 12/17/2017 ,11/26/2013 Pneumococcal Polysaccharide 10/13/2013, 4 Tdap 10/13/2013,09/18/2013 Family [...] Due Date Last Done Comments Influenza Vaccine (#1) 2024 8, 12/04/2016, 12/04/2016, Additional history exists Insurance MEDICARE [place] [id number] MEDICAID - [place] Care Teams Reclamation Worker Relationship Specialty Start Date End Date Jose Tomas DO [address] [place] [address] PCP - General Family Medicine 05/25/19
--- OUTSIDE RECORDS SUMMARY | 2025-02-08 13:41 | XMS_ITS | Clinical Summary ---
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 Gender Identity Not on file Sexual Orientation [...] DIABETES HBA1C Q 6 MONTHS 06/13/2023 12/12/2022 DIABETES ANNUAL FOOT EXAM 09/22/2023 09/21/2022 DTAP/TDAP/TD VACCINES (3 - T d or Tdap) 10/14/2023 10/13/2013, 09/18/2013 INFLUENZA VACCINE (#1) 2024 , 01/29/2022, 12/14/2019, Additional history exists COVID-19 Vaccine ( - 2024-2 6 season) 2024 06/16/2021, 05/29/2021 DIABETES ANNUAL RETINAL EXAM 10/29/2024 10/30/2023 HEPATITIS B VACCINES Completed 12/02/2001, 07/29/1998, 12/06/1997 HPV VACCINES (No Doses Required) Completed Insurance MEDICARE PART A AND B MEDICARE Care Teams Data Recovery Planner Relationship Specialty Start Date End Date Jose Tomas DO PCP - General Family Practice 04/01/17
--- OUTSIDE RECORDS SUMMARY | 2025-02-08 13:41 | XMS_ITS | Clinical Summary ---
Author Organization [email or web address] Address [address] [place] [address] Care Team Providers Care Odd Shoe Examiner Name Role Phone Amisha Garay MD Unavailable [phone] Doni Sanon DO Unavailable Ronan Lee MD Unavailable Jennie Mujica JAVA DEVELOPER WITH SECURITY CLEARANCE-[facility] Unavailable Uzair Romero MD Unavailable Teresa Khalil MD Unavailable Laureen Cabrera RN Unavailable [phone] Mei Otero [facility] Unavailable [phone] Jeramy Napier DO Primary Care Provider [phone] Jeramy Napier DO Unavailable Source Comments [email or web address],non-owned Affiliates and Associated Physician Practices is amultiple site organization consisting of ambulatory clinics and hospital sitesin [place], [place], [place] and [place]. This disclosure is being madepursuant to the Care Everywhere program and may not contain all information available regarding this patient. Last updated 17.[facility] Allergies Active Allergy Reactions Criticality Noted Date [...] ULTRAFINE II) 31G X 5/16 0.3 ML syringeIndicati ons:Type 1 Diabetes Mellitus USE 1 WITH EACH INJECTION TID Reasons: Insulin-Dependent Diabetes 300 Each 3 03/13/19 20 Active blood glucose (Watson Brown ULTRA TEST STRIPS) test stripIndication s:Type 1 Diabetes Mellitus USE 3 STRIPS EVERY DAY Reasons: Insulin-Dependent Diabetes 300 strip 3 03/26/19 20 Active Blood Glucose Monitoring Suppl (ONE TOUCH ULTRA 2) w/Device KIT Use 1 kit once daily 1 kit 08/27/19 20 Active blood glucose (KETAN CONTOUR NEXT TEST) test strip Use 1 strip 3 times daily DX CODE E10.42 FOR INSULIN DEPENDENT 300 strip 1 10/16/19 20 Active Insulin Disposable Pump (OMNIPOD DASH 5 PACK PODS) MISCIndications :Type 1 Diabetes Mellitus Use 1 device every 3 days Dx code: E10.42 Reasons: Insulin-Dependent Diabetes 30 Each 1 01/08/20 20 Active B-D ULTRAFINE III SHORT PEN 31G X 8 MM needle USE TO INJECT ONCE DAILY DIRECTED WITH PUMP FAILURE 07/15/19 21 Active diclofenac sodium (VOLTAREN) 1 % gel APPLY 4 GRAMS TO THE AFFECTED AREA FOUR TIMES DAILY 400 g 11 10/31/19 21 Active midodrine (PROAMATINE) 2.5 MG tablet TAKE 1 TABLET BY MOUTH TWICE A DAY IF BP LOW THAT DAY 180 tablet 2 11/08/19 21 Active GVOKE PFS 1 MG/0.2ML SOSY INJECT 1 MG SUBCUTANEOUS FOR LOW BLOOD SUGAR 0.2 mL 5 06/28/19 22 Active NovoLOG vial INJECT UP TO 75 UNITS SUBCUTANEOUSLY TOTAL DAILY DOSE VIA INSULIN PUMP 30 mL 11/03/19 22 Active busPIRone (Buspar) 15 MG tablet Take 1 (one) tablet by mouth once daily as needed 12/04/19 22 Active ALPRAZolam (Xanax) 1 MG tablet Take 1 (one) tablet by mouth 2 times daily as needed anxiety 60 tablet 2 01/30/20 22 Active Basaglar KwikPen (Basaglar) pen 06/28/19 23 Active ondansetron (Zofran) 4 MG tablet 07/31/19 23 Active dexlansoprazole (Dexilant) 60 MG capsule Take 1 (one) capsule by mouth once daily 30 capsule 5 12/12/19 23 Active Additional Information Patient not taking.Reason: Patient adjusted, Reported on 09/22/2024 zolpidem (Ambien) 10 MG tablet Take 1 (one) tablet by mouth nightly as needed FOR SLEEP 11/29/19 23 Active promethazine (Phenergan) 25 MG tabletIndicatio ns:History of malignant neoplasm of colon,Nausea,Hi story of small bowel obstruction,Gas troparesis TAKE 1 (ONE) TABLET BY MOUTH EVERY 8 HOURS NEEDED 90 tablet 03/25/19 24 Active loperamide (Imodium) 2 MG capsuleIndicati ons:History of malignant neoplasm of colon,History of small bowel obstruction,Gas troparesis,Advertising Photographer daija diarrhea TAKE 2 CAPSULES BY MOUTH FOUR TIMES DAILY NEEDED FOR DIARRHEA 90 capsule 03/25/19 24 Active oxyCODONE-aceta minophen (Percocet) 5-325 MG tabletIndicatio ns:Postoperativ e pain Take 1 (one) tablet by mouth every 6 hours as needed for Pain 5 tablet 03/27/19 24 Active Additional Information Patient not taking.Reason: Patient adjusted, Reported on 09/22/2024 lamoTRIgine (LaMICtal) 200 MG tablet Take 1 (one) tablet by mouth once daily 03/16/19 24 Active topiramate (Topamax) 50 MG tablet TAKE 1 TABLET BY MOUTH THREE TIMES DAILY 90 tablet 1 08/09/19 24 Active Additional Information Patient not taking.Reason: Patient adjusted, Reported on 09/22/2024 cetirizine (ZyrTEC) 10 MG tabletIndicatio ns:Seasonal allergic rhinitis due to fungal spores Take 1 (one) tablet by mouth once daily 90 tablet 3 10/15/19 24 Active moxifloxacin (Vigamox) 0.5 % ophthalmic solution Instill 1 (one) drop into left eye 4 times daily 12/30/19 24 Active Gvoke HypoPen 2-Pack 1 MG/0.2ML SOAJ 2 mg by Injection route as needed 12/03/19 24 Active escitalopram (Lexapro) 10 MG tabletIndicatio ns:Generalized Anxiety Disorder Take 1 (one) tablet by mouth once daily Reasons: Generalized Anxiety Disorder 30 tablet 01/08/20 24 Active EPINEPHrine (Epipen) 0.3 MG/0.3ML auto-injector pen Inject 0.3 mL into muscle once as needed for Anaphylaxis 0.6 mL 1 05/02/19 25 Active gabapentin (Neurontin) 300 MG capsuleIndicati ons:Cervical radiculopathy,A cute left-sided low back pain with left-sided sciatica,Lumbos acral spinal stenosis Take 1 (one) capsule by mouth 3 times daily 270 capsule 05/29/19 25 Active scopolamine (Transderm-Scop ) 1 MG patchIndication s:Sea sickness, subsequent encounter Apply 1 (one) patch to skin every 72 hours as needed (motion sickness) 5 patch 05/29/19 25 Active tranexamic acid (Lysteda) 650 MG tablet Take 2 (two) tablets by mouth 3 times daily 18 tablet 07/01/19 25 Active Additional Information Patient not taking.Reason: Patient adjusted, Reported on 09/22/2024 Continuous Glucose Transmitter (Dexcom G6 Transmitter) MISC as directed 05/09/19 25 Active cyanocobalamin (Vitamin B-12) injection INJECT 1,000 MCG DIRECTED EVERY 7 DAYS FOR 4 WEEKS. THEN CONTINUE 1 INJECTION MONTHLY. 02/27/19 25 Active sulfamethoxazol e-trimethoprim (Bactrim DS; Septra DS) 800-160 MG tabletIndicatio ns:Mucous cyst of finger Take 1 (one) tablet by mouth 2 times daily 14 tablet 07/22/19 25 Active Additional Information Patient not taking.Reason: Patient adjusted, Reported on 09/22/2024 diphenoxylate-a tropine (Lomotil) 2.5-0.025 MG tabletIndicatio ns:Gastroparesi s,Abdominal cramping TAKE 1 TABLET BY MOUTH FOUR TIMES A DAY NEEDED FOR DIARRHEA 100 tablet 2 08/29/19 25 Active cyclobenzaprine (Flexeril) 10 MG tabletIndicatio ns:Cervical radiculopathy,A cute left-sided low back pain with left-sided sciatica,Lumbos acral spinal stenosis TAKE 2 TABLETS BY MOUTH AT BEDTIME 60 tablet 09/01/19 25 Active acetaminophen (Tylenol) 500 MG tablet Take 2 (two) tablets by mouth 3 times daily Maximum allowable Acetaminophen amount = 4 Grams (4000 mg) / 24 hours. 09/30/19 25 Active oxyCODONE, immediate release, (Roxicodone) 5 MG tabletIndicatio ns:Postoperativ e pain Take 1 (one) tablet to 2 (two) tablets by mouth every 4 hours as needed for Pain (Moderate or Severe Pain) 30 tablet 09/30/19 25 Active Insulin Aspart, w/Niacinamide, (Fiasp PumpCart) 100 UNIT/ML SOCT Active naproxen (Naprosyn) 500 MG tablet Take 1 (one) tablet by mouth 2 times daily as needed for Pain 120 tablet 1 10/16/19 25 Active dicyclomine (Bentyl) 20 MG tabletIndicatio ns:History of malignant neoplasm of colon,History of small bowel obstruction,Gas troparesis,Abdo nick cramping TAKE 1 TABLET BY MOUTH EVERY DAY NEEDED 90 tablet 10/21/19 25 Active Active Problems Problem Noted Date Diagnosed Date Ketosis 12/12/2022 Hyperglycemia 12/12/2022 Vitamin B12 deficiency 09/22/2021 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 11/11/2013 Overview (11/28/2020): ENDO (MONA) MANAGING -- ON LYRICA ENDO (MONA) MANAGING -- ON LYRICA Gastro-esophageal reflux disease without esophag itis 11/11/2013 Overview (11/28/2020): GI (LUI) MANAGING -- ON PPI, ZANTAC, ZOFRAN GI (FORDWORTH) MANAGING -- ON PPI, ZANTAC, ZOFRAN Benign [...] possible with history of gastroparesis Atherosclerosis of quechan ar teries of extremity with intermittent claudication [...] (MONA) MANAGING -- ON LYRICA Overview: ENDO MAURI) MANAGING -- ON LYRICA Abdominal mass 11/11/2013 04/05/2021 Overview (11/28/2020): GI (LUI) MANAGING 10/01 EGD 11/01 HAS UPCOMING APPT W/ GI SPECIALIST Pelvic pain in female 11/11/20132021 Overview (11/28/2020): SENIOR BRAND MANAGER (CASSANDRA) MANAGING -- ON GABAPENTIN SENIOR BRAND MANAGER (CASSANDRA) MANAGING -- ON GABAPENTIN Familial multiple polyposis syndrome 11/11/2013 04/05/2021 Overview (11/28/2020): GI (LUI) OV Added automatically from request for surgery [id number] Last Assessment & Plan: Pt follow for [...] Encounters Date Type Department Care Team Description 01/29/2025 Telephone [facility] - Family Medicine [address] [place] [address] Jeramy Napier DO Appointment 12/03/2024 Patient Outreach [facility] - Care Coordination [address] [place] [id number] Aimee White Outreach Preventive Care from Last 3 Months Immunizations Immunization Administration Dates Next Due INFLUENZA VACCINE, TRIV. (AF LURIA, FLUZONE TRIVALENT; 6MO+) (IIV3) 01/31/2015,11/01/2014,10/11/2013,2012 Covid DocuTAP primary monoval ent 12+ yr 0.3mL Purple [...] Recorded Patient Health Questionnaire-2 Score 0 07/21/2024 [facility] [place] of Occupat ional Health - Occupational Stress [...] place to sleep or slept in a senior living (including now)? No 10/03/2022 Education Answer Date Recorded What is the highest level of school you have completed or the highest degree you have received? High school graduate 08/06/2022 Comments No Sex and Gender Information Value Date Recorded Sex Assigned at Female 02/22/2020 1:27 AM MAGNETIC OBSERVER Legal Sex Female 4:51 AM MAGNETIC OBSERVER Gender Identity Female 02/22/2020 1:27 AM MAGNETIC OBSERVER Sexual Orientation Straight 02/22/2020 1: 27 AM MAGNETIC OBSERVER Occupation Industry Job Start Date Job End Date disabled Not on file Not on file Not on file Last Filed Vital Signs Vital Sign Reading Time Taken Comments Blood Pressure 130/64 09/29/2024 10:30 AM CDT Pulse 63 09/29/2024 10:30 AM CDT Temperature 36.2 C (97.1 F) 09/29/2024 9:55 AM CDT Respiratory Rate 20 09/29/2024 10:30 AM CDT Oxygen Saturation 99% 09/29/2024 10:30 AM CDT Inhaled Oxygen Concentration - - Weight 63.6 kg (140 lb 3.2 oz) 09/29/2024 8:28 A M CDT Height 167.6 cm (5' 6) 09/29/2024 8:28 AM CDT Body Mass Index 22.63 09/29/2024 8:28 AM CDT Plan of Treatment Health Maintenance Due Date Last Done Comments MAMMOGRAM 1982 HPV VACCINE (1 - 3-dose SCDM series) 2009 PNEUMOCOCCAL VACCINE (2 of 2 - PCV) 10/13/2014 10/13/2013, 09/18/2013 PAP with HPV 05/29/2021 05/29/2016 DIABETES-HGB A1C 06/13/2023 12/12/2022, 07/2021, 11/28/2020, Additional history exists DIABETES-FOOT EXAM WITH MONOFILAMENT 09/22/2023 09/21/2022, 06/25/2013, 10/02/2012, Additional history exists DTAP/TDAP/TD VACCINES (5 - Td or Tdap) 10/14/2023 10/13/2013, 09/18/2013, 06/20/2007, Additional history exists DIABETES - URINE PROTEIN SCREENING 02/19/2024 10/16/2016, 04/25/2012, 04/20/2011, Additional history exists DIABETES-SERUM CREATININE 04/21/20242023, 12/13/2022, 12/12/2022, Additional history exists COVID-19 VACCINE ( season) 2024 06/16/2021, 05/29/2021 INFLUENZA VACCINE (#1) 2024 , 01/29/2022, 12/14/2019, Additional history exists DIABETES RETINOPATHY SCREENING 10/29/2024 10/30/2023, 03/19/2019, 06/12/2013 MEDICARE AWV 12 MONTHS 04/22/2025 04/22/2024, 12/11/2022, 12/11/2022, Additional history exists ZOSTER VACCINE (2 of [...] None at the time of this encounter [facility] Lifestyle: Have labs drawn Lifestyle Not on track( 014 1:46 PM CDT) No Dahiana Alfred HEMOGLOBIN A1C < 7.0 Result Component 7.6( 3 5:48 PM CDT) No Seth Huynh [employer] Implanted Type Area Felting Machine Operator Helper Device Identifier Shelf Expiration Date Model / Serial / Lot Mirena Implanted:Qty: 1 on 12/20/2022 by Bobbi Floyd MD at [facility] N/A: Uterus 11/18/2024 [id number] / [id number] TDU Procedures Procedure Name Priority Date/Time Associated Diagnosis Comments PATHOLOGY/CYTOLOGY REPORT ORDER 11/19/2024 ENDOSCOPY ORDER 11/18/2024 ENDOSCOPY ORDER 11/18/2024 COMPREHENSIVE METABOLIC PANEL Routine 04/22/2023 11:58 AM MAGNETIC OBSERVER Annual physical exam HEMOGLOBIN A1C STAT 12/12/2022 [...] Recently Relevant to Health Maintenance Results * PATHOLOGY/CYTOLOGY REPORT ORDER (11/19/2024) 11/19/2024 Narrative 11/19/2024 Ordered by an unspecified provider. us Scanned Document LAB - PATHOLOGY/CYTOLOGY ORDERA BLES Final Result * Endoscopy Order (11/18/2024) 11/18/2024 Narrative 11/18/2024 Ordered by an unspecified provider. us Scanned Document GI PROCEDURE ORDERABLES Final R esult * Endoscopy Order (11/18/2024) 11/18/2024 Narrative 11/18/2024 Ordered by an unspecified provider. us Scanned Document GI PROCEDURE ORDERABLES Final R esult * (ABNORMAL) COMPREHENSIVE METABOLIC PANEL (04/22/2023 11:58 AM MAGNETIC OBSERVER) Glucose 175(H) 70 - 99 mg/dL [facility] [...] BLOOD SPECIMEN / Unknown 04/22/2023 11:58 AM MAGNETIC OBSERVER 04/22/2023 Narrative Resulting Agency Comment Lab Testing performed at: [facility] [address] [facility] [phone] us Jeramy Napier DO LAB - CHEMISTRY ORDERABLES Final Result [facility] INSURANCE BILL [address] [place] [address] * (ABNORMAL) HEMOGLOBIN A1C (12/12/2022 5:48 PM CDT) Hemoglobin A1c 7.6(H) <5.7 % 12/13/2022 6:38 AM CDT [facility] Estimated Average Glucose 171 mg/dL 12/13/2022 6:38 AM CDT [facility] Blood BLOOD SPECIMEN / Unknown Venipuncture / Unknown 12/12/2022 5:48 PM CDT 12/12/2022 5:50 PM CDT Narrative [facility] - 12/13/2022 6:38 AM CDT HbA1c [...] (HbF) exceeds 5% in the specimen. The [place] Bagnity assay for the measurement of HbA1c is a National Glycohemoglobin Standardization Program (NGSP) certified method. us Zane Tavarez PA-C LAB - CHEMISTRY ORDERABLES Final Result Performing Organization Address City/[facility]/ZIP Co de Phone Number [place] [phone] * HIV-1 HIV-2 ANTIBODY + HIV P24 AG PANEL (08/06/2022 3:09 PM CDT) [facility] HIV Screen 4th Generation w Reflex Non Reactive Non Reactive [facility] INSURANCE BILL Comment: HIV Negative HIV-1/HIV-2 antibodies and HIV-1 p24 antigen were NOT detected. There is no laboratory evidence of HIV infection. Blood BLOOD SPECIMEN / Unknown 08/06/2022 3:09 PM CDT 08/06/2022 Narrative Resulting Agency Comment Lab Testing performed at: [facility] [address] [facility] [id number] us Jamal Anderson MD LAB - CHEMISTRY ORDERABLES Fi nal Result [facility] INSURANCE BILL [address] [place] [address] * HM DIABETES EYE EXAM (03/19/2019) us Scanned Document HEALTH MAINTENANCE Final Result * MICROALB/CREAT RATIO URINE RANDOM PANEL (10/16/2016 2:39 PM CDT) Creatinine Urine 210 mg/dL [facility] INSURANCE BILL Microalbumin Urine 2.5 mg/dL [facility] INSURANCE BILL Microalbumin/Crea tinine Ratio 12 <30 mg/g [facility] INSURANCE BILL Urine URINE SPECIMEN OBTAINED BY CLEAN CATCH PROCEDURE / Unknown 10/16/2016 2:39 PM CDT 10/16/2016 Narrative Resulting Agency Comment [facility] [address] [place] [phone] us Devendra Foster MD LAB - URINE CHEMISTRY ORDERA BLES Final Result Performing Organization Address City/[facility]/ZIP Co de Phone Number [facility] INSURANCE BILL [address] [place] [address] * HPV DNA PROBE HIGH RISK (05/29/2016 3:53 PM CDT) Human papillomavirus High Risk Negative Negative [facility] INSURANCE BILL Comment: This test was developed and its performance characteristics determined by [facility]. It has not been cleared or approved by the Food and Drug Administration. This high-risk HPV test detects thirteen high-risk types (16/18/31/33/35/39/45/51/52/56/58/59/68) without differentiation. . 05/29/2016 3:53 PM CDT 05/29/2016 Narrative [facility] INSURANCE BILL - 06/04/2016 9:07 PM CDT No. of containers..01 [facility] Collection Vial Resulting Agency Comment [address] [phone] us Ronan Lee MD LAB - MICROBIOLOGY ORDERABLES Fi nal Result Performing Organization Address City/[facility]/ZIP Co de Phone Number [facility] INSURANCE BILL [address] [place] [address] * HEPATITIS C ANTIBODY (11/10/2009 1:28 PM CDT) Hepatitis C Antibody Screen Nonreactive Nonreactive [facility] BLOOD SPECIMEN / Unknown 11/10/2009 1:28 PM CDT 11/10/2009 1:29 PM CDT Narrative Resulting Agency Comment Performed By [facility] [address] [place] [address] Jolene Silver MD LAB - CHEMISTRY ORDERA BLES Final Result [facility] [address] [place] [address] from Last 3 Months or Most Recently [...] 4:16 AM 06/12/2017 4:36 PM Care Teams Odd Shoe Examiner Relationship Specialty Start Date End Date Jeramy Napier DO [address] [place] [phone] PCP - General Family Medicine 04/22/23 Jeramy Napier DO [address] [place] [address] PCP - Attributed-MSSP 08/18/24 Amisha Garay MD Orthopedic Surgery 04/29/12 Doni Sanon DO Orthopedic Surgery 08/25/12 Ronan Lee MD [address] [place] [address] Obstetrics and Gynecology 10/13/13 Jennie Mujica, JAVA DEVELOPER WITH SECURITY CLEARANCE-CLIENT SUPPORT ASSOCIATE [address] [place] [address] Nurse Practitioner 10/13/13 Uzair Romero MD [address] [place] [address] Gastroenterology 10/13/13 Teresa Khalil MD [address] [place] [address] Colon and Rectal Surgery 10/13/13 Laureen Cabrera RN Electrician Substation 08/09/16 Mei Otero, [facility] Rectifier Operator 11/27/16
--- OUTSIDE RECORDS SUMMARY | 2025-02-08 13:41 | XMS_ITS | Patient Health Record ---
Author Organization [facility] Address [address] [place] [id number] Phone [phone] Care Team Providers Care Chaperone Name Role Phone Leo Angel Primary Care Provider Allergies Allergen (clinical drug ingredient) Drug/Non Drug Allergy documented on EMR Reaction Allergy Type Onset Date Status E-Mycin Unknown Drug Allergy Active vancomycin vancomycin Unknown Drug Allergy Activ e Reason For Referral No Information Medications Medication SIG (Take, Route, Frequency, Duration) Notes Start Date End Date Diagnosis (ICD Code) Status Paregoric 2 mg 5-10 ml 1 tsp by mouth QID, prn diarrhea *Reorder from [facility] for eRx and Interaction Alerts* 11/01/2010 Diarrhea (ICD_9 - 787.91) Active Lomotil 0.025 mg-2.5 mg tablet 1 tab orally QID; Duration: 3 day(s) *Pick strength-form from [facility] for eRX* Active Protopic 0.1% ointment 1 tia applied topically BID; Duration: 30 day(s) *Reorder from [facility] for eRx and Interaction Alerts* 06/24/2008 Active Ambien 10 mg tablet 1 tab(s) orally once a day (at bedtime); Duration: 30 day(s) 11/17/2009 Active Zithromax Z-Boom 250 tab qd po qd; Duration: 5 *Pick strength-form from [facility] for eRX* 11/08/2010 Active Bentyl 20 mg tablet 1 tab(s) orally 4 times a day; Duration: 30 day(s) *Pick strength-form from [employer] for eRX* Active Imodium A-D as directed q.d. *Pick strength-form from [employer] for eRX* Active Amigo Insulin Pump as directed sliding scale Active Immunizations Status Vaccine Route Administration Date Visit Date Comments Administered Influenza (split), 3 yrs and above Unknown 11/01/2010 Immunization Giv en by from source eCW:: mdm Influenza (split), 3 yrs and above Unknown 12/13/2009 Immunization Giv en by from source eCW:: mdm Social History Sex Observation Social History Observation Description Sex Observation Female Social History Additional Details Category Social Info Options Details Migrated Social History Migrated Social History (Alcohol:): How often did you have a drink containing alcohol in the past year? never (0 points) (Children:):none (Drug use:):no (Marital Status:):single (Occupation:): disability (Smoking:):no Are you a: never smoker Problems Problem Type SNOMED Code ICD Code Dates Problem Status W/U Status Risk Notes Problem Malignant tumor of colon (298504979) Colon cancer (153.9) Active confirmed Problem Type I diabetes mellitus uncontrolled (628790182) Type 1 DM uncontrolled (250.03) Active confirmed Plan Of Treatment Pending Test Test Name Order Date FREE T4 09/07/2010 Microalbumin, Random Urine 09/07/2010 TSH 09/07/2010 A1c (HgbA1c) 09/07/2010 Physical (CBC, CMP, Lipid panel, UA) Insurance Providers Payer Name Payer Address Payer Phone Subscriber Number Group Number Insured Name Patient Relationship to Insured Coverage Start Date Coverage End Date Medicare [address] [place] [address] [id number] Corina Costello Self - patient is the insured Medical (General) History Medical History History ICD Code Familial Polyposis Juv onsert DM Surgical History Surgery Date(Month/Year) Colostomy x 1 yr 1995 uteroral transplantations 1991
--- OUTSIDE RECORDS SUMMARY | 2025-02-08 13:41 | XMS_ITS | Clinical Summary ---
Author Organization [facility] Address [address] [place] [address] Care Team Providers Care Millwright Name Role Phone Unavailable Primary Care Provider [...]
--- OUTSIDE RECORDS SUMMARY | 2025-02-08 13:41 | XMS_ITS ---
Author Organization [facility] Address [address] [place] [address] Care Team Providers Care Rod Buster Helper Name Role Phone Omi Kennedy MD Unavailable [phone] Angelia Melgoza MD Unavailable OnumaRobert MD Unavailable Marciano Danielson MD Unavailable [phone] Aria Madrid MD Unavailable [phone] Keshia Barriga MD Primary Care Provider Active Problems Problem Noted Date Diagnosed Date [...] 01/08/2024 Assessment & Plan (01/08/2024 8:33 AM TOWER AIR TRAFFIC CONTROL SPECIALIST): Well healed Dc moxi, finish valtrex intermediate Refresh alethea or similar at bedtime (QHS) both eyes (OU) Fu prn 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 01/08/2024 Assessment & Plan (01/08/2024 8:32 AM TOWER AIR TRAFFIC CONTROL SPECIALIST): Fu for On oct 1 year Recurrent erosion of left cornea 10/30/2023 Assessment & Plan (01/02/2024 1:21 PM TOWER AIR TRAFFIC CONTROL SPECIALIST): Healing well- no infiltrate CPMEDS FU Wed am remove BCL Assessment & Plan (12/31/2023 11:50 AM TOWER AIR TRAFFIC CONTROL SPECIALIST): Pt has ho cold sores, + ac [...] Bipolar 2 disorder 03/22/2023 Mixed hyperlipidemia 03/11/2023 intermediate current use of insulin 06/18/2022 press reader associated with adverse incidents 06/18/2022 Vomiting 10/24/2021 [...] (08/10/2019): Added automatically from request for surgery [id number] Small bowel stricture 01/30/2019 Overview (01/30/2019): Added automatically from request for surgery [id number] Generalized abdominal pain 11/11/2018 Dehydration, mild 11/11/2018 [...] gastroparesis Chronic abdominal pain 10/22/2018 Atherosclerosis of [place] ar teries of extremity with intermittent claudication 10/21/2018 History of colon cancer 08/25/2018 Overview (08/25/2018): Added automatically from request for surgery [id number] Leukocytosis 06/13/2018 Assessment & Plan (09/11/2024 10:58 [...] (01/27/2018): Added automatically from request for surgery [id number] Assessment & Plan (11/01/2021 9:57 AM CDT): [...] zofran with benadryl Continue bentyl Q6 hrs Ergonomics Consultant consult to reinforce low volume frequent meals [...] Overview (12/31/2024): Office Visit 04/04/16 Dr. 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 11/11/2013 Overview (07/10/2018): ENDO (MONA) MANAGING -- ON LYRICA Pelvic pain in female 11/11/2013 Overview (07/10/2018): SOLE STITCHER HAND (CASSANDRA) MANAGING -- ON GABAPENTIN Gastro-esophageal reflux disease without esophag itis 11/11/2013 Overview (10/21/2018): GI (LUI) MANAGING -- ON PPI, ZANTAC, ZOFRAN Generalized anxiety disorder 11/11/2013 Overview (07/10/2018): 11/01 sertraline 50 mg started Abdominal mass 11/11/2013 Overview (01/19/2021): GI (LUI) MANAGING 10/01 EGD 11/01 HAS UPCOMING APPT W/ GI SPECIALIST GI (FORDWORTH) MANAGING 10/01 EGD 11/01 HAS UPCOMING APPT W/ GI SPECIALIST Familial adenomatous polyposis 11/11/2013 Overview (01/19/2021): GI (FORDWORTH) OV GI (LUI) OV Added automatically from request for surgery [id number] Last Assessment & Plan: Pt follow for [...] Pelvic pain in female 11/11/2013 Overview (01/19/2021): SOLE STITCHER HAND (CASSANDRA) MANAGING -- ON GABAPENTIN SOLE STITCHER HAND (CASSANDRA) MANAGING -- ON GABAPENTIN SOLE STITCHER HAND (CASSANDRA) MANAGING -- ON GABAPENTIN Personal history of colon cancer 11/11/2013 Overview (01/19/2021): COLORECTAL SURG(SUSAN) MANAGING 1996 S/P TOTAL COLECTOMY Colon cancer 11/09/2013 Overview (10/21/2018): Colon cancer Type 1 diabetes mellitus with hyperglycemia 10/20 Assessment & Plan (01/08/2024 8:31 AM TOWER AIR TRAFFIC CONTROL SPECIALIST): FU for DFE and mac oct 1 [...] Advised to call the after hours endo filling station laborer if she has issues over the weekend. [...] (type 1 diabetes mellitus) 11/09/2013 Overview (01/19/2021): DIANELYS DOTSON) MANAGING DIANELYS (MONA) MANAGING Diabetes Last Assessment & Plan: [...] syndrome 04/23/2012 Genetic predisposition to disease 11/22/2011 Current Treatment and Therapy Plans No current plan information found. Past Treatment and Therapy Plans No past plan information found. Lifetime Dose Tracking * Chemical Lifetime Dose Automatic Entry Manual Entr y DLP 5,716 mGycm 5,716 mGycm 0 mGycm Resolved Problems Problem Noted Date Diagnosed Date [...] (08/12/2018): Added automatically from request for surgery [id number] Abdominal pain, epigastric 06/11/2017 0 10/22/2018 SBO [...] 11/11/2013 09/08/2018 Overview (07/10/2018): GI (LUI) OV Overweight 04/04/2012 03/11/2023
== END 2025-02-08 12:38 | disposition home or self-care (01) ==
PROVIDERS: Emergency Provider Nurse Practitioner Family; PCP Internal Medicine
DX: B34.9 Viral infection, unspecified (principal); J06.9 Acute upper respiratory infection, unspecified; J02.9 Acute pharyngitis, unspecified; Z20.822 Contact with and (suspected) exposure to COVID-19; E10.9 Type 1 diabetes mellitus without complications; Z79.4 Long term (current) use of insulin; F41.9 Anxiety disorder, unspecified; Z85.038 Personal history of other malignant neoplasm of large intestine; Z90.49 Acquired absence of other specified parts of digestive tract
CPT/HCPCS: 87081; 87426; 87804; 87880; 99213; G0463

== ENCOUNTER 2025-02-10 10:52 | Emergency (ER) | payer MEDICARE, MEDICAID, SELFPAY ==
--- OUTSIDE RECORDS SUMMARY | 2017-05-31 07:35 | XMS_ITS | Continuity of Care Document ---
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 Name Role Phone Kolby Richter Unavailable Unavailable Allergies, Adverse Reactions, Alerts Substance Reaction Status Criticality vancomycin Rash Active No Information erythromycin base Rash Active No Informa tion Medications Medication Instructions Dosage Effective Dates (start - stop) Status Comments ibuprofen 600 mg tablet take 1 tablet by oral route 3 times every day with food 600 MG - Active fluconazole 150 mg tablet - Active Lidocaine Viscous 2 % mucosal solution - Active alprazolam 1 mg tablet - Act kerrie doxycycline hyclate 100 mg capsule - Active loperamide 2 mg capsule - Active metoclopramide 5 mg tablet - Active Novolog 100 unit/mL subcutaneous solution - Active Lyrica 75 mg capsule - Activ e Bentyl 20 mg tablet take 1 tablet by oral route 4 times every day - Active Lomotil 2.5 mg-0.025 mg tablet take 2 tablet by oral route 4 times every day as needed 5 MG - Active Imodium A-D 2 mg capsule take 2 capsule by oral route after 1st loose stool, followed by 1 capsule after each subsequent loose stool not to exceed 16 mg/day 4 MG - Active amoxicillin 875 mg-potassium clavulanate 125 mg tablet - No Longer Active oxycodone-acetaminophe n 5 mg-325 mg tablet - No Longer Active diphenoxylate-atropine 2.5 mg-0.025 mg tablet Mar-06 No Longer Active lamotrigine 150 mg tablet - No Longer Active cyclobenzaprine 10 mg tablet No Longer Active dicyclomine 20 mg tablet No Longer Active zolpidem 5 mg tablet 2017 No Longer Active topiramate 25 mg tablet No Longer Active azithromycin 250 mg tablet No Longer Active buspirone 15 mg tablet No Longer Active ciprofloxacin 500 mg tablet No Longer Active metronidazole 500 mg tablet No Longer Active ondansetron 8 mg disintegrating tablet No Longer Active promethazine 25 mg tablet No Longer Active lamotrigine 100 mg tablet No Longer Active buspirone 10 mg tablet No Longer Active Advance Directives Directive Yes / No Effective Date File Name No Information Encounters Encounter Description Practice Location Reason(s) For Visit Diagnoses Date Provider Providers Copied on Encounter [facility], [address] [facility] [address], [place], [address], [place] tel:[phone] [facility] Amisha Pain in left shoulderImpingeme nt syndrome, shoulder, leftPartial tear of left rotator cuffType 1 diabetes mellitus without complication [address], [place], [address]. tel:[phone] Family History Family Member Type Diagnosis Age At Onset Problem (finding) Family history of diabetes mellitus type 1 Problem (finding) Family history of cance r of colon Payers Payer name Insurance type Covered republican ID Authoriza tion(s) No Information Social History Type Description Quantity Date Captured Comments Sex Female Smoking Status No Information Chief Complaint And Reason For Visit No Information Reason For Referral Reason For Referral No Information History Of Present Illness Encounter Date Complaint History Of Prese nt Illness No Information Functional Status Date Functional Assessmen t No Information Instructions Date Instruction Additional Infor mation No Information Assessments Type Assessment Date No Information Patient Care Teams Name Effective Dates (start - stop) Status Members No Information
--- OUTSIDE RECORDS SUMMARY | 2025-02-10 10:54 | XMS_ITS | Clinical Summary ---
Author Organization [facility] [employer] Address [address] [facility] [place] [address] Care Team Providers Care Respiratory Director Name Role Phone Amisha Garay MD Unavailable Doni Sanon DO Unavailable Ronan Lee MD Unavailable Jennie Mujica PER DIEM NURSE-[facility] Unavailable [phone] Uzair Romero MD Unavailable [phone] Teresa Khalil MD Unavailable Laureen Cabrera RN Unavailable Mei Otero [facility] Unavailable [phone] Jeramy Napier DO Primary Care Provider [phone] Jeramy Napier DO Unavailable Source Comments [facility] [employer],non-owned Affiliates and Associated Physician Practices is amultiple site organization consisting of ambulatory clinics and hospital sitesin [place], [place], [place] and [place]. This disclosure is being madepursuant to the Care Everywhere program and may not contain all information available regarding this patient. Last updated 17.[facility] Allergies Active Allergy Reactions Criticality Noted [...] Each 3 03/13/19 20 Active blood glucose ([employer] ULTRA TEST STRIPS) test stripIndication s:Type 1 [...] neoplasm of colon,History of small bowel obstruction,Gas troparesis,Press Box Custodian daija diarrhea TAKE 2 CAPSULES BY MOUTH [...] DAY NEEDED 90 tablet 10/21/19 25 Active nitrofurantoin monohyd macro crystals (Macrobid) 100 MG capsule Take 1 (one) capsule by mouth 2 times daily 14 capsule 02/10/20 25 Active Active Problems Problem Noted Date [...] (11/28/2020): Added automatically from request for surgery [id number] Small bowel stricture 01/30/2019 Overview (11/28/2020): Added automatically from request for surgery [id number] Bulimia nervosa 09/19/2017 Gastroparesis 01/02/2017 Mood disorder [...] COLECTOMY Added automatically from request for surgery [id number] Diabetic peripheral neuropat hy associated with type [...] possible with history of gastroparesis Atherosclerosis of [place] ar teries of extremity with intermittent claudication [...] Pelvic pain in female 11/11/20132021 Overview (11/28/2020): PEST CONTROL SERVICE SALES AGENT (CASSANDRA) MANAGING -- ON GABAPENTIN PEST CONTROL SERVICE SALES AGENT (CASSANDRA) MANAGING -- ON GABAPENTIN Familial multiple polyposis syndrome 11/11/2013 04/05/2021 Overview (11/28/2020): GI (LUI) OV Added automatically from request for surgery [id number] Last Assessment & Plan: Pt follow for [...] Type Department Care Team Description 01/29/2025 Telephone [facility] - Family Medicine [address] [place] [address] Jeramy Napier DO Appointment 12/03/2024 Patient Outreach [facility] - Care Coordination [address] [place] [address] Aimee White Outreach Preventive Care from Last 3 Months Immunizations Immunization Administration Dates Next Due INFLUENZA VACCINE, TRIV. (AF LURIA, FLUZONE TRIVALENT; 6MO+) (IIV3) 01/31/2015,11/01/2014,10/11/2013,2012 Covid Pfizer primary monoval ent 12+ yr 0.3mL Purple [...] Recorded Patient Health Questionnaire-2 Score 0 07/21/2024 [facility] [place] of Occupat ional Health - Occupational Stress [...] place to sleep or slept in a custodial (including now)? No 10/03/2022 Education Answer Date Recorded What is the highest level of school you have completed or the highest degree you have received? High school graduate 08/06/2022 Comments No Sex and Gender Information Value Date Recorded Sex Assigned at Female 02/22/2020 1:27 AM PATIENT TRANSPORTER Legal Sex Female 4:51 AM PATIENT TRANSPORTER Gender Identity Female 02/22/2020 1:27 AM PATIENT TRANSPORTER Sexual Orientation Straight 02/22/2020 1: 27 AM PATIENT TRANSPORTER Occupation Industry Job Start Date Job End [...] 12/13/2022, 12/12/2022, Additional history exists COVID-19 VACCINE (3 - season) 2024 06/16/2021, 05/29/2021 INFLUENZA VACCINE (#1) [...] None at the time of this encounter [facility] Lifestyle: Have labs drawn Lifestyle Not on track( 014 1:46 PM CDT) No Dahiana Alfred HEMOGLOBIN A1C < 7.0 Result Component 7.6( 5:48 PM CDT) No Seth [employer] Implanted Type Area Institutional Commodity Analyst Device Identifier Shelf Expiration Date Model / Serial / Lot Mirena Implanted:Qty: 1 on 12/20/2022 by Bobbi Floyd MD at [facility] N/A: Uterus 11/18/2024 [id number] / [id number] / [id number] Procedures Procedure Name Priority Date/Time Associated Diagnosis Comments PATHOLOGY/CYTOLOGY REPORT ORDER 11/19/2024 ENDOSCOPY ORDER 11/18/2024 ENDOSCOPY ORDER 11/18/2024 COMPREHENSIVE METABOLIC PANEL Routine 04/22/2023 11:58 AM PATIENT TRANSPORTER Annual physical exam HEMOGLOBIN A1C STAT 12/12/2022 [...] (ABNORMAL) COMPREHENSIVE METABOLIC PANEL (04/22/2023 11:58 AM PATIENT TRANSPORTER) Glucose 175(H) 70 - 99 mg/dL [facility] [...] BLOOD SPECIMEN / Unknown 04/22/2023 11:58 AM PATIENT TRANSPORTER 04/22/2023 Narrative Resulting Agency Comment [facility] at: [facility] [address] [facility] [phone] us Jeramy Napier DO LAB - CHEMISTRY ORDERABLES Final Result [facility] INSURANCE BILL [address] [place] [address] * (ABNORMAL) HEMOGLOBIN A1C (12/12/2022 5:48 PM CDT) Pathologist [facility] Hemoglobin A1c 7.6(H) <5.7 % 12/13/2022 6:38 AM CDT [facility] Estimated Average Glucose 171 mg/dL 12/13/2022 6:38 AM CDT [facility] Blood BLOOD SPECIMEN / Unknown Venipuncture / Unknown 12/12/2022 5:48 PM CDT 12/12/2022 5:50 PM CDT Narrative [facility] - 12/13/2022 6:38 AM CDT [...] CHEMISTRY ORDERABLES Final Result Performing Organization Address City/[facility]/ZIP Co de Phone Number [facility] [address] [phone] * HIV-1 HIV-2 ANTIBODY + HIV P24 AG PANEL (08/06/2022 3:09 PM CDT) [facility] HIV Screen 4th Generation w Reflex Non Reactive Non Reactive [facility] INSURANCE BILL Comment: HIV Negative HIV-1/HIV-2 antibodies and HIV-1 p24 antigen were NOT detected. There is no laboratory evidence of HIV infection. Blood BLOOD SPECIMEN / Unknown 08/06/2022 3:09 PM CDT 08/06/2022 Narrative Resulting Agency Comment Lab Testing performed at: [facility] [address] [facility] [id number] Jamal Anderson MD LAB - CHEMISTRY ORDERABLES Fi nal Result Performing Organization Address City/[facility]/ZIP Co de Phone Number [facility] INSURANCE BILL [address] [place] [address] * DIABETES EYE EXAM (03/19/2019) us Scanned Document HEALTH MAINTENANCE Final Result * MICROALB/CREAT RATIO URINE RANDOM PANEL (10/16/2016 2:39 PM CDT) Creatinine Urine 210 mg/dL LAB [facility] INSURANCE BILL Microalbumin Urine 2.5 mg/dL [facility] INSURANCE BILL Microalbumin/Crea tinine Ratio 12 <30 mg/g [facility] INSURANCE BILL Urine URINE SPECIMEN OBTAINED BY CLEAN CATCH PROCEDURE / Unknown 10/16/2016 2:39 PM CDT 10/16/2016 Narrative Resulting Agency Comment [facility] [place] [address] [place] [phone] us Devendra Foster MD LAB - URINE CHEMISTRY ORDERA BLES Final Result Performing Organization Address [place]/[facility] Co de Phone Number [facility] INSURANCE BILL [address] [place] [address] * HPV DNA PROBE HIGH RISK (05/29/2016 3:53 PM CDT) Pathologist [facility] Human papillomavirus High Risk Negative Negative [facility] INSURANCE BILL Comment: This test was developed and its performance characteristics determined by [employer]. It has not been cleared or approved by the Food and Drug Administration. This high-risk HPV test detects thirteen high-risk types (16/18/31/33/35/39/45/51/52/56/58/59/68) without differentiation. . 05/29/2016 3:53 PM CDT 05/29/2016 Narrative [facility] INSURANCE BILL - 06/04/2016 9:07 PM CDT No. of containers..01 [facility] Collection Vial Resulting Agency Comment [address] [place] [phone] us Ronan Lee MD LAB - MICROBIOLOGY ORDERABLES Fi nal Result Performing Organization Address City/[facility]/ZIP Co de Phone Number [facility] INSURANCE BILL [address] [place] [address] * HEPATITIS C ANTIBODY (11/10/2009 1:28 PM CDT) Hepatitis C Antibody Screen Nonreactive Nonreactive [facility] BLOOD SPECIMEN / Unknown 11/10/2009 1:28 PM CDT 11/10/2009 1:29 PM CDT Narrative Resulting Agency Comment Performed By [facility] [address] [place] [address] Jolene Silver MD LAB - CHEMISTRY ORDERA BLEConi Final Result [facility] [address] [place] [address] from Last 3 Months or Most Recently [...] 4:16 AM 06/12/2017 4:36 PM Care Teams Respiratory Director Relationship Specialty Start Date End Date Jeramy Napier DO [address] [place] [phone] PCP - General Family Medicine 04/22/23 Jeramy Napier DO [address] [place] [address] PCP - Attributed-MSSP 08/18/24 Amisha Garay MD Orthopedic Surgery 04/29/12 Doni Sanon DO Orthopedic Surgery 08/25/12 Ronan Lee MD [address] [place] [address] Obstetrics and Gynecology 10/13/13 Jennie Mujica, PER DIEM NURSE-TIE BUCKER [address] [place] [address] Nurse Practitioner 10/13/13 Uzair Romero MD [address] [place] [address] Gastroenterology 10/13/13 Teresa Khalil MD [address] [place] [address] Colon and Rectal Surgery 10/13/13 Laureen Cabrera RN Lending Manager 08/09/16 Mei Otero, [facility] Inside Technical Sales Representative 11/27/16
--- OUTSIDE RECORDS SUMMARY | 2025-02-10 10:54 | XMS_ITS | Encounter Summary ---
Author Organization [facility] Address [address] [place] [address] Care Team Providers Care Aqua Ammonia Operator Name Role Phone Amisha Garay MD Unavailable Doni Sanon DO Unavailable Ronan Lee MD Unavailable Jennie Mujica [facility] Unavailable [phone] Uzair Romero MD Unavailable Teresa Khalil MD Unavailable [phone] Laureen Cabrera RN Unavailable Mei Otero [facility] Unavailable Jeramy Napier DO Primary Care Provider Jeramy Napier DO Unavailable Reason for Visit * Reason Onset Date Comments Appointment 01/29/2025 Encounter Details Date Type Department Care Team (Late st Contact Info) Description 01/29/2025 Telephone [facility] Medical [facility] - Family Medicine [address] [place] [address] Jeramy Napier DO [address] [place] [address] Appointment Social History Tobacco Use [...] Recorded Patient Health Questionnaire-2 Score 0 07/21/2024 [facility] [place] of Occupat ional Health - Occupational Stress [...] place to sleep or slept in a fpc (including now)? No 10/03/2022 Education Answer Date Recorded What is the highest level of school you have completed or the highest degree you have received? High school graduate 08/06/2022 Comments No Sex and Gender Information Value Date Recorded Sex Assigned at Female 02/22/2020 1:27 AM REGULATORY AND COMPLIANCE TECHNICIAN Legal Sex Female 4:51 AM REGULATORY AND COMPLIANCE TECHNICIAN Gender Identity Female 02/22/2020 1:27 AM REGULATORY AND COMPLIANCE TECHNICIAN Sexual Orientation Straight 02/22/2020 1: 27 AM REGULATORY AND COMPLIANCE TECHNICIAN Occupation Industry Job Start Date Job End [...] asking pt to schedule diabetic eye exam LATORY AND COMPLIANCE TECHNICIAN documented in this encounter Plan of Treatment [...] documented as of this encounter Care Teams Aqua Ammonia Operator Relationship Specialty Start Date End Date Jeramy Napier DO [address] [place] [id number] PCP - General Family Medicine 04/22/23 Jeramy Napier DO [address] [place] [address] PCP - Attributed-MSSP 08/18/24 Amisha Garay MD Orthopedic Surgery 04/29/12 Doni Sanon DO Orthopedic Surgery 08/25/12 Ronan Lee MD [address] [facility] [address] [place] [address] Obstetrics and Gynecology 10/13/13 Jennie Mujica, DELI DEPARTMENT MANAGER-SPACE CONTROLLER [address] [facility] [address] [place] [address] Nurse Practitioner 10/13/13 Uzair Romero MD [address] [facility] [address] [place] [address] Gastroenterology 10/13/13 Teresa Khalil MD [address] [place] [address] Colon and Rectal Surgery 10/13/13 Laureen Cabrera RN Consulting Nurse 08/09/16 Mei Otero, [facility] Sheet Metal Duct Worker Supervisor 11/27/16 documented as of this encounter
--- OUTSIDE RECORDS SUMMARY | 2025-02-10 10:55 | XMS_ITS | Patient Health Record ---
Author Organization [facility] Address [address] [place] [id number] Phone [phone] Care Team Providers Care Warehouse Driver Name Role Phone Leo Angel Primary Care Provider [phone] Allergies Allergen (clinical drug ingredient) Drug/Non Drug [...] by mouth QID, prn diarrhea *Reorder from [facility] for eRx and Interaction Alerts* 11/01/2010 Diarrhea (ICD_9 - 787.91) Active Lomotil 0.025 mg-2.5 mg tablet 1 tab orally QID; Duration: 3 day(s) *Pick strength-form from [facility] for eRX* Active Protopic 0.1% ointment 1 tia applied topically BID; Duration: 30 day(s) *Reorder from [facility] for eRx and Interaction Alerts* 06/24/2008 Active Ambien 10 mg tablet 1 tab(s) orally once a day (at bedtime); Duration: 30 day(s) 11/17/2009 Active Zithromax Z-Boom 250 tab qd po qd; Duration: 5 *Pick strength-form from [facility] for eRX* 11/08/2010 Active Bentyl 20 mg tablet 1 tab(s) orally 4 times a day; Duration: 30 day(s) *Pick strength-form from [facility] for eRX* Active Imodium A-D as directed q.d. *Pick strength-form from [facility] for eRX* Active Amigo Insulin Pump as [...] Risk Notes Problem Malignant tumor of colon (623589782) Colon cancer (153.9) Active confirmed Problem Type I diabetes mellitus uncontrolled (659431770) Type 1 DM uncontrolled (250.03) Active confirmed Plan Of Treatment Pending Test Test Name Order Date FREE T4 09/07/2010 Microalbumin, Random Urine 09/07/2010 TSH 09/07/2010 A1c (HgbA1c) 09/07/2010 Physical (CBC, CMP, Lipid panel, UA) Insurance Providers Payer Name Payer Address Payer Phone Subscriber Number Group Number Insured Name Patient Relationship to Insured Coverage Start Date Coverage End Date Medicare [address] [place] [address] [id number] Corina Costello Self - patient is the insured Medical (General) History Medical History History ICD Code Familial Polyposis Juv onsert DM Surgical History Surgery Date(Month/Year) Colostomy x 1 yr 1995 uteroral transplantations 1991
--- OUTSIDE RECORDS SUMMARY | 2025-02-10 10:55 | XMS_ITS | Clinical Summary ---
Author Organization [facility] Address [address] [place] [address] Care Team Providers Care Room Service Clerk Name Role Phone Unavailable Primary Care [...]
--- OUTSIDE RECORDS SUMMARY | 2025-02-10 10:55 | XMS_ITS | Clinical Summary ---
Author Organization [facility] Address [address] [facility] [place] [address] Phone Care Team Providers Care Mysql Database Developer Name Role Phone Jose Tomas DO Primary [...] Pelvic pain in female 11/11/2013 Overview (11/11/2013): MECHANICAL SPREADER OPERATOR (CASSANDRA) MANAGING -- ON GABAPENTIN GERD (gastroesophageal [...] on file Legal Sex Female 5:14 AM HOT IRON WORKER Gender Identity Not on file Sexual Orientation [...] PART A AND B MEDICARE Care Teams Mysql Database Developer Relationship Specialty Start Date End Date Jose Tomas DO PCP - General Family Practice 04/01/17
--- OUTSIDE RECORDS SUMMARY | 2025-02-10 10:55 | XMS_ITS | Clinical Summary ---
Author Organization [facility] Address [address] [place] [address] Phone Care Team Providers Care Transformation Architect Name Role Phone Jose Tomas DO Primary Care Provider [phone] Allergies Active Allergy Reactions Criticality Noted Date [...] 12/04/2016, Additional history exists Insurance MEDICARE [place] [id number] MEDICAID - [place] Care Teams Transformation Architect Relationship Specialty Start Date End Date Jose Tomas DO [address] [place] [address] PCP - General Family Medicine 05/25/19
--- OUTSIDE RECORDS SUMMARY | 2025-02-10 10:55 | XMS_ITS | Encounter Summary ---
Author Organization [facility] Address [address] [place] [address] Care Team Providers Care Manager Environmental Name Role Phone Unavailable Primary Care Provider Unavailabl e Prior Encounters Date Type Department Care Team Description 03/09/2019 Converted 13x Documents [place] [facility] [address] [place] [address] <No scans attached> Plan of Treatment Not on file Procedures Procedure Name Priority Date/Time Associated Diagnosis Comments CANCELLED APPOINTMENT Routine 02/26/2014 2:00 AM FIELD HEALTH OFFICER Visit Diagnoses Not on file
--- OUTSIDE RECORDS SUMMARY | 2025-02-10 10:55 | XMS_ITS | Patient Health Record ---
Author Organization [facility] As [employer] [facility] Address [address] [facility] [address] [place] [address] Care Team Providers Care Oil Field Caser Name Role Phone Gary [place], Skyler Primary Care Provider Unav angel NatanaelKierstenDanielle Unavailable [phone] Raymond Davenport Unavailable [phone] Allergies Allergen (clinical drug ingredient) Drug/Non Drug Allergy documented on EMR Reaction Allergy Type Onset Date Status Bee Sting Unknown Allergy Active erythromycin Erythromycin Unknown Drug Allergy A ctive vancomycin Vancomycin Unknown Drug Allergy Activ e Results Component Value Reference Range Notes UDT Reviewed date:08/31/2024 03:48:17 PM Interpretation: Performing [...] ng/ml x n 0 - 300 ng/ml UDT (12 Panel) Reviewed date:01/07/2025 01:33:04 PM Interpretation: Performing Lab: Notes/Report: Amphetamine (AMP) p Barbiturates (BAR) n Benzodiazepine (BZO) n Cocaine (KORI) n Ecstasy (MDMA) n Methamphetamine (MET) n Morphine (MOP) n Methadone (MTD) n Oxycodone (OXY) n Phencyclidine (PCP) n Tricyclic Antidepressants (TCA) n Marijuana (THC) n UDT (12 Panel) Reviewed date:02/06/2025 08:50:19 PM [...] a day; Duration: 30 days stop vyvanse 02/09/2025 Active Social History Tobacco Use: Social History Observation Description Date Details (start date - stop date) Never Smoker NA - NA Sex Assigned At : Social History Observation Description Sex Assigned At Female Social History Miscellaneous: Social Info Question Answer Notes Advance Care Planning Are you your own decision-maker Yes Do you have Power of [employer] or [facility]? No Social History Social Info Question Answer [...] Status Risk Notes Problem Bipolar 2 disorder (97235122) Bipolar 2 disorder (F31.81) Active confirmed hx diagnosis in teenage years; presents with irritabilit y, impulsive symptoms that generally do not last longer than a day. currently stable off medications , wants to continue off of medication. Problem Generalized anxiety disorder (00096030) ILANA (generalized anxiety disorder) (F41.1) Active confirmed Problem Attention deficit hyperactivity disorder (354674800) ADHD (attention deficit hyperactivity disorder), combined type (F90.2) Active confirmed Vital Signs Heart Rate 78 /min 02/05/2025 Height-cm 167.64 cm 02/05/2025 Blood pressure diastolic 78 mm Hg 02/05/2025 Weight-kg 67.13 kg 02/05/2025 Height 66 in 02/05/2025 Blood pressure systolic 112 mm Hg 02/05/2025 Weight 148 lbs 02/05/2025 BMI 23.89 kg/m2 02/05/2025 Encounters Encounter Location Date Provider Diagnosis [facility] [address] [facility] [address] [place] [address] 02/26/2024 Raymond Issac Lack of concentratio n R41.840 and ADHD (attention deficit hyperactivity disorder), combined type F90.2 [facility] [address] [facility] [address] [place] [address] 03/05/2024 Danielle Santoyo ADHD (attention defi cit hyperactivity disorder), combined type F90.2 ; ILANA (generalized anxiety disorder) F41.1 and Bipolar 2 disorder F31.[address] [facility] [address] [place] [address] 05/18/2024 Danielleivan Santoyo ILANA (generalized anxiety disorder) F41.1 ; Bipolar 2 disorder F31.81 ; Encounter for screening for cardiovascular disorders Z13.6 ; ADHD (attention deficit hyperactivity disorder), combined type F90.2 and Encounter for screening for depression Z13.[address] [facility] [address] [place] [address] 06/22/2024 Danielle Santoyo ILANA (generalized anxiety disorder) F41.1 ; Bipolar 2 disorder F31.81 ; ADHD (attention deficit hyperactivity disorder), combined type F90.2 ; Encounter for screening for cardiovascular disorders Z13.6 and Encounter for screening for depression Z13.[address] [facility] [address] [place] [address] 08/03/2024 Danielle Santoyo Bipolar 2 disorder F31.81 ; ILANA (generalized anxiety disorder) F41.1 ; ADHD (attention deficit hyperactivity disorder), combined type F90.2 ; Encounter for screening for depression Z13.31 and Encounter for screening for cardiovascular disorders Z13.[address] [facility] [address] [place] [address] 08/31/2024 Danielle Santoyo Encounter for screen ing for cardiovascular disorders Z13.6 ; Dietary counseling and surveillance Z71.3 ; Bipolar 2 disorder F31.81 ; ILANA (generalized anxiety disorder) F41.1 and ADHD (attention deficit hyperactivity disorder), combined type F90.2 [facility] [place] [address] [facility] [address] [facility] [address] [place] [address] 09/22/2024 Danielleivan Santoyo Bipolar 2 disorder F31.81 ; ILANA (generalized anxiety disorder) F41.1 and ADHD (attention deficit hyperactivity disorder), combined type F90.2 [facility] [place] [address] [facility] [address] [facility] [address] [place] [address] 11/02/2024 Danielle Santoyo Bipolar 2 disorder F31.81 ; ILANA (generalized anxiety disorder) F41.1 and ADHD (attention deficit hyperactivity disorder), combined type F90.2 [facility], [facility] [address] [place] [address] 12/03/2024 Danielleivan Santoyo Bipolar 2 disorder F31.81 ; ILANA (generalized anxiety disorder) F41.1 and ADHD (attention deficit hyperactivity disorder), combined type F90.2 [facility], [facility] [address] [place] [address] 01/05/2025 Danielleivan Santoyo Bipolar 2 disorder F31.81 ; ILANA (generalized anxiety disorder) F41.1 and ADHD (attention deficit hyperactivity disorder), combined type F90.2 [facility], [facility] [address] [place] [address] 02/05/2025 Raymond Issac Bipolar 2 disorder F31.81 ; ILANA (generalized anxiety disorder) F41.1 and ADHD (attention deficit hyperactivity disorder), combined type F90.2 [facility], [facility] [address] [place] [address] 03/02/2024 Danielle Santoyo [facility], [facility] [address] [place] [address] 03/26/2024 Danielle Santoyo [facility], [facility] [address] [place] [address] 04/21/2024 Danielle Santoyo [facility], [facility] [address] [place] [address] 04/29/2024 Danielle Santoyo [facility], [facility] [address] [place] [address] 12/07/2024 Danielle Santoyo ADHD (attention defi cit hyperactivity disorder), combined type F90.2 [facility], [facility] [address] [place] [address] 02/05/2025 Raymond Issac Bipolar 2 disorder F31.81 [facility], [facility] [address] [place] [address] 02/18/2024 Danielle Santoyo [facility], [facility] [address] [place] [address] 03/11/2024 Danielle Santoyo [facility], [facility] [address] [place] [address] 03/11/2024 Danielle Santoyo [facility], [facility] [address] [place] [address] 03/13/2024 Danielle Santoyo [facility], [facility] [address] [place] [address] 03/13/2024 Danielle Santoyo [facility], [facility] [address] [place] [address] 03/13/2024 Danielle Santoyo [facility], [facility] [address] [place] [address] 03/16/2024 Danielle Santoyo [facility], [facility] [address] [place] [address] 03/16/2024 Danielle Santoyo ADHD (attention defi cit hyperactivity disorder), combined type F90.2 [facility], [facility] [address] [place] [address] 03/16/2024 Danielle Santoyo [facility], [facility] [address] [place] [address] 03/17/2024 Danielle Santoyo [facility], [facility] [address] [place] [address] 03/17/2024 Danielle Santoyo [facility], [facility] [address] [place] [address] 03/23/2024 Danielle Santoyo [facility], [facility] [address] [place] [address] 03/23/2024 Danielle Santoyo [facility], [facility] [address] [place] [address] 03/23/2024 Danielle Santoyo [facility], [facility] [address] [place] [address] 03/23/2024 Danielle Santoyo [facility], [facility] [address] [place] [address] 03/28/2024 Danielle Santoyo [facility], [facility] [address] [place] [address] 04/22/2024 Danielle Santoyo [facility], [facility] [address] [place] [address] 05/18/2024 Danielle Santoyo [facility], [facility] [address] [place] [address] 05/25/2024 Danielle Santoyo [facility], [facility] [address] [place] [address] 05/26/2024 Danielle Santoyo [facility], [facility] [address] [place] [address] 05/27/2024 Danielle Santoyo [facility], [facility] [address] [place] [address] 05/28/2024 Danielle Santoyo [facility], [facility] [address] [place] [address] 06/14/2024 Danielle Santoyo [facility], [facility] [address] [place] [address] 06/14/2024 Danielle Santoyo [facility], [facility] [address] [place] [address] 06/14/2024 Danielle Santoyo [facility], [facility] [address] [place] [address] 06/15/2024 Danielle Santoyo [facility], [facility] [address] [place] [address] 06/16/2024 Danielle Santoyo [facility], [facility] [address] [place] [address] 06/22/2024 Danielle Santoyo [facility], [facility] [address] [place] [address] 06/22/2024 Danielle Santoyo [facility], [facility] [address] [place] [address] 06/28/2024 Danielle Santoyo [facility], [facility] [address] [place] [address] 06/29/2024 Danielle Santoyo [facility], [facility] [address] [place] [address] 06/29/2024 Danielle Santoyo [facility], [facility] [address] [place] [address] 06/29/2024 Danielle Santoyo [facility], [facility] [address] [place] [address] 06/29/2024 Danielle Santoyo [facility], [facility] [address] [place] [address] 06/29/2024 Danielle Santoyo [facility], [facility] [address] [place] [address] 06/29/2024 Danielle Santoyo [facility], [facility] [address] [place] [address] 06/29/2024 Danielle Santoyo [facility], [facility] [address] [place] [address] 08/29/2024 Danielle Santoyo [facility], [facility] [address] [place] [address] 09/07/2024 Danielle Santoyo [facility], [facility] [address] [place] [address] 09/07/2024 Danielle Santoyo [facility], [facility] [address] [place] [address] 11/27/2024 Danielle Santoyo [facility], [facility] [address] [place] [address] 11/27/2024 Danielle Santoyo [facility], [facility] [address] [place] [address] 12/03/2024 Danielle Santoyo ADHD (attention defi cit hyperactivity disorder), combined type F90.2 [facility], [facility] [address] [place] [address] 12/03/2024 Danielle Santoyo [facility], [facility] [address] [place] [address] 12/03/2024 Danielle Santoyo [facility], [facility] [address] [place] [address] 12/03/2024 Danielle Santoyo [facility], [facility] [address] [place] [address] 12/04/2024 Danielle Santoyo [facility], [facility] [address] [place] [address] 12/04/2024 Danielle Santoyo [facility], [facility] [address] [place] [address] 12/04/2024 Danielle Santoyo [facility], [facility] [address] [place] [address] 12/06/2024 Danielle Santoyo [facility], [facility] [address] [place] [address] 12/07/2024 Danielle Santoyo [facility], [facility] [address] [place] [address] 12/07/2024 Danielle Santoyo [facility], [facility] [address] [place] [address] 12/09/2024 Danielle Santoyo [facility], [facility] [address] [place] [address] 12/17/2024 Danielle Santoyo [facility], [facility] [address] [place] [address] 12/17/2024 Danielle Santoyo [facility], [facility] [address] [place] [address] 01/05/2025 Danielle Santoyo [facility], [facility] [address] [place] [address] 01/05/2025 Danielle Santoyo [facility], [facility] [address] [place] [address] 01/10/2025 Danielle Santoyo [facility], [facility] [address] [place] [address] 01/11/2025 Danielle Santoyo [facility], [facility] [address] [place] [address] 01/22/2025 Danielle Santoyo [facility], [facility] [address] [place] [address] 02/05/2025 Danielle Santoyo [facility], [facility] [address] [place] [address] 02/05/2025 Danielle Santoyo [facility], [facility] [address] [place] [address] 02/05/2025 Danielle Santoyo [facility], [facility] [address] [place] [address] 02/08/2025 Danielle Santoyo Assessments Encounter Date Diagnosis (ICD Code) [...] wants to continue off of medication. 02/05/2025 Bipolar 2 disorder (ICD-10 - F31.81) [...] Continue citalopram 10 mg twice a day. 11/02/2024 Bipolar 2 disorder (ICD-10 - F31.81) [...] and young adults, and serotonin syndrome. 12/03/2024 ILANA (generalized anxiety disorder) (ICD-10 - F41.1) 12/07/2024 ADHD (attention deficit hyperactivity disorder), combined type (ICD-10 - F90.2) Electronic Prior Authorization was requested for Lisdexamfetamine Dimesylate 20 MG Capsule. Provider can order medication once approval received. 12/03/2024 ADHD (attention deficit hyperactivity disorder), combined type (ICD-10 - F90.2) Electronic Prior Authorization was requested for Lisdexamfetamine Dimesylate 20 MG Capsule. Provider can order medication once approval received. 01/05/2025 ILANA (generalized anxiety disorder) (ICD-10 - F41.1) 11/02/2024 ILANA (generalized anxiety disorder) (ICD-10 - F41.1) 02/05/2025 ADHD (attention deficit hyperactivity disorder), combined [...] as needed. - Ordered urine drug screen. 09/22/2024 ILANA (generalized anxiety disorder) (ICD-10 - [...] hyperactivity disorder), combined type (ICD-10 - F90.2) 01/05/2025 ADHD (attention deficit hyperactivity disorder), combined [...] policy, only prescribed to local pharmacy in [place], no early refills on control substance. 12/03/2024 ADHD (attention deficit hyperactivity disorder), combined [...] policy, only prescribed to local pharmacy in [place], no early refills on control substance. 08/31/2024 [...] therapeutic effects of psychotropic medications. -Crisis prevention [facility] 988. 1. ADHD ADHD evaluation supportive of [...] therapeutic effects of psychotropic medications. -Crisis prevention [facility] 988. 06/22/2024 Other Stable on current [...] therapeutic effects of psychotropic medications. -[facility] 988. 08/03/2024 Other Start buspar 5mg TID [...] therapeutic effects of psychotropic medications. -Crisis prevention [place] [address]. 08/31/2024 Other Discontinue buspar Start escitalopram 5mg [...] therapeutic effects of psychotropic medications. -Crisis prevention [facility] 98. 09/22/2024 Other Increase escitalopram to 10mg daily [...] therapeutic effects of psychotropic medications. -Crisis prevention [place] [address]. 11/02/2024 Other Stable on current medication regimen, [...] full therapeutic effects of psychotropic medications. -Crisis [place] [address]. 12/03/2024 Other Discontinue Qelbree Start Vyvanse 20mg [...] full therapeutic effects of psychotropic medications. -Crisis [place] [address]. 01/05/2025 Other Increase Vyvanse to 30mg daily [...] Provider Name:Raymond Davenport , 03/11/2025 10:45:00 AM, [address], [facility] [address], [place], [address], Insurance Providers Payer Name Payer Address Payer Phone Subscriber Number Group Number Insured Name Patient Relationship to Insured Coverage Start Date Coverage End Date Medicare-I l Medicare [address] [place] [address] [id number] Corina Costello Self - patient is the insured Medicaid-I l Medicaid [address] [address] [place] [address] [id number] Corina Costello Self - patient is the [...]
--- OUTSIDE RECORDS SUMMARY | 2025-02-10 10:55 | XMS_ITS | Encounter Summary ---
Author Organization [facility] Healthcare Address [address] [facility] [place] [address] Care Team Providers Care Is/It Project Manager Name Role Phone Jose Tomas Primary Care Provider [phone] Omi Kennedy MD Unavailable Angelia Melgoza MD Unavailable [phone] Robert Lobo MD Unavailable [phone] Marciano Danielson MD Unavailable Leidy House RRT Unavailable [phone] Aria Madrid MD Unavailable Jamal Anderson MD Primary Care Pro vider Jeramy Napier DO Primary Care Provider [phone] Skyler Vega MD Primary Care Provider + Keshia Barriga MD Primary Care Provider Encounter Details Date Type Department Care Team (Late st Contact Info) Description 01/01/2020 Telephone [facility] [place] [address] [facility] [address] [place] [address] Juan R Connell Social History [...] week 12/15/2019 How often do you attend [facility] or religion services? Never 12/15/2019 Active Member of [employer] [...] on file Legal Sex Female 11:58 PM [employer] Gender Identity Not on file Sexual Orientation [...] the result is from a facility outside [facility] . 07/22/2020 07/22/2020 08/05/2020 3:05 AM [...] documented as of this encounter Care Teams Is/It Project Manager Relationship Specialty Start Date End Date Jose Tomas DO [address] [place] [address] PCP - General 07/21/17 08/05/22 Jamal Anderson MD [address] [place] [address] PCP - General Family Medicine 08/06/22 12/30/23 Jeramy Napier DO [address] [place] [address] PCP - General Family Medicine 12/31/23 11/13/24 Skyler Vega MD [address] [place] [address] PCP - General 11/14/24 12/31/24 [place] [address] [place] [address] [address] [address] PCP - General Internal Medicine 01/01/25 Omi Kennedy MD [address] [place] [address] Surgeon Colon and Rectal Surgery 09/08/18 Angelia Melgoza MD [address] [place] [address] Surgeon Colon and Rectal Surgery 09/08/18 [place] [address] [address] Psychiatrist Psychiatry 09/08/18 Marciano [place] [id number] [place] [address] [facility] 09/08/18 [place] [address] [address] [facility] Outpatient Hand Braille TranscriberFuel Efficient [employer]er Therapy 12/16/19 01/17/20 Aria Madrid MD [address] [facility] [place] [address] Consulting Physician Obstetrics and Gynecology 08/06/22 documented as of this encounter
--- OUTSIDE RECORDS SUMMARY | 2025-02-10 10:55 | XMS_ITS | Encounter Summary ---
Author Organization [facility] Address [address] [place] [address] Care Team Providers Care Backup Sawyer Name Role Phone Amisha Garay MD Unavailable [phone] Doni Sanon DO Unavailable Ronan Lee MD Unavailable Jennie Mujica YARN WEIGHT AND STRENGTH TESTER-FRAUD ANALYST Unavailable [phone] Uzair Romero MD Unavailable Teresa Khalil MD Unavailable [phone] Jose Tomas DO Primary Care Provider Rosa Escobedo RN Unavailable [phone] Ginette Kang RN Unavailable Laureen Cabrera RN Unavailable Mei OteroW Unavailable Jose Tomas DO Unavailable Unavailable Sandra Ferrara RN Unavailable [phone] Maria Alejandra Zaman RN Unavailable Maria Alejandra Zaman RN Unavailable Jamal Anderson MD Primary Care Provider [phone] Alysa Sanchez RN Unavailable [phone] Jeramy Napier DO Primary Care Provider Aimee White Unavailable Jeramy Napier DO Unavailable Stacey Day YARN WEIGHT AND STRENGTH TESTER-FRAUD ANALYST Unavailable [phone] Aimee White Unavailable Aimee White Unavailable Yunier House Shira DO Unavailable Jose Tomas DO Unavailable Unavailable Aimee White Unavailable Jeramy Napier DO Unavailable Encounter Details Date Type Department Care Team (Late st Contact Info) Description 04/07/2014 [facility] Angelia Melgoza MD [address] [phone] Social History Tobacco Use Types Packs/Day Years Used Date Smoking Tobacco: Never Smokeless Tobacco: Never Alcohol Use Standard Drinks/Week Comments No 0 (1 standard drink = 0.6 oz pur e alcohol) Comments No Sex and Gender Information Value Date Recorded Sex Assigned at Female 02/22/2020 1:27 AM NEWSPAPER PHOTOJOURNALIST Legal Sex Female 4:51 AM NEWSPAPER PHOTOJOURNALIST Gender Identity Female 02/22/2020 1:27 AM NEWSPAPER PHOTOJOURNALIST Sexual Orientation Straight 02/22/2020 1: 27 AM NEWSPAPER PHOTOJOURNALIST Occupation Industry Job Start Date Job End [...] documented as of this encounter Care Teams Backup Sawyer Relationship Specialty Start Date End Date Jose Tomas DO [address] [place] [address] PCP - General Family Medicine 11/26/13 08/05/22 Jose Tomas DO PCP - Attributed-MSSP 12/04/16 05/19/23 [place] [address] [place] [address] PCP - General Family Medicine 08/06/22 04/21/23 Jeramy Napier DO [address] [place] [address] PCP - General Family Medicine 04/22/23 Jeramy Napier DO [address] [place] [address] PCP - Attributed-MSSP 05/20/23 10/19/23 Stacey Day, YARN WEIGHT AND STRENGTH TESTER-FRAUD ANALYST [address] [facility] [address] [place] [address] PCP - Attributed-MSSP 10/20/23 08/17/24 [place] [address] [place] [address] PCP - Attributed-MSSP 10/16/16 7 Jose Tomas DO PCP - Attributed-MSSP 07/25/16 10/10/16 Jeramy Napier DO [address] [place] [phone] PCP - Attributed-MSSP 08/18/24 Amisha Garay MD Orthopedic Surgery 04/29/12 Doni Sanon, DO Orthopedic Surgery 08/25/12 Ronan Lee MD [address] [place] [address] Obstetrics and Gynecology 10/13/13 Jennie Mujica, YARN WEIGHT AND STRENGTH TESTER-FRAUD ANALYST [address] [place] [address] Nurse Practitioner 10/13/13 Uzair Romero MD [address] [place] [address] Gastroenterology 10/13/13 Teresa Khalil MD [address] [place] [address] Colon and Rectal Surgery 10/13/13 Rosa Meade, RN Neon Tube Bender 12/14/13 08/08/16 Ginette Kang, ROSALIE Manager RelocationCertified Vehicle Fire Investigator 01/02/17 01/07/17 Laureen Cabrera RN Neon Tube Bender 08/09/16 Mei Otero, [facility] Stone Polisher Machine 11/27/16 Sandra Ferrara RN Neon Tube Bender 07/22/17 07/22/17 Maria Alejandra Zaman, RN Manager RelocationCertified Vehicle Fire Investigator 01/04/21 03/29/21 Maria Alejandra Zaman RN Manager RelocationCertified Vehicle Fire Investigator 05/17/22 11/26/22 Alysa Sanchez RN Manager RelocationCertified Vehicle Fire Investigator 11/26/22 05/29/23 Aimee White Care Coordination Specialist Care Management 05/02/23 05/02/23 Aimee White Care Coordination Specialist Care Management 01/23/24 01/23/24 Aimee White Care Coordination Specialist Care Management 03/03/24 03/03/24 Aimee White Care Coordination Specialist Care Management 12/03/24 01/17/25 documented as of this encounter
--- OUTSIDE RECORDS SUMMARY | 2025-02-10 10:55 | XMS_ITS | Clinical Summary ---
Author Organization [facility] Address [address] [place] [address] Phone Care Team Providers Care Dining Service Worker Name Role Phone Jose Tomas DO Primary Care Provider [phone] Allergies Active Allergy Reactions Criticality Noted Date [...] topic Insurance [place] [id number] Care Teams Dining Service Worker Relationship Specialty Start Date End Date Jose Tomas DO [address] [place] [address] PCP - General Family Medicine 12/14/19
--- OUTSIDE RECORDS SUMMARY | 2025-02-10 10:55 | XMS_ITS | Clinical Summary ---
Author Organization [facility] Address [address] [facility] [place] [address] Care Team Providers Care Reimbursement Representative Name Role Phone Jose Tomas Primary Care Provider [phone] Medications No known medications Active Problems No known active problems Social History Tobacco Use Types Packs/Day Years Used Date Smoking Tobacco: Never Assessed PHQ-2 Answer Date Recorded PHQ-2 Total Score 2 07/27/2024 Comments Unknown Sex and Gender Information Value Date Recorded Sex Assigned at Not on file Legal Sex Female 12:18 PM EST Gender Identity Not on file Sexual Orientation Not on file Plan of Treatment Health Maintenance Due Date Last Done Comments Depression: Screening Annually using PHQ-2/9 in Adults 18 yrs or above (or HM Modifier)([facility]) 2000 SDOH Screening Reminder: Annually for all adults ([facility]) 2000 Tobacco Smoking Cessation: i n Adults excluding Women: Behavioral and Pharmacotherapy Interventions ([facility]) 2000 Cervical Cancer Screenin-65 yrs of age (or Modifier) 11/07/2003 Cervical Cancer Screening: Pap every 3 yrs pts age 21-65 11/07/2003 Cervical Cancer: Pap Screening with Modifier timing ([facility]) 11/07/2003 Cervical Cancer: hrHPV alone or with cotesting Pap for Pts 30-65yrs screening every 5yrs ([facility]) 11/07/2003 DTaP/Tdap/Td Vaccines ([facility]) (4 - Td or Tdap) 10/14/2023 10/13/2013, 09/18/2013, 06/20/2007, Additional history exists Flu Vaccination: Yearly for ages 18mos through 64 years (or Modifier)([facility]) 09/18/2024 11/20/2022, 01/29/2022, 12/14/2019, Additional history exists COVID-19 Vaccine Screening: Initial Series and Booster Status ([facility]) ( season) 2024 06/16/2021, 05/29/2021 Zoster/Shingles Vaccine Series Screening: Adults aged 18+ yrs (or HM Modifiers)([facility]) (2 of 2) 2032 06/14/2024 Hepatitis C Virus Infection in Adolescents and Adults: Screening (or Modifier) ([facility]) Completed 11/10/2009 Pneumococcal Vaccination Screening: Pts 0-19 & 19-49 yrs of age ([facility]) Aged Out 10/13/2013, 09/18/2013 No longer eligibl e based on patient's age to complete this topic Medical Devices Not on file Insurance MEDICARE Care Teams Reimbursement Representative Relationship Specialty Start Date End Date Jose Tomas DO [address] [place] [address] PCP - General Family Medicine 07/28/24
--- OUTSIDE RECORDS SUMMARY | 2025-02-10 10:55 | XMS_ITS | Encounter Summary ---
Author Organization [facility] Address [address] [place] [address] Phone Care Team Providers Care Legal Operations Manager Name Role Phone Omi Kennedy MD Unavailable [phone] Angelia Melgoza MD Unavailable OnRobert alvarez MD Unavailable Marciano Danielson MD Unavailable [phone] Aria Madrid MD Unavailable [phone] Keshia Barriga MD Primary Care Provider Reason for Referral * MRI/CAT/PET Scan (Routine) - Authorized Specialty Diagnoses / Procedures Referred By Contac t Referred To Contact Radiology Diagnoses Encounter for breast cancer screening using non-mammogram modality Procedures MRI Breast Bilateral W WO Contrast Keshia Barriga MD [address] [facility] [address] [place] [address] Phone: tel: fax: [address] [address] Referral ID Status Reason Start Date Expiration Date V isits Requested Visits Authorized [id number] Authorized 02/03/2025 03/05/2026 1 1 CAL RECORDS SPECIALIST Encounter Details Date Type Department Care Team (Late st Contact Info) Description 02/03/2025 Results Follow-Up [facility] Medicine Complete [facility] [address] [facility] [address] [place] [address] [place] [address] Keshia Barriga MD [address] [facility] [address] [place] [address] SCREENING MAMMOGRAM BILATERAL W ERINN [...] often do you attend chur ch or yazidism services? Never 09/11/2024 Do you belong to any clubs o r organizations such as congregational groups, unions, fraternal or athletic groups, or [...] any time in the past 12 m [facility], were you homeless or living in a care home (including now)? No 09/11/2024 Social Connection [...] often do you attend chur ch or yazidism services? Never 10/07/2024 Do you belong to any clubs o r organizations such as congregational groups, unions, fraternal or athletic groups, or [...] any time in the past 12 m [facility], were you homeless or living in a care home (including now)? No 10/07/2024 [facility] Utilities Answer Date Recorded In the [...] on file Legal Sex Female 11:58 PM MEDICAL RECORDS SPECIALIST Gender Identity Not on file Sexual Orientation [...] Primary documented in this encounter Care Teams Legal Operations Manager Relationship Specialty Start Date End Date Keshia Barriga MD [address] [facility] [address] [place] [address] PCP - General Internal Medicine 01/01/25 Omi Kennedy MD Surgeon Colon and Rectal Surgery 09/08/18 Angelia Melgoza MD Surgeon Colon and Rectal Surgery 09/08/18 [place] [address] [facility] [address] [place] [address] Psychiatrist Psychiatry 09/08/18 [place] [address] [facility] [address] [place] [address] Sound Technician Supervisor Gastroenterology 09/08/18 Aria Madrid MD [address] [place] [address] Consulting Physician Obstetrics and Gynecology 08/06/22 documented as of this encounter
--- OUTSIDE RECORDS SUMMARY | 2025-02-10 10:55 | XMS_ITS | Clinical Summary ---
Author Organization [facility] Address [address] [place] [address] Care Team Providers Care Cardiac Cath Lab Radiology Technologist Name Role Phone Omi Kennedy MD Unavailable [phone] Angelia Melgoza MD Unavailable OnumaRobert MD Unavailable Marciano Danielson MD Unavailable [phone] Aria Madrid MD Unavailable [phone] Keshia Barriga MD Primary Care Provider Allergies [...] device as directed 05/09/19 Active Dexcom G6 Regulation Supervisor miscIndications:T ype 1 diabetes mellitus with hyperglycemia [...] 01/08/2024 Assessment & Plan (01/08/2024 8:33 AM EXAM PROCTOR): Well healed Dc moxi, finish valtrex correction Refresh alethea or similar at bedtime (QHS) both eyes (OU) Fu prn 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 01/08/2024 Assessment & Plan (01/08/2024 8:32 AM EXAM PROCTOR): Fu for On oct 1 year Recurrent erosion of left cornea 10/30/2023 Assessment & Plan (01/02/2024 1:21 PM EXAM PROCTOR): Healing well- no infiltrate CPMEDS FU Wed am remove BCL Assessment & Plan (12/31/2023 11:50 AM EXAM PROCTOR): Pt has ho cold sores, + ac [...] Bipolar 2 disorder 03/22/2023 Mixed hyperlipidemia 03/11/2023 correction current use of insulin 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/18/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 Vomiting 10/24/2021 [...] (08/10/2019): Added automatically from request for surgery [id number] Small bowel stricture 01/30/2019 Overview (01/30/2019): Added automatically from request for surgery [id number] Generalized abdominal pain 11/11/2018 Dehydration, mild 11/11/2018 [...] gastroparesis Chronic abdominal pain 10/22/2018 Atherosclerosis of [place] ar teries of extremity with intermittent claudication 10/21/2018 History of colon cancer 08/25/2018 Overview (08/25/2018): Added automatically from request for surgery [id number] Leukocytosis 06/13/2018 Assessment & Plan (09/11/2024 10:58 [...] (01/27/2018): Added automatically from request for surgery [id number] Assessment & Plan (11/01/2021 9:57 AM CDT): [...] zofran with benadryl Continue bentyl Q6 hrs Community Artist consult to reinforce low volume frequent meals [...] Pelvic pain in female 11/11/2013 Overview (07/10/2018): EXCELLENCE MANAGER (CASSANDRA) MANAGING -- ON GABAPENTIN Gastro-esophageal reflux [...] OV Added automatically from request for surgery [id number] Last Assessment & Plan: Pt follow for [...] Pelvic pain in female 11/11/2013 Overview (01/19/2021): EXCELLENCE MANAGER (CASSANDRA) MANAGING -- ON GABAPENTIN EXCELLENCE MANAGER (CASSANDRA) MANAGING -- ON GABAPENTIN EXCELLENCE MANAGER (CASSANDRA) MANAGING -- ON GABAPENTIN Personal history of colon cancer 11/11/2013 Overview (01/19/2021): COLORECTAL SURG(SUSAN) MANAGING 1996 S/P TOTAL COLECTOMY Colon cancer 11/09/2013 Overview (10/21/2018): Colon cancer Type 1 diabetes mellitus with hyperglycemia 10/20 Assessment & Plan (01/08/2024 8:31 AM EXAM PROCTOR): FU for DFE and mac oct 1 [...] Advised to call the after hours endo clinical transformation specialist if she has issues over the [...] (08/12/2018): Added automatically from request for surgery [id number] Abdominal pain, epigastric 06/11/2017 0 10/22/2018 SBO [...] Department Care Team Description 5 Results Follow-Up [facility] [address] [place] [address] 12th [place] [address] Keshia Barriga MD SCREENING MAMMOGRAM BILATERAL W ERINN 5 6:09 PM EXAM PROCTOR - 5 11:59 PM EXAM PROCTOR Hospital Encounter [facility] Outpatient [address] [address] Discharge Disposition: Discharge to home or self care 5 Telephone [facility] Medical Office Building [address] [place] [address] Cheyanne Mackenzie LPN Outstanding labs 5 Orders Only [facility] Medical Office Building 4, [address] [place] [address] Vincenzo Tai MD 5 [facility] Medical Office Building 4, [address] [place] [address] Vincenzo Tai MD 5 11:20 AM EXAM PROCTOR Office Visit [facility] [address] [facility] [facility] 12th [place] [address] [place] [address] Keshia Barriga MD Encounter for immunization (Primary Dx); Encounter for screening mammogram for malignant neoplasm of breast 5 Telephone [facility] Metabolism and Lipid [address] 13th [place] [address] [place] [address] Ashleigh Sainz 5 Orders Only [facility] [address] [place] [address] Medical Office Building [address] [place] [address] Cheyanne Mackenzie LPN 5 Telephone [facility] [address] [place] [id number] Vicki Alcala RN 5 Telephone [facility] [address] [place] [address] [address] [place] [address] [place] [address] Laureen Canales Prior Auth 5 Results Follow-Up [facility] [address] [place] [address] Medical Office Building 4, [address] [place] [address] Vincenzo Tai MD Surgical pathology 5 2:30 PM CDT Office Visit [facility] [facility] 12th [place] [address] [place] [address] Kathy Curry MD Chronic diarrhea (Primary Dx); Partial small bowel obstruction (HCC); Bloating; Abnormal finding on GI tract imaging; Hypocalcemia; Other vitamin B12 deficiency anemia; FAP (familial adenomatous polyposis); Chronic abdominal pain; Nausea and vomiting, unspecified vomiting type 5 8:30 AM CDT - 5 9:30 AM CDT Surgery [facility] [address] [place] [address] [place] [address] Vincenzo Tai MD ESOPHAGOGASTRODUODENOSCOPY BIOPSY 5 8:29 AM CDT Anesthesia Event [facility] [place] [address] [facility] [address] [place] [address] Crow Do MD Bradley Abbie Lee, PROPULSION MOTOR AND GENERATOR REPAIRER 5 7:42 AM CDT - 5 11:05 AM CDT Hospital Encounter [facility] [place] [address] [facility] [address] [place] [address] Vincenzo Tai MD FAP (familial adenomatous polyposis) Discharge Disposition: Discharge to home or self care 5 Results Follow-Up [facility] [address] [place] [address] Medical Office Building [address], [address] [place] [address] Abdomen and Pelvis Enterography W Contrast 5 Orders Only [facility] [address] [place] [address] Medical Office Building [address], [address] [place] [address] Vincenzo Tai MD FAP (familial adenomatous polyposis) (Primary Dx); Chronic abdominal pain; Diarrhea, unspecified type; Bloating 5 7:22 AM CDT - 5 11:59 PM CDT Hospital Encounter [facility] [address] [place] [address] FAP (familial adenomatous polyposis) Discharge Disposition: Discharge to home or self care 5 Telephone [facility] Specialty Services [address] [place] [address] Yanna Bravo, ROSALIE GI Preprocedure from Last [...] often do you attend chur ch or mosque services? Never 09/11/2024 Do you belong to any clubs o r organizations such as buddhist groups, unions, fraternal or athletic groups, or [...] any time in the past 12 [facility], were you homeless or living in a chcf (including now)? No 09/11/2024 Social Connection and Isolation Panel Answer Date Recorded In a typical week, how many times do you talk on the phone with family, friends, or neighbors? More than three times a week 10/07/2024 How often do you get togethe r with friends or relatives? More than three times a week 10/07/2024 How often do you attend chur ch or mosque services? Never 10/07/2024 Do you belong to any clubs o r organizations such as buddhist groups, unions, fraternal or athletic groups, or [...] any time in the past 12 m [facility], were you homeless or living in a chcf (including now)? No 10/07/2024 [facility] Utilities Answer Date Recorded In the [...] on file Legal Sex Female 11:58 PM EXAM PROCTOR Gender Identity Not on file Sexual Orientation Not on file Obstetrics History Para Term AB IAB SAB Ectopic Multiple Livin g Live Births 0 0 0 0 0 0 0 0 0 0 0 Last Filed Vital Signs Vital Sign Reading Time Taken Comments Blood Pressure 113/81 12/31/2024 11:22 AM EXAM PROCTOR Pulse 99 12/31/2024 11:22 AM EXAM PROCTOR Temperature 36.8 C (98.3 F) 12/31/2024 11:22 AM EXAM PROCTOR Respiratory Rate 12 11/18/2024 10:3 1 AM CDT Oxygen Saturation 99% 12/31/2024 11: 22 AM EXAM PROCTOR Inhaled Oxygen Concentration - - Weight 66.2 kg (145 lb 15.1 oz) 02/02/2025 6:11 PM EXAM PROCTOR Height 167.6 cm (5' 5.98) 02/02/2025 6:11 PM CS T Body Mass Index 23.57 02/02/2025 6:11 PM EXAM PROCTOR Plan of Treatment Health Maintenance Due Date [...] Read Routine (OP Routine) 02/02/2025 6:28 PM EXAM PROCTOR Encounter for screening mammogram for malignant neoplasm of breast POCT HEMOGLOBIN A1C Routine 12/03/2024 3:53 PM CDT Type 1 diabetes mellitus without complications POCT GLUCOSE [id number] Routine 12/03/2024 3:53 PM CDT Type 1 [...] CDT LIPID PANEL Routine 02/27/2024 3:24 PM EXAM PROCTOR Type 1 diabetes mellitus with hyperglycemia (HCC) ALBUMIN CREATININE RATIO, URINE Routine 02/27/2024 3:24 PM EXAM PROCTOR Type 1 diabetes mellitus with hyperglycemia (HCC) from Last 3 Months or Most Recently Relevant to Health Maintenance Results * SCREENING MAMMOGRAM BILATERAL W ERINN (02/02/2025 6:28 PM EXAM PROCTOR) Anatomical Region Laterality Modality Breast Bilateral Mammography Impressions 02/03/2025 7:39 AM EXAM PROCTOR Bilateral No evidence of malignancy in either breast. OVERALL BI-RADS FINAL ASSESSMENT: 1 - Negative RECOMMENDATION: Recommend bilateral annual screening mammography. Consider supplemental screening with breast MRI every 1-2 years given extremely dense breast tissue. If breast MRI cannot be performed, consider contrast-enhanced mammography as an alternative. Narrative 02/03/2025 7:39 AM EXAM PROCTOR EXAMINATION: SCREENING MAMMOGRAM BILATERAL W ERINN: 02/02/2025 [...] Female Attending MD: Vincenzo Tai M.D., Room: [facility] ENDOSCOPY ROOM 9 Note Status: Finalized Procedure: [...] and oxygen saturations were monitored continuously. The [id number] endoscope was introduced through theileoanal anastomosis via [...] clinic with Dr. Curry this afternoon in [facility] 2:30pm to discuss options for management of chronic overflow diarrhea/dysmotility in the setting DM and constipation issues. - Please continue Sulindac 150mg orally, twicedaily. - Resume home medications and diet. - Return to primary care physician as previously scheduled. - In the unusual situation that you developabdominal pain, bleeding or other significant problems in the days following this procedure please call my officeat [phone] ([phone]) to speak to my nurses. After hours and evenings please call [phone] speak to the GI fellow clinical transformation specialist. Please tell themthat Dr. Tai did your procedure and that your were instructed to have the fellow call me or thephysician covering for me to discuss the management of your condition. If you have an urgent problem, please goto the nearest emergency room and have the ER doctorcall my office during the day or [facility] transfer ([phone]) center after hours and weekends to arrange admission or transfer to our facility. - Call my nurse Dahiana Monroy RN in the GI office at [phone] for your final pathology results in 7 [...] gastric) 11/18/2024 9:21 AM CDT Narrative PATHOLOGY [facility] - 11/19/2024 10:47 AM CDT EPIC results best viewed via link to PDF [facility] Palmira Garcia [facility] [place] [address] Note to Patients: This report may contain [...] Gender: F : 1980 (Age: 44) Address: [address] [place] [address] Hospital #: [id number] Taken:11/18/2024 Received:11/18/2024 Reported: 11/19/2024 Patient Type: [facility] Service: Gastro Location: Physician(s): [place] [...] Surgical Pathology and Flow Cytometry Departments at [facility] as part of an ongoing plant quality manager program and in compliance with federally mandated [...] Surgical Pathology and Flow Cytometry Departments of [facility]. It has not been cleared or approved by the U. S. Food and Drug Administration. IMAGES AND SCANNED DOCUMENTS, IF INCLUDED, ONLY VIEWABLE IN PDF VERSION OF REPORT us Vincenzo Tai MD LAB PATHOLOGY ORDERABLES nal Result PATHOLOGY [facility] 3rd Floor [place], [place] [phone] * EGD (11/18/2024 8:42 AM CDT) Anatomical Region Laterality Modality Other Narrative Procedure Note Vincenzo Tai MD - 11/18/2024 8:42 AM CDT GI ENDOSCOPY [facility] Patient Name: Irvin Reddy Procedure Date: 11/18/2024 8:42 AM Date of : 1980 Admit Type: Outpatient Age: 44 Gender: Female Attending MD: Vincenzo Tai M.D., Room: [facility] ENDOSCOPY ROOM 9 Note Status: Finalized Procedure: [...] passed under direct vision. The [id number] endoscope was introduced through the mouth, and [...] following this procedure please call my officeat [phone] ([phone]) to speak to my nurses. After hours and evenings please call [phone] speak to the GI fellow clinical transformation specialist. Please tell themthat Dr. Tai did your procedure and that your were instructed to have the fellow call me or thephysician covering for me to discuss the management of your condition. If you have an urgent problem, please goto the nearest emergency room and have the ER doctorcall my office during the day or [facility] transfer ([phone]) center after hours and weekends to arrange admission or transfer to our facility. - Call my nurse Dahiana Monroy RN in the GI office at [phone] for your final pathology results in 7 [...] ORDERABLES - DEVIC E Final Result [facility] One [facility] [place] [address] * CT Abdomen and Pelvis Enterography W [...] ORDERABLES F inal Result Performing Organization Address [facility] Co de Phone Number [address] [place] [address] * (ABNORMAL) Thyroid Function Borden (10/06/2024 1:00 PM CDT) TSH 7.43(H) 0.30 - 4.20 mcIUnit/mL Blood 10/06/2024 1:00 PM CDT 10/06/2024 1:03 PM CDT Dahiana De León MD LAB BLOOD ORDERABLES Jessica l Result Performing Organization Address [facility] Co de Phone Number [address] [address] * Hepatitis panel, acute Blood (09/09/2024 3:23 PM CDT) Pathologist [facility] Hep A IgM Nonreactive Nonreactive Comment: Interpretive Data: If Hep A IgM Ab is reported as Equivocal, a new sample should be drawn in two weeks for testing. Current interpretive data was last revised on 19. Testing performed by: [facility], [address] [place] [address]., [id number] Hep B core IgM Nonreactive Nonreactive [facility] Comment: Interpretive Data If HepB Core IgM Ab is reported as Equivocal, a new sample should be drawn in two weeks for testing. Current interpretive data was last revised on 19. Testing performed by: [facility], [address] [place] [address]., [id number] Hep C Ab Nonreactive Nonreactive [facility] Comment: Interpretive Data Nonreactive: Antibodies to HCV [...] last revised on 2019. Testing performed by: [facility], [address] [place] [address]., [id number] HepBsAg Nonreactive Nonreactive [facility] Comment:Testing performed by : [facility], [address] [place] [address]., [id number] Blood 09/09/2024 3:23 PM CDT 09/09/2024 7:23 PM CDT Fredo Olivarez MD LAB MICROBIOLOGY - GENERAL ORDER GWEN Final Result Performing Organization Address City/[facility] Co de Phone Number [facility] [address] [facility] [place] [address] * Albumin Creatinine Ratio, Urine (02/27/2024 3:24 PM EXAM PROCTOR) Pathologist [facility] Microalb, Ur 19.3 0.0 - 22.9 mg/L [facility] Random Urine Creatinine 315.7 mg/dL [facility] Microalb/Creat Ratio 6.1 0.0 - 29.9 mg/g [facility] Urine 02/27/2024 3:24 PM EXAM PROCTOR 02/27/2024 4:12 PM EXAM PROCTOR Ryanne Merino NP LAB URINE ORDERABLES Jessica l Result [facility] * Lipid panel (02/27/2024 3:24 PM EXAM PROCTOR) Triglycerides 80 <150 mg/dL [facility] Comment: Desirable: <150 mg/dL, fasting <175 mg/dL, non-fasting Persistently elevated triglycerides may enhance atherosclerotic cardiovascular disease. Total Cholesterol 150 <200 mg/dL [facility] Total HDL-C Direct 62 >50 mg/dL [facility] Non-HDL cholesterol 88 <220 mg/dL [facility] [place] LDL Chol 72 <190 mg/dL [facility] Blood 02/27/2024 3:24 PM EXAM PROCTOR 02/27/2024 4:[address]AM [address] [facility] - 02/27/2024 4:46 PM EXAM PROCTOR Current interpretive data was last updated January 20, 2021. For adults ages 40-79, the ACC/AHA recommends discussing your 10-year atherosclerotic cardiovascular disease risk with your health care provider. https://www.acc.org/ASCVDApp These lab test should be done fasting. This means do not eat or drink for at least 12 hours prior to getting your blood drawn. Ryanne Merino NP LAB BLOOD ORDERABLES Jessica marcus Result [facility] from Last 3 Months or Most Recently Relevant to Health Maintenance Insurance [facility]IC[facility] MEDICARE [facility] MEDICARE [facility] Advance Directives For more information, please contact: [phone] * Full Code (Latest Code Status on [...] 6:20 AM 06/04/2024 1:07 PM Care Teams Cardiac Cath Lab Radiology Technologist Relationship Specialty Start Date End Date Keshia Barriga MD [address] [facility] [address] [place] [address] PCP - General Internal Medicine 01/01/25 Omi Kennedy MD Surgeon Colon and Rectal Surgery 09/08/18 Angelia Melgoza MD Surgeon Colon and Rectal Surgery 09/08/18 [place] [address] [facility] [address] [place] [address] Psychiatrist Psychiatry 09/08/18 [place] [id number] [address] Media Production Operator Gastroenterology 09/08/18 Aria Madrid MD [address] [facility] [place] [address] Consulting Physician Obstetrics and Gynecology 08/06/22
--- OUTSIDE RECORDS SUMMARY | 2025-02-10 10:55 | XMS_ITS | Encounter Summary ---
Author Organization [employer] Address 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
--- OUTSIDE RECORDS SUMMARY | 2025-02-10 10:55 | XMS_ITS ---
Author Organization [facility] Address [address] [place] [address] Care Team Providers Care Correctional Corporal Name Role Phone Omi Kennedy MD Unavailable [phone] Angelia Melgoza MD Unavailable OnumaRobert MD Unavailable [phone] Marciano Danielson MD Unavailable Aria Madrid MD Unavailable [phone] Keshia Barriga MD Primary Care Provider Active [...] 01/08/2024 Assessment & Plan (01/08/2024 8:33 AM UI DESIGNER): Well healed Dc moxi, finish valtrex nursing home Refresh alethea or similar at bedtime (QHS) both eyes (OU) Fu prn 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 01/08/2024 Assessment & Plan (01/08/2024 8:32 AM UI DESIGNER): Fu for On oct 1 year Recurrent erosion of left cornea 10/30/2023 Assessment & Plan (01/02/2024 1:21 PM UI DESIGNER): Healing well- no infiltrate CPMEDS FU Wed am remove BCL Assessment & Plan (12/31/2023 11:50 AM UI DESIGNER): Pt has ho cold sores, + ac [...] Bipolar 2 disorder 03/22/2023 Mixed hyperlipidemia 03/11/2023 nursing home current use of insulin 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/18/2022 Vomiting 10/24/2021 [...] (08/10/2019): Added automatically from request for surgery [id number] Small bowel stricture 01/30/2019 Overview (01/30/2019): Added automatically from request for surgery [id number] Generalized abdominal pain 11/11/2018 Dehydration, mild 11/11/2018 [...] gastroparesis Chronic abdominal pain 10/22/2018 Atherosclerosis of [place] ar teries of extremity with intermittent claudication 10/21/2018 History of colon cancer 08/25/2018 Overview (08/25/2018): Added automatically from request for surgery [id number] Leukocytosis 06/13/2018 Assessment & Plan (09/11/2024 10:58 [...] (01/27/2018): Added automatically from request for surgery [id number] Assessment & Plan (11/01/2021 9:57 AM CDT): [...] zofran with benadryl Continue bentyl Q6 hrs Glaze Sprayer consult to reinforce low volume frequent meals [...] Pelvic pain in female 11/11/2013 Overview (07/10/2018): MANAGER CORPORATE COMMUNICATIONS (CASSANDRA) MANAGING -- ON GABAPENTIN Gastro-esophageal reflux [...] OV Added automatically from request for surgery [id number] Last Assessment & Plan: Pt follow for [...] Pelvic pain in female 11/11/2013 Overview (01/19/2021): MANAGER CORPORATE COMMUNICATIONS (CASSANDRA) MANAGING -- ON GABAPENTIN MANAGER CORPORATE COMMUNICATIONS (CASSANDRA) MANAGING -- ON GABAPENTIN MANAGER CORPORATE COMMUNICATIONS (CASSANDRA) MANAGING -- ON GABAPENTIN Personal history of colon cancer 11/11/2013 Overview (01/19/2021): COLORECTAL SURG(SUSAN) MANAGING 1996 S/P TOTAL COLECTOMY Colon cancer 11/09/2013 Overview (10/21/2018): Colon cancer Type 1 diabetes mellitus with hyperglycemia 10/20 Assessment & Plan (01/08/2024 8:31 AM UI DESIGNER): FU for DFE and mac oct 1 [...] Advised to call the after hours endo electron beam welder if she has issues over the weekend. [...] (08/12/2018): Added automatically from request for surgery [id number] Abdominal pain, epigastric 06/11/2017 0 10/22/2018 SBO [...]
--- OUTSIDE RECORDS SUMMARY | 2025-02-10 10:55 | XMS_ITS | Encounter Summary ---
Author Organization [employer] Address 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
[2025-02-10 11:05] VITALS: BP 111/64; PULSE 110; RESP 20; TEMP 36.7; O2SAT 100
--- NOTE | 2025-02-10 11:53 | ED.URI ---
HPI - URI/Sore Throat General Chief Complaint: Upper Respiratory Infection Stated Complaint: covid/flu symptoms Time Seen by Provider: 02/10/25 11:20 Source: patient, RN notes reviewed and old records reviewed Mode of arrival: ambulatory Limitations: no limitations History of Present Illness HPI Narrative: 44 year old female who presents to [facility] with complaints of being ill since Saturday and reports that she called her doctor and he wanted her tested for for possible COVID, Flu and Strep. Patient reports that she has had body aches, sore throat, headache and low grade fevers since Saturday and has been taking NyQuil and also some cough medication. Patient is type I diabetic has insulin pump and Dexcom glucose monitor and she is concerned for possible COVID. MD elicited complaint: fever (low grade, headache, body aches.), cough and sore throat Pertinent past history: other (Type I diabetes,) Onset (ago): day(s) (3) Pain scale (0-10): 4 Able to tolerate fluids by mouth: No Treatments prior to arrival: other (NyQuil and has taken cough medication) Related Data Home Medications ?Medication ?Instructions ?Recorded ?Confirmed ?Last Taken ?Type alprazolam 1 mg tablet 1 mg PO TID 07/15/19 07/15/19 Unknown History cetirizine 10 mg tablet 10 mg PO DAILY 07/15/19 07/15/19 Unknown History dexlansoprazole 60 mg 60 mg PO DAILY 07/15/19 07/15/19 Unknown History capsule,biphase delayed release (Dexilant) dicyclomine 20 mg tablet 20 mg PO Q2H 07/15/19 07/15/19 Unknown History insulin glargine 100 unit/mL (3 unit subcut 07/27/24 Unknown History mL) subcutaneous pen (Basaglar KwikPen U-100 Insulin) escitalopram oxalate 5 mg tablet mg 02/08/25 Unknown History gabapentin 300 mg capsule mg 02/08/25 Unknown History ibuprofen 800 mg tablet mg 02/08/25 Unknown History insulin pump cart,auto,BT,G6/7 02/08/25 02/08/25 Unknown History (Omnipod 5 G6-G7 Pods (Gen 5) subcutaneous cartridge) naproxen 500 mg tablet mg 02/08/25 Unknown History Allergies Allergy/AdvReac Type Severity Reaction Status Date / Time vancomycin Allergy Intermediate Hives / Verified 02/10/25 11:05 Red Face erythromycin base Allergy Mild Hives / Verified 02/10/25 11:05 Red Face Review of Systems Review of Systems: CONSTITUTIONAL: Reports malaise, chills, sweats, low grade fever. EYES: Denies visual changes, redness, or discharge. ENT: Reports rhinorrhea, congestion, sinus pain,no otalgia and + sore throat. CARDIOVASCULAR: Denies chest pain, palpitations, or edema. RESPIRATORY: Reports cough.? Denies dyspnea. GASTROINTESTINAL: Denies abdominal pain, nausea, vomiting, diarrhea SKIN: Denies rash or itching. MUSCULOSKELETAL: reports myalgia. NEUROLOGIC: reports headache. All systems reviewed & are unremarkable except as noted in HPI and below PMFSH Past Medical History Medical History Type 1 diabetes Anxiety Colon cancer Diabetes Surgical History Surgical History History of colectomy History of kidney surgery Family History Family History Father Alive and well Mother Carcinoma of colon Grandparent Carcinoma of colon Sibling Carcinoma of colon Sibling Diabetes mellitus Social History Social History Smoking status: Never smoker Alcohol intake: never Substance use: never Living arrangements: with family Gender identity (if verbalized by the patient): Female Comments At time of signature, agree with nursing past medical, surgical, social and family history. There is no relevant family history pertinent to the presenting complaint Exam Narrative: GENERAL: Well-appearing, well-nourished, and in no acute distress. HEAD: Normocephalic EYES: PERRLA, conjunctivae clear ENT: Nares clear, turbinates edematous and erythematous, clear discharge. Mucous membranes moist. TM pearly barney with dull light reflex bilaterally; no tragal tenderness. Oropharynx erythematous without lesions. Tonsils not enlarged and without exudate, no drooling, no hoarseness, no trismus, uvula midline, some post nasal drainage. NECK: Supple. No lymphadenopathy CHEST: Clear to auscultation, breath sounds equal. No wheezing, rhonchi, rales, or stridor. No respiratory distress, speaks in full sentences.dry cough SAO2 100% on room air HEART: Regular rate and rhythm. No murmur heard. SKIN: Warm, dry, no rash. NEURO: Alert and oriented x3. PSYCH: Normal mood and affect Course Course Level of Care: Express Care Visit Vital Signs Vital signs: Vital Signs Temperature 36.7 C 02/10/25 11:05 Pulse Rate 110 H 02/10/25 11:05 Respiratory Rate 20 02/10/25 11:05 Blood Pressure 111/64 02/10/25 11:05 Pulse Oximetry 100 02/10/25 11:05 Oxygen Delivery Room Air 02/10/25 11:05 Temperature 36.7 C 02/10/25 11:05 Pulse Rate 110 H 02/10/25 11:05 Respiratory Rate 20 02/10/25 11:05 Blood Pressure 111/64 02/10/25 11:05 Pulse Oximetry 100 02/10/25 11:05 Oxygen Delivery Room Air 02/10/25 11:05 reviewed [facility] Narrative Medical decision making narrative: Patient presents with 3 days of sore throat, dry cough, nasal drainage body aches and headaches with patient testing positive for COVID. Patient is type I diabetic and wants Paxlovid ordered with patient instructed she can not take Xanax while on this medication and patien voiced understanding. Patient agrees to treatment plan with management of symptoms with OTC meds also. Anticipatory guidance and reasons to seek care revewed with patient with understading voiced. Differential Diagnosis Differential Diagnosis: Differential diagnostic considerations for upper respiratory infection include upper respiratory infection, croup, otitis media, sinusitis, viral infection, bronchitis, influenza, pharyngitis, strep, uvulitis.?COVID Lab Data [facility] Lab Attestation statement: I personally reviewed the patient's lab results. Lab results narrative: strep screen negative, culture sent, Influenza A& B negative, COVID antigen positive Labs: Lab Results 02/10/25 Range/Units 11:04 POC Influenza A Ag Negative (Negative) POC Influenza B Ag Negative (Negative) POC SARS CoV-2 Ag Positive (Negative) POC Grp A Strep Screen Negative (Negative) reviewed Critical Care Time Critical Care Time Critical Care Time: No Discharge Plan Discharge Clinical Impression: COVID-19 Patient Disposition: Home Condition: Stable Instructions: Antibiotic Form, How to Recover from COVID-19 at Home (ED) Additional Instructions: Increase fluids especially juices and water [id number] cough and cold medicine of your choice for your symptoms Zyrtec Claritin or Polly daily may include Sudafed plain in a.m. and p.m. heat to the face 20-30 minutes 4-6 times a day for pain Salt water gargles, throat lozenges or throat sprays as desired Tylenol or ibuprofen for any fever pain for package direction If your symptoms persist, change or worsen significantly before you can contact your personal physician then please, without delay, go to the emergency department for further evaluation. Follow-up with PCP in 7-10 days or sooner if needed COVID-19 DISCHARGE The following recommendations have been made by the CDC and local Health Departments, regarding COVID-19: Those individuals with mild cases of COVID-19 can generally be discontinued from isolation, 5 days AFTER the onset of symptoms AND the resolution of fever for 24hrs (without the use of fever-reducing medications) Those individuals who were asymptomatic, and tested positive, are discontinued from isolation 10 days AFTER their first positive COVID-19 test Those individuals with SEVERE to CRITICAL illness or immunocompromised diseases may require up to 20 days of home isolation or hospitalization Majority of mild to moderate cases can be treated at home, without hospitalization or prescription medications You do not need a negative test result to return to work/school, assuming the above recommendations have been met and you are not symptomatic. At this time, return to work/school notes will not be provided. Guidelines from the local Health Department, CDC, and workplace are expected to be followed. All individuals in the household need to remained quarantined for up to 14 days if asymptomatic OR 10 days after the start of symptoms. Everyone in the home DOES NOT require testing, they are presumed positive and should quarantine as directed. Treating symptoms for mild to moderate cases may include: Tylenol, Flonase/nasal spray, OTC cold/flu medications recommended from your provider or any necessary prescription medications provided at your visit or from your PCP IF YOU TESTED NEGATIVE If you are symptomatic with reason to believe you have COVID-19, there is a high possibility your rapid test may not have detected the virus. Rapid testing is dependent on timing and viral load and may have a false-negative reading You should follow appropriate guidelines regarding quarantine, hand washing, mask wearing, and social distancing You may be sent for PCR testing as an outpatient to the [place] testing site Common Adult Symptoms: Fever/chills Cough Shortness of breath Fatigue, muscle aches Headache Loss of taste/smell Sore throat, congestion, runny nose GI symptoms (nausea, vomiting, diarrhea) Common Pediatric Symptoms Cough Fever GI symptoms (diarrhea, upset stomach, nausea, vomiting) Symptoms may differ in severity however, most cases do not require hospitalization. WHEN TO SEEK ER EVALUATION/TREATMENT Severe/persistent shortness of breath or difficulty breathing Elevated, persistent fevers without resolution with fever-reducing medications Chest pain Extreme fatigue/lethargy Complications of pre-existing disease Patient Language: Cymraes Prescriptions: New Paxlovid 300 mg (150 mg x 2)-100 mg tablets,dose pack See Rx Instructions .ROUTE .COMPLEX Qty: 30 0RF Rx Instructions: take TWO 150 mg tablets of nirmatrelvir with ONE 100 mg tablet of ritonavir twice daily for 5 days Patient reports that she has not taken this medication for 3 weeks and has been instructed that she can not take with the Paxlovid No Action cetirizine 10 mg tablet 10 mg PO DAILY alprazolam 1 mg tablet 1 mg PO TID dicyclomine 20 mg tablet 20 mg PO Q2H Dexilant 60 mg capsule,biphase delayed releas 60 mg PO DAILY insulin glargine [Basaglar KwikPen U-100 Insulin] 100 unit/mL (3 mL) insulin pen SUBCUT ibuprofen 800 mg tablet gabapentin 300 mg capsule naproxen 500 mg tablet escitalopram oxalate 5 mg tablet (DME) Omnipod 5 G6-G7 Pods (Gen 5) Cartridge SUBCUT Follow-up/Referrals: Gary,Augustine Almeida MD [Primary Care Provider] Time of Disposition: 12:06 Quality Britton Coma Scale Eyes: Open Verbal: Oriented and Alert Motor: Follows Commands Britton Coma Total Score: 15
[2025-02-10 12:02] LABS: EDCOVIDSCREEN Positive (Negative); EDINFLUASCREEN Negative (Negative); EDINFLUBSCREEN Negative (Negative); EDSTREPNEGPOS1 Negative (Negative)
== END 2025-02-10 12:13 | disposition home or self-care (01) ==
PROVIDERS: Emergency Provider Registered Nurse; PCP Internal Medicine
DX: U07.1 COVID-19 (principal); E10.9 Type 1 diabetes mellitus without complications; Z79.4 Long term (current) use of insulin; F41.9 Anxiety disorder, unspecified; Z96.41 Presence of insulin pump (external) (internal)
CPT/HCPCS: 87081; 87426; 87804; 87880; 99213; G0463